=== PATIENT | male | born 1980 | race Caucasian/White ===

== ENCOUNTER 2022-07-29 07:59 | Inpatient (IN) | payer BC, SELFPAY ==
[2022-07-29 08:02] VITALS: BP 145/90; PULSE 105; RESP 16; TEMP 36.4; O2SAT 96; BMI 40.6
--- NOTE | 2022-07-29 08:08 | W.ED.PSYCHS ---
Documented by User: KENNY Melgar 07/29/22 09:08 HPI - Psych General: Chief Complaint: Psychiatric Symptoms Stated Complaint: SI Time Seen by Provider: 07/29/22 08:00 Source: patient Mode of arrival: ambulatory Limitations: no limitations History of Present Illness: Patient is a 41-year-old male who presents to ED today for evaluation and treatment of suicidal ideations. Patient states over the past 4 days he has stopped taking all of his psychiatric medications and has been drinking heavily. Patient states he normally does not abuse alcohol. No alcohol withdrawal symptoms. Denies drug use. He states he is supposed to be on psychiatric medications for treatment of bipolar, anxiety, depression. He states that he is about to lose his job and is struggling mentally . He states last night he was holding a knife contemplating suicide. Patient states he has been hospitalized before for suicidal ideations most recently approximately 6 months ago in [place], [place]. complaint: suicidal ideation and feels depressed Onset (ago): day(s) Duration: constant History of same: Yes Context: significant life stressor Associated psychiatric symptoms: depression and suicidal ideation Associated symptoms: Reports depression and suicidal ideation; Deny auditory hallucinations, visual hallucinations or homicidal ideation Treatments prior to arrival: none If self harm: admits thoughts of self harm Review of Systems Const: Denies: fever(s) or chills Card: Denies: chest pain, palpitations, lightheadedness or syncope Resp: Denies: dyspnea GI: Denies: abdominal pain, nausea, vomiting or diarrhea Skin/Breast: Denies: rash Neuro: Denies: headache(s) Psych: Reports: anxiety, depression, hopelessness and suicidal ideation; Denies: visual hallucinations, auditory hallucinations or homicidal ideation Physical Exam Const: COMMON NORMALS: no acute distress, patient oriented x3, alert and well nourished GENERAL APPEARANCE: cooperative and well kempt Resp: COMMON NORMALS: normal respiratory effort and clear to auscultation bilaterally AUSCULTATION: clear to auscultation bilaterally Cardio: COMMON NORMALS: regular rate and regular rhythm RATE: regular rate RHYTHM: regular rhythm Neuro: COMMON NORMALS: patient oriented x3 SENSORIUM/ORIENTATION: Yes alert Psych: COMMON NORMALS: mental status grossly normal, Normal thought process present, cooperative, speech normal, activity/motor behavior normal, denies hallucinations and denies homicidal ideation APPEARANCE: Yes grossly normal and Yes well kempt ATTITUDE: Yes calm ACTIVITY/MOTOR BEHAVIOR: No psychomotor agitation and Yes Avoids eye contact (attititude/behavior) SPEECH: Yes normal speech MOOD & AFFECT: Yes Flat affect present THOUGHT PROCESS: Normal thought process present THOUGHT CONTENT: Yes Normal thought content present ATTENTION/CONCENTRATION: Yes attention grossly intact and Yes concentration grossly intact MEMORY/COGNITION: Yes memory grossly intact and Yes cognition grossly intact INSIGHT: Good insight present (Psych) JUDGEMENT: Good judgement present (Psych) Course Consultations: Consultation #1: Dr. Rizzo-accepts admission to NPU Vital Signs: Vital signs: Vital Signs Temperature 97.5 F L 07/29/22 08:02 Pulse Rate 105 H 07/29/22 08:02 Respiratory Rate 16 07/29/22 08:02 Blood Pressure 145/90 07/29/22 08:02 Pulse Oximetry 96 07/29/22 08:02 Oxygen Delivery Me thod 07/29/22 08:02 MDM - Psych Medical Decision Making Patient will be an admit to NPU to Dr. Rizzo for treatment of depression and suicidal ideations. Patient is voluntary with affidavit at this time. Lab Data 07/29/22 08:30 07/29/22 08:30 Laboratory Results WBC 6.4 10^3/uL (4.0-10.0) 07/29/22 08:30 RBC 4.28 10^6/uL (4.1-5.3) 07/29/22 08:30 Hgb 12.1 g/dL (11.7-16.6) 07/29/22 08:30 Hct 36.1 % (42.0-52.0) L 07/29/22 08:30 MCV 84.3 fl (80-94) 07/29/22 08:30 MCH 28.3 pg (28.0-34.0) 07/29/22 08:30 MCHC 33.5 g/dL (30.0-36.0) 07/29/22 08:30 RDW 13.7 % (12.1-15.1) 07/29/22 08:30 Plt Count 233 10^3/cmm (130-400) 07/29/22 08:30 MPV 8.9 fL (7.4-10.4) 07/29/22 08:30 Neut % (Auto) 70.5 % 07/29/22 08:30 Lymph % (Auto) 21.6 % 07/29/22 08:30 Mifflin % (Auto) 7.1 % 07/29/22 08:30 Eos % (Auto) 0.0 % 07/29/22 08:30 Baso % (Auto) 0.0 % 07/29/22 08:30 Neut # (Auto) 4.48 10^3/uL (1.8-7.7) 07/29/22 08:30 Lymph # (Auto) 1.4 10^3/uL (0.8-4.8) 07/29/22 08:30 Mifflin # (Auto) 0.5 10^3/uL (0.2-0.9) 07/29/22 08:30 Eos # (Auto) 0.0 10^3/uL (0.0-0.8) 07/29/22 08:30 Baso # (Auto) 0.0 10^3/uL (0.0-0.1) 07/29/22 08:30 Nucleated RBC % (auto) 0 % 07/29/22 08:30 Nucleated RBCs # 0.0 /100WBC 07/29/22 08:30 Sodium 134 mmol/L (136-145) L 07/29/22 08:30 Potassium 4.7 mmol/L (3.5-5.1) 07/29/22 08:30 Chloride 92 mmol/L (98-107) L 07/29/22 08:30 Carbon Dioxide 27 mmol/L (22-29) 07/29/22 08:30 Anion Gap 19.7 (5-19) H 07/29/22 08:30 BUN 24 mg/dL (6-20) H 07/29/22 08:30 Creatinine 1.2 mg/dL (0.7-1.2) 07/29/22 08:30 GFR Calculation 66.4 mL/min (90-130) L 07/29/22 08:30 Glucose 95 mg/dL (65-115) 07/29/22 08:30 Calculated Osmolality 282 mOsm/kg (285-295) L 07/29/22 08:30 Calcium 9.6 mg/dL (8.5-10.5) 07/29/22 08:30 Total Bilirubin 0.5 mg/dL (0.15-1.2) 07/29/22 08:30 AST 33 U/L (0-40) 07/29/22 08:30 ALT 22 U/L (0-41) 07/29/22 08:30 Alkaline Phosphatase 75 U/L (40-130) 07/29/22 08:30 Total Protein 7.7 g/dL (6.6-8.7) 07/29/22 08:30 Albumin 4.9 g/dL (3.5-5.2) 07/29/22 08:30 Globulin 2.8 g/dL (1.3-4.6) 07/29/22 08:30 Salicylates < 0.3 mg/dL (3-10) L 07/29/22 08:30 Urine Opiates Screen Positive ng/mL (Negative) H 07/29/22 08:23 Acetaminophen < 5.0 ug/mL (10-30) L 07/29/22 08:30 Ur Barbiturates Screen Negative ng/mL (Negative) 07/29/22 08:23 Ur Phencyclidine Scrn Negative ng/mL (Negative) 07/29/22 08:23 Ur Amphetamines Screen Negative ng/mL (Negative) 07/29/22 08:23 U Benzodiazepines Scrn Positive ng/mL (Negative) H 07/29/22 08:23 Urine Cocaine Screen Negative ng/mL (Negative) 07/29/22 08:23 U Marijuana (THC) Screen Positive ng/mL (Negative) H 07/29/22 08:23 Ethyl Alcohol < 10 mg/dL (0-10) 07/29/22 08:30 Discharge Plan Discharge Patient Disposition: Admitted As Inpatient Clinical Impression: Depression, Suicidal ideation Condition: Stable Coding Level of Care Code ED Cctv Technician for Chg Fwd Documented by User: Carlos Livingston DO 07/29/22 09:11 HPI - Psych General: Chief Complaint: Psychiatric Symptoms Stated Complaint: SI Time Seen by Provider: 07/29/22 08:00 Course Vital Signs: Vital signs: Vital Signs Temperature 97.5 F L 07/29/22 08:02 Pulse Rate 105 H 07/29/22 08:02 Respiratory Rate 16 07/29/22 08:02 Blood Pressure 145/90 07/29/22 08:02 Pulse Oximetry 96 07/29/22 08:02 Oxygen Delivery Me thod 07/29/22 08:02 MDM - Psych Medical Decision Making Patient will be an admit to NPU to Dr. Rizzo for treatment of depression and suicidal ideations. Patient is voluntary with affidavit at this time. Chart reviewed and patient discussed with midlevel. Agree with assessment and plan. Medical Records I reviewed the patient's medical records. Lab Data I reviewed the patient's lab results. 07/29/22 08:30 07/29/22 08:30 Laboratory Results WBC 6.4 10^3/uL (4.0-10.0) 07/29/22 08:30 RBC 4.28 10^6/uL (4.1-5.3) 07/29/22 08:30 Hgb 12.1 g/dL (11.7-16.6) 07/29/22 08:30 Hct 36.1 % (42.0-52.0) L 07/29/22 08:30 MCV 84.3 fl (80-94) 07/29/22 08:30 MCH 28.3 pg (28.0-34.0) 07/29/22 08:30 MCHC 33.5 g/dL (30.0-36.0) 07/29/22 08:30 RDW 13.7 % (12.1-15.1) 07/29/22 08:30 Plt Count 233 10^3/cmm (130-400) 07/29/22 08:30 MPV 8.9 fL (7.4-10.4) 07/29/22 08:30 Neut % (Auto) 70.5 % 07/29/22 08:30 Lymph % (Auto) 21.6 % 07/29/22 08:30 Mifflin % (Auto) 7.1 % 07/29/22 08:30 Eos % (Auto) 0.0 % 07/29/22 08:30 Baso % (Auto) 0.0 % 07/29/22 08:30 Neut # (Auto) 4.48 10^3/uL (1.8-7.7) 07/29/22 08:30 Lymph # (Auto) 1.4 10^3/uL (0.8-4.8) 07/29/22 08:30 Mifflin # (Auto) 0.5 10^3/uL (0.2-0.9) 07/29/22 08:30 Eos # (Auto) 0.0 10^3/uL (0.0-0.8) 07/29/22 08:30 Baso # (Auto) 0.0 10^3/uL (0.0-0.1) 07/29/22 08:30 Nucleated RBC % (auto) 0 % 07/29/22 08:30 Nucleated RBCs # 0.0 /100WBC 07/29/22 08:30 Sodium 134 mmol/L (136-145) L 07/29/22 08:30 Potassium 4.7 mmol/L (3.5-5.1) 07/29/22 08:30 Chloride 92 mmol/L (98-107) L 07/29/22 08:30 Carbon Dioxide 27 mmol/L (22-29) 07/29/22 08:30 Anion Gap 19.7 (5-19) H 07/29/22 08:30 BUN 24 mg/dL (6-20) H 07/29/22 08:30 Creatinine 1.2 mg/dL (0.7-1.2) 07/29/22 08:30 GFR Calculation 66.4 mL/min (90-130) L 07/29/22 08:30 Glucose 95 mg/dL (65-115) 07/29/22 08:30 Calculated Osmolality 282 mOsm/kg (285-295) L 07/29/22 08:30 Calcium 9.6 mg/dL (8.5-10.5) 07/29/22 08:30 Total Bilirubin 0.5 mg/dL (0.15-1.2) 07/29/22 08:30 AST 33 U/L (0-40) 07/29/22 08:30 ALT 22 U/L (0-41) 07/29/22 08:30 Alkaline Phosphatase 75 U/L (40-130) 07/29/22 08:30 Total Protein 7.7 g/dL (6.6-8.7) 07/29/22 08:30 Albumin 4.9 g/dL (3.5-5.2) 07/29/22 08:30 Globulin 2.8 g/dL (1.3-4.6) 07/29/22 08:30 Salicylates < 0.3 mg/dL (3-10) L 07/29/22 08:30 Urine Opiates Screen Positive ng/mL (Negative) H 07/29/22 08:23 Acetaminophen < 5.0 ug/mL (10-30) L 07/29/22 08:30 Ur Barbiturates Screen Negative ng/mL (Negative) 07/29/22 08:23 Ur Phencyclidine Scrn Negative ng/mL (Negative) 07/29/22 08:23 Ur Amphetamines Screen Negative ng/mL (Negative) 07/29/22 08:23 U Benzodiazepines Scrn Positive ng/mL (Negative) H 07/29/22 08:23 Urine Cocaine Screen Negative ng/mL (Negative) 07/29/22 08:23 U Marijuana (THC) Screen Positive ng/mL (Negative) H 07/29/22 08:23 Ethyl Alcohol < 10 mg/dL (0-10) 07/29/22 08:30 Discharge Plan Discharge Patient Disposition: Admitted As Inpatient Clinical Impression: Depression, Suicidal ideation Condition: Stable Coding Level of Care Code ED Cctv Technician for Uriel Price
--- NOTE | 2022-07-29 08:10 | PC.NURSE ---
pt reports he feels suicidal. states he was sitting there yesterday with a knife. pt reports intention of acting on thoughts. states he has nothing to live for anymore. has cut himself in the past. denies HI. has been drinking for the last 4 days, has not taken his psych meds and is about to lose his job. feels like he is hitting a brick wall. hx hospitalization 6 months ago for mental health. pt appears depressed, avoiding eye contact. calm and cooperative at this time.
[2022-07-29 08:35] LABS: Hematocrit 36.1 % (42.0-52.0); Hemoglobin 12.1 g/dL (11.7-16.6); Lymphocytes # 1.4 10^3/uL (0.8-4.8); Lymphocytes % 21.6 %; Mean Corpuscular HGB Conc 33.5 g/dL (30.0-36.0); Mean Corpuscular Hemoglobin 28.3 pg (28.0-34.0); Mean Corpuscular Volume 84.3 fl (80-94); Mean Platelet Volume 8.9 fL (7.4-10.4); Monocytes # 0.5 10^3/uL (0.2-0.9); Monocytes % 7.1 %; Neutrophils # 4.48 10^3/uL (1.8-7.7); Neutrophils % 70.5 %; Nucleated Red Blood Cells % 0 %; Platelet Count 233 10^3/cmm (130-400); Red Blood Count 4.28 10^6/uL (4.1-5.3); Red Cell Distribution Width 13.7 % (12.1-15.1); White Blood Count 6.4 10^3/uL (4.0-10.0)
[2022-07-29 08:57] LABS: Alanine Aminotransferase 22 U/L (0-41); Albumin Level 4.9 g/dL (3.5-5.2); Alkaline Phosphatase 75 U/L (40-130); Anion Gap 19.7 (5-19); Aspartate Amino Transferase 33 U/L (0-40); Blood Urea Nitrogen 24 mg/dL (6-20); Calcium 9.6 mg/dL (8.5-10.5); Carbon Dioxide 27 mmol/L (22-29); Chloride 92 mmol/L (98-107); Globulin 2.8 g/dL (1.3-4.6); Glomerular Filtration Rate 66.4 mL/min (90-130); Glucose 95 mg/dL (65-115); Osmolality Calculated 282 mOsm/kg (285-295); Potassium 4.7 mmol/L (3.5-5.1); Sodium 134 mmol/L (136-145); Total Bilirubin 0.5 mg/dL (0.15-1.2); Total Protein 7.7 g/dL (6.6-8.7)
[2022-07-29 08:58] LABS: Amphetamines Screen Urine Negative (Negative); Barbiturates Screen Urine Negative (Negative); Benzodiazepines Screen Urine Positive (Negative); Cocaine Screen Urine Negative (Negative); Opiate Screen Urine Positive (Negative); PCP Screen Urine Negative (Negative); THC Screen Urine Positive (Negative)
[2022-07-29 08:59] LABS: Acetaminophen < 5.0 ug/mL (10-30); Alcohol Level < 10 mg/dL (0-10); Salicylate < 0.3 mg/dL (3-10)
--- NOTE | 2022-07-29 10:11 | PC.NURSE ---
report called to MICHELLE Murray in NPU
[2022-07-29 10:42] VITALS: BP 149/100; PULSE 112; RESP 18; TEMP 36.4; O2SAT 96
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
[2022-07-29] MEDS: nicotine 4 mg lozenge MUCOUS MEM (11:54)
[2022-07-29] MEDS: LORazepam 2 mg Tablet PO (12:36)
[2022-07-29] MEDS: losartan 50 mg Tablet 100 MG PO (13:13)
[2022-07-29] MEDS: levothyroxine 25 mcg Tablet PO (13:15)
[2022-07-29] MEDS: metoprolol succinate ER (24 HR) 50 mg Tablet PO (13:16)
[2022-07-29] MEDS: pantoprazole DR 40 mg Tablet PO (13:18)
[2022-07-29] MEDS: atorvastatin 40 mg Tablet 20 MG PO (13:18)
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
[2022-07-29 14:00] VITALS: BP 124/77; PULSE 110; RESP 18; TEMP 36.6; O2SAT 97
[2022-07-29] MEDS: divalproex DR 500 mg Tablet 1000 MG PO (18:05)
[2022-07-29] MEDS: naproxen 500 mg Tablet PO (18:06)
[2022-07-29] MEDS: lurasidone 80 mg Tablet 40 MG PO (18:06)
[2022-07-29] MEDS: chlorPROMazine 50 mg Tablet 200 MG PO (18:07)
[2022-07-29 20:05] VITALS: BP 105/62; PULSE 109; RESP 22; TEMP 36.4; O2SAT 94
--- NOTE | 2022-07-29 22:40 | PC.NURSE ---
Patient complaining of back pain with at rating of 8/10. Also reports muscle spasms. Requesting hydrocodone and flexeril. Given as ordered. Patient stated he was anxious with a rating of 7/10. Vistaril given. Encouraged patient to rest in bed after administration of medications and to practice relaxation techniques. Voiced understanding.
--- NOTE | 2022-07-30 05:45 | PC.NURSE ---
pt has slept through the shift, safety rounds conducted, no signs of distress noted.
[2022-07-30 06:00] VITALS: BP 103/66; PULSE 93; RESP 20; TEMP 36.6; O2SAT 97
[2022-07-30] MEDS: divalproex DR 500 mg Tablet 1000 MG PO ×2 (08:55→17:59)
[2022-07-30] MEDS: atorvastatin 40 mg Tablet 20 MG PO (08:55)
[2022-07-30] MEDS: chlorPROMazine 50 mg Tablet 200 MG PO ×2 (08:55→17:58)
[2022-07-30] MEDS: folic acid 1 mg Tablet PO (08:56)
[2022-07-30] MEDS: levothyroxine 25 mcg Tablet PO (08:56)
[2022-07-30] MEDS: naproxen 500 mg Tablet PO ×2 (08:57→17:59)
[2022-07-30] MEDS: multivitamin therapeutic Tablet 1 TAB PO (08:57)
[2022-07-30 08:58] VITALS: BP 133/84
[2022-07-30] MEDS: losartan 50 mg Tablet 100 MG PO (08:58)
[2022-07-30] MEDS: thiamine 100 mg Tablet PO (08:58)
[2022-07-30] MEDS: pantoprazole DR 40 mg Tablet PO (08:58)
[2022-07-30] MEDS: metoprolol succinate ER (24 HR) 50 mg Tablet PO (08:59)
[2022-07-30] MEDS: cyclobenzaprine 10 mg Tablet PO ×2 (09:06→18:12)
[2022-07-30] MEDS: LORazepam 2 mg Tablet PO (12:42)
[2022-07-30 14:00] VITALS: BP 104/71; PULSE 105; RESP 18; TEMP 36.4; O2SAT 94
[2022-07-30] MEDS: nicotine 4 mg lozenge MUCOUS MEM (16:20)
[2022-07-30] MEDS: lurasidone 80 mg Tablet 40 MG PO (17:59)
[2022-07-30] MEDS: acetaminophen 325 mg Tablet 650 MG PO (18:12)
--- NOTE | 2022-07-30 18:20 | P.NPUPN_ITS ---
Subjective NPU Subjective: Patient is a 41-year-old white male with alcohol dependence and bipolar 1 mixed who was admitted with significant alcohol consumption with a history of alcohol withdrawals. Patient had reported nonstop alcohol use for several months. He had expressed desire to return to home so he go back to work. He continued to show evidence of alcohol withdrawal requiring the use of Ativan. Patient appeared to be on an excessive amount of medication and had admitted that he was often noncompliant with taking all of these medications due to excess sedation. Patient was informed that adjustments would likely be made as many of these medications were excessively sedating and were difficult to tolerate. Patient had stated that he had been taking these medications and was able to perform without feeling excessively sedated while at work. Mental Status Exam MSE Comments: He had a brandon complexion was lying down and appeared in severe distress. He was alert and oriented to person and place and time. He had been showing evidence of a significant tremor. He appeared unkempt with intermittent eye contact. His speech was slow and steady with normal volume. There was no evidence of any abnormal tics or any involuntary motor movements other than the tremor. His attention span appeared variable. His mood was described as not so good. His affect was restricted in range and mood-congruent. His thought content showed no evidence of homicidal or suicidal ideation today. He did not appear to be responding internal stimuli. There was no clear evidence of delusional thinking. His insight was impaired his judgment is poor his impulse control appeared poor Vitals/I&O/Wt Last Vital Signs Temp 97.6 F 07/30/22 14:00 Pulse 105 H 07/30/22 14:00 Resp 18 07/30/22 14:00 BP 104/71 07/30/22 14:00 Pulse Ox 94 07/30/22 14:00 O2 Del Method 07/29/22 17:11 Weight last 48 hrs Weight 136.078 kg Data NPU 07/29/22 08:30 07/29/22 08:30 A&P Assessment and plan (1) Bipolar disorder, unspecified: (2) Suicidal ideation: (3) Alcohol dependence: Plan Patient is a 41-year-old white male with a history of alcohol dependence along with unspecified bipolar disorder with a history of multiple inpatient admissions currently endorsing depressed mood and suicidal ideation. 1. Engage patient in individual ,milieu, and group therapy 2. We will attempt to gather collateral information from previous providers 3.TO-15 minute checks on the unit 4. Recommend sober living treatment at the highest level of care to which the patient is willing to commit. 5. CIWA protocol 6. Continue Thorazine, Latuda Depakote while holding Prozac, Gabapentin and BuS par at this time. Involuntary Hold Information 96 Hour Hold: 96 Hour Involuntary Admission: No Attestations NPU Medical Necessity Statement*: Inpatient hospitalization is medically necessary and the clinically appropriate decision at this time. We will make changes in medications as indicated with the patient likely to be in the hospital for a length of stay of 5 to 7 days. Coding Level of Care Code Acute Code for [facility] Fwd Diagnoses Bipolar disorder, unspecified F31.9 Suicidal ideation R45.851 Alcohol dependence F10.20
[2022-07-30 21:28] VITALS: RESP 18
[2022-07-31 06:00] VITALS: RESP 18
[2022-07-31] MEDS: chlorPROMazine 50 mg Tablet 200 MG PO ×2 (08:55→17:21)
[2022-07-31] MEDS: cyclobenzaprine 10 mg Tablet PO ×3 (08:55→22:26)
[2022-07-31] MEDS: nicotine 4 mg lozenge MUCOUS MEM (08:56)
[2022-07-31] MEDS: gabapentin 300 mg Capsule 600 MG PO ×3 (08:56→20:55)
[2022-07-31] MEDS: levothyroxine 25 mcg Tablet PO (08:56)
[2022-07-31] MEDS: metoprolol succinate ER (24 HR) 50 mg Tablet PO (08:56)
[2022-07-31] MEDS: atorvastatin 40 mg Tablet 20 MG PO (08:56)
[2022-07-31] MEDS: thiamine 100 mg Tablet PO (08:56)
[2022-07-31] MEDS: divalproex DR 500 mg Tablet 1000 MG PO ×2 (08:56→17:21)
[2022-07-31 08:57] VITALS: BP 104/71
[2022-07-31] MEDS: pantoprazole DR 40 mg Tablet PO (08:57)
[2022-07-31] MEDS: naproxen 500 mg Tablet PO ×2 (08:57→17:21)
[2022-07-31] MEDS: folic acid 1 mg Tablet PO (08:57)
[2022-07-31] MEDS: losartan 50 mg Tablet 100 MG PO (08:57)
[2022-07-31] MEDS: multivitamin therapeutic Tablet 1 TAB PO (08:57)
[2022-07-31] MEDS: OLANZapine 5 mg ODT PO ×3 (09:01→18:25)
[2022-07-31] MEDS: nicotine 2 mg Gum BUCCAL ×4 (10:21→21:20)
[2022-07-31] MEDS: HYDROcodone-acetaminophen 7.5-325 mg Tablet 1 TAB PO (12:27)
[2022-07-31 14:00] VITALS: BP 80/58
[2022-07-31 15:24] LABS: Glucose Point of Care 145 mg/dL (70-110)
[2022-07-31] MEDS: lurasidone 80 mg Tablet 40 MG PO (17:20)
--- NOTE | 2022-07-31 18:53 | W.PM.NPUPNS ---
Subjective NPU Subjective: Patient is a 41-year-old white male with alcohol dependence and bipolar 1 mixed who was admitted with significant alcohol consumption with a history of alcohol withdrawals. Patient had endorsed having continued problems with managing his mood. He continued to make attempts to request being placed on benzodiazepines with the promised to stop the use of alcohol. Patient had reported no desire to consider inpatient treatment for alcoholism despite significant consequences from his continued use. He had reported that he had once taken Antabuse and its use had diverted him from the use of alcohol despite its adverse negative consequences from using while taking this medication. He had continued to report that he would take all of his medications at 1 time to help him manage anxiety despite them not being prescribed in such a manner. He had reported desire to return to work but still appeared to have limited ability to manage his mood with great concerns about the patient simply taking medications without any clear evidence of them being effective. Mental Status Exam MSE Comments: He had a brandon complexion was lying down and appeared in moderate distress. He was alert and oriented to person and place and time. He had been showing evidence of a significant tremor. He appeared unkempt with intermittent eye contact. His speech was normal in rate and steady with normal volume. There was no evidence of any abnormal tics or any involuntary motor movements other than a mild tremor. His attention span appeared variable. His mood was described as not so good. His affect was restricted in range and mood-congruent. His thought content showed no evidence of homicidal or suicidal ideation today. He did not appear to be responding internal stimuli. There was no clear evidence of delusional thinking. His insight was impaired. His judgment is poor. His impulse control appeared poor. Vitals/I&O/Wt Last Vital Signs Temp 97.6 F 07/30/22 14:00 Pulse 105 H 07/30/22 14:00 Resp 18 07/31/22 06:00 BP 80/58 07/31/22 14:00 Pulse Ox 94 07/30/22 14:00 O2 Del Method 07/29/22 17:11 Data NPU 07/29/22 08:30 07/29/22 08:30 A&P Assessment and plan (1) Bipolar disorder, unspecified: (2) Suicidal ideation: (3) Alcohol dependence: Plan Patient is a 41-year-old white male with a history of alcohol dependence along with unspecified bipolar disorder with a history of multiple inpatient admissions currently endorsing depressed mood and suicidal ideation. 1. Engage patient in individual ,milieu, and group therapy 2. We will attempt to gather collateral information from previous providers 3.TO-15 minute checks on the unit 4. Recommend sober living treatment at the highest level of care to which the patient is willing to commit. 5. [facility] protocol 6. Patient informed of new physician present tomorrow and he could discuss any alternative treatment including Antabuse. This health science writer feels that continuing this mass use of multiple medications are detrimental given the fact that he simply takes all of these medications simultaneously to manage his stress. He has been informed that the likelihood of these medications improving his mood and stopping his desire to drink are slim. It may be better to simplify his medications as this health science writer has been doing at this time. Involuntary Hold Information 96 Hour Hold: 96 Hour Involuntary Admission: No Attestations NPU Medical Necessity Statement*: Inpatient hospitalization is medically necessary and the clinically appropriate decision at this time. We will make changes in medications as indicated with the patient likely to be in the hospital for a length of stay of 5 to 7 days. Coding Level of Care Code Acute Code for g Fwd Diagnoses Bipolar disorder, unspecified F31.9 Suicidal ideation R45.851 Alcohol dependence F10.20
[2022-07-31] MEDS: trazodone 50 mg Tablet PO ×2 (20:55→22:07)
--- NOTE | 2022-07-31 20:55 | PC.NURSE ---
Patient c/o pain. Requesting prn Hydrocodone. Informed patient it was not time for that medication. Offered Ibuprofen. Patient took it reluctantly. Rated pain at a 8/10.
[2022-07-31] MEDS: ibuprofen 600 mg Tablet PO (20:58)
[2022-07-31 21:28] VITALS: BP 100/67; PULSE 102; RESP 18; TEMP 36.4; O2SAT 92
--- NOTE | 2022-07-31 21:40 | PC.NURSE ---
Patient very agitated because he could not have his pain medication or his flexeril at this time. Explained that when his medication was last taken and when it would be due again. Patient stated I don't understand why I can't take my medication when I want. I take them at home when I want. Explained again when medications could be given and how often. Patient continued to be upset. Attempted to redirect but patient would not calm down. Patient went to dayroom and pounded his fist on wall. This field underwriter went to speak to patient about his inappropriate behavior. Patient stated he is upset that his pain is out of control and nobody seems to care. Suggested patient speak with MD in morning. Offered prn haldol for agitation. Patient took medication. Currently sitting in dayroom with peers.
[2022-07-31] MEDS: haloperidol 5 mg Tablet PO (21:41)
--- NOTE | 2022-07-31 22:05 | PC.NURSE ---
Patient requesting medication for sleep. Trazodone given as ordered. Patient still complaining of pain. Suggested patient return to room and try and relax.
--- NOTE | 2022-07-31 22:25 | PC.NURSE ---
Patient complaining of muscle spasms in his back PRN Flexeril given as ordered. Patient continues to be upset regarding his pain and not being able to have his pain medications when he wants. Encouraged patient to speak to MD in morning about his concerns. Voiced understanding.
--- NOTE | 2022-08-01 04:45 | PC.NURSE ---
Patient has rested comfortably during night. No signs of distress noted.
[2022-08-01] MEDS: HYDROcodone-acetaminophen 7.5-325 mg Tablet 1 TAB PO ×2 (04:54→21:40)
--- NOTE | 2022-08-01 04:55 | PC.NURSE ---
Patient c/o back pain with a rating of 8/10 and states it is aching. PRN hydrocodone given as ordered. Patient requesting to take shower to help relax. Given shower supplies.
[2022-08-01] MEDS: cyclobenzaprine 10 mg Tablet PO ×2 (05:30→14:02)
[2022-08-01] MEDS: nicotine 2 mg Gum BUCCAL ×3 (05:55→18:35)
[2022-08-01 06:00] VITALS: BP 101/51; PULSE 116; RESP 18; TEMP 36.5; O2SAT 94
[2022-08-01] MEDS: OLANZapine 5 mg ODT PO ×2 (07:43→15:22)
[2022-08-01] MEDS: naproxen 500 mg Tablet PO ×2 (08:21→17:43)
[2022-08-01] MEDS: gabapentin 300 mg Capsule 600 MG PO ×3 (08:21→21:40)
[2022-08-01] MEDS: chlorPROMazine 50 mg Tablet 200 MG PO ×2 (08:21→17:43)
[2022-08-01] MEDS: divalproex DR 500 mg Tablet 1000 MG PO ×2 (08:21→17:43)
[2022-08-01 08:22] VITALS: BP 101/50
[2022-08-01] MEDS: losartan 50 mg Tablet 100 MG PO (08:22)
[2022-08-01] MEDS: metoprolol succinate ER (24 HR) 50 mg Tablet PO (08:22)
[2022-08-01] MEDS: levothyroxine 25 mcg Tablet PO (08:22)
[2022-08-01] MEDS: multivitamin therapeutic Tablet 1 TAB PO (08:22)
[2022-08-01] MEDS: pantoprazole DR 40 mg Tablet PO (08:22)
[2022-08-01] MEDS: thiamine 100 mg Tablet PO (08:22)
[2022-08-01] MEDS: folic acid 1 mg Tablet PO (08:22)
[2022-08-01] MEDS: atorvastatin 40 mg Tablet 20 MG PO (08:22)
--- NOTE | 2022-08-01 12:47 | P.NPUPN_ITS ---
Subjective NPU Subjective: Patient presented today reporting that he feels like he is through the withdrawal and feeling better. He reports that much of this was alcohol driven. That he had drank too much and that led to his parasuicidal behavior. He reports that now he feels much better and feels he will be ready to discharge soon. He wants to get back to work. He endorsed that he felt he could come down multiple other medications and positive the idea of putting him on something like Xanax as the one medication and felt he should be fine with that. We discussed the fact that benzodiazepines are essentially contraindicated in long-term treatment of anxiety with someone with alcohol use disorder but he con tinued to lobby for a benzodiazepine. He also discussed hoping he can be discharged tomorrow. Mental Status Exam MSE Comments: This is an obese versus morbidly obese white male in hospital scrubs with adequate grooming and eye contact. No abnormal movements except for psychomotor retardation. Cooperative with exam in mild distress. Speech was decreased rate and volume with quivering with speech. Mood described as better, affect subdued. Thought process organized. Thought content: Patient denies suicidal or homicidal ideations, there were no delusions reported or noted, he denied any auditory or visual hallucinations. Attention and concentration were intact and memory appeared reliable but none were formally tested. He is alert and oriented x3. Insight and judgment are limited impulse control is limited. Vitals/I&O/Wt Last Vital Signs Temp 97.7 F 08/01/22 06:00 Pulse 116 H 08/01/22 06:00 Resp 18 08/01/22 06:00 BP 101/50 08/01/22 08:22 Pulse Ox 94 08/01/22 06:00 O2 Del Method 08/01/22 06:00 Data NPU 07/29/22 08:30 07/29/22 08:30 A&P Assessment and plan (1) Bipolar disorder, unspecified: (2) Suicidal ideation: (3) Alcohol dependence: Plan Patient is a 41-year-old white male with a history of alcohol dependence along with unspecified bipolar disorder with a history of multiple inpatient admissions currently endorsing depressed mood and suicidal ideation. 1. Engage patient in individual ,milieu, and group therapy 2. We will attempt to gather collateral information from previous providers 3.TO-15 minute checks on the unit 4. Recommend sober living treatment at the highest level of care to which the patient is willing to commit. 5. [facility] protocol 6. This commercial lines underwriter feels that continuing this mass use of multiple medications are detrimental given the fact that he simply takes all of these medications simultaneously to manage his stress. He has been informed that the likelihood of these medications improving his mood and stopping his desire to drink are slim. It may be better to simplify his medications as this commercial lines underwriter has been doing at this time. Involuntary Hold Information 96 Hour Hold: 96 Hour Involuntary Admission: No Attestations NPU Medical Necessity Statement*: Inpatient hospitalization is medically necessary and the clinically appropriate decision at this time. We will make changes in medications as indicated with the patient likely to be in the hospital for a length of stay of 3 to 5 days. The patient inquired about discharge possibly tomorrow we will evaluate for safety at that time. Coding Level of Care Code Acute Code for g Fwd Diagnoses Bipolar disorder, unspecified F31.9 Suicidal ideation R45.851 Alcohol dependence F10.20
[2022-08-01 14:00] VITALS: BP 98/64; PULSE 97; RESP 18; TEMP 37.1; O2SAT 91
[2022-08-01] MEDS: ibuprofen 600 mg Tablet PO (14:02)
[2022-08-01] MEDS: lurasidone 20 mg Tablet 60 MG PO (17:42)
[2022-08-01 19:51] VITALS: BP 100/68; PULSE 88; RESP 20; TEMP 36.6; O2SAT 94
[2022-08-01] MEDS: hyDROXYzine 25 mg Capsule 50 MG PO (21:40)
[2022-08-01] MEDS: trazodone 50 mg Tablet PO (21:40)
[2022-08-01] MEDS: nicotine 4 mg lozenge MUCOUS MEM (21:40)
--- NOTE | 2022-08-01 21:40 | PC.NURSE ---
Patient c/o back pain with a rating of 8/10. Also stated he is having muscle spasms. Requested prn hydrocodone and flexeril. Administered to patient as ordered. Patient also reported anxiety with a rating of 6/10. Vistaril given as ordered. Encouraged patient to use relaxation techniques to promote rest and comfort. Voiced understanding.
--- NOTE | 2022-08-01 22:22 | PC.NURSE ---
Patient resting quietly in bed with eyes closed at this time. No signs of distress present. Continues with 15 minute safety checks per staff.
[2022-08-02] MEDS: ondansetron 4 MG Tablet PO (02:13)
[2022-08-02] MEDS: LORazepam 2 mg Tablet PO (02:13)
[2022-08-02] MEDS: acetaminophen 325 mg Tablet 650 MG PO (02:14)
[2022-08-02] MEDS: nicotine 2 mg Gum BUCCAL ×3 (02:23→09:42)
[2022-08-02 06:00] VITALS: BP 109/72; PULSE 93; RESP 20; TEMP 36.5; O2SAT 94
[2022-08-02] MEDS: naproxen 500 mg Tablet PO (08:50)
[2022-08-02] MEDS: chlorPROMazine 50 mg Tablet 200 MG PO (08:50)
[2022-08-02] MEDS: thiamine 100 mg Tablet PO (08:51)
[2022-08-02] MEDS: OLANZapine 5 mg ODT PO (08:51)
[2022-08-02] MEDS: gabapentin 300 mg Capsule 600 MG PO ×2 (08:51→15:37)
[2022-08-02] MEDS: atorvastatin 40 mg Tablet 20 MG PO (08:51)
[2022-08-02] MEDS: pantoprazole DR 40 mg Tablet PO (08:51)
[2022-08-02] MEDS: levothyroxine 25 mcg Tablet PO (08:51)
[2022-08-02] MEDS: losartan 50 mg Tablet 100 MG PO (08:51)
[2022-08-02] MEDS: multivitamin therapeutic Tablet 1 TAB PO (08:51)
[2022-08-02] MEDS: divalproex DR 500 mg Tablet 1000 MG PO (08:51)
[2022-08-02] MEDS: metoprolol succinate ER (24 HR) 50 mg Tablet PO (08:51)
[2022-08-02] MEDS: folic acid 1 mg Tablet PO (08:51)
[2022-08-02] MEDS: cyclobenzaprine 10 mg Tablet PO (08:52)
[2022-08-02 14:00] VITALS: BP 129/82; PULSE 95; RESP 18; TEMP 37.1; O2SAT 92
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
[2022-08-02 15:00] VITALS: BP 129/82; PULSE 95; RESP 18; TEMP 37.1; O2SAT 92
== END 2022-08-02 16:15 | disposition home or self-care (01) | DRG 885 ==
LOC: ER 09:10 → NP 09:42
PROVIDERS: Physician Assistant; Admitting Provider Psychiatry & Neurology Psychiatry; Emergency Provider Family Medicine; Visit Provider Psychiatry & Neurology Psychiatry
DX: F31.60 Bipolar disorder, current episode mixed, unspecified (principal); R45.851 Suicidal ideations; F10.239 Alcohol dependence with withdrawal, unspecified; Z68.41 Body mass index [BMI] 40.0-44.9, adult; F10.229 Alcohol dependence with intoxication, unspecified; Z81.8 Family history of other mental and behavioral disorders; E66.9 Obesity, unspecified
CPT/HCPCS: 36415; 36416; 80053; 80306; 80307; 82962; 85025; 94664; 97150; 97165; 99238; 99285; Q0161; Q0162

== ENCOUNTER 2022-08-03 20:55 | Emergency (ER) | payer BC, MEDICAID, SELFPAY ==
[2022-08-03 20:56] VITALS: BP 100/73; PULSE 109; RESP 16; TEMP 36.7; O2SAT 90; BMI 40.6
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
[2022-08-03 21:22] LABS: Hematocrit 30.3 % (42.0-52.0); Hemoglobin 9.9 g/dL (11.7-16.6); Lymphocytes # 2.1 10^3/uL (0.8-4.8); Lymphocytes % 35.6 %; Mean Corpuscular HGB Conc 32.7 g/dL (30.0-36.0); Mean Corpuscular Hemoglobin 28.7 pg (28.0-34.0); Mean Corpuscular Volume 87.8 fl (80-94); Mean Platelet Volume 9.6 fL (7.4-10.4); Monocytes # 0.6 10^3/uL (0.2-0.9); Monocytes % 10.8 %; Neutrophils # 3.03 10^3/uL (1.8-7.7); Neutrophils % 52.1 %; Nucleated Red Blood Cells % 0 %; Platelet Count 182 10^3/cmm (130-400); Red Blood Count 3.45 10^6/uL (4.1-5.3); Red Cell Distribution Width 14.2 % (12.1-15.1); White Blood Count 5.8 10^3/uL (4.0-10.0)
[2022-08-03 21:33] LABS: Alanine Aminotransferase 22 U/L (0-41); Albumin Level 4.3 g/dL (3.5-5.2); Alcohol Level 183 mg/dL (0-10); Alkaline Phosphatase 60 U/L (40-130); Aspartate Amino Transferase 40 U/L (0-40); Blood Urea Nitrogen 40 mg/dL (6-20); Calcium 8.7 mg/dL (8.5-10.5); Carbon Dioxide 22 mmol/L (22-29); Chloride 97 mmol/L (98-107); Globulin 2.3 g/dL (1.3-4.6); Glomerular Filtration Rate 34.8 mL/min (90-130); Glucose 85 mg/dL (65-115); Osmolality Calculated 289 mOsm/kg (285-295); Sodium 135 mmol/L (136-145); Total Bilirubin 0.2 mg/dL (0.15-1.2); Total Protein 6.6 g/dL (6.6-8.7)
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
[2022-08-03 21:56] LABS: Creatinine Clr Calc Pharmacy 65.4573
[2022-08-03 21:58] LABS: Add Urine Microscopic? NO; Charge for UA Resulting for Rev
[2022-08-03 22:16] LABS: Amphetamines Screen Urine Negative (Negative); Barbiturates Screen Urine Negative (Negative); Benzodiazepines Screen Urine Positive (Negative); Cocaine Screen Urine Negative (Negative); Opiate Screen Urine Positive (Negative); PCP Screen Urine Negative (Negative); THC Screen Urine Negative (Negative)
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
[2022-08-03 22:20] LABS: Bilirubin Urine Neg (Negative); Blood Urine Neg (Negative); Glucose Urine UA Norm (Normal); Ketones Urine Negative (Negative); Leukocyte Esterase Urine Negative (Negative); Nitrate Urine Negative (Negative); Protein Urine Neg (Negative); Urine Appearance Clear (CLEAR); Urine Color Colorless (Yellow); Urobilinogen Urine Neg (Negative); pH Urine 5 (5-7)
[2022-08-03 23:36] VITALS: BP 136/85; PULSE 112; RESP 16; O2SAT 98
[2022-08-03 23:39] VITALS: BP 136/85; PULSE 112; RESP 16; O2SAT 98
--- NOTE | 2022-08-13 14:04 | DCPLANNER ---
research manager called patient due to no primary care physician - phone number [phone] is no longer in service
== END 2022-08-03 23:41 | disposition home or self-care (01) ==
PROVIDERS: Emergency Provider Emergency Medicine
DX: S06.0XAA Concussion with loss of consciousness status unknown, initial encounter (principal); F10.129 Alcohol abuse with intoxication, unspecified; S01.111A Laceration without foreign body of right eyelid and periocular area, initial encounter; S01.81XA Laceration without foreign body of other part of head, initial encounter; V89.2XXA Person injured in unspecified motor-vehicle accident, traffic, initial encounter; Y90.6 Blood alcohol level of 120-199 mg/100 ml
CPT/HCPCS: 12013; 70450; 72125; 73130; 80053; 80306; 80307; 81003; 85025; 99285

== ENCOUNTER 2022-08-11 07:58 | Inpatient (IN) | payer BC, SELFPAY ==
[2022-08-11 08:07] VITALS: BP 183/82; PULSE 94; RESP 16; O2SAT 94; BMI 40.6
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
[2022-08-11 08:32] LABS: Eosinophils % 0.2 %; Hemoglobin 10.5 g/dL (11.7-16.6); Lymphocytes # 1.5 10^3/uL (0.8-4.8); Lymphocytes % 33.9 %; Mean Corpuscular HGB Conc 32.8 g/dL (30.0-36.0); Mean Corpuscular Hemoglobin 29.2 pg (28.0-34.0); Mean Corpuscular Volume 89.1 fl (80-94); Mean Platelet Volume 8.8 fL (7.4-10.4); Monocytes # 0.4 10^3/uL (0.2-0.9); Monocytes % 8.5 %; Neutrophils % 53.2 %; Nucleated Red Blood Cells % 0 %; Platelet Count 171 10^3/cmm (130-400); Red Blood Count 3.59 10^6/uL (4.1-5.3); Red Cell Distribution Width 14.2 % (12.1-15.1); White Blood Count 4.3 10^3/uL (4.0-10.0)
[2022-08-11 08:54] LABS: Alanine Aminotransferase 30 U/L (0-41); Albumin Level 4.4 g/dL (3.5-5.2); Alkaline Phosphatase 63 U/L (40-130); Anion Gap 14.9 (5-19); Aspartate Amino Transferase 20 U/L (0-40); Blood Urea Nitrogen 16 mg/dL (6-20); Calcium 8.3 mg/dL (8.5-10.5); Carbon Dioxide 27 mmol/L (22-29); Chloride 95 mmol/L (98-107); Globulin 2.5 g/dL (1.3-4.6); Glomerular Filtration Rate 60.5 mL/min (90-130); Glucose 81 mg/dL (65-115); Osmolality Calculated 278 mOsm/kg (285-295); Sodium 134 mmol/L (136-145); Total Bilirubin 0.3 mg/dL (0.15-1.2); Total Protein 6.9 g/dL (6.6-8.7)
[2022-08-11 09:04] LABS: Acetaminophen < 5.0 ug/mL (10-30); Potassium 2.9 mmol/L (3.5-5.1); Salicylate < 0.3 mg/dL (3-10)
[2022-08-11] MEDS: potassium chloride oral liq 20 mEq/15 mL UDC 60 MEQ PO (09:14)
[2022-08-11 10:16] VITALS: BP 128/87; PULSE 75; RESP 18; TEMP 36.4; O2SAT 95
--- NOTE | 2022-08-11 10:47 | PC.NURSE ---
patient states that he has been unable to get the motivation to care for himself.
[2022-08-11] MEDS: nicotine 2 mg Gum BUCCAL ×2 (11:33→14:13)
[2022-08-11] MEDS: acetaminophen 325 mg Tablet 650 MG PO ×2 (13:03→22:11)
[2022-08-11 13:31] LABS: Amphetamines Screen Urine Negative (Negative); Barbiturates Screen Urine Negative (Negative); Benzodiazepines Screen Urine Positive (Negative); Cocaine Screen Urine Negative (Negative); Opiate Screen Urine Positive (Negative); PCP Screen Urine Negative (Negative); THC Screen Urine Positive (Negative)
[2022-08-11 14:00] VITALS: BP 128/87; PULSE 75; RESP 18; TEMP 36.4; O2SAT 98
[2022-08-11] MEDS: nicotine 4 mg lozenge MUCOUS MEM (18:48)
[2022-08-11] MEDS: OLANZapine 5 mg ODT PO (19:38)
[2022-08-11] MEDS: trazodone 50 mg Tablet PO ×2 (21:22→22:58)
--- NOTE | 2022-08-11 21:25 | PC.NURSE ---
PRN trazodone for sleep given as ordered per pt request.
[2022-08-11 21:57] VITALS: BP 127/84; PULSE 105; RESP 18; TEMP 36.3; O2SAT 97
[2022-08-11] MEDS: hyDROXYzine 25 mg Capsule 50 MG PO (22:13)
--- NOTE | 2022-08-12 03:15 | PC.NURSE ---
During evening assessment pt reports he endorses SI without plan, sometimes I just want to off myself pt states he forgets to takes his medications so he will take them all in one day when he misses a dose. RN provided education about medicatoins and importance of taking medications as per MD orders. Pt said I just want to get rid of all my medications and doc just give me one like a Benzo that will help me when I need it Explained that his request will most likely not happen and to talk to provider about his medications and how hes's been taking them. Explained this is why they aren't working since he's not taking them as the doctor ordered them. At shift change he asked for Zydis as it helped him calm down. Later, he was given Tylenol for his back and face pain, as he multiple lacerations around right eye. pt asked about stitches and when to remove, asked him to talk with provider in morning. pt also given Vistaril and Trazodone. He's calm and cooperative with staff. Wedge pillow given as patient snores loud. No distress noted.
[2022-08-12 06:00] VITALS: BP 126/78; PULSE 92; RESP 16; TEMP 36.3; O2SAT 96
[2022-08-12] MEDS: OLANZapine 5 mg ODT PO ×3 (08:10→18:55)
[2022-08-12] MEDS: nicotine 4 mg lozenge MUCOUS MEM ×3 (08:11→18:35)
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
[2022-08-12] MEDS: nicotine 2 mg Gum BUCCAL ×3 (11:17→20:19)
[2022-08-12] MEDS: acetaminophen 325 mg Tablet 650 MG PO ×2 (12:33→20:12)
[2022-08-12 14:00] VITALS: BP 129/92; PULSE 112; RESP 18; TEMP 36.8; O2SAT 92
[2022-08-12] MEDS: chlorPROMazine 50 mg Tablet 100 MG PO (14:48)
[2022-08-12 14:49] VITALS: BP 126/78
[2022-08-12] MEDS: pantoprazole DR 40 mg Tablet PO (14:49)
[2022-08-12] MEDS: divalproex DR 500 mg Tablet PO ×2 (14:49→20:12)
[2022-08-12] MEDS: metoprolol succinate ER (24 HR) 50 mg Tablet PO (14:49)
[2022-08-12] MEDS: losartan 50 mg Tablet 100 MG PO (14:49)
[2022-08-12] MEDS: atorvastatin 40 mg Tablet 20 MG PO (14:50)
[2022-08-12] MEDS: levothyroxine 25 mcg Tablet PO (14:50)
[2022-08-12] MEDS: cyclobenzaprine 10 mg Tablet PO ×2 (14:50→20:12)
[2022-08-12] MEDS: gabapentin 300 mg Capsule 600 MG PO ×3 (14:50→20:11)
[2022-08-12] MEDS: HYDROcodone-acetaminophen 7.5-325 mg Tablet 1 TAB PO (14:50)
[2022-08-12] MEDS: calcium carbonate 500 mg Chew Tablet 1000 MG PO (17:25)
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
[2022-08-12] MEDS: chlorPROMazine 50 mg Tablet 200 MG PO (18:33)
[2022-08-12] MEDS: trazodone 50 mg Tablet PO (20:12)
[2022-08-12 22:00] VITALS: BP 116/77; PULSE 91; RESP 17; TEMP 36.9; O2SAT 93
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
[2022-08-13 06:00] VITALS: RESP 18
[2022-08-13] MEDS: HYDROcodone-acetaminophen 7.5-325 mg Tablet 1 TAB PO ×2 (07:55→20:15)
[2022-08-13] MEDS: cyclobenzaprine 10 mg Tablet PO ×2 (07:57→20:15)
[2022-08-13] MEDS: levothyroxine 25 mcg Tablet PO (07:58)
[2022-08-13] MEDS: chlorPROMazine 50 mg Tablet 200 MG PO ×3 (08:04→18:37)
[2022-08-13] MEDS: metoprolol succinate ER (24 HR) 50 mg Tablet PO (08:05)
[2022-08-13] MEDS: pantoprazole DR 40 mg Tablet PO (08:05)
[2022-08-13] MEDS: losartan 50 mg Tablet 100 MG PO (08:05)
[2022-08-13] MEDS: OLANZapine 5 mg ODT PO ×2 (08:06→17:01)
[2022-08-13] MEDS: atorvastatin 40 mg Tablet 20 MG PO (08:06)
[2022-08-13] MEDS: gabapentin 300 mg Capsule 600 MG PO ×4 (08:09→20:10)
[2022-08-13] MEDS: nicotine 4 mg lozenge MUCOUS MEM ×3 (08:48→21:13)
[2022-08-13] MEDS: divalproex DR 500 mg Tablet PO ×2 (08:48→20:11)
[2022-08-13] MEDS: hyDROXYzine 25 mg Capsule 50 MG PO (09:28)
[2022-08-13] MEDS: haloperidol 5 mg Tablet PO (09:28)
[2022-08-13] MEDS: artificial tears Op Soln 15 mL Btl 1 DROP EYE-RIGHT (09:47)
[2022-08-13] MEDS: nicotine 2 mg Gum BUCCAL ×2 (11:54→17:02)
[2022-08-13 14:00] VITALS: BP 98/68; PULSE 84; RESP 18; TEMP 36.4; O2SAT 93
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
[2022-08-13] MEDS: paliperidone ER 6 mg Tablet PO (20:10)
--- NOTE | 2022-08-13 20:20 | PC.NURSE ---
PRN hydro and flexeril given as ordered per pt request.
[2022-08-13] MEDS: trazodone 50 mg Tablet PO (21:13)
[2022-08-13 22:00] VITALS: BP 115/77; PULSE 88; RESP 16; TEMP 36.4; O2SAT 98
--- NOTE | 2022-08-14 02:38 | PC.NURSE ---
pt stated during assessment I may as well deny everything as y'all don't do anything anyways I don't get the medications I want, I don't know why he (the dr) won't give me Haldol, instead he increases my Thorazine, and now he wants to start me on a new medication. I just want to quit taking all of them Pt denied SI,HI,AVH, pt endorsed SI without a plan yesterday, appears sad, irritable, pt is cooperative.
[2022-08-14 06:00] VITALS: BP 111/73; PULSE 97; RESP 18; O2SAT 95
[2022-08-14] MEDS: levothyroxine 25 mcg Tablet PO ×2 (06:17→08:14)
[2022-08-14] MEDS: cyclobenzaprine 10 mg Tablet PO ×3 (06:36→20:41)
[2022-08-14] MEDS: nicotine 4 mg lozenge MUCOUS MEM ×2 (06:36→20:43)
[2022-08-14] MEDS: OLANZapine 5 mg ODT PO ×3 (06:36→20:40)
--- NOTE | 2022-08-14 06:53 | PC.NURSE ---
pt requesting ashia orozco, and asked if he's still anxious can he have haldol in an hour, explained he would need to ask dayshift RN as they would be passing morning medications.
[2022-08-14] MEDS: gabapentin 300 mg Capsule 600 MG PO ×4 (08:13→20:41)
[2022-08-14] MEDS: chlorPROMazine 50 mg Tablet 200 MG PO ×4 (08:13→20:40)
[2022-08-14] MEDS: divalproex DR 500 mg Tablet PO ×2 (08:14→20:41)
[2022-08-14] MEDS: pantoprazole DR 40 mg Tablet PO (08:14)
[2022-08-14 08:15] VITALS: BP 111/73
[2022-08-14] MEDS: losartan 50 mg Tablet 100 MG PO (08:15)
[2022-08-14] MEDS: atorvastatin 40 mg Tablet 20 MG PO (08:15)
[2022-08-14] MEDS: HYDROcodone-acetaminophen 7.5-325 mg Tablet 1 TAB PO ×2 (08:15→20:41)
[2022-08-14] MEDS: metoprolol succinate ER (24 HR) 50 mg Tablet PO (08:16)
[2022-08-14] MEDS: nicotine 2 mg Gum BUCCAL ×3 (09:55→18:14)
[2022-08-14] MEDS: paliperidone ER 6 mg Tablet PO (10:46)
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
[2022-08-14 14:00] VITALS: BP 123/75; PULSE 94; RESP 18; TEMP 36.7; O2SAT 98
[2022-08-14] MEDS: naproxen 500 mg Tablet PO (18:12)
[2022-08-14] MEDS: trazodone 50 mg Tablet PO (20:41)
[2022-08-14 22:00] VITALS: BP 116/77; PULSE 104; RESP 18; TEMP 37; O2SAT 100
[2022-08-15] MEDS: nicotine 4 mg lozenge MUCOUS MEM ×2 (05:50→11:55)
--- NOTE | 2022-08-15 05:51 | PC.NURSE ---
Patient woke @ 0418 & stated tell that doctor that I'm ready to be discharged today . I explained that he can speak to the MD when he is on the unit this morning.
[2022-08-15 06:00] VITALS: BP 100/64; PULSE 108; RESP 18; TEMP 37; O2SAT 95
[2022-08-15] MEDS: cyclobenzaprine 10 mg Tablet PO (06:38)
[2022-08-15] MEDS: naproxen 500 mg Tablet PO (06:38)
[2022-08-15] MEDS: chlorPROMazine 50 mg Tablet 200 MG PO ×2 (08:52→13:21)
[2022-08-15] MEDS: divalproex DR 500 mg Tablet PO (08:52)
[2022-08-15] MEDS: atorvastatin 40 mg Tablet 20 MG PO (08:52)
[2022-08-15] MEDS: gabapentin 300 mg Capsule 600 MG PO ×2 (08:53→13:21)
[2022-08-15] MEDS: levothyroxine 25 mcg Tablet PO (08:53)
[2022-08-15] MEDS: pantoprazole DR 40 mg Tablet PO (08:53)
[2022-08-15] MEDS: HYDROcodone-acetaminophen 7.5-325 mg Tablet 1 TAB PO (08:53)
[2022-08-15] MEDS: paliperidone ER 6 mg Tablet PO (08:53)
[2022-08-15] MEDS: nicotine 2 mg Gum BUCCAL ×2 (08:53→15:30)
[2022-08-15] MEDS: metoprolol succinate ER (24 HR) 50 mg Tablet PO (08:53)
[2022-08-15 08:54] VITALS: BP 128/87
[2022-08-15] MEDS: losartan 50 mg Tablet 100 MG PO (08:54)
[2022-08-15] MEDS: neomycin-poly-bacitracin oint 28 gm 1 APPLIC TOPICAL (08:59)
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
[2022-08-15 14:00] VITALS: BP 120/68; PULSE 100; RESP 16; TEMP 36.6; O2SAT 98
[2022-08-15 14:52] VITALS: BP 120/68; PULSE 100; RESP 16; TEMP 36.6; O2SAT 98
--- NOTE | 2022-08-15 15:55 | PC.NURSE ---
Discharge information, including appointments, medications/prescriptions, return to work note, etc. reviewed with patient. Pt verbalized his understanding. Pt stated he was ready to go; denied SI/HI/AVH. Belongings and medications returned to pt. Meds to bed also provided to pt upon discharge. Pt left ambulatory with belongings, accompanied by staff to ride. Pt left at 1600.
--- NOTE | 2022-08-30 13:15 | P.NPUCON_ITS ---
Providers/Reason for Consult Consulting Physican/Specialty*: Ovidio Cordoba MD. Psychiatry. Reason for Consult*: Evaluation for discharge versus admission Requesting Physcian: Frankie Dominguez Psych Consult HPI History of Present Illness Ham Ackerman is a 41 year old male who presented to the emergency department with the following report: Chief Complaint: Psychiatric Symptoms Stated Complaint: SI/HI Time Seen by Provider: 08/30/22 03:33 Source: patient History of Present Illness: 41-year-old male with a history of alcohol dependence. He presents with what he says are suicidal thoughts. He has no specific current plan to hurt himself. He does admit to drinking a lot of vodka, which he tends to do on a daily basis. He is now not answering much historical questions otherwise, except states that he has not been taking his psychiatric medications. complaint: feels depressed Onset (ago): day(s) Duration: constant History of same: Yes Relieving factors: none Exacerbating factors: alcohol Context: recent alcohol abuse Associated psychiatric symptoms: depression and suicidal ideation Associated symptoms: Reports depression and suicidal ideation; Deny auditory hallucinations, visual hallucinations or homicidal ideation Treatments prior to arrival: none Patient has been admitted to the hospital 3 previous times since August 08, 2022 and so concerns about malingering as well as his utilization of inpatient services led to concerns surrounding admission. I spoke to him briefly and he presented as he generally does very despondent, very distraught and reporting that things have to change. He was once again intoxicated but reports that he is continuing to take his medication. 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 He also appeared to be very focused on the fact that he is going to need to collaborate with the benefactors that are assisting with his payment for his apartment etc. As well as his employer if he is going to avoid his life falling apart. We talked about admission but our concerns for malingering and that we would be very focused on outcomes during this stay and his attitude towards collaboration to determine if this is going to be a quick stay with a therapeutic discharge or an effective stay determined by treatment outcomes. Meds Home Medications and Allergies Home Medications Medication Instructions Recorded Confirmed Last Taken Type albuterol sulfate 90 mcg/actuation 1 - 2 puff inhalation Q4H PRN 07/29/22 08/30/22 Unknown History aerosol inhaler (Ventolin HFA) Shortness Of Breath Or Wheezing atorvastatin 20 mg tablet 20 mg PO QAM 07/29/22 08/30/22 08/29/22 History cyclobenzaprine 10 mg tablet 10 mg PO TID PRN Muscle Spasm 07/29/22 08/30/22 Unknown History hydrocodone 7.5 mg-acetaminophen 1 tab PO Q12H PRN Pain 07/29/22 08/30/22 Unknown History 325 mg tablet levothyroxine 25 mcg tablet 25 mcg PO QAM 07/29/22 08/30/22 08/29/22 History losartan 100 mg tablet 100 mg PO QAM 07/29/22 08/30/22 08/29/22 History metoprolol succinate 50 mg 50 mg PO QAM 07/29/22 08/30/22 08/29/22 History tablet,extended release 24 hr naloxone 4 mg/actuation nasal 4 mg intranasal Q3M PRN Opioid 07/29/22 08/30/22 Unknown History spray (Narcan) Overdose naproxen 500 mg tablet 500 mg PO BID 07/29/22 08/30/22 08/29/22 History omeprazole 20 mg capsule,delayed 20 mg PO QAM 07/29/22 08/30/22 08/29/22 History release chlorpromazine 200 mg tablet 200 mg PO QID 30 days #120 tabs 08/15/22 08/30/22 08/29/22 Rx gabapentin 600 mg tablet 600 mg PO QID 30 days #120 tabs 08/15/22 08/30/22 08/29/22 Rx haloperidol 5 mg tablet 5 mg PO TID 30 days #90 tabs 08/25/22 08/30/22 08/29/22 Rx lamotrigine 25 mg tablet 25 mg PO BID #60 tabs 08/25/22 08/30/22 08/29/22 Rx trazodone 50 mg tablet 50 mg PO BEDTIME 08/30/22 08/30/22 08/29/22 History Allergies Allergy/AdvReac Type Severity Reaction Status Date / Time lisinopril Allergy Unknown Verified 07/29/22 09:19 PFSH NPU PFSH: Medical History Alcohol dependence Bipolar disorder, unspecified Hypothyroidism Psychiatric care Mental Status Exam MSE Comments: This is an obese versus morbidly obese white male in hospital scrubs with limited grooming and near absent contact. No abnormal movements except for s ignificant psychomotor retardation. He was mostly cooperative with exam in mild to moderate distress. Speech was decreased rate and volume. Mood described as depressed. His affect was flat and subdued. Thought process was organized. Thought content: Patient endorsed suicidal thoughts with no active plan, but denied homicidal ideation, there were no delusions reported or noted, he denied any auditory or visual hallucinations. Attention and concentration were intact and memory appeared mostly reliable but concerns for manipulated information and malingering present, but none were formally tested. He is alert and oriented x3. Insight is poor and judgment is limited, impulse control is limited as well. Vitals/I&O/Wt Last Vital Signs Temp 98 F 08/15/22 14:52 Pulse 100 08/15/22 14:52 Resp 16 08/15/22 14:52 BP 120/68 08/15/22 14:52 Pulse Ox 98 08/15/22 14:52 O2 Del Method Room Air 08/15/22 14:00 Data NPU 08/11/22 08:25 08/11/22 08:25 A&P Assessment and plan (1) Bipolar disorder, unspecified: (2) Suicidal ideation: (3) Alcohol dependence: Qualifiers: Substance use status: unspecified alcohol-induced disorder Qualified Code(s): F10.29 - Alcohol dependence with unspecified alcohol-induced disorder (4) Malingering: (5) Hypothyroidism: (6) Depression: Qualifiers: Depression Type: unspecified Qualified Code(s): F32.A - Depression, unspecified Plan Patient is a 41-year-old white male with a history of alcohol dependence along with unspecified bipolar disorder with a history of multiple inpatient admissions this going to be his fourth since August 08, 2022, currently endorsing depressed mood and suicidal ideation. 1. Continue current medications. Continue to make changes to clean off his medication regimen. 2. Encourage individual, group and milieu therapy 3. Continue every 15 minute checks for safety 4. Recommend sober living treatment at the highest level of care to which the patient is willing to commit. Which ultimately showed the inpatient given his c urrent situation. 5. [facility] protocol. Involuntary Hold Information 96 Hour Hold: 96 Hour Involuntary Admission: No Attestations NPU Medical Necessity Statement*: Inpatient hospitalization is medically necessary and the clinically appropriate decision at this time. We will monitor medications and make changes as indicated. He will be in the hospital for over 2 midnights. Likely length of stay of 4-6 days. Coding Level of Care Code Acute Code for [facility] Fwd Diagnoses Bipolar disorder, unspecified F31.9 Suicidal ideation R45.851 Alcohol dependence F10.29 Substance use status: unspecified alcohol-induced disorder Malingering Z76.5 Hypothyroidism E03.9 Depression F32.A Depression Type: unspecified
== END 2022-08-15 16:00 | disposition home or self-care (01) | DRG 885 ==
LOC: ER 08:21 → NP 12:28
PROVIDERS: Admitting Provider Psychiatry & Neurology Psychiatry; Emergency Provider Family Medicine; Visit Provider Psychiatry & Neurology Psychiatry
DX: F31.9 Bipolar disorder, unspecified (principal); R45.851 Suicidal ideations; F10.20 Alcohol dependence, uncomplicated; E03.9 Hypothyroidism, unspecified
CPT/HCPCS: 36415; 80053; 80306; 80307; 85025; 97150; 97165; 99285; Q0161

== ENCOUNTER 2022-08-19 21:17 | Inpatient (IN) | payer BC, SELFPAY ==
[2022-08-19 21:25] VITALS: BP 129/102; PULSE 114; RESP 28; TEMP 36.6; O2SAT 94; BMI 40.6
--- NOTE | 2022-08-19 21:30 | W.ED.PSYCHS ---
Documented by User: Joshua Valdez MD 08/28/22 17:40 HPI - Psych General: Chief Complaint: Psychiatric Symptoms Stated Complaint: SI Time Seen by Provider: 08/19/22 21:30 Limitations: altered mental status History of Present Illness: Mr. Ackerman is a 41-year-old gentleman with history of alcohol abuse, bipolar, depression, thyroid disorder presenting to the emergency department for reported suicidal ideation. The patient reports not doing well since he left the hospital. He endorses thoughts of cutting himself. He also endorses auditory hallucinations. Patient appears significantly clinically intoxicated which limits history, patient does endorse alcohol abuse. Review of Systems General: Reports: ROS unobtainable due to mental status PFS ED PFSH: Medical History Alcohol dependence Bipolar disorder, unspecified Hypothyroidism Psychiatric care Physical Exam Const: COMMON NORMALS: alert GENERAL APPEARANCE: cooperative and well developed HENMT: COMMON NORMALS: normocephalic and atraumatic HEAD & SCALP: normocephalic and atraumatic OTHER: R lateral face abrasion/contusion Eye: COMMON NORMALS: conjunctivae normal CONJUNCTIVA: Yes conjunctivae normal SCLERA: sclerae normal Neck/C-Spine: COMMON NORMALS: supple GENERAL: Yes trachea midline Resp: COMMON NORMALS: clear to auscultation bilaterally EFFORT & INSPECTION: Yes able to speak in complete sentences AUSCULTATION: clear to auscultation bilaterally Cardio: COMMON NORMALS: regular rhythm RATE: tachycardic RHYTHM: regular rhythm GI: COMMON NORMALS: Soft to palpation PALPATION: Yes Soft to palpation and No Tenderness to palpation present (GI) PERCUSSION: normal to percussion Extremity: GENERAL: Yes normal exam except as noted and No edema Neuro: COMMON NORMALS: moves all extremities SENSORIUM/ORIENTATION: Yes alert and No Orientation impaired Psych: COMMON NORMALS: mental status grossly normal and Normal thought process present THOUGHT PROCESS: Normal thought process present OTHER: Appears clinically intoxicated Course Vital Signs: Vital signs: Vital Signs Temperature 97.7 F 08/25/22 15:44 Pulse Rate 95 08/25/22 15:44 Respiratory Rate 14 08/25/22 15:44 Blood Pressure 104/63 08/25/22 15:44 Pulse Oximetry 94 08/25/22 15:44 Oxygen Delivery Me thod Room Air 08/25/22 06:00 MDM - Psych Medical Decision Making 41-year-old gentleman presenting to the emergency department for psychiatric assessment in the context of alcohol abuse. Patient's initial presentation is consistent with reported alcohol abuse. He does have a abrasion to his face which he cannot precisely account for. EKG demonstrates sinus tachycardia, normal axis and intervals, no STEMI. Labs with no leukocytosis, hemoglobin similar to prior, normal platelet count. Metabolic panel overall somewhat improved from prior. TSH normal. Salicylate and acetaminophen level are negative. UDS positive for THC. Ethyl alcohol level elevated at 236 mg/dL. CT head negative for acute intracranial pathology. Patient serially reexamined with improvement in clinical intoxication. The patient was just recently discharged on 08/15, he was admitted on 08/11 and this was after a admission from 07/29 through 08/02. Given this recurrent presentation for similar I will consult the psychiatry service for evaluation for disposition. Patient care handed off to Dr. Florez pending psychiatry service recommendations. Medical Records I reviewed the patient's medical records. Lab Data I reviewed the patient's lab results. 08/19/22 22:06 08/19/22 22:[address] 08/19/22 21:39 IMPRESSION: Negative for intracranial hemorrhage or mass effect. Laboratory Results WBC 4.9 10^3/uL (4.0-10.0) 08/19/22 22:06 RBC 3.90 10^6/uL (4.1-5.3) L 08/19/22 22:06 Hgb 11.0 g/dL (11.7-16.6) L 08/19/22 22:06 Hct 33.5 % (42.0-52.0) L 08/19/22 22:06 MCV 85.9 fl (80-94) 08/19/22 22:06 MCH 28.2 pg (28.0-34.0) 08/19/22 22: MCHC 32.8 g/dL (30.0-36.0) 08/19/22 22:06 RDW 14.6 % (12.1-15.1) 08/19/22 22:06 Plt Count 238 10^3/cmm (130-400) 08/19/22 22:06 MPV 8.8 fL (7.4-10.4) 08/19/22 22:06 Neut % (Auto) 44.5 % 08/19/22 22:06 Lymph % (Auto) 43.9 % 08/19/22 22:06 [place] % (Auto) 9.5 % 08/19/22 22:06 Eos % (Auto) 0.0 % 08/19/22 22:06 Baso % (Auto) 0.2 % 08/19/22 22:06 Neut # (Auto) 2.16 10^3/uL (1.8-7.7) 08/19/22 22:06 Lymph # (Auto) 2.1 10^3/uL (0.8-4.8) 08/19/22 22:06 [place] # (Auto) 0.5 10^3/uL (0.2-0.9) 08/19/22 22:06 Eos # (Auto) 0.0 10^3/uL (0.0-0.8) 08/19/22 22:06 Baso # (Auto) 0.0 10^3/uL (0.0-0.1) 08/19/22 22:06 Nucleated RBC % (auto) 0 % 08/19/22 22:06 Nucleated RBCs # 0.0 /100WBC 08/19/22 22:06 Sodium 143 mmol/L (136-145) 08/19/22 22:06 Potassium 3.6 mmol/L (3.5-5.1) 08/19/22 22:06 Chloride 101 mmol/L (98-107) 08/19/22 22:06 Carbon Dioxide 30 mmol/L (22-29) H 08/19/22 22:06 Anion Gap 15.6 (5-19) 08/19/22 22:06 BUN 12 mg/dL (6-20) 08/19/22 22:06 Creatinine 1.1 mg/dL (0.7-1.2) 08/19/22 22:06 GFR Calculation 73.4 mL/min (90-130) L 08/19/22 22:06 Glucose 84 mg/dL (65-115) 08/19/22 22:06 Calculated Osmolality 295 mOsm/kg (285-295) 08/19/22 22:06 Calcium 8.9 mg/dL (8.5-10.5) 04/11/23 22:06 Total Bilirubin 0.2 mg/dL (0.15-1.2) 08/19/22 22:06 AST 20 U/L (0-40) 08/19/22 22:06 ALT 35 U/L (0-41) 08/19/22 22:06 Alkaline Phosphatase 56 U/L (40-130) 08/19/22 22:06 Total Protein 7.3 g/dL (6.6-8.7) 08/19/22 22:06 Albumin 4.3 g/dL (3.5-5.2) 08/19/22 22:06 Globulin 3.0 g/dL (1.3-4.6) 08/19/22 22:06 TSH 2.99 uIU/mL (0.27-4.20) 08/19/22 22:06 Salicylates < 0.3 mg/dL (3-10) L 08/19/22 22:06 Urine Opiates Screen Negative ng/mL (Negative) 08/20/22 01:17 Acetaminophen < 5.0 ug/mL (10-30) L 08/19/22 22:06 Ur Barbiturates Screen Negative ng/mL (Negative) 08/20/22 01:17 Ur Phencyclidine Scrn Negative ng/mL (Negative) 08/20/22 01:17 Ur Amphetamines Screen Negative ng/mL (Negative) 08/20/22 01:17 U Benzodiazepines Scrn Negative ng/mL (Negative) 08/20/22 01:17 Urine Cocaine Screen Negative ng/mL (Negative) 08/20/22 01:17 U Marijuana (THC) Screen Positive ng/mL (Negative) H 08/20/22 01:17 Ethyl Alcohol 236 mg/dL (0-10) H 08/19/22 22:06 Discharge Plan Discharge Patient Disposition: Admitted As Inpatient Admit Provider: Ozzie Rizzo Clinical Impression: Alcohol abuse, Alcohol intoxication, Verbalizes suicidal thoughts Condition: Stable Discharge Diet: Usual diet Discharge Activity: Resume usual activity Coding Level of Care Code ED Speeder Hand for Chg Fwd Documented by User: Montrell Florez MD 08/20/22 10:08 HPI - Psych General: Chief Complaint: Psychiatric Symptoms Stated Complaint: SI Time Seen by Provider: 08/19/22 21:30 [facility] ED PFSH: Medical History Alcohol dependence Bipolar disorder, unspecified Hypothyroidism Psychiatric care Course Vital Signs: Vital signs: Vital Signs Temperature 97.7 F 08/25/22 15:44 Pulse Rate 95 08/25/22 15:44 Respiratory Rate 14 08/25/22 15:44 Blood Pressure 104/63 08/25/22 15:44 Pulse Oximetry 94 08/25/22 15:44 Oxygen Delivery Me thod Room Air 08/25/22 06:00 MDM - Psych Medical Decision Making 41-year-old gentleman presenting to the emergency department for psychiatric assessment in the context of alcohol abuse. Patient's initial presentation is consistent with reported alcohol abuse. He does have a abrasion to his face which he cannot precisely account for. EKG demonstrates sinus tachycardia, normal axis and intervals, no STEMI. Labs with no leukocytosis, hemoglobin similar to prior, normal platelet count. Metabolic panel overall somewhat improved from prior. TSH normal. Salicylate and acetaminophen level are negative. UDS positive for THC. Ethyl alcohol level elevated at 236 mg/dL. CT head negative for acute intracranial pathology. Patient serially reexamined with improvement in clinical intoxication. The patient was just recently discharged on 08/15, he was admitted on 08/11 and this was after a admission from 07/29 through 08/02. Given this recurrent presentation for similar I will consult the psychiatry service for evaluation for disposition. Patient care handed off to Dr. Florez pending psychiatry service recommendations. 30 Update Awaiting consultation from Dr Cordoba 1005: Discussed case with Dr Rizzo They are offering patient admission to get help. I discussed with patient who is currently wanting to stay. I placed orders for admission to [facility] Lab Data 08/19/22 22:06 08/19/22 22:[address] 08/19/22 21:39 IMPRESSION: Negative for intracranial hemorrhage or mass effect. Laboratory Results WBC 4.9 10^3/uL (4.0-10.0) 04/11/23 22:06 RBC 3.90 10^6/uL (4.1-5.3) L 08/19/22 22:06 Hgb 11.0 g/dL (11.7-16.6) L 08/19/22 22:06 Hct 33.5 % (42.0-52.0) L 08/19/22 22:06 MCV 85.9 fl (80-94) 08/19/22 22:06 MCH 28.2 pg (28.0-34.0) 08/19/22 22:06 MCHC 32.8 g/dL (30.0-36.0) 08/19/22 22:06 RDW 14.6 % (12.1-15.1) 08/19/22 22:06 Plt Count 238 10^3/cmm (130-400) 08/19/22 22:06 MPV 8.8 fL (7.4-10.4) 08/19/22 22:06 Neut % (Auto) 44.5 % 08/19/22 22:06 Lymph % (Auto) 43.9 % 08/19/22 22:06 [place] % (Auto) 9.5 % 08/19/22 22:06 Eos % (Auto) 0.0 % 08/19/22 22:06 Baso % (Auto) 0.2 % 08/19/22 22:06 Neut # (Auto) 2.16 10^3/uL (1.8-7.7) 08/19/22 22:06 Lymph # (Auto) 2.1 10^3/uL (0.8-4.8) 08/19/22 22:06 [place] # (Auto) 0.5 10^3/uL (0.2-0.9) 08/19/22 22:06 Eos # (Auto) 0.0 10^3/uL (0.0-0.8) 08/19/22 22:06 Baso # (Auto) 0.0 10^3/uL (0.0-0.1) 08/19/22 22:06 Nucleated RBC % (auto) 0 % 08/19/22 22: Nucleated RBCs # 0.0 /100WBC 08/19/22 22:06 Sodium 143 mmol/L (136-145) 08/19/22 22:06 Potassium 3.6 mmol/L (3.5-5.1) 08/19/22 22:06 Chloride 101 mmol/L (98-107) 08/19/22 22:06 Carbon Dioxide 30 mmol/L (22-29) H 08/19/22 22:06 Anion Gap 15.6 (5-19) 08/19/22 22:06 BUN 12 mg/dL (6-20) 08/19/22 22:06 Creatinine 1.1 mg/dL (0.7-1.2) 08/19/22 22:06 GFR Calculation 73.4 mL/min (90-130) L 08/19/22 22:06 Glucose 84 mg/dL (65-115) 08/19/22 22:06 Calculated Osmolality 295 mOsm/kg (285-295) 08/19/22 22:06 Calcium 8.9 mg/dL (8.5-10.5) 08/19/22 22:06 Total Bilirubin 0.2 mg/dL (0.15-1.2) 08/19/22 22:06 AST 20 U/L (0-40) 08/19/22 22:06 ALT 35 U/L (0-41) 08/19/22 22:06 Alkaline Phosphatase 56 U/L (40-130) 08/19/22 22:06 Total Protein 7.3 g/dL (6.6-8.7) 08/19/22 22:06 Albumin 4.3 g/dL (3.5-5.2) 08/19/22 22:06 Globulin 3.0 g/dL (1.3-4.6) 08/19/22 22:06 TSH 2.99 uIU/mL (0.27-4.20) 08/19/22 22:06 Salicylates < 0.3 mg/dL (3-10) L 08/19/22 22:06 Urine Opiates Screen Negative ng/mL (Negative) 08/20/22 01:17 Acetaminophen < 5.0 ug/mL (10-30) L 08/19/22 22:06 Ur Barbiturates Screen Negative ng/mL (Negative) 08/20/22 01:17 Ur Phencyclidine Scrn Negative ng/mL (Negative) 08/20/22 01:17 Ur Amphetamines Screen Negative ng/mL (Negative) 08/20/22 01:17 U Benzodiazepines Scrn Negative ng/mL (Negative) 08/20/22 01:17 Urine Cocaine Screen Negative ng/mL (Negative) 08/20/22 01:17 U Marijuana (THC) Screen Positive ng/mL (Negative) H 08/20/22 01:17 Ethyl Alcohol 236 mg/dL (0-10) H 08/19/22 22:06 Discharge Plan Discharge Patient Disposition: Admitted As Inpatient Admit Provider: Ozzie Rizzo Clinical Impression: Alcohol abuse, Alcohol intoxication, Verbalizes suicidal thoughts Condition: Stable Discharge Diet: Usual diet Discharge Activity: Resume usual activity Coding Level of Care Code ED Speeder Hand for Uriel Price
--- NOTE | 2022-08-19 21:39 | ECG_ITS ---
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 Measurements Intervals [place] Rate: 103 P: 68 HI: 165 QRS: 69 QRSD: 105 T: 66 QT: 366 QTc: 479 Interpretive Statements SINUS TACHYCARDIA ABNORMAL RHYTHM ECG No previous ECG available for comparison Electronically Signed On 08-20-2022 2:21:03 CDT by Flavio Hebert M.D. [email or web address]
--- NOTE | 2022-08-19 21:39 | CTR_ITS ---
PROCEDURE INFORMATION: Exam: CT Head Without Contrast Exam date and time: 08/19/2022 10:32 PM Age: 41 years old Clinical indication: Altered mental status/memory loss; Patient HX: AMS. Lethargic. ; Additional info: AMS, facial contusion TECHNIQUE: Imaging protocol: Computed tomography of the head without contrast. Radiation optimization: All CT scans at this facility use at least one of these dose optimization techniques: automated exposure control; mA and/or kV adjustment per patient size (includes targeted exams where dose is matched to clinical indication); or iterative reconstruction. REPORTING DATA: Count of CT and Cardiac NM exams in prior 12 months: This patient has received 2 known CTs and 0 known cardiac nuclear medicine studies in the 12 months prior to the current study. COMPARISON: CT head wo con* [id number] 08/03/2022 9:17 PM RADIATION DOSE METRICS: Total DLP (mGy-cm): 1175.58 FINDINGS: Brain: Normal. No hemorrhage. Unremarkable white matter. No mass effect. Cerebral ventricles: No ventriculomegaly. Paranasal sinuses: Paranasal sinus mucosal thickening. Mastoid air cells: Visualized mastoid air cells are well aerated. Bones/joints: Unremarkable. No acute fracture. Soft tissues: Unremarkable. CT/CT head wo con* [id number] IMPRESSION: Negative for intracranial hemorrhage or mass effect.
[2022-08-19 21:50] VITALS: BP 164/110; PULSE 113; RESP 20; O2SAT 98
[2022-08-19 22:13] LABS: Basophils % 0.2 %; Hematocrit 33.5 % (42.0-52.0); Lymphocytes # 2.1 10^3/uL (0.8-4.8); Lymphocytes % 43.9 %; Mean Corpuscular HGB Conc 32.8 g/dL (30.0-36.0); Mean Corpuscular Hemoglobin 28.2 pg (28.0-34.0); Mean Corpuscular Volume 85.9 fl (80-94); Mean Platelet Volume 8.8 fL (7.4-10.4); Monocytes # 0.5 10^3/uL (0.2-0.9); Monocytes % 9.5 %; Neutrophils # 2.16 10^3/uL (1.8-7.7); Neutrophils % 44.5 %; Nucleated Red Blood Cells % 0 %; Platelet Count 238 10^3/cmm (130-400); Red Cell Distribution Width 14.6 % (12.1-15.1); White Blood Count 4.9 10^3/uL (4.0-10.0)
[2022-08-19 22:46] LABS: Alanine Aminotransferase 35 U/L (0-41); Albumin Level 4.3 g/dL (3.5-5.2); Alcohol Level 236 mg/dL (0-10); Alkaline Phosphatase 56 U/L (40-130); Anion Gap 15.6 (5-19); Aspartate Amino Transferase 20 U/L (0-40); Blood Urea Nitrogen 12 mg/dL (6-20); Calcium 8.9 mg/dL (8.5-10.5); Carbon Dioxide 30 mmol/L (22-29); Chloride 101 mmol/L (98-107); Glomerular Filtration Rate 73.4 mL/min (90-130); Glucose 84 mg/dL (65-115); Osmolality Calculated 295 mOsm/kg (285-295); Potassium 3.6 mmol/L (3.5-5.1); Sodium 143 mmol/L (136-145); Thyroid Stimulating Hormone 2.99 uIU/mL (0.27-4.20); Total Bilirubin 0.2 mg/dL (0.15-1.2); Total Protein 7.3 g/dL (6.6-8.7)
[2022-08-19 22:47] LABS: Acetaminophen < 5.0 ug/mL (10-30); Salicylate < 0.3 mg/dL (3-10)
[2022-08-20 01:49] LABS: Amphetamines Screen Urine Negative (Negative); Barbiturates Screen Urine Negative (Negative); Benzodiazepines Screen Urine Negative (Negative); Cocaine Screen Urine Negative (Negative); Opiate Screen Urine Negative (Negative); PCP Screen Urine Negative (Negative); THC Screen Urine Positive (Negative)
[2022-08-20 02:37] VITALS: BP 114/64; PULSE 103; RESP 16; O2SAT 94
[2022-08-20 06:42] VITALS: BP 148/96; PULSE 104; RESP 18; O2SAT 97
--- NOTE | 2022-08-20 08:44 | PC.NURSE ---
DR. CARRASCO DOING TELE CONSULT WITH PT AT [id number]
--- NOTE | 2022-08-20 09:47 | PC.NURSE ---
PT INFORMED OF DR. MARTINEZ PLANNING TO ADMIT PT TO [facility]. PT WISHES TO LEAVE AMA DUE TO UNKNOWN WAIT TIME FOR BED AVAILABILITY.
--- NOTE | 2022-08-20 10:30 | PC.PHAR ---
pt states he takes care of his own medications-pt states the latuda 40mg daily depakote dr 500mg buspar 30mg and prozac 40mg was dced
[2022-08-20 10:35] VITALS: BP 159/97; PULSE 111; RESP 17; TEMP 37; O2SAT 95
[2022-08-20] MEDS: OLANZapine 5 mg ODT PO (11:45)
[2022-08-20] MEDS: HYDROcodone-acetaminophen 7.5-325 mg Tablet 1 TAB PO (12:33)
[2022-08-20] MEDS: chlorPROMazine 50 mg Tablet 200 MG PO ×2 (12:33→17:04)
[2022-08-20] MEDS: cyclobenzaprine 10 mg Tablet PO (12:33)
[2022-08-20] MEDS: gabapentin 300 mg Capsule 600 MG PO ×2 (12:33→17:04)
[2022-08-20 14:00] VITALS: RESP 18
--- NOTE | 2022-08-20 14:59 | PC.OT ---
OT EVALUATION ATTEMPTED THIS P.M. PATIENT SLEEPING SOUNDLY; SNORING. WILL ATTEMPT AGAIN TOMORROW.
[2022-08-20 22:00] VITALS: RESP 18
[2022-08-21 06:00] VITALS: RESP 16
[2022-08-21] MEDS: pantoprazole DR 40 mg Tablet PO (06:35)
[2022-08-21] MEDS: levothyroxine 25 mcg Tablet PO (06:35)
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
[2022-08-21] MEDS: multivitamin therapeutic Tablet 1 TAB PO (08:32)
[2022-08-21] MEDS: chlorPROMazine 50 mg Tablet 200 MG PO ×4 (08:32→21:39)
[2022-08-21] MEDS: folic acid 1 mg Tablet PO (08:32)
[2022-08-21] MEDS: cyclobenzaprine 10 mg Tablet PO ×2 (08:32→17:21)
[2022-08-21] MEDS: HYDROcodone-acetaminophen 7.5-325 mg Tablet 1 TAB PO ×2 (08:33→19:26)
[2022-08-21 08:34] VITALS: BP 159/97
[2022-08-21] MEDS: losartan 50 mg Tablet 100 MG PO (08:34)
[2022-08-21] MEDS: metoprolol succinate ER (24 HR) 50 mg Tablet PO (08:34)
[2022-08-21] MEDS: gabapentin 300 mg Capsule 600 MG PO ×4 (08:34→21:40)
[2022-08-21] MEDS: thiamine 100 mg Tablet PO (08:34)
[2022-08-21] MEDS: paliperidone ER 6 mg Tablet PO (08:35)
[2022-08-21] MEDS: nicotine 2 mg Gum BUCCAL ×3 (09:07→21:40)
[2022-08-21] MEDS: lamoTRIgine 25 mg Tablet PO ×2 (10:01→17:21)
[2022-08-21] MEDS: naproxen 500 mg Tablet PO (13:24)
[2022-08-21] MEDS: nicotine 4 mg lozenge MUCOUS MEM ×2 (13:56→17:21)
[2022-08-21 14:00] VITALS: BP 121/72; PULSE 98; RESP 18; TEMP 36.8; O2SAT 95
[2022-08-21] MEDS: atorvastatin 40 mg Tablet 20 MG PO (21:40)
[2022-08-21] MEDS: acetaminophen 325 mg Tablet 650 MG PO (21:41)
[2022-08-21] MEDS: trazodone 50 mg Tablet PO ×2 (21:46→22:58)
[2022-08-21] MEDS: hyDROXYzine 25 mg Capsule 50 MG PO (21:46)
[2022-08-21 21:49] VITALS: BP 109/71; PULSE 110; RESP 17; TEMP 36.7; O2SAT 92
[2022-08-22] MEDS: naproxen 500 mg Tablet PO ×2 (02:25→18:40)
[2022-08-22 06:00] VITALS: RESP 18
[2022-08-22] MEDS: pantoprazole DR 40 mg Tablet PO (06:39)
[2022-08-22] MEDS: levothyroxine 25 mcg Tablet PO (06:39)
[2022-08-22] MEDS: gabapentin 300 mg Capsule 600 MG PO ×4 (08:16→21:09)
[2022-08-22] MEDS: multivitamin therapeutic Tablet 1 TAB PO (08:16)
[2022-08-22] MEDS: thiamine 100 mg Tablet PO (08:16)
[2022-08-22] MEDS: paliperidone ER 6 mg Tablet 9 MG PO (08:16)
[2022-08-22] MEDS: metoprolol succinate ER (24 HR) 50 mg Tablet PO (08:16)
[2022-08-22] MEDS: losartan 50 mg Tablet 100 MG PO (08:16)
[2022-08-22] MEDS: lamoTRIgine 25 mg Tablet PO ×2 (08:16→17:11)
[2022-08-22] MEDS: chlorPROMazine 50 mg Tablet 200 MG PO ×3 (08:16→21:08)
[2022-08-22] MEDS: folic acid 1 mg Tablet PO (08:16)
[2022-08-22] MEDS: HYDROcodone-acetaminophen 7.5-325 mg Tablet 1 TAB PO ×2 (08:19→21:08)
[2022-08-22] MEDS: cyclobenzaprine 10 mg Tablet PO ×3 (08:20→21:08)
[2022-08-22] MEDS: nicotine 4 mg lozenge MUCOUS MEM ×4 (08:43→21:10)
[2022-08-22] MEDS: acetaminophen 325 mg Tablet 650 MG PO (11:51)
[2022-08-22] MEDS: OLANZapine 5 mg ODT PO (11:51)
--- NOTE | 2022-08-22 11:53 | PC.NURSE ---
Patient stated that he needed something for anxiety. Patient rated anxiety 6/10. Patient stated that Hydroxyzine does not help him. Zyprexa 5mg administered to patient. will continue to monitor.
[2022-08-22 14:00] VITALS: BP 157/74; PULSE 88; RESP 18; TEMP 36.9; O2SAT 94
--- NOTE | 2022-08-22 15:38 | P.NPUPN_ITS ---
Subjective NPU Subjective: Patient is a 41-year-old white male with bipolar 1 disorder and alcohol dependence admitted with suicidal ideation. He had reported desire to consider inpatient rehabilitation at the [facility]. He reports no side effects from his newly initiated Lamictal. He reported continued feelings of hopelessness. He had reported no racing thoughts at this time. He had isolated himself. He stated that he continued to have a lack of support outside of here. He had stated that he understood that a benzodiazepine was not an option for him to manage his anxiety. He had reported adequate sleep. The patient had expressed concern about his continued depression that had been present with manic symptoms in the past. He had reported having very few days of normal mood and normal energy. He had reported multiple medication trials that had not been successful even at times of sobriety. He had continued to appear resistant to considering Vivitrol long-term to treat alcohol dependence. Mental Status Exam MSE Comments: This is an obese versus morbidly obese white male in hospital scrubs with adequate grooming and fair eye contact. No abnormal movements except for signficant psychomotor retardation. He was cooperative with exam in mild distress. Speech was normal in rate rhythm and volume. Mood described as depressed. His affect was restricted in range and mood congruent. Thought process organized. Thought content: Patient endorsed suicidal thoughts with no active plan., there were no delusions reported or noted, he denied any auditory or visual hallucinations. Attention and concentration were intact and memory appeared reliable but none were formally tested. He is alert and oriented x3. Insight and judgment are limited, impulse control is impaired. Vitals/I&O/Wt Last Vital Signs Temp 98.0 F 08/21/22 21:49 Pulse 110 H 08/21/22 21:49 Resp 18 08/22/22 06:00 BP 109/71 08/21/22 21:49 Pulse Ox 92 08/21/22 21:49 O2 Del Method Room Air 08/21/22 21:49 Data NPU 08/19/22 22:06 08/19/22 22:06 A&P Assessment and plan (1) Bipolar disorder, unspecified: (2) Suicidal ideation: (3) Alcohol dependence: Plan Patient is a 41-year-old white male with a history of alcohol dependence along with unspecified bipolar disorder with a history of multiple inpatient admissions currently endorsing depressed mood and suicidal ideation with patient desirous to receive inpatient drug rehabilitation. 1. Engage patient in individual, milieu, and group therapy 2. Continue current medications. Continue Invega 9mg daily and Continue Lamotrigine 25 mg twice a day to target bipolar depression. Decrease Thorazine to 200mg tid 3. TO-15 minute checks on the unit 4. Recommend sober living treatment at the highest level of care to which the patient is willing to commit. 5. [facility] protocol Involuntary Hold Information 96 Hour Hold: 96 Hour Involuntary Admission: No Attestations NPU Medical Necessity Statement*: Hospitalization is medically necessary and deemed to be the clinically appropriate intervention at this time. We will monitor and initiate medications while making changes as indicated. His likely length of stay is 5 to 7 days. Coding Level of Care Code Acute Code for [facility] Fwd Diagnoses Bipolar disorder, unspecified F31.9 Suicidal ideation R45.851 Alcohol dependence F10.20
[2022-08-22] MEDS: nicotine 2 mg Gum BUCCAL ×2 (17:13→23:19)
[2022-08-22] MEDS: atorvastatin 40 mg Tablet 20 MG PO (21:09)
[2022-08-22] MEDS: LORazepam 2 mg Tablet PO (21:10)
[2022-08-22 22:00] VITALS: BP 106/72; PULSE 102; RESP 15; TEMP 36.4; O2SAT 92
[2022-08-22] MEDS: capsaicin 0.025% cream 60 gm 1 APPLIC TOPICAL (22:43)
[2022-08-22] MEDS: trazodone 50 mg Tablet PO (23:18)
[2022-08-23 06:00] VITALS: RESP 18
[2022-08-23] MEDS: cyclobenzaprine 10 mg Tablet PO ×2 (08:08→22:14)
[2022-08-23] MEDS: metoprolol succinate ER (24 HR) 50 mg Tablet PO (08:08)
[2022-08-23] MEDS: naproxen 500 mg Tablet PO (08:08)
[2022-08-23] MEDS: thiamine 100 mg Tablet PO (08:08)
[2022-08-23 08:09] VITALS: BP 119/74
[2022-08-23] MEDS: gabapentin 300 mg Capsule 600 MG PO ×4 (08:09→22:12)
[2022-08-23] MEDS: multivitamin therapeutic Tablet 1 TAB PO (08:09)
[2022-08-23] MEDS: chlorPROMazine 50 mg Tablet 200 MG PO ×3 (08:09→22:12)
[2022-08-23] MEDS: folic acid 1 mg Tablet PO (08:09)
[2022-08-23] MEDS: lamoTRIgine 25 mg Tablet PO ×2 (08:09→18:14)
[2022-08-23] MEDS: losartan 50 mg Tablet 100 MG PO (08:09)
[2022-08-23] MEDS: pantoprazole DR 40 mg Tablet PO (08:10)
[2022-08-23] MEDS: levothyroxine 25 mcg Tablet PO (08:10)
[2022-08-23] MEDS: paliperidone ER 6 mg Tablet 9 MG PO (08:13)
[2022-08-23] MEDS: HYDROcodone-acetaminophen 7.5-325 mg Tablet 1 TAB PO ×2 (08:46→20:45)
[2022-08-23] MEDS: nicotine 4 mg lozenge MUCOUS MEM ×4 (08:47→22:15)
[2022-08-23] MEDS: nicotine 2 mg Gum BUCCAL ×2 (10:44→17:30)
[2022-08-23 14:00] VITALS: BP 113/73; PULSE 100; RESP 18; TEMP 36.7; O2SAT 91
[2022-08-23] MEDS: capsaicin 0.025% cream 60 gm 1 APPLIC TOPICAL (14:09)
[2022-08-23] MEDS: acetaminophen 325 mg Tablet 650 MG PO (14:10)
[2022-08-23] MEDS: OLANZapine 5 mg ODT PO (16:30)
[2022-08-23] MEDS: hyDROXYzine 25 mg Capsule 50 MG PO (16:30)
--- NOTE | 2022-08-23 16:32 | PC.NURSE ---
Pt came to nurses station demanding some Ativan because he was anxious as another pt was agitated. Pt shared no other symptoms than agitation and prior CIWA showed no score. Pt was offered Vistaril. He loudly said it didn't do anything for him. Pt then demanded Haldol. Pt informed of what orders were available to him. He wondered why he wasn't given Ativan like he had last night. Pt had received Ativan last night related to a CIWA score. Pt decided to take the vistaril and zyprexa zydis. Pt also took his 1700 medication.
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
--- NOTE | 2022-08-23 21:16 | P.NPUPN_ITS ---
Subjective NPU Subjective: Patient is a 41-year-old white male with bipolar 1 disorder and alcohol dependence admitted with suicidal ideation. The patient continued to struggle with managing frustrations. He repeatedly requested pain medications, and repeatedly asked for medications to manage his anxiety. He reported that he wished to have haldol and reported struggles with managing his moods with continued periods of irritability. He continued to plead to be placed on benzodiazepine to manage his anxiety on supervisor intermediates basis despite history of uncontrolled alcohol use. Mental Status Exam MSE Comments: This is an obese versus morbidly obese white male in hospital scrubs with adequate grooming and fair eye contact. No abnormal movements except for signficant psychomotor retardation. He was cooperative with exam in moderate distress. Speech was normal in rate rhythm and volume. Mood described as upset. His affect was irritable and mood congruent. Thought process organized. Thought content: Patient endorsed suicidal thoughts with no active plan., there were no delusions reported or noted, he denied any auditory or visual hallucinations. Attention and concentration were intact and memory appea red reliable but none were formally tested. He is alert and oriented x3. Insight and judgment are limited, impulse control is impaired. Vitals/I&O/Wt Last Vital Signs Temp 98.1 F 08/23/22 14:00 Pulse 100 08/23/22 14:00 Resp 18 08/23/22 14:00 BP 113/73 08/23/22 14:00 Pulse Ox 91 08/23/22 14:00 O2 Del Method Room Air 08/22/22 22:00 Data NPU 08/19/22 22:06 08/19/22 22:06 A&P Assessment and plan (1) Bipolar disorder, unspecified: (2) Suicidal ideation: (3) Alcohol dependence: Plan Patient is a 41-year-old white male with a history of alcohol dependence along with unspecified bipolar disorder with a history of multiple inpatient admissions currently endorsing depressed mood and suicidal ideation with patient desirous to receive inpatient drug rehabilitation. 1. Engage patient in individual, milieu, and group therapy 2. Continue current medications. Continue Invega 9mg daily and Continue Lamotrigine 25 mg twice a day to target bipolar depression. Decrease Thorazine to 200mg qid. Add lithium 150mg bid. 3. TO-15 minute checks on the unit 4. Recommend sober living treatment at the highest level of care to which the patient is willing to commit. 5. [facility] protocol Involuntary Hold Information 96 Hour Hold: 96 Hour Involuntary Admission: No Attestations NPU Medical Necessity Statement*: Hospitalization is medically necessary and deemed to be the clinically appropriate intervention at this time. We will monitor and initiate medications while making changes as indicated. His likely length of stay is 5 to 7 days. Coding Level of Care Code Acute Code for [facility] Fwd Diagnoses Bipolar disorder, unspecified F31.9 Suicidal ideation R45.851 Alcohol dependence F10.20
[2022-08-23 22:00] VITALS: RESP 18
[2022-08-23] MEDS: trazodone 50 mg Tablet PO (22:13)
[2022-08-23] MEDS: atorvastatin 40 mg Tablet 20 MG PO (22:13)
[2022-08-23] MEDS: haloperidol 5 mg Tablet PO (22:13)
[2022-08-24] MEDS: nicotine 2 mg Gum BUCCAL ×3 (04:45→14:06)
[2022-08-24] MEDS: levothyroxine 25 mcg Tablet PO (05:08)
[2022-08-24] MEDS: pantoprazole DR 40 mg Tablet PO (05:08)
[2022-08-24 06:00] VITALS: BP 115/80; PULSE 97; RESP 15; TEMP 36.6; O2SAT 91
[2022-08-24] MEDS: naproxen 500 mg Tablet PO (06:02)
[2022-08-24] MEDS: OLANZapine 5 mg ODT PO ×2 (08:06→22:17)
[2022-08-24] MEDS: paliperidone ER 6 mg Tablet 9 MG PO (08:46)
[2022-08-24] MEDS: metoprolol succinate ER (24 HR) 50 mg Tablet PO (08:47)
[2022-08-24] MEDS: chlorPROMazine 50 mg Tablet 200 MG PO ×4 (08:47→21:30)
[2022-08-24] MEDS: HYDROcodone-acetaminophen 7.5-325 mg Tablet 1 TAB PO ×2 (08:47→21:30)
[2022-08-24] MEDS: lamoTRIgine 25 mg Tablet PO ×2 (08:48→17:15)
[2022-08-24] MEDS: losartan 50 mg Tablet 100 MG PO (08:48)
[2022-08-24] MEDS: gabapentin 300 mg Capsule 600 MG PO ×4 (08:49→21:30)
[2022-08-24] MEDS: cyclobenzaprine 10 mg Tablet PO ×2 (08:50→22:17)
[2022-08-24] MEDS: multivitamin therapeutic Tablet 1 TAB PO (08:50)
[2022-08-24] MEDS: folic acid 1 mg Tablet PO (08:50)
[2022-08-24] MEDS: thiamine 100 mg Tablet PO (08:50)
[2022-08-24] MEDS: haloperidol 5 mg Tablet PO (10:40)
[2022-08-24] MEDS: lithium carbonate 150 mg Capsule PO ×2 (10:45→17:15)
[2022-08-24 14:00] VITALS: BP 107/70; PULSE 99; RESP 20; TEMP 36.6; O2SAT 93
--- NOTE | 2022-08-24 17:48 | W.PM.NPUPNS ---
Subjective NPU Subjective: Patient is a 41-year-old white male with bipolar 1 disorder and alcohol dependence admitted with suicidal ideation. He continued to report a lack of control of his anxiety. He reported an inability to manage his frustrations and continually asked staff to give him medications to keep him sedated. He had continued to engage in much avoidance of issues stating that he needed medications to manage his anxiety despite claiming that medications such as Haldol and Thorazine were necessary to manage his mood. He had acknowledged that he tended to take medications impulsively at home and had not been compliant with the dosing regimen. He did not appear to show any signs of alcohol withdrawal and despite this he continued to make demands to receive Ativan. He had reported a long history of bipolar disorder but again it remained difficult to clarify this diagnosis given the fact that he had not been properly evaluated or tried on medications while being sober off of alcohol for any extended period of time. Mental Status Exam MSE Comments: This is an obese versus morbidly obese white male in hospital scrubs with adequate grooming and fair eye contact. No abnormal movements except for signficant psychomotor retardation. He was cooperative with exam in moderate distress. Speech was normal in rate rhythm and volume. Mood described as annoyed. His affect was irritable and mood congruent. Thought process organized. Thought content: Patient endorsed no suicidal thoughts with no active plan., there were no delusions reported or noted, he denied any auditory or visual hallucinations. Attention and concentration were intact and memory appeared reliable but none were formally tested. He is alert and oriented x3. Insight is feeble and judgment is limited, impulse control is impaired. Vitals/I&O/Wt Last Vital Signs Temp 98 F 08/24/22 14:00 Pulse 99 08/24/22 14:00 Resp 20 H 08/24/22 14:00 BP 107/70 08/24/22 14:00 Pulse Ox 93 08/24/22 14:00 O2 Del Method Room Air 08/24/22 06:00 Weight last 48 hrs Weight 136.078 kg Data NPU 08/19/22 22:06 08/19/22 22:06 A&P Assessment and plan (1) Bipolar disorder, unspecified: (2) Suicidal ideation: (3) Alcohol dependence: Plan Patient is a 41-year-old white male with a history of alcohol dependence along with unspecified bipolar disorder with a history of multiple inpatient admissions currently endorsing depressed mood and suicidal ideation with patient desirous to receive inpatient drug rehabilitation. 1. Engage patient in individual, milieu, and group therapy 2. Continue current medications. Continue Invega 9mg daily and Continue Lamotrigine 25 mg twice a day to target bipolar depression. Continue Thorazine to 200mg qid. Continue lithium 150mg bid. 3. TO-15 minute checks on the unit 4. Recommend sober living treatment at the highest level of care to which the patient is willing to commit. 5. Discontinue CIWA protocol Involuntary Hold Information 96 Hour Hold: 96 Hour Involuntary Admission: No Attestations NPU Medical Necessity Statement*: Hospitalization is medically necessary and deemed to be the clinically appropriate intervention at this time. We will monitor and initiate medications while making changes as indicated. His likely length of stay is 1-2 days. Coding Level of Care Code Acute Code for g Fwd Diagnoses Bipolar disorder, unspecified F31.9 Suicidal ideation R45.851 Alcohol dependence F10.20
[2022-08-24] MEDS: nicotine 4 mg lozenge MUCOUS MEM ×2 (18:22→22:17)
[2022-08-24 19:51] VITALS: BP 108/73; PULSE 99; RESP 20; O2SAT 95
[2022-08-24] MEDS: atorvastatin 40 mg Tablet 20 MG PO (22:15)
[2022-08-24] MEDS: trazodone 50 mg Tablet PO (22:17)
[2022-08-25] MEDS: naproxen 500 mg Tablet PO (03:18)
[2022-08-25] MEDS: haloperidol 5 mg Tablet PO ×2 (03:53→10:10)
[2022-08-25] MEDS: pantoprazole DR 40 mg Tablet PO (05:33)
[2022-08-25] MEDS: levothyroxine 25 mcg Tablet PO (05:33)
[2022-08-25] MEDS: nicotine 2 mg Gum BUCCAL ×2 (05:42→14:07)
[2022-08-25 06:00] VITALS: BP 119/81; PULSE 116; RESP 20; O2SAT 97
[2022-08-25] MEDS: chlorPROMazine 50 mg Tablet 200 MG PO ×2 (08:52→14:03)
[2022-08-25] MEDS: paliperidone ER 6 mg Tablet 9 MG PO (08:53)
[2022-08-25] MEDS: HYDROcodone-acetaminophen 7.5-325 mg Tablet 1 TAB PO (08:54)
[2022-08-25] MEDS: metoprolol succinate ER (24 HR) 50 mg Tablet PO (08:55)
[2022-08-25] MEDS: cyclobenzaprine 10 mg Tablet PO (08:55)
[2022-08-25] MEDS: gabapentin 300 mg Capsule 600 MG PO ×2 (08:55→13:39)
[2022-08-25 08:56] VITALS: BP 119/81
[2022-08-25] MEDS: lamoTRIgine 25 mg Tablet PO (08:56)
[2022-08-25] MEDS: losartan 50 mg Tablet 100 MG PO (08:56)
[2022-08-25] MEDS: thiamine 100 mg Tablet PO (08:57)
[2022-08-25] MEDS: folic acid 1 mg Tablet PO (08:57)
[2022-08-25] MEDS: lithium carbonate 150 mg Capsule PO (08:57)
[2022-08-25] MEDS: multivitamin therapeutic Tablet 1 TAB PO (08:57)
[2022-08-25] MEDS: nicotine 4 mg lozenge MUCOUS MEM (10:54)
[2022-08-25 14:00] VITALS: BP 110/66; PULSE 101; RESP 20; TEMP 36.6; O2SAT 97
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
[2022-08-25 15:44] VITALS: BP 104/63; PULSE 95; RESP 14; TEMP 36.5; O2SAT 94
== END 2022-08-25 17:47 | disposition home or self-care (01) | DRG 897 ==
LOC: ER 08-20 05:09 → NP 08-20 10:20
PROVIDERS: Admitting Provider Psychiatry & Neurology Psychiatry; Emergency Provider Emergency Medicine; PCP Family Medicine; Visit Provider Psychiatry & Neurology Psychiatry
DX: F10.229 Alcohol dependence with intoxication, unspecified (principal); R45.851 Suicidal ideations; Y90.7 Blood alcohol level of 200-239 mg/100 ml; F31.9 Bipolar disorder, unspecified; E03.9 Hypothyroidism, unspecified; F41.9 Anxiety disorder, unspecified
CPT/HCPCS: 70450; 80053; 80306; 80307; 84443; 85025; 90471; 93005; 97150; 97165; 99285; E0114; Q0161

== ENCOUNTER 2022-08-30 03:14 | Inpatient (IN) | payer BC, SELFPAY ==
[2022-08-30 03:15] VITALS: BP 123/80; PULSE 103; RESP 18; TEMP 36.8; O2SAT 94; BMI 42.0
[2022-08-30 04:03] LABS: Basophils % 0.2 %; Hematocrit 35.9 % (42.0-52.0); Hemoglobin 11.6 g/dL (11.7-16.6); Lymphocytes # 1.7 10^3/uL (0.8-4.8); Lymphocytes % 29.9 %; Mean Corpuscular HGB Conc 32.3 g/dL (30.0-36.0); Mean Corpuscular Volume 86.5 fl (80-94); Mean Platelet Volume 8.7 fL (7.4-10.4); Monocytes # 0.6 10^3/uL (0.2-0.9); Monocytes % 9.6 %; Neutrophils # 3.37 10^3/uL (1.8-7.7); Neutrophils % 58.6 %; Nucleated Red Blood Cells % 0 %; Platelet Count 259 10^3/cmm (130-400); Red Blood Count 4.15 10^6/uL (4.1-5.3); Red Cell Distribution Width 14.6 % (12.1-15.1); White Blood Count 5.8 10^3/uL (4.0-10.0)
[2022-08-30 04:28] LABS: Alanine Aminotransferase 116 U/L (0-41); Albumin Level 4.4 g/dL (3.5-5.2); Alcohol Level 189 mg/dL (0-10); Alkaline Phosphatase 69 U/L (40-130); Aspartate Amino Transferase 82 U/L (0-40); Blood Urea Nitrogen 19 mg/dL (6-20); Calcium 9.1 mg/dL (8.5-10.5); Carbon Dioxide 24 mmol/L (22-29); Chloride 98 mmol/L (98-107); Globulin 2.7 g/dL (1.3-4.6); Glomerular Filtration Rate 73.4 mL/min (90-130); Glucose 81 mg/dL (65-115); Osmolality Calculated 285 mOsm/kg (285-295); Sodium 137 mmol/L (136-145); Total Bilirubin 0.2 mg/dL (0.15-1.2); Total Protein 7.1 g/dL (6.6-8.7)
[2022-08-30 04:33] LABS: Add Urine Microscopic? NO; Charge for UA Resulting for Rev
--- NOTE | 2022-08-30 04:35 | ED.C_ITS ---
Documented by User: Frankie Dominguez DO 08/30/22 16:18 HPI - Psych General: Chief Complaint: Psychiatric Symptoms Stated Complaint: SI/HI Time Seen by Provider: 08/30/22 03:33 Source: patient History of Present Illness: 41-year-old male with a history of alcohol dependence. He presents with what he says are suicidal thoughts. He has no specific current plan to hurt himself. He does admit to drinking a lot of vodka, which he tends to do on a daily basis. He is now not answering much historical questions otherwise, except states that he has not been taking his psychiatric medications. MD complaint: feels depressed Onset (ago): day(s) Duration: constant History of same: Yes Relieving factors: none Exacerbating factors: alcohol Context: recent alcohol abuse Associated psychiatric symptoms: depression and suicidal ideation Associated symptoms: Reports depression and suicidal ideation; Deny auditory hallucinations, visual hallucinations or homicidal ideation Treatments prior to arrival: none Review of Systems Const: Denies: fever(s) ENMT: Denies: uvular edema Card: Denies: palpitations Resp: Denies: dyspnea or productive cough GI: Denies: abdominal pain or vomiting : Denies: difficulty urinating Psych: Reports: depression and suicidal ideation; Denies: visual hallucinations, auditory hallucinations or homicidal ideation [facility] ED PFSH: Medical History Alcohol dependence Bipolar disorder, unspecified Hypothyroidism Psychiatric care Physical Exam Const: GENERAL APPEARANCE: lethargic and odor of alcohol detected; not ill appearing and not frail appearing NUTRITIONAL APPEARANCE: obese ORIENTATION/CONSCIOUSNESS: Yes awake, Yes oriented to person and Yes lethargic HENMT: COMMON NORMALS: normocephalic, atraumatic and Normal external nose present HEAD & SCALP: normocephalic and atraumatic FACE & SINUS: normal facial exam NOSE: Normal external nose present THROAT: no uvular edema Eye: COMMON NORMALS: Equal, round and reactive pupils present and EOMs intact bilaterally PUPIL: Yes Equal, round and reactive pupils present and Yes Pupil accommodation reflex normal Neck/C-Spine: GENERAL: Yes trachea midline Chest: CHEST: Yes Symmetrical chest wall rise Resp: COMMON NORMALS: normal respiratory effort, No use of accessory muscles and clear to auscultation bilaterally AUSCULTATION: clear to auscultation bilaterally Cardio: COMMON NORMALS: regular rate and regular rhythm RATE: regular rate RHYTHM: regular rhythm GI: COMMON NORMALS: Soft to palpation INSPECTION: Yes normal to inspection PALPATION: Yes Soft to palpation Neuro: DIOGO COMA SCALE: document GCS findings [place]enton coma scale eye opening: To sound Diogo coma scale verbal response: Orientated Diogo coma scale motor response: Obey commands Benton coma scale total score: 14 SENSORIUM/ORIENTATION: Yes oriented to person and Yes lethargic MOTOR EXAM: Normal motor muscle tone present throughout Psych: COMMON NORMALS: cooperative Course Vital Signs: Vital signs: Vital Signs Temperature 97.6 F 08/30/22 14:21 Pulse Rate 119 H 08/30/22 14:21 Respiratory Rate 20 H 08/30/22 14:21 Blood Pressure 153/101 08/30/22 14:21 Pulse Oximetry 95 08/30/22 14:21 Oxygen Delivery Me thod Room Air 08/30/22 14:21 [facility] - Psych Medical Decision Making This will be the fourth presentation for suicidal ideation for this patient in the last month. He has been admitted 3 times. His story is much the same as the previous 3 times. Medically he is stable. His alcohol level is 189. His laboratory is not otherwise remarkable. He is resting comfortably. Spoke with psychiatry regarding this patient. Because of frequent admissions, without specific plan for lethality, he would like to see the patient in the ER for consideration of admission versus discharge. He will do that later this morning. Lab Data 08/30/22 03:58 08/30/22 03:58 Laboratory Results WBC 5.8 10^3/uL (4.0-10.0) 08/30/22 03:58 RBC 4.15 10^6/uL (4.1-5.3) 08/30/22 03:58 Hgb 11.6 g/dL (11.7-16.6) L 08/30/22 03:58 Hct 35.9 % (42.0-52.0) L 08/30/22 03:58 MCV 86.5 fl (80-94) 08/30/22 03:58 MCH 28.0 pg (28.0-34.0) 08/30/22 03:58 MCHC 32.3 g/dL (30.0-36.0) 08/30/22 03:58 RDW 14.6 % (12.1-15.1) 08/30/22 03:58 Plt Count 259 10^3/cmm (130-400) 08/30/22 03:58 MPV 8.7 fL (7.4-10.4) 08/30/22 03:58 Neut % (Auto) 58.6 % 08/30/22 03:58 Lymph % (Auto) 29.9 % 08/30/22 03:58 Bennett % (Auto) 9.6 % 08/30/22 03:58 Eos % (Auto) 0.0 % 08/30/22 03:58 Baso % (Auto) 0.2 % 08/30/22 03:58 Neut # (Auto) 3.37 10^3/uL (1.8-7.7) 08/30/22 03:58 Lymph # (Auto) 1.7 10^3/uL (0.8-4.8) 08/30/22 03:58 Bennett # (Auto) 0.6 10^3/uL (0.2-0.9) 08/30/22 03:58 Eos # (Auto) 0.0 10^3/uL (0.0-0.8) 08/30/22 03:58 Baso # (Auto) 0.0 10^3/uL (0.0-0.1) 08/30/22 03:58 Nucleated RBC % (auto) 0 % 08/30/22 03:58 Nucleated RBCs # 0.0 /100WBC 08/30/22 03:58 Sodium 137 mmol/L (136-145) 08/30/22 03:58 Potassium 4.3 mmol/L (3.5-5.1) 08/30/22 03:58 Chloride 98 mmol/L (98-107) 08/30/22 03:58 Carbon Dioxide 24 mmol/L (22-29) 08/30/22 03:58 Anion Gap 19.3 (5-19) H 08/30/22 03:58 BUN 19 mg/dL (6-20) 08/30/22 03:58 Creatinine 1.1 mg/dL (0.7-1.2) 08/30/22 03:58 GFR Calculation 73.4 mL/min (90-130) L 08/30/22 03:58 Glucose 81 mg/dL (65-115) 08/30/22 03:58 Calculated Osmolality 285 mOsm/kg (285-295) 08/30/22 03:58 Calcium 9.1 mg/dL (8.5-10.5) 08/30/22 03:58 Total Bilirubin 0.2 mg/dL (0.15-1.2) 08/30/22 03:58 AST 82 U/L (0-40) H 08/30/22 03:58 ALT 116 U/L (0-41) H 08/30/22 03:58 Alkaline Phosphatase 69 U/L (40-130) 08/30/22 03:58 Total Protein 7.1 g/dL (6.6-8.7) 08/30/22 03:58 Albumin 4.4 g/dL (3.5-5.2) 08/30/22 03:58 Globulin 2.7 g/dL (1.3-4.6) 08/30/22 03:58 Urine Color Yellow (Yellow) 08/30/22 04:24 Urine Appearance Clear (CLEAR) 08/30/22 04:24 Urine pH 5 (5-7) 08/30/22 04:24 Ur Specific [place] 1.020 (1.005-1.030) 08/30/22 04:24 Urine Protein Neg (Negative) 08/30/22 04:24 Urine Glucose (UA) Norm (Normal) 08/30/22 04:24 Urine Ketones Negative (Negative) 08/30/22 04:24 Urine Blood Neg (Negative) 08/30/22 04:24 Urine Nitrate Negative (Negative) 08/30/22 04:24 Urine Bilirubin Neg (Negative) 08/30/22 04:24 Urine Urobilinogen Norm mg/dL (Negative) 08/30/22 04:24 Ur Leukocyte Esterase Negative (Negative) 08/30/22 04:24 Salicylates < 0.3 mg/dL (3-10) L 08/30/22 03:58 Urine Opiates Screen Positive ng/mL (Negative) H 08/30/22 04:24 Acetaminophen < 5.0 ug/mL (10-30) L 08/30/22 03:58 Ur Barbiturates Screen Negative ng/mL (Negative) 08/30/22 04:24 Ur Phencyclidine Scrn Negative ng/mL (Negative) 08/30/22 04:24 Ur Amphetamines Screen Negative ng/mL (Negative) 08/30/22 04:24 U Benzodiazepines Scrn Negative ng/mL (Negative) 08/30/22 04:24 Urine Cocaine Screen Negative ng/mL (Negative) 08/30/22 04:24 U Marijuana (THC) Screen Positive ng/mL (Negative) H 08/30/22 04:24 Ethyl Alcohol 189 mg/dL (0-10) H 08/30/22 03:58 Discharge Plan Discharge Patient Disposition: Admitted As Inpatient Admit Provider: Ovidio Cordoba Clinical Impression: Depression Qualifiers: Depression Type: unspecified Qualified Code(s): F32.A - Depression, unspecified Alcohol dependence Qualifiers: Substance use status: unspecified alcohol-induced disorder Qualified Code(s): F10.29 - Alcohol dependence with unspecified alcohol-induced disorder Condition: Stable Coding Level of Care Code ED Python Programmer for Chg Fwd Documented by User: Israel Pavon DO 08/30/22 13:19 HPI - Psych General: Chief Complaint: Psychiatric Symptoms Stated Complaint: SI/HI Time Seen by Provider: 08/30/22 03:33 PFSH ED PFSH: Medical History Alcohol dependence Bipolar disorder, unspecified Hypothyroidism Psychiatric care Physical Exam Neuro: DIOGO COMA SCALE: document GCS findings Diogo coma scale total score: 14 Course Vital Signs: Vital signs: Vital Signs Temperature 97.6 F 08/30/22 14:21 Pulse Rate 119 H 08/30/22 14:21 Respiratory Rate 20 H 08/30/22 14:21 Blood Pressure 153/101 08/30/22 14:21 Pulse Oximetry 95 08/30/22 14:21 Oxygen Delivery Me thod Room Air 08/30/22 14:21 MDM - Psych Differential Diagnosis Likely suicidal ideation Medical Records I reviewed the patient's medical records. Lab Data I reviewed the patient's lab results. 08/30/22 03:58 08/30/22 03:58 Laboratory Results WBC 5.8 10^3/uL (4.0-10.0) 08/30/22 03:58 RBC 4.15 10^6/uL (4.1-5.3) 08/30/22 03:58 Hgb 11.6 g/dL (11.7-16.6) L 08/30/22 03:58 Hct 35.9 % (42.0-52.0) L 08/30/22 03:58 MCV 86.5 fl (80-94) 08/30/22 03:58 MCH 28.0 pg (28.0-34.0) 08/30/22 03:58 MCHC 32.3 g/dL (30.0-36.0) 08/30/22 03:58 RDW 14.6 % (12.1-15.1) 08/30/22 03:58 Plt Count 259 10^3/cmm (130-400) 08/30/22 03:58 MPV 8.7 fL (7.4-10.4) 08/30/22 03:58 Neut % (Auto) 58.6 % 08/30/22 03:58 Lymph % (Auto) 29.9 % 08/30/22 03:58 Bennett % (Auto) 9.6 % 08/30/22 03:58 Eos % (Auto) 0.0 % 08/30/22 03:58 Baso % (Auto) 0.2 % 08/30/22 03:58 Neut # (Auto) 3.37 10^3/uL (1.8-7.7) 08/30/22 03:58 Lymph # (Auto) 1.7 10^3/uL (0.8-4.8) 08/30/22 03:58 Bennett # (Auto) 0.6 10^3/uL (0.2-0.9) 08/30/22 03:58 Eos # (Auto) 0.0 10^3/uL (0.0-0.8) 08/30/22 03:58 Baso # (Auto) 0.0 10^3/uL (0.0-0.1) 08/30/22 03:58 Nucleated RBC % (auto) 0 % 08/30/22 03:58 Nucleated RBCs # 0.0 /100WBC 08/30/22 03:58 Sodium 137 mmol/L (136-145) 08/30/22 03:58 Potassium 4.3 mmol/L (3.5-5.1) 08/30/22 03:58 Chloride 98 mmol/L (98-107) 08/30/22 03:58 Carbon Dioxide 24 mmol/L (22-29) 08/30/22 03:58 Anion Gap 19.3 (5-19) H 08/30/22 03:58 BUN 19 mg/dL (6-20) 08/30/22 03:58 Creatinine 1.1 mg/dL (0.7-1.2) 08/30/22 03:58 GFR Calculation 73.4 mL/min (90-130) L 08/30/22 03:58 Glucose 81 mg/dL (65-115) 08/30/22 03:58 Calculated Osmolality 285 mOsm/kg (285-295) 08/30/22 03:58 Calcium 9.1 mg/dL (8.5-10.5) 08/30/22 03:58 Total Bilirubin 0.2 mg/dL (0.15-1.2) 08/30/22 03:58 AST 82 U/L (0-40) H 08/30/22 03:58 ALT 116 U/L (0-41) H 08/30/22 03:58 Alkaline Phosphatase 69 U/L (40-130) 08/30/22 03:58 Total Protein 7.1 g/dL (6.6-8.7) 08/30/22 03:58 Albumin 4.4 g/dL (3.5-5.2) 08/30/22 03:58 Globulin 2.7 g/dL (1.3-4.6) 08/30/22 03:58 Urine Color Yellow (Yellow) 08/30/22 04:24 Urine Appearance Clear (CLEAR) 08/30/22 04:24 Urine pH 5 (5-7) 08/30/22 04:24 Ur Specific [place] 1.020 (1.005-1.030) 08/30/22 04:24 Urine Protein Neg (Negative) 08/30/22 04:24 Urine Glucose (UA) Norm (Normal) 08/30/22 04:24 Urine Ketones Negative (Negative) 08/30/22 04:24 Urine Blood Neg (Negative) 08/30/22 04:24 Urine Nitrate Negative (Negative) 08/30/22 04:24 Urine Bilirubin Neg (Negative) 08/30/22 04:24 Urine Urobilinogen Norm mg/dL (Negative) 08/30/22 04:24 Ur Leukocyte Esterase Negative (Negative) 08/30/22 04:24 Salicylates < 0.3 mg/dL (3-10) L 08/30/22 03:58 Urine Opiates Screen Positive ng/mL (Negative) H 08/30/22 04:24 Acetaminophen < 5.0 ug/mL (10-30) L 08/30/22 03:58 Ur Barbiturates Screen Negative ng/mL (Negative) 08/30/22 04:24 Ur Phencyclidine Scrn Negative ng/mL (Negative) 08/30/22 04:24 Ur Amphetamines Screen Negative ng/mL (Negative) 08/30/22 04:24 U Benzodiazepines Scrn Negative ng/mL (Negative) 08/30/22 04:24 Urine Cocaine Screen Negative ng/mL (Negative) 08/30/22 04:24 U Marijuana (THC) Screen Positive ng/mL (Negative) H 08/30/22 04:24 Ethyl Alcohol 189 mg/dL (0-10) H 08/30/22 03:58 Discharge Plan Discharge Patient Disposition: Admitted As Inpatient Admit Provider: Ovidio Cordoba Clinical Impression: Depression Qualifiers: Depression Type: unspecified Qualified Code(s): F32.A - Depression, unspecified Alcohol dependence Qualifiers: Substance use status: unspecified alcohol-induced disorder Qualified Code(s): F10.29 - Alcohol dependence with unspecified alcohol-induced disorder Condition: Stable Coding Level of Care Code ED Python Programmer for Uriel Price
[2022-08-30 04:36] LABS: Acetaminophen < 5.0 ug/mL (10-30); Salicylate < 0.3 mg/dL (3-10)
[2022-08-30 04:37] LABS: Anion Gap 19.3 (5-19); Potassium 4.3 mmol/L (3.5-5.1)
[2022-08-30 04:37] LABS: Bilirubin Urine Neg (Negative); Blood Urine Neg (Negative); Glucose Urine UA Norm (Normal); Ketones Urine Negative (Negative); Leukocyte Esterase Urine Negative (Negative); Nitrate Urine Negative (Negative); Protein Urine Neg (Negative); Urine Appearance Clear (CLEAR); Urine Color Yellow (Yellow); Urobilinogen Urine Norm (Negative); pH Urine 5 (5-7)
[2022-08-30 04:44] LABS: Amphetamines Screen Urine Negative (Negative); Barbiturates Screen Urine Negative (Negative); Benzodiazepines Screen Urine Negative (Negative); Cocaine Screen Urine Negative (Negative); Opiate Screen Urine Positive (Negative); PCP Screen Urine Negative (Negative); THC Screen Urine Positive (Negative)
[2022-08-30] MEDS: ondansetron 2 mg/ML SDV 2 mL 8 MG IVP (06:39)
[2022-08-30 09:31] VITALS: O2SAT 98
[2022-08-30] MEDS: LORazepam 1 mg Tablet PO (10:22)
--- NOTE | 2022-08-30 10:51 | PC.NURSE ---
Patient became anxious due to other patients yelling and screaming. Nurse administered medication to help patient.
[2022-08-30 14:21] VITALS: BP 153/101; PULSE 119; RESP 20; TEMP 36.4; O2SAT 95
[2022-08-30] MEDS: ondansetron 4 MG Tablet PO (14:42)
--- NOTE | 2022-08-30 14:46 | PC.NURSE ---
Administered to Zofran to patient for nausea. 4 mg PO. Will continue to monitor.
[2022-08-30] MEDS: LORazepam 2 mg Tablet PO (16:41)
--- NOTE | 2022-08-30 16:44 | PC.NURSE ---
PRN Movement Education Specialist Patient presented to nurses' station [facility], with moderate tremors. He stated his vision was very blurry and that he was having a headache with nausea. CIWA score was 16. Ativan 2mg PO administered.
[2022-08-30] MEDS: lamoTRIgine 25 mg Tablet PO (17:53)
[2022-08-30] MEDS: naproxen 500 mg Tablet PO (17:53)
[2022-08-30 22:00] VITALS: RESP 15
[2022-08-31] MEDS: acetaminophen 325 mg Tablet 650 MG PO (02:36)
[2022-08-31 06:00] VITALS: RESP 18
--- NOTE | 2022-08-31 08:05 | PC.NURSE ---
pt is currently in the dayroom watching television. Spoke with pt and pt states that i dont have hope that my situation will gete better. pt states that his anxiety is a 7/10. pt was informed that he will be getting medication at 0800 that should assist in lowering his anxiety. pt stated that he agrees to come talk to nursing staff if his feelings become worsened.
[2022-08-31] MEDS: metoprolol succinate ER (24 HR) 50 mg Tablet PO (08:27)
[2022-08-31] MEDS: lamoTRIgine 25 mg Tablet PO ×2 (08:27→18:01)
[2022-08-31] MEDS: atorvastatin 40 mg Tablet 20 MG PO (08:28)
[2022-08-31 08:29] VITALS: BP 153/101
[2022-08-31] MEDS: cyclobenzaprine 10 mg Tablet PO ×2 (08:29→18:01)
[2022-08-31] MEDS: multivitamin therapeutic Tablet 1 TAB PO (08:29)
[2022-08-31] MEDS: levothyroxine 25 mcg Tablet PO (08:29)
[2022-08-31] MEDS: folic acid 1 mg Tablet PO (08:29)
[2022-08-31] MEDS: HYDROcodone-acetaminophen 7.5-325 mg Tablet 1 TAB PO ×2 (08:29→20:51)
[2022-08-31] MEDS: losartan 50 mg Tablet 100 MG PO (08:29)
[2022-08-31] MEDS: haloperidol 5 mg Tablet PO ×3 (08:30→20:49)
[2022-08-31] MEDS: thiamine 100 mg Tablet PO (08:30)
[2022-08-31] MEDS: ondansetron 4 MG Tablet PO (08:50)
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
--- NOTE | 2022-08-31 10:35 | PC.NURSE ---
Pt requested to be able to sit and talk to someone for a little bit. Spent 20 minutes with pt talking about his situation. PT spoke with This Rn about how he feels hopeless about his situation. pt elaborated with that he is not going to be able to pay his rent, he is working with a [employer] on getting vouchers to pay for rent but has been unable to secure situation. pt also spoke with this RN about how he has been unable to keep a job and states anytime I go into work i start freaking out and i just cannot seem to keep a job. Pt asked this RN is there anyway you guys could get me placement into a talent acquisition manager psych facility? this RN explained that is not my decision to determine and i do not have information on that at this moment. This Rn educated pt that Rehabilitation may be a good option for this pt as he is currently struggling with alcoholism. Pt continued to speak on these. pt educated that if he needs anything to let the nursing staff know and that the doctor would be around later.
[2022-08-31] MEDS: OLANZapine 5 mg ODT PO ×2 (11:38→15:51)
--- NOTE | 2022-08-31 11:39 | PC.NURSE ---
pt came up to the nurses station requesting something for anxiety and agitation rating it a 6/10. pt received prn olanzapine 5mg for this reason.
[2022-08-31] MEDS: naproxen 500 mg Tablet PO (13:57)
[2022-08-31 14:00] VITALS: BP 103/81; PULSE 112; RESP 19; TEMP 36.5; O2SAT 92
[2022-08-31] MEDS: nicotine 2 mg Gum BUCCAL ×3 (14:15→21:09)
[2022-08-31] MEDS: gabapentin 300 mg Capsule 600 MG PO ×2 (15:51→20:49)
[2022-08-31] MEDS: nicotine 4 mg lozenge MUCOUS MEM (19:01)
[2022-08-31 19:37] VITALS: BP 136/87; PULSE 106; RESP 20; TEMP 36.7; O2SAT 93
[2022-08-31] MEDS: trazodone 50 mg Tablet PO (21:43)
[2022-09-01] MEDS: nicotine 4 mg lozenge MUCOUS MEM ×2 (04:30→13:19)
[2022-09-01] MEDS: pantoprazole DR 40 mg Tablet PO (05:42)
[2022-09-01] MEDS: levothyroxine 25 mcg Tablet PO (05:43)
[2022-09-01 06:00] VITALS: BP 139/92; PULSE 105; RESP 22; TEMP 36.7; O2SAT 94
[2022-09-01] MEDS: OLANZapine 5 mg ODT PO ×3 (06:32→19:49)
[2022-09-01] MEDS: naproxen 500 mg Tablet PO ×2 (08:41→18:05)
[2022-09-01 08:42] VITALS: BP 139/92
[2022-09-01] MEDS: thiamine 100 mg Tablet PO (08:42)
[2022-09-01] MEDS: multivitamin therapeutic Tablet 1 TAB PO (08:42)
[2022-09-01] MEDS: lamoTRIgine 25 mg Tablet PO ×2 (08:42→18:05)
[2022-09-01] MEDS: folic acid 1 mg Tablet PO (08:42)
[2022-09-01] MEDS: haloperidol 5 mg Tablet PO ×3 (08:42→21:04)
[2022-09-01] MEDS: atorvastatin 40 mg Tablet 20 MG PO (08:42)
[2022-09-01] MEDS: losartan 50 mg Tablet 100 MG PO (08:42)
[2022-09-01] MEDS: metoprolol succinate ER (24 HR) 50 mg Tablet PO (08:42)
[2022-09-01] MEDS: gabapentin 300 mg Capsule 600 MG PO ×4 (08:42→21:03)
[2022-09-01] MEDS: HYDROcodone-acetaminophen 7.5-325 mg Tablet 1 TAB PO (08:46)
[2022-09-01] MEDS: nicotine 2 mg Gum BUCCAL ×3 (08:52→18:12)
[2022-09-01] MEDS: hyDROXYzine 25 mg Capsule 50 MG PO (09:40)
[2022-09-01] MEDS: cyclobenzaprine 10 mg Tablet PO ×2 (10:05→21:04)
[2022-09-01 14:00] VITALS: BP 117/80; PULSE 106; RESP 18; TEMP 36.4; O2SAT 96
--- NOTE | 2022-09-01 14:09 | W.PM.NPUPNS ---
Subjective NPU Subjective: Patient presented today reporting that he was feeling a little better. [facility] well as the program that pays his rent who agreed to pay his rent through September. Additionally he was working with the treatment team for options for sober living treatment moving forward. He did fill out paperwork for [facility] and they were going to get a bed date some point today but it is unclear how soon that will be. We discussed making sure his Thorazine was at a appropriate doses he reports he feels irritable since he was discontinued. Mental Status Exam MSE Comments: This is an obese versus morbidly obese white male in hospital scrubs with limited grooming and limited contact. No abnormal movements except for significant psychomotor retardation. Cooperative with exam in mild to moderate distress. Speech was decreased rate and volume. Mood described as depressed. His affect was flat and subdued. Thought process was organized. Thought content: Patient endorsed suicidal thoughts with no active plan, but denied homicidal ideation, there were no delusions reported or noted, he denied any auditory or visual hallucinations. Attention and concentration were intact and memory appeared mostly reliable but concerns for manipulated information and malingering present, but none were formally tested. He is alert and oriented x3. Insight is poor and judgment is limited, impulse control is impaired as well. Vitals/I&O/Wt Last Vital Signs Temp 97.5 F L 09/01/22 14:00 Pulse 106 H 09/01/22 14:00 Resp 18 09/01/22 14:00 BP 117/80 09/01/22 14:00 Pulse Ox 96 09/01/22 14:00 O2 Del Method Room Air 09/01/22 06:00 Data NPU 08/30/22 03:58 08/30/22 03:58 A&P Assessment and plan (1) Bipolar disorder, unspecified: (2) Suicidal ideation: (3) Alcohol dependence: Qualifiers: Substance use status: unspecified alcohol-induced disorder Qualified Code(s): F10.29 - Alcohol dependence with unspecified alcohol-induced disorder (4) Malingering: (5) Hypothyroidism: (6) Depression: Qualifiers: Depression Type: unspecified Qualified Code(s): F32.A - Depression, unspecified Plan Patient is a 41-year-old white male with a history of alcohol dependence along with unspecified bipolar disorder with a history of multiple inpatient admissions this going to be his fourth since August 08, 2022, currently endorsing depressed mood and suicidal ideation. 1. Continue current medications. Continue to make changes to clean up his medication regimen, but continuum Thorazine. 2. Encourage individual, group and milieu therapy 3. Continue every 15 minute checks for safety 4. Recommend sober living treatment at the highest level of care to which the patient is willing to commit. Which ultimately would seem to be inpatient given his current situation. 5. [facility] protocol. Involuntary Hold Information 96 Hour Hold: 96 Hour Involuntary Admission: No Attestations NPU Medical Necessity Statement*: Inpatient hospitalization is medically necessary and the clinically appropriate decision at this time. We will monitor medications and make changes as indicated. Likely length of stay of 3-5 days. Coding Level of Care Code Acute Code for [facility] Fwd Diagnoses Bipolar disorder, unspecified F31.9 Suicidal ideation R45.851 Alcohol dependence F10.29 Substance use status: unspecified alcohol-induced disorder Malingering Z76.5 Hypothyroidism E03.9 Depression F32.A Depression Type: unspecified
[2022-09-01 20:48] VITALS: BP 127/74; PULSE 102; RESP 20; TEMP 36.7; O2SAT 97
[2022-09-01] MEDS: trazodone 50 mg Tablet PO (21:04)
[2022-09-02] MEDS: OLANZapine 5 mg ODT PO ×2 (05:05→11:34)
[2022-09-02] MEDS: pantoprazole DR 40 mg Tablet PO (05:05)
[2022-09-02] MEDS: levothyroxine 25 mcg Tablet PO (05:05)
[2022-09-02 06:00] VITALS: BP 135/91; PULSE 107; RESP 20; TEMP 36.7; O2SAT 94
[2022-09-02] MEDS: HYDROcodone-acetaminophen 7.5-325 mg Tablet 1 TAB PO (08:14)
[2022-09-02] MEDS: multivitamin therapeutic Tablet 1 TAB PO (08:14)
[2022-09-02] MEDS: gabapentin 300 mg Capsule 600 MG PO ×4 (08:15→21:49)
[2022-09-02] MEDS: haloperidol 5 mg Tablet PO ×3 (08:15→21:49)
[2022-09-02] MEDS: thiamine 100 mg Tablet PO (08:15)
[2022-09-02] MEDS: naproxen 500 mg Tablet PO ×2 (08:15→17:21)
[2022-09-02] MEDS: atorvastatin 40 mg Tablet 20 MG PO (08:15)
[2022-09-02] MEDS: chlorPROMazine 50 mg Tablet 200 MG PO ×4 (08:16→21:49)
[2022-09-02] MEDS: lamoTRIgine 25 mg Tablet PO ×2 (08:16→17:21)
[2022-09-02] MEDS: metoprolol succinate ER (24 HR) 50 mg Tablet PO (08:16)
[2022-09-02] MEDS: folic acid 1 mg Tablet PO (08:16)
[2022-09-02] MEDS: losartan 50 mg Tablet 100 MG PO (08:16)
[2022-09-02] MEDS: nicotine 4 mg lozenge MUCOUS MEM ×2 (09:55→13:30)
--- NOTE | 2022-09-02 11:20 | P.NPUPN_ITS ---
Subjective NPU Subjective: Patient presented today reporting that he is feeling better. Mostly reporting optimism about things moving forward in a positive way. Conversation with [facility] turned up a possible bed date of tomorrow. Patient reports he feels very ready to embark on that journey. He also feels positive about the other things he has been working on and creating a likelihood he will have a place to stay moving forward and that he can get his life back on track. He denies any problems with the medications and reports feeling better with the Thorazine back at full strength. Mental Status Exam MSE Comments: This is an obese versus morbidly obese white male in hospital scrubs with limited grooming and limited contact. No abnormal movements except for significant psychomotor retardation. Cooperative with exam in mild to moderate distress. Speech was slightly decreased rate and volume. Mood described as a little better. His affect was congruent and less subdued. Thought process was organized. Thought content: Patient endorsed suicidal thoughts with no active plan, but denied homicidal ideation, there were no delusions reported or noted, he denied any auditory or visual hallucinations. Attention and concentration were intact and memory appeared mostly reliable but concerns for manipulated information and malingering present, but none were formally tested. He is alert and oriented x3. Insight is poor and judgment is limited, impulse control is limited. Vitals/I&O/Wt Last Vital Signs Temp 98.0 F 09/02/22 06:00 Pulse 107 H 09/02/22 06:00 Resp 20 H 09/02/22 06:00 BP 135/91 09/02/22 06:00 Pulse Ox 94 09/02/22 06:00 O2 Del Method Room Air 09/02/22 06:00 Data NPU 08/30/22 03:58 08/30/22 03:58 A&P Assessment and plan (1) Bipolar disorder, unspecified: (2) Suicidal ideation: (3) Alcohol dependence: Qualifiers: Substance use status: unspecified alcohol-induced disorder Qualified Code(s): F10.29 - Alcohol dependence with unspecified alcohol-induced disorder (4) Malingering: (5) Hypothyroidism: (6) Depression: Qualifiers: Depression Type: unspecified Qualified Code(s): F32.A - Depression, unspecified Plan Patient is a 41-year-old white male with a history of alcohol dependence along with unspecified bipolar disorder with a history of multiple inpatient admissi ons this going to be his fourth since August 08, 2022, currently endorsing depressed mood and suicidal ideation. 1. Continue current medications. Continue to make changes to clean up his medication regimen, but restarted Thorazine. 2. Encourage individual, group and milieu therapy 3. Continue every 15 minute checks for safety 4. Recommend sober living treatment at the highest level of care to which the patient is willing to commit. Which ultimately would seem to be inpatient given his current situation. 5. Tentative plan for discharge to [facility] [place] in the next 48 hours. Involuntary Hold Information 96 Hour Hold: 96 Hour Involuntary Admission: No Attestations NPU Medical Necessity Statement*: Inpatient hospitalization is medically necessary and the clinically appropriate decision at this time. We will monitor medications and make changes as indicated. Likely length of stay of 1-3 days. Coding Level of Care Code Acute Code for [facility] Fwd Diagnoses Bipolar disorder, unspecified F31.9 Suicidal ideation R45.851 Alcohol dependence F10.29 Substance use status: unspecified alcohol-induced disorder Malingering Z76.5 Hypothyroidism E03.9 Depression F32.A Depression Type: unspecified
--- NOTE | 2022-09-02 11:35 | PC.NURSE ---
PRN ZYPREXA ZYDIS 5 MG GIVEN PO PER PT C/O STATED AGITATION, DOES NOT APPEAR AGITATED OR ANXIOUS CURRENTLY. SEEMS TO REQUEST PRN MED OFTEN
[2022-09-02] MEDS: cyclobenzaprine 10 mg Tablet PO ×2 (13:26→21:49)
[2022-09-02 14:00] VITALS: BP 106/74; PULSE 107; RESP 20; TEMP 36.3; O2SAT 93
[2022-09-02] MEDS: nicotine 2 mg Gum BUCCAL (18:23)
[2022-09-02 22:00] VITALS: RESP 18
[2022-09-03 06:00] VITALS: RESP 18
[2022-09-03] MEDS: levothyroxine 25 mcg Tablet PO (06:53)
[2022-09-03] MEDS: pantoprazole DR 40 mg Tablet PO (06:53)
[2022-09-03] MEDS: OLANZapine 5 mg ODT PO ×2 (07:22→11:09)
[2022-09-03] MEDS: nicotine 2 mg Gum BUCCAL (07:44)
[2022-09-03] MEDS: chlorPROMazine 50 mg Tablet 200 MG PO ×2 (09:39→12:28)
[2022-09-03] MEDS: naproxen 500 mg Tablet PO (09:47)
[2022-09-03] MEDS: metoprolol succinate ER (24 HR) 50 mg Tablet PO (09:47)
[2022-09-03] MEDS: losartan 50 mg Tablet 100 MG PO (09:47)
[2022-09-03] MEDS: multivitamin therapeutic Tablet 1 TAB PO (09:47)
[2022-09-03] MEDS: thiamine 100 mg Tablet PO (09:47)
[2022-09-03] MEDS: folic acid 1 mg Tablet PO (09:47)
[2022-09-03] MEDS: haloperidol 5 mg Tablet PO (09:48)
[2022-09-03] MEDS: lamoTRIgine 25 mg Tablet PO (09:58)
[2022-09-03] MEDS: atorvastatin 40 mg Tablet 20 MG PO (09:58)
[2022-09-03] MEDS: gabapentin 300 mg Capsule 600 MG PO ×2 (09:59→12:28)
[2022-09-03] MEDS: HYDROcodone-acetaminophen 7.5-325 mg Tablet 1 TAB PO (10:41)
[2022-09-03] MEDS: nicotine 4 mg lozenge MUCOUS MEM (10:41)
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
[2022-09-03 11:51] VITALS: BP 123/74; PULSE 118; RESP 18; TEMP 36.9; O2SAT 96
== END 2022-09-03 12:51 | disposition home or self-care (01) | DRG 885 ==
LOC: ER 13:19 → NP 13:35
PROVIDERS: Admitting Provider Psychiatry & Neurology Psychiatry; Emergency Provider Emergency Medicine; PCP Family Medicine; Visit Provider Psychiatry & Neurology Psychiatry
DX: F31.9 Bipolar disorder, unspecified (principal); R45.851 Suicidal ideations; F10.29 Alcohol dependence with unspecified alcohol-induced disorder; Y90.6 Blood alcohol level of 120-199 mg/100 ml; E03.9 Hypothyroidism, unspecified; I10 Essential (primary) hypertension; Z76.5 Malingerer [conscious simulation]; Z81.8 Family history of other mental and behavioral disorders
CPT/HCPCS: 80053; 80306; 80307; 81003; 85025; 96374; 97150; 97165; 99285; J2405; Q0161; Q0162

== ENCOUNTER 2022-09-13 09:55 | Inpatient (IN) | payer BC, SELFPAY ==
[2022-09-13 09:59] VITALS: BP 125/98; PULSE 114; RESP 17; TEMP 36.8; O2SAT 95; BMI 43.4
--- NOTE | 2022-09-13 10:17 | ED.C_ITS ---
HPI - Psych General: Chief Complaint: Psychiatric Symptoms Stated Complaint: Si Time Seen by Provider: 09/13/22 10:01 Source: patient Mode of arrival: ambulatory History of Present Illness: 41-year-old male presents emergency room complaining of alcohol withdrawal and suicidal ideation. He has had 4 admissions in the last 60 days with his identical presentations. He tells me he binge drinks half a gallon of vodka twice a week. His last drink was 2 days day and 1/2 to 2 days ago. He has a plan of overdosing on all of his prescription medications although he states he has not yet done any thing. He is awake and alert he has no tremor. Denies any recent illness chest pain or abdominal pain. He does tell me he has a history of seizures. He is not on any antiseizure medications. He is uncertain whether or not they are related to alcohol. MD complaint: suicidal ideation and feels depressed Review of Systems Const: Denies: fever(s), chills, body aches, change in appetite, fatigue or malaise ENMT: Denies: throat pain, ear or mastoid pain, nasal discharge or nasal congestion Card: Denies: chest pain, edema, dyspnea on exertion or orthopnea Resp: Denies: dyspnea, productive cough or non-productive cough GI: Denies: abdominal pain, nausea or vomiting : Denies: flank pain, dysuria, urinary frequency or urinary urgency Skin/Breast: Denies: rash or pruritus COUNTS INCLUDE 234 BEDS AT THE [facility] ED PFSH: Medical History Alcohol dependence Bipolar disorder, unspecified Hypothyroidism Psychiatric care Physical Exam Const: GENERAL APPEARANCE: cooperative and comfortable ORIEN TATION/CONSCIOUSNESS: Yes awake, Yes oriented to person, Yes oriented to place and Yes oriented to time HENMT: COMMON NORMALS: normocephalic, atraumatic and hearing grossly normal bilaterally HEAD & SCALP: normocephalic and atraumatic Resp: COMMON NORMALS: normal respiratory effort, No retractions, No use of accessory muscles and clear to auscultation bilaterally AUSCULTATION: clear to auscultation bilaterally Cardio: COMMON NORMALS: regular rate, regular rhythm and No murmurs present (Cardio) RATE: regular rate RHYTHM: regular rhythm GI: COMMON NORMALS: Soft to palpation and No hepatosplenomegaly present AUSCULTATION: Yes normoactive bowel sounds PALPATION: Yes Soft to palpation, No Tenderness to palpation present (GI), No Guarding due to palpation present (GI) and Yes No hepatosplenomegaly present Extremity: COMMON NORMALS: normal to inspection, capillary refill normal, no clubbing, cyanosis or edema, no calf tenderness and no pedal edema Neuro: SENSORIUM/ORIENTATION: Yes oriented to person, Yes oriented to place and Yes oriented to time Skin: COMMON NORMALS: no rashes or lesions noted GENERAL SKIN EXAM: no rashes or lesions noted Course Vital Signs: Vital signs: Vital Signs Temperature 98.2 F 09/13/22 09:59 Pulse Rate 114 H 09/13/22 09:59 Respiratory Rate 17 09/13/22 09:59 Blood Pressure 125/98 09/13/22 09:59 Pulse Oximetry 95 09/13/22 09:59 Oxygen Delivery Me thod Room Air 09/13/22 09:59 MDM - Psych Medical Decision Making Patient has had 4 admissions in the last [address] Cordoba he will recommend admission today. Will admit based on his suicidal ideation orders written Lab Data 09/13/22 10:19 09/13/22 10:19 Laboratory Results WBC 6.0 10^3/uL (4.0-10.0) 09/13/22 10:19 RBC 4.30 10^6/uL (4.1-5.3) 09/13/22 10:19 Hgb 12.0 g/dL (11.7-16.6) 09/13/22 10:19 Hct 35.9 % (42.0-52.0) L 09/13/22 10:19 MCV 83.5 fl (80-94) 09/13/22 10:19 MCH 27.9 pg (28.0-34.0) L 09/13/22 10:19 MCHC 33.4 g/dL (30.0-36.0) 09/13/22 10:19 RDW 14.2 % (12.1-15.1) 09/13/22 10:19 Plt Count 224 10^3/cmm (130-400) 09/13/22 10:19 MPV 8.5 fL (7.4-10.4) 09/13/22 10:19 Neut % (Auto) 66.6 % 09/13/22 10:19 Lymph % (Auto) 23.6 % 09/13/22 10:19 [place] % (Auto) 9.5 % 09/13/22 10:19 Eos % (Auto) 0.0 % 09/13/22 10:19 Baso % (Auto) 0.0 % 09/13/22 10:19 Neut # (Auto) 3.98 10^3/uL (1.8-7.7) 09/13/22 10:19 Lymph # (Auto) 1.4 10^3/uL (0.8-4.8) 09/13/22 10:19 [place] # (Auto) 0.6 10^3/uL (0.2-0.9) 09/13/22 10:19 Eos # (Auto) 0.0 10^3/uL (0.0-0.8) 09/13/22 10:19 Baso # (Auto) 0.0 10^3/uL (0.0-0.1) 09/13/22 10:19 Nucleated RBC % (auto) 0 % 09/13/22 10:19 Nucleated RBCs # 0.0 /100WBC 09/13/22 10:19 Sodium 138 mmol/L (136-145) 09/13/22 10:19 Potassium 3.5 mmol/L (3.5-5.1) 09/13/22 10:19 Chloride 97 mmol/L (98-107) L 09/13/22 10:19 Carbon Dioxide 28 mmol/L (22-29) 09/13/22 10:19 Anion Gap 16.5 (5-19) 09/13/22 10:19 BUN 20 mg/dL (6-20) 09/13/22 10:19 Creatinine 1.0 mg/dL (0.7-1.2) 09/13/22 10:19 GFR Calculation 81.9 mL/min (90-130) L 09/13/22 10:19 Glucose 100 mg/dL (65-115) 09/13/22 10:19 Calculated Osmolality 289 mOsm/kg (285-295) 09/13/22 10:19 Calcium 9.3 mg/dL (8.5-10.5) 09/13/22 10:19 Total Bilirubin 0.6 mg/dL (0.15-1.2) 09/13/22 10:19 AST 108 U/L (0-40) H 09/13/22 10:19 ALT 59 U/L (0-41) H 09/13/22 10:19 Alkaline Phosphatase 67 U/L (40-130) 09/13/22 10:19 Total Protein 7.3 g/dL (6.6-8.7) 09/13/22 10:19 Albumin 4.8 g/dL (3.5-5.2) 09/13/22 10:19 Globulin 2.5 g/dL (1.3-4.6) 09/13/22 10:19 Urine Color Yellow (Yellow) 09/13/22 10:40 Urine Appearance Clear (CLEAR) 09/13/22 10:40 Urine pH 9 (5-7) H 09/13/22 10:40 Ur Specific [place] 1.010 (1.005-1.030) 09/13/22 10:40 Urine Protein Neg (Negative) 09/13/22 10:40 Urine Glucose (UA) Norm (Normal) 09/13/22 10:40 Urine Ketones Negative (Negative) 09/13/22 10:40 Urine Blood Trace (Negative) H 09/13/22 10:40 Urine Nitrate Negative (Negative) 09/13/22 10:40 Urine Bilirubin Neg (Negative) 09/13/22 10:40 Prot Sulfosalicylic Acd Negative (Negative) 09/13/22 10:40 Urine Urobilinogen Norm mg/dL (Negative) 09/13/22 10:40 Ur Leukocyte Esterase Negative (Negative) 09/13/22 10:40 Urine RBC 0-4 /hpf (0-2) H 09/13/22 10:40 Urine WBC 0-4 /hpf (0-5) H 09/13/22 10:40 Ur Squamous Epith Cells None /hpf (0-5) 09/13/22 10:40 Amorphous Sediment Not Reportable 09/13/22 10:40 Urine Bacteria Trace /hpf (NONE) 09/13/22 10:40 Urine Sperm 1+ /hpf 09/13/22 10:40 Salicylates < 0.3 mg/dL (3-10) L 09/13/22 10:19 Acetaminophen < 5.0 ug/mL (10-30) L 09/13/22 10:19 Ethyl Alcohol < 10 mg/dL (0-10) 09/13/22 10:19 Discharge Plan Discharge Patient Disposition: Admitted As Inpatient Clinical Impression: Suicidal ideation, Alcohol dependence, Bipolar disorder, unspecified Condition: Stable Prescriptions: No Action albuterol sulfate [Ventolin HFA] 90 mcg/actuation HFA aerosol inhaler 1 - 2 puff INHALATION Q4H PRN (Reason: Shortness Of Breath Or Wheezing) losartan 50 mg Tablet 100 mg PO DAILY 30 Days Qty: 60 1RF metoprolol succinate 50 mg Tablet Extended Release 24 Hr 50 mg PO DAILY 30 Days Qty: 30 1RF thiamine mononitrate (vit B1) [Vitamin B-1 (mononitrate)] 100 mg Tablet 100 mg PO DAILY 30 Days Qty: 30 1RF cyclobenzaprine 10 mg Tablet 10 mg PO TID PRN (Reason: Muscle Spasms) 15 Days Qty: 45 1RF haloperidol 5 mg Tablet 5 mg PO TID 30 Days Qty: 90 1RF levothyroxine 25 mcg Tablet 25 mcg PO QAM 30 Days Qty: 30 1RF lamotrigine 25 mg Tablet 25 mg PO BID 30 Days Qty: 60 1RF hydrocodone-acetaminophen 7.5-325 mg Tablet 1 tab PO Q12H PRN (Reason: Moderate Pain) 15 Days Qty: 30 0RF chlorpromazine 200 mg tablet 200 mg PO QID 30 Days Qty: 120 1RF atorvastatin 40 mg Tablet 20 mg PO DAILY 30 Days Qty: 30 1RF gabapentin 600 mg tablet 600 mg PO QID 30 Days Qty: 120 1RF omeprazole 20 mg capsule,delayed release(DR/EC) 20 mg PO QAM 30 Days Qty: 30 1RF naproxen 500 mg tablet 500 mg PO BID 30 Days Qty: 60 0RF naloxone [Narcan] 4 mg/actuation [place],Non-Aerosol 4 mg INTRANASAL Q3M PRN (Reason: Opioid Overdose) 30 Days Qty: 2 0RF Rx Instructions: spray 1 dose into ONE nostril; alternate nostrils w each dose until help arrives trazodone 50 mg Tablet 50 mg PO BEDTIME 30 Days Qty: 30 1RF Referrals: Bob Coy MD [Primary Care Provider] - Coding Level of Care Code ED [employer] Intern for [facility]
[2022-09-13 10:31] LABS: Hematocrit 35.9 % (42.0-52.0); Lymphocytes # 1.4 10^3/uL (0.8-4.8); Lymphocytes % 23.6 %; Mean Corpuscular HGB Conc 33.4 g/dL (30.0-36.0); Mean Corpuscular Hemoglobin 27.9 pg (28.0-34.0); Mean Corpuscular Volume 83.5 fl (80-94); Mean Platelet Volume 8.5 fL (7.4-10.4); Monocytes # 0.6 10^3/uL (0.2-0.9); Monocytes % 9.5 %; Neutrophils # 3.98 10^3/uL (1.8-7.7); Neutrophils % 66.6 %; Nucleated Red Blood Cells % 0 %; Platelet Count 224 10^3/cmm (130-400); Red Cell Distribution Width 14.2 % (12.1-15.1)
[2022-09-13 10:43] LABS: Alanine Aminotransferase 59 U/L (0-41); Albumin Level 4.8 g/dL (3.5-5.2); Alkaline Phosphatase 67 U/L (40-130); Anion Gap 16.5 (5-19); Aspartate Amino Transferase 108 U/L (0-40); Blood Urea Nitrogen 20 mg/dL (6-20); Calcium 9.3 mg/dL (8.5-10.5); Carbon Dioxide 28 mmol/L (22-29); Chloride 97 mmol/L (98-107); Globulin 2.5 g/dL (1.3-4.6); Glomerular Filtration Rate 81.9 mL/min (90-130); Glucose 100 mg/dL (65-115); Osmolality Calculated 289 mOsm/kg (285-295); Potassium 3.5 mmol/L (3.5-5.1); Sodium 138 mmol/L (136-145); Total Bilirubin 0.6 mg/dL (0.15-1.2); Total Protein 7.3 g/dL (6.6-8.7)
[2022-09-13 11:09] LABS: Acetaminophen < 5.0 ug/mL (10-30); Alcohol Level < 10 mg/dL (0-10); Salicylate < 0.3 mg/dL (3-10)
[2022-09-13 11:55] LABS: Urine Appearance Clear (CLEAR); Urine Color Yellow (Yellow); pH Urine 9 (5-7)
[2022-09-13 11:56] LABS: Add Urine Culture? No; Add Urine Microscopic? YES; Bacteria Urine TRACE /hpf; Bilirubin Urine Neg (Negative); Blood Urine Trace (Negative); Glucose Urine UA Norm (Normal); Ketones Urine Negative (Negative); Leukocyte Esterase Urine Negative (Negative); Nitrate Urine Negative (Negative); Protein Urine Neg (Negative); RBC Urine 0-4 /hpf (0-2); Sperm Urine 1+ /hpf; Sulfosalicylic Acid Urine Negative (Negative); Urobilinogen Urine Norm (Negative); WBC Urine 0-4 /hpf (0-5)
[2022-09-13 13:09] VITALS: BP 166/125; PULSE 99; RESP 20; TEMP 36.7; O2SAT 96
[2022-09-13] MEDS: LORazepam 2 mg Tablet PO (13:15)
[2022-09-13] MEDS: multivitamin therapeutic Tablet 1 TAB PO (13:15)
[2022-09-13] MEDS: ondansetron 4 MG Tablet PO (13:15)
[2022-09-13] MEDS: folic acid 1 mg Tablet PO (13:15)
[2022-09-13] MEDS: thiamine 100 mg Tablet PO (13:15)
--- NOTE | 2022-09-13 13:24 | PC.NURSE ---
PRN ativan given per protocol of CIWA score of 22
--- NOTE | 2022-09-13 13:57 | PC.NURSE ---
Patient was discharged approximately 1 week ago to [facility] for rehab for alcohol abuse. Patient states he became very overwhelmed at [facility] and felt like he was going to have a panic attack so he left and went back to his apartment. He says he began drinking heavily, approximately half a gallon of vodka daily, and his last drink was 2 days ago. Patient chief complaint in ER was SI and he endorses still feeling this way. He said he doesn't plan on doing it while he is in here, but he had thought about slitting his wrists. He also states he is currently smoking tobacco and marijuana.
[2022-09-13 14:55] VITALS: BP 158/102
[2022-09-13] MEDS: losartan 50 mg Tablet 100 MG PO (14:55)
[2022-09-13] MEDS: metoprolol succinate ER (24 HR) 50 mg Tablet PO (14:55)
[2022-09-13] MEDS: haloperidol 5 mg Tablet PO ×2 (15:28→22:09)
[2022-09-13] MEDS: nicotine 2 mg Gum BUCCAL (15:32)
[2022-09-13] MEDS: naproxen 500 mg Tablet PO (16:56)
[2022-09-13] MEDS: gabapentin 300 mg Capsule 600 MG PO ×2 (16:56→22:09)
[2022-09-13] MEDS: chlorPROMazine 50 mg Tablet 200 MG PO ×2 (16:56→22:09)
[2022-09-13] MEDS: lamoTRIgine 25 mg Tablet PO (16:56)
[2022-09-13 21:23] VITALS: BP 137/73; PULSE 126; RESP 18; TEMP 36.6; O2SAT 95
[2022-09-13] MEDS: trazodone 50 mg Tablet PO (22:10)
[2022-09-14 06:00] VITALS: RESP 18
[2022-09-14] MEDS: levothyroxine 25 mcg Tablet PO (06:16)
[2022-09-14] MEDS: pantoprazole DR 40 mg Tablet PO (06:16)
[2022-09-14] MEDS: gabapentin 300 mg Capsule 600 MG PO ×4 (08:11→19:48)
[2022-09-14] MEDS: lamoTRIgine 25 mg Tablet PO ×2 (08:11→17:47)
[2022-09-14] MEDS: naproxen 500 mg Tablet PO ×2 (08:11→17:47)
[2022-09-14] MEDS: losartan 50 mg Tablet 100 MG PO (08:12)
[2022-09-14] MEDS: multivitamin therapeutic Tablet 1 TAB PO (08:12)
[2022-09-14] MEDS: thiamine 100 mg Tablet PO ×2 (08:12→08:14)
[2022-09-14] MEDS: atorvastatin 40 mg Tablet 20 MG PO (08:12)
[2022-09-14] MEDS: chlorPROMazine 50 mg Tablet 200 MG PO ×4 (08:12→19:48)
[2022-09-14] MEDS: folic acid 1 mg Tablet PO (08:13)
[2022-09-14] MEDS: haloperidol 5 mg Tablet PO ×3 (08:14→19:49)
[2022-09-14] MEDS: metoprolol succinate ER (24 HR) 50 mg Tablet PO (08:14)
[2022-09-14] MEDS: nicotine 4 mg lozenge MUCOUS MEM ×2 (09:43→18:00)
--- NOTE | 2022-09-14 12:18 | PC.OT ---
OT EVALUATION ATTEMPTED; PATIENT SLEEPING; SNORING. WILL ATTEMPT AGAIN TOMORROW.
[2022-09-14] MEDS: nicotine 2 mg Gum BUCCAL ×2 (13:07→19:51)
[2022-09-14 14:00] VITALS: BP 104/66; PULSE 113; RESP 16; TEMP 36.6; O2SAT 92
[2022-09-14 14:16] VITALS: O2SAT 95
[2022-09-14 15:10] VITALS: PULSE 107; RESP 16; O2SAT 95
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
[2022-09-14] MEDS: HYDROcodone-acetaminophen 7.5-325 mg Tablet 1 TAB PO (18:26)
[2022-09-14] MEDS: cyclobenzaprine 10 mg Tablet PO (18:26)
[2022-09-14] MEDS: trazodone 50 mg Tablet PO (19:48)
[2022-09-14 20:11] VITALS: BP 106/67; PULSE 104; RESP 20; TEMP 36.7; O2SAT 94
[2022-09-15] MEDS: nicotine 2 mg Gum BUCCAL ×3 (04:29→12:12)
[2022-09-15] MEDS: levothyroxine 25 mcg Tablet PO (05:49)
[2022-09-15] MEDS: pantoprazole DR 40 mg Tablet PO (05:49)
[2022-09-15 06:00] VITALS: BP 122/71; PULSE 92; RESP 18; TEMP 36.3; O2SAT 95
[2022-09-15] MEDS: atorvastatin 40 mg Tablet 20 MG PO (08:41)
[2022-09-15] MEDS: multivitamin therapeutic Tablet 1 TAB PO (08:42)
[2022-09-15] MEDS: metoprolol succinate ER (24 HR) 50 mg Tablet PO (08:42)
[2022-09-15] MEDS: chlorPROMazine 50 mg Tablet 200 MG PO ×4 (08:42→20:30)
[2022-09-15] MEDS: folic acid 1 mg Tablet PO (08:42)
[2022-09-15] MEDS: lamoTRIgine 25 mg Tablet PO ×2 (08:43→17:20)
[2022-09-15] MEDS: thiamine 100 mg Tablet PO (08:43)
[2022-09-15] MEDS: gabapentin 300 mg Capsule 600 MG PO ×4 (08:43→20:30)
[2022-09-15] MEDS: naproxen 500 mg Tablet PO ×2 (08:43→17:20)
[2022-09-15] MEDS: losartan 50 mg Tablet 100 MG PO (08:43)
[2022-09-15] MEDS: haloperidol 5 mg Tablet PO ×3 (08:44→20:30)
[2022-09-15] MEDS: cyclobenzaprine 10 mg Tablet PO ×2 (08:44→17:22)
[2022-09-15] MEDS: HYDROcodone-acetaminophen 7.5-325 mg Tablet 1 TAB PO ×2 (08:44→20:33)
--- NOTE | 2022-09-15 08:44 | PC.NURSE ---
PRN FLEXERIL 10 MG GIVEN PO PER PT C/O STATED MUSCLE SPASMS
--- NOTE | 2022-09-15 10:19 | PC.NURSE ---
attended Goals group at 0930
[2022-09-15 10:52] VITALS: PULSE 110; RESP 18; O2SAT 95
[2022-09-15] MEDS: albuterol 2.5 mg/3 mL Neb INHALATION ×2 (10:52→22:07)
[2022-09-15 14:00] VITALS: BP 94/51; PULSE 94; RESP 20; TEMP 36.6; O2SAT 90
--- NOTE | 2022-09-15 17:22 | PC.NURSE ---
PRN FLEXERIL 10 MG GIVEN PO PER PT C/O STATED MUSCLE SPASMS . PT JUST WOKE UP FROM SEVERAL HOURS OF SLEEPING IN HIS ROOM
--- NOTE | 2022-09-15 17:30 | P.NPUPN_ITS ---
Subjective NPU Subjective: Patient is a 41-year-old white male with alcohol dependence and an unspecified mood disorder admitted with suicidal ideation. He continued to minimize any desire to receive help with his alcohol abuse and stated that he was overwhelmed by his situation when going inpatient at the [facility]. He reported no overall changes otherwise. He had reported that Thorazine was not helpful for managing his agitation and Haldol was better suited for this. He had continued to endorse having extreme anxiety while appearing to be in during some alcohol related withdrawal and anxiety today. Mental Status Exam MSE Comments: This is an obese versus morbidly obese white male in hospital scrubs with l imited grooming and limited contact. Significant bilateral tremors were appreciated and there was significant psychomotor retardation. He was partially cooperative with exam in moderate distress. Speech was slurred with diminished productivity and rate noted and diminished volume.. Mood described as depressed. His affect was congruent and restricted in range. Thought process was linear but superficial. Thought content: Patient endorsed suicidal thoughts with no active plan, but denied homicidal ideation, there were no delusions reported or noted, he denied any auditory or visual hallucinations. Attention and concentration were impaired. His memory appeared mostly reliable but con cerns for manipulated information and malingering present, but none were formally tested. He is alert and oriented to person, place and time. Insight is feeble and judgment is impaired. His impulse control is poor. Vitals/I&O/Wt Last Vital Signs Temp 98 F 09/15/22 14:00 Pulse 94 09/15/22 14:00 Resp 20 H 09/15/22 14:00 BP 94/51 09/15/22 14:00 Pulse Ox 90 09/15/22 14:00 O2 Del Method Room Air 09/15/22 10:52 Weight last 48 hrs Weight 138.074 kg Data NPU 09/13/22 10:19 09/13/22 10:19 A&P Assessment and plan (1) Bipolar disorder, unspecified: (2) Alcohol dependence: Plan This is a 41-year-old male history of alcohol dependence and bipolar disorder admitted with significant alcohol withdrawal with an inability to manage his self-care currently while continuing to struggle with active alcohol use having recently left the inpatient treatment at [facility] for unspecified reasons. 1.? ? Engage? patient in individual ,milieu, and group therapy ?2. ? Taper Thorazine, continue other medications, treat alcohol withdrawal symptoms. ?3. ? TO-15 minute checks on the unit. ?4.? Recommend sober living treatment at the highest level of care to which the patient is willing to commit. 5. ? [facility] protocol, restart medications. Involuntary Hold Information 96 Hour Hold: 96 Hour Involuntary Admission: No Attestations NPU Medical Necessity Statement*: Inpatient hospitalization is medically necessary and deemed to be the clinically appropriate intervention at this time. We will monitor and make changes with medications as indicated. He will be in the hospital for over 2 midnights. His likely length of stay is 3 to 4 days. Coding Level of Care Code Acute Code for g Fwd Diagnoses Bipolar disorder, unspecified F31.9 Alcohol dependence F10.20
[2022-09-15] MEDS: nicotine 4 mg lozenge MUCOUS MEM ×2 (18:57→20:30)
[2022-09-15] MEDS: trazodone 50 mg Tablet PO ×2 (20:30→21:44)
[2022-09-15 20:44] VITALS: BP 103/69; PULSE 104; RESP 18; TEMP 36.7; O2SAT 93
[2022-09-15 22:07] VITALS: PULSE 102; RESP 16; O2SAT 93
[2022-09-16] MEDS: pantoprazole DR 40 mg Tablet PO (05:50)
[2022-09-16] MEDS: levothyroxine 25 mcg Tablet PO (05:50)
[2022-09-16 06:00] VITALS: RESP 18
[2022-09-16] MEDS: chlorPROMazine 50 mg Tablet 200 MG PO ×4 (08:59→22:31)
[2022-09-16] MEDS: thiamine 100 mg Tablet PO (09:00)
[2022-09-16] MEDS: naproxen 500 mg Tablet PO ×2 (09:00→17:11)
[2022-09-16] MEDS: folic acid 1 mg Tablet PO (09:00)
[2022-09-16] MEDS: gabapentin 300 mg Capsule 600 MG PO ×4 (09:01→22:32)
[2022-09-16 09:02] VITALS: BP 130/86
[2022-09-16] MEDS: HYDROcodone-acetaminophen 7.5-325 mg Tablet 1 TAB PO (09:02)
[2022-09-16] MEDS: multivitamin therapeutic Tablet 1 TAB PO (09:02)
[2022-09-16] MEDS: lamoTRIgine 25 mg Tablet PO ×2 (09:02→17:11)
[2022-09-16] MEDS: losartan 50 mg Tablet 100 MG PO (09:02)
[2022-09-16] MEDS: atorvastatin 40 mg Tablet 20 MG PO (09:03)
[2022-09-16] MEDS: haloperidol 5 mg Tablet PO ×3 (09:04→22:32)
[2022-09-16] MEDS: metoprolol succinate ER (24 HR) 50 mg Tablet PO (09:05)
[2022-09-16] MEDS: nicotine 2 mg Gum BUCCAL ×3 (09:12→22:32)
[2022-09-16] MEDS: cyclobenzaprine 10 mg Tablet PO ×2 (09:34→17:11)
[2022-09-16] MEDS: nicotine 4 mg lozenge MUCOUS MEM ×2 (10:56→13:27)
--- NOTE | 2022-09-16 12:28 | W.PM.NPUPNS ---
Subjective NPU Subjective: Patient is a 41-year-old white male with alcohol dependence and an unspecified mood disorder admitted with suicidal ideation. The patient had an endorsed suicidal thoughts and states that he wishes there was a plan to somehow stop the use of alcohol. He had reported that he had been unable to tolerate the intensity of the inpatient program and simply had to leave. He had reported that he wished to consider Suboxone as an option to manage these problems. The patient was informed that Suboxone was not a treatment for alcohol dependence but rather for opiate dependence. Patient had reported having taken medications routinely for degenerative disc disease at a routine basis and stated that he thought that it could help anyway. The patient was informed that due to the partial agonist activity of Suboxone it may result in increased problems with managing pain due to its lack of functional activity as an agonist. Patient had reported feeling some withdrawal including some anxiety. He had expressed feeling overwhelmed that he could not manage his own care and stated that he was considering having his father become his guardian. He had reported that he had been feeling more hopeless about his situation but stated that he needed to get help as soon as it was available. Mental Status Exam MSE Comments: This is an obese versus morbidly obese white male in hospital scrubs with limited grooming and limited contact. Significant bilateral tremors were appreciated and there was significant psychomotor retardation. He was cooperative with exam in moderate distress. Speech was normal in regards to rate rhythm and prosody today... Mood described as depressed. His affect was congruent and restricted in range. Thought process was linear but superficial. Thought content: Patient endorsed suicidal thoughts with no active plan, but denied homicidal ideation, there were no delusions reported or noted, he denied any auditory or visual hallucinations. Attention and concentration appeared to be improving. There is no clear evidence of delusional thinking. He was alert and oriented to person place and time. His insight remained poor. His impulse control was limited. His judgment remained poor. Vitals/I&O/Wt Last Vital Signs Temp 98.1 F 09/15/22 20:44 Pulse 102 H 09/15/22 22:07 Resp 18 09/16/22 06:00 BP 130/86 09/16/22 09:02 Pulse Ox 93 09/15/22 22:07 O2 Del Method Room Air 09/15/22 22:07 Weight last 48 hrs Weight 138.074 kg Data NPU 09/13/22 10:19 09/13/22 10:19 A&P Assessment and plan (1) Bipolar disorder, unspecified: (2) Alcohol dependence: Plan This is a 41-year-old male history of alcohol dependence and bipolar disorder admitted with significant alcohol withdrawal with an inability to manage his self-care currently while continuing to struggle with active alcohol use having recently left the inpatient treatment at [facility] for unspecified reasons. 1.? ? Engage? patient in individual ,milieu, and group therapy ?2. ? The patient was restarted back on Thorazine at previous dose along with Haldol., continue other medications, treat alcohol withdrawal symptoms. ?3. ? TO-15 minute checks on the unit. ?4.? Recommend sober living treatment at the highest level of care to which the patient is willing to commit. 5. ? [facility] protocol-patient will be 96 hours from his last use of alcohol and will likely be discharged tomorrow. 6. Guardianship may be beneficial for patient as he does appear to be unable to manage himself for any sustained period of time without the reemergence of active alcohol use. Involuntary Hold Information 96 Hour Hold: 96 Hour Involuntary Admission: No Attestations NPU Medical Necessity Statement*: Inpatient hospitalization is medically necessary and deemed to be the clinically appropriate intervention at this time. We will monitor and make changes with medications as indicated. He will be in the hospital for over 2 midnights. His likely length of stay is 1-2 days. Coding Level of Care Code Acute Code for [facility] Fwd Diagnoses Bipolar disorder, unspecified F31.9 Alcohol dependence F10.20
[2022-09-16 14:00] VITALS: BP 118/76; PULSE 97; RESP 20; TEMP 36.5; O2SAT 92
[2022-09-16] MEDS: OLANZapine 5 mg ODT PO (14:07)
[2022-09-16 22:00] VITALS: RESP 18
[2022-09-16] MEDS: trazodone 50 mg Tablet PO (22:32)
[2022-09-17 06:00] VITALS: RESP 17
[2022-09-17 08:35] VITALS: BP 118/76
[2022-09-17] MEDS: thiamine 100 mg Tablet PO (08:35)
[2022-09-17] MEDS: levothyroxine 25 mcg Tablet PO (08:35)
[2022-09-17] MEDS: OLANZapine 5 mg ODT PO (08:35)
[2022-09-17] MEDS: metoprolol succinate ER (24 HR) 50 mg Tablet PO (08:35)
[2022-09-17] MEDS: naproxen 500 mg Tablet PO (08:35)
[2022-09-17] MEDS: losartan 50 mg Tablet 100 MG PO (08:35)
[2022-09-17] MEDS: lamoTRIgine 25 mg Tablet PO (08:35)
[2022-09-17] MEDS: haloperidol 5 mg Tablet PO ×2 (08:35→14:21)
[2022-09-17] MEDS: multivitamin therapeutic Tablet 1 TAB PO (08:36)
[2022-09-17] MEDS: pantoprazole DR 40 mg Tablet PO (08:36)
[2022-09-17] MEDS: folic acid 1 mg Tablet PO (08:36)
[2022-09-17] MEDS: atorvastatin 40 mg Tablet 20 MG PO (08:36)
[2022-09-17] MEDS: chlorPROMazine 50 mg Tablet 200 MG PO ×2 (08:36→13:05)
[2022-09-17] MEDS: gabapentin 300 mg Capsule 600 MG PO ×2 (08:36→13:05)
[2022-09-17] MEDS: HYDROcodone-acetaminophen 7.5-325 mg Tablet 1 TAB PO (08:37)
[2022-09-17] MEDS: nicotine 2 mg Gum BUCCAL (09:39)
[2022-09-17] MEDS: nicotine 4 mg lozenge MUCOUS MEM (13:15)
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
[2022-09-17 14:24] VITALS: BP 118/76
[2022-09-17 14:28] VITALS: BP 118/76; PULSE 97; RESP 17; TEMP 36.5; O2SAT 92
== END 2022-09-17 15:11 | disposition home or self-care (01) | DRG 897 ==
LOC: ER 12:09 → NP 12:27
PROVIDERS: Admitting Provider Psychiatry & Neurology Psychiatry; Emergency Provider Family Medicine; PCP Family Medicine; Visit Provider Psychiatry & Neurology Psychiatry
DX: F10.239 Alcohol dependence with withdrawal, unspecified (principal); R45.851 Suicidal ideations; Z68.41 Body mass index [BMI] 40.0-44.9, adult; Y90.0 Blood alcohol level of less than 20 mg/100 ml; F31.9 Bipolar disorder, unspecified; G89.29 Other chronic pain; E03.9 Hypothyroidism, unspecified; E66.9 Obesity, unspecified
CPT/HCPCS: 80053; 80307; 81001; 85025; 94640; 94664; 97150; 97165; 99285; J7613; Q0161; Q0162

== ENCOUNTER 2022-09-22 19:56 | Inpatient (IN) | payer BC, MEDICAID, SELFPAY ==
[2022-09-22] VITALS (15 sets, daily range): BP systolic 96–121; BP diastolic 60–99; PULSE 93–114; RESP 0–18; TEMP 36.4; O2SAT 78–98; BMI 43.4
--- NOTE | 2022-09-22 20:15 | PC.NURSE ---
pt placed in room 8 upon changing patient and obtaining vitals, it was noted that pt O2 sat was 75 on room air. Pt was placed on 10LNC and respiratory was called to obtain ABG. Pt became diaphoretic and O2 sats improved to 85. Pt was moved to room [address] Marr called for patient to be prepped for intubation. Pt was given 2mg of Narcan at 2025 with minimal improvement. @2030 pt was given 20mg of etomidate and 20mg of Vecc. Dr Marr placed an 8.0 tube @2031 with color change.
[2022-09-22 20:30] LABS: Basophils % 0.1 %; Hematocrit 39.5 % (42.0-52.0); Hemoglobin 12.8 g/dL (11.7-16.6); Lymphocytes # 3.5 10^3/uL (0.8-4.8); Lymphocytes % 44.9 %; Mean Corpuscular HGB Conc 32.4 g/dL (30.0-36.0); Mean Corpuscular Hemoglobin 27.6 pg (28.0-34.0); Mean Corpuscular Volume 85.3 fl (80-94); Mean Platelet Volume 8.9 fL (7.4-10.4); Monocytes # 0.8 10^3/uL (0.2-0.9); Monocytes % 10.4 %; Neutrophils # 3.38 10^3/uL (1.8-7.7); Neutrophils % 43.3 %; Nucleated Red Blood Cells % 0 %; Platelet Count 313 10^3/cmm (130-400); Red Blood Count 4.63 10^6/uL (4.1-5.3); White Blood Count 7.8 10^3/uL (4.0-10.0)
[2022-09-22] MEDS: water for injection-sterile 10 ML (20:30)
[2022-09-22] MEDS: vecuronium 10 mg SDV 20 MG IVP (20:31)
--- NOTE | 2022-09-22 20:35 | XRR_ITS ---
PROCEDURE INFORMATION: Exam: XR Chest Exam date and time: 09/22/2022 8:42 PM Age: 41 years old Clinical indication: Device placement; Ett placement (vent status); Additional info: Od TECHNIQUE: Imaging protocol: Radiologic exam of the chest. Views: 1 view. COMPARISON: CT cervical spin wo con* [id number] 08/03/2022 9:20 PM FINDINGS: Tubes, catheters and devices: Endotracheal tube tip in place 2.9 cm above the rojelio. Lungs: Patchy bilateral left greater than right ground-glass airspace opacities may reflect a degree of alveolar edema. Pleural spaces: Unremarkable. No pleural effusion. No pneumothorax. Heart/Mediastinum: Unremarkable. No cardiomegaly. Bones/joints: Unremarkable. XR/XR chest 1V portable [id number] IMPRESSION: 1. Endotracheal tube tip in place 2.9 cm above the rojelio. 2. Patchy bilateral left greater than right ground-glass airspace opacities may reflect a degree of alveolar edema.
[2022-09-22 20:52] LABS: ABG PCO2 72.1 mmHg (35-45); ABG PH Result 7.24 (7.35-7.45); Arterial Blood Gas Hematocrit 41.1 % (42-52); Base Excess ABG 1.3 mmol/L (-2.0-2.0); Blood Gas Allen Test Pos; Blood Gas Sample Site Radial, right; Blood Gas Sample Type Arterial; HCO3 ABG 30.7 mmol/L (22-26); Oxygen Device NC; PO2 ABG 81.6 mmHg (80.0-100.0)
[2022-09-22 20:52] LABS: Acetaminophen 32.1 ug/mL (10-30); Alanine Aminotransferase 35 U/L (0-41); Albumin Level 4.9 g/dL (3.5-5.2); Alcohol Level 205 mg/dL (0-10); Alkaline Phosphatase 78 U/L (40-130); Anion Gap 17.2 (5-19); Aspartate Amino Transferase 20 U/L (0-40); Blood Urea Nitrogen 22 mg/dL (6-20); Calcium 8.9 mg/dL (8.5-10.5); Carbon Dioxide 28 mmol/L (22-29); Chloride 98 mmol/L (98-107); Globulin 2.6 g/dL (1.3-4.6); Glomerular Filtration Rate 73.4 mL/min (90-130); Glucose 99 mg/dL (65-115); Osmolality Calculated 291 mOsm/kg (285-295); Potassium 4.2 mmol/L (3.5-5.1); Sodium 139 mmol/L (136-145); Total Bilirubin 0.2 mg/dL (0.15-1.2); Total Protein 7.5 g/dL (6.6-8.7)
--- NOTE | 2022-09-22 20:53 | ED.C_ITS ---
HPI - Psych General: Chief Complaint: Psychiatric Symptoms Stated Complaint: suicide risk Time Seen by Provider: 09/22/22 20:05 Mode of arrival: ambulatory Limitations: altered mental status History of Present Illness: 41-year-old male who came in from the front door in triage and told the nurse that he has been drinking today and he took a handful he said around 8-10 of his hydrocodone at 7 PM in an attempt to harm himself. History I got post from her nurse because when I brought him back into the room he had become completely obtunded hypoxic and diaphoretic. I was brought into the room and patient was unresponsive did try Narcan he did not awake and had to place him on 15 L of oxygen to get his oxygen saturation up he was then intubated due to his inability to protect his airway. Review of Systems General: Reports: ROS unobtainable due to mental status [facility] ED PFSH: Medical History Alcohol dependence Bipolar disorder, unspecified Hypothyroidism Psychiatric care Physical Exam Const: COMMON NORMALS: negative for patient oriented x3 GENERAL APPEARANCE: in distress and ill appearing OTHER: diaphoresis HENMT: COMMON NORMALS: normocephalic and atraumatic HEAD & SCALP: normocephalic and atraumatic Eye: COMMON NORMALS: Equal, round and reactive pupils present and EOMs intact bilaterally PUPIL: Yes Equal, round and reactive pupils present Neck/C-Spine: COMMON NORMALS: full ROM and supple Chest: COMMONS NORMALS: normal inspection of the chest and normal palpation of entire chest wall Resp: COMMON NORMALS: No retractions and No use of accessory muscles EFFORT & INSPECTION: Yes respiratory distress Cardio: COMMON NORMALS: regular rate, regular rhythm and No murmurs present (Cardio) RATE: regular rate RHYTHM: regular rhythm GI: COMMON NORMALS: Normal to inspection, nondistended, normoactive bowel sounds present, Soft to palpation, non-tender and no masses PALPATION: Yes Soft to palpation Extremity: COMMON NORMALS: normal to inspection and full ROM Neuro: COMMON NORMALS: moves all extremities and no focal motor deficits; negative for patient oriented x3 Psych: COMMON NORMALS: negative for mental status grossly normal and negative for Normal thought process present THOUGHT PROCESS: abnormal Skin: COMMON NORMALS: no rashes or lesions noted and no wounds GENERAL SKIN EXAM: no rashes or lesions noted Procedures Intubation Time out performed: Yes sedative: Etomidate Mg Given: 20 paralytic: Vecuronium Mg Given: 20 Laryngoscope: Katia ET Tube Size: 8 ET Tube Uncuffed: No Tube Secured Depth (cm): 26 Tube Secured Location: teeth Tube Placement Confirmation: visualized tube passing through cords, equal breath sounds bilaterally, no breath sounds over epigastrium and confirmation by capnometry Patient Tolerated Procedure: well Intubation Complications: none Course Vital Signs: Vital signs: Vital Signs Temperature 97.6 F 09/22/22 20:41 Pulse Rate 114 H 09/22/22 20:41 Respiratory Rate 18 09/22/22 21:29 Blood Pressure 113/85 09/22/22 20:41 Pulse Oximetry 93 09/22/22 21:29 Oxygen Delivery Me thod Mechanical Ventil ation 09/22/22 20:41 Oxygen Flow Rate 10 09/22/22 20:24 Fraction of Inspir ed Oxygen 100 09/22/22 21:01 MDM - Psych Medical Decision Making Patient presents here with overdose likely on hydrocodone along with alcohol intoxication he had a slight response to Narcan he would answer some questions but he was still requiring 15 L and is having do a jaw thrust for him to protect his airway so patient was intubated his 4-hour Tylenol level is normal no signs of Tylenol overdose spoke to the hospitalist will admit to the ICU. Medical Records I reviewed the patient's medical records. Lab Data I reviewed the patient's lab results. 09/22/22 20:20 09/22/22 20:20 Radiology Impressions Chest X-Ray 09/22/22 20:35 IMPRESSION: 1. Endotracheal tube tip in place 2.9 cm above the rojelio. 2. Patchy bilateral left greater than right ground-glass airspace opacities may reflect a degree of alveolar edema. Laboratory Results WBC 7.8 10^3/uL (4.0-10.0) 09/22/22 20:20 RBC 4.63 10^6/uL (4.1-5.3) 09/22/22 20:20 Hgb 12.8 g/dL (11.7-16.6) 09/22/22 20:20 Hct 39.5 % (42.0-52.0) L 09/22/22 20:20 MCV 85.3 fl (80-94) 09/22/22 20:20 MCH 27.6 pg (28.0-34.0) L 09/22/22 20:20 MCHC 32.4 g/dL (30.0-36.0) 09/22/22 20:20 RDW 14.0 % (12.1-15.1) 09/22/22 20:20 Plt Count 313 10^3/cmm (130-400) 09/22/22 20:20 MPV 8.9 fL (7.4-10.4) 09/22/22 20:20 Neut % (Auto) 43.3 % 09/22/22 20:20 Lymph % (Auto) 44.9 % 09/22/22 20:20 [place] % (Auto) 10.4 % 09/22/22 20:20 Eos % (Auto) 0.0 % 09/22/22 20:20 Baso % (Auto) 0.1 % 09/22/22 20:20 Neut # (Auto) 3.38 10^3/uL (1.8-7.7) 09/22/22 20:20 Lymph # (Auto) 3.5 10^3/uL (0.8-4.8) 09/22/22 20:20 [place] # (Auto) 0.8 10^3/uL (0.2-0.9) 09/22/22 20:20 Eos # (Auto) 0.0 10^3/uL (0.0-0.8) 09/22/22 20:20 Baso # (Auto) 0.0 10^3/uL (0.0-0.1) 09/22/22 20:20 Nucleated RBC % (auto) 0 % 09/22/22 20:20 Nucleated RBCs # 0.0 /100WBC 09/22/22 20:20 Specimen Type Arterial 09/22/22 20:48 Sample Site Radial, right 09/22/22 20:48 ABG pH 7.24 (7.35-7.45) L 09/22/22 20:48 ABG pCO2 72.1 mmHg (35-45) H* 09/22/22 20:48 ABG pO2 81.6 mmHg (80.0-100.0) 09/22/22 20:48 ABG HCO3 30.7 mmol/L (22-26) H 09/22/22 20:48 ABG Base Excess 1.3 mmol/L (-2.0-2.0) 09/22/22 20:48 Erick Test Pos 09/22/22 20:48 Hematocrit 41.1 % (42-52) L 09/22/22 20:48 O2 Delivery Device Nc 09/22/22 20:48 O2 Liters/Min 6.0 % 09/22/22 20:48 Financial Report Service Sales Agent ID [email or web address] 09/22/22 20:48 Sodium 139 mmol/L (136-145) 09/22/22 20:20 Potassium 4.2 mmol/L (3.5-5.1) 09/22/22 20:20 Chloride 98 mmol/L (98-107) 09/22/22 20:20 Carbon Dioxide 28 mmol/L (22-29) 09/22/22 20:20 Anion Gap 17.2 (5-19) 09/22/22 20:20 BUN 22 mg/dL (6-20) H 09/22/22 20:20 Creatinine 1.1 mg/dL (0.7-1.2) 09/22/22 20:20 GFR Calculation 73.4 mL/min (90-130) L 09/22/22 20:20 Glucose 99 mg/dL (65-115) 09/22/22 20:20 Calculated Osmolality 291 mOsm/kg (285-295) 09/22/22 20:20 Lactic Acid 1.9 mmol/L (0.5-2.2) 09/22/22 20:20 Calcium 8.9 mg/dL (8.5-10.5) 09/22/22 20:20 Total Bilirubin 0.2 mg/dL (0.15-1.2) 09/22/22 20:20 AST 20 U/L (0-40) 09/22/22 20:20 ALT 35 U/L (0-41) 09/22/22 20:20 Alkaline Phosphatase 78 U/L (40-130) 09/22/22 20:20 Troponin T Baseline 14 ng/L (0-15) 09/22/22 20:20 NT-Pro-B Natriuret Pep 36 pg/mL (0-125) 09/22/22 20:20 Total Protein 7.5 g/dL (6.6-8.7) 09/22/22 20:20 Albumin 4.9 g/dL (3.5-5.2) 09/22/22 20:20 Globulin 2.6 g/dL (1.3-4.6) 09/22/22 20:20 TSH 3.42 uIU/mL (0.27-4.20) 09/22/22 22:54 Salicylates < 0.3 mg/dL (3-10) L 09/22/22 20:20 Urine Opiates Screen Positive ng/mL (Negative) H 09/22/22 20:39 Acetaminophen 30.0 ug/mL (10-30) 09/22/22 22:54 Ur Barbiturates Screen Negative ng/mL (Negative) 09/22/22 20:39 Ur Phencyclidine Scrn Negative ng/mL (Negative) 09/22/22 20:39 Ur Amphetamines Screen Negative ng/mL (Negative) 09/22/22 20:39 U Benzodiazepines Scrn Negative ng/mL (Negative) 09/22/22 20:39 Urine Cocaine Screen Negative ng/mL (Negative) 09/22/22 20:39 U Marijuana (THC) Screen Positive ng/mL (Negative) H 09/22/22 20:39 Ethyl Alcohol 205 mg/dL (0-10) H 09/22/22 20:20 Discharge Plan Discharge Patient Disposition: Admitted As Inpatient Clinical Impression: Polysubstance abuse, Hypercapnic respiratory failure Condition: Stable Prescriptions: No Action albuterol sulfate [Ventolin HFA] 90 mcg/actuation HFA aerosol inhaler 1 - 2 puff INHALATION Q4H PRN (Reason: Shortness Of Breath Or Wheezing) losartan 50 mg Tablet 100 mg PO DAILY 30 Days Qty: 60 1RF metoprolol succinate 50 mg Tablet Extended Release 24 Hr 50 mg PO DAILY 30 Days Qty: 30 1RF thiamine mononitrate (vit B1) [Vitamin B-1 (mononitrate)] 100 mg Tablet 100 mg PO DAILY 30 Days Qty: 30 1RF cyclobenzaprine 10 mg Tablet 10 mg PO TID PRN (Reason: Muscle Spasms) 15 Days Qty: 45 1RF haloperidol 5 mg Tablet 5 mg PO TID 30 Days Qty: 90 1RF levothyroxine 25 mcg Tablet 25 mcg PO QAM 30 Days Qty: 30 1RF lamotrigine 25 mg Tablet 25 mg PO BID 30 Days Qty: 60 1RF chlorpromazine 200 mg tablet 200 mg PO QID 30 Days Qty: 120 1RF atorvastatin 40 mg Tablet 20 mg PO DAILY 30 Days Qty: 30 1RF gabapentin 600 mg tablet 600 mg PO QID 30 Days Qty: 120 1RF omeprazole 20 mg capsule,delayed release(DR/EC) 20 mg PO QAM 30 Days Qty: 30 1RF naproxen 500 mg tablet 500 mg PO BID 30 Days Qty: 60 0RF naloxone [Narcan] 4 mg/actuation [place],Non-Aerosol 4 mg INTRANASAL Q3M PRN (Reason: Opioid Overdose) 30 Days Qty: 2 0RF Rx Instructions: spray 1 dose into ONE nostril; alternate nostrils w each dose until help arrives trazodone 50 mg Tablet 50 mg PO BEDTIME 30 Days Qty: 30 1RF Referrals: Bob Coy MD [Primary Care Provider] - Coding Level of Care Code ED Joiner Apprentice for Uriel Price
[2022-09-22 20:56] LABS: Salicylate < 0.3 mg/dL (3-10)
[2022-09-22 21:01] LABS: Amphetamines Screen Urine Negative (Negative); Barbiturates Screen Urine Negative (Negative); Benzodiazepines Screen Urine Negative (Negative); Cocaine Screen Urine Negative (Negative); Opiate Screen Urine Positive (Negative); PCP Screen Urine Negative (Negative); THC Screen Urine Positive (Negative)
[2022-09-22] MEDS: propofol 1,000 MG/100 ML INJ 8.71 MG IV (21:27)
[2022-09-22] MEDS: etomidate 2 mg/mL INJ SDV 10 mL 20 MG IVP (21:31)
--- NOTE | 2022-09-22 21:40 | CTR_ITS ---
PROCEDURE INFORMATION: Exam: CT Head Without Contrast Exam date and time: 09/22/2022 11:23 PM Age: 41 years old Clinical indication: Altered mental status/memory loss; Patient HX: Intentional drug overdose requiring intubation. ; Additional info: AMS TECHNIQUE: Imaging protocol: Computed tomography of the head without contrast. Radiation optimization: All CT scans at this facility use at least one of these dose optimization techniques: automated exposure control; mA and/or kV adjustment per patient size (includes targeted exams where dose is matched to clinical indication); or iterative reconstruction. REPORTING DATA: Count of CT and Cardiac NM exams in prior 12 months: This patient has received 3 known CTs and 0 known cardiac nuclear medicine studies in the 12 months prior to the current study. COMPARISON: CT head wo con* [id number] 08/19/2022 10:32 PM RADIATION DOSE METRICS: Total DLP (mGy-cm): 1093.78 FINDINGS: Brain: Normal. No hemorrhage. Unremarkable white matter. No mass effect. Cerebral ventricles: No ventriculomegaly. Paranasal sinuses: Visualized sinuses are unremarkable. No fluid levels. Mastoid air cells: Visualized mastoid air cells are well aerated. Bones/joints: Unremarkable. No acute fracture. Soft tissues: Unremarkable. CT/CT head wo con* [id number] IMPRESSION: No acute intracranial abnormality.
[2022-09-22] MEDS: sodium chloride 0.9% 1,000 ML 999 ML IV (21:46)
--- NOTE | 2022-09-22 22:20 | PM.HP ---
Providers/Chief Complaint Admitting Physician: Phoebe Coughlin MD Primary Care Provider: Bob Coy MD Chief Complaint: suicide risk History of Present Illness Ham Ackerman is a 41 year old male who walked into the ER earlier today with chief complaints of having suicidal thoughts and had been drinking all day. He stated that he had grabbed a bunch of pills, did not specify exactly which ones prior to coming in. While being evaluated in the emergency room, he went into sudden respiratory arrest. He became extremely somnolent, lethargic, O2 sats dipped down to 70%, he was emergently intubated. Prior to intubation he did receive Narcan due to suspicion of opiate overdose, he had a partial response x2, however and spite of having received Narcan his O2 saturation continued to be in the 70s and therefore he was emergently intubated. At the time of my assessment patient is intubated, sedated, on no history is available directly from patient. His labs show evidence of hypercapnic respiratory failure. He has had multiple recent [facility] for [facility] ideation. Review of Systems General: Reports: ROS unobtainable due to medical condition Medications/Allergies Home Medications Medication Instructions Recorded Confirmed Last Taken Type albuterol sulfate 90 mcg/actuation 1 - 2 puff inhalation Q4H PRN 07/29/22 09/13/22 Unknown History aerosol inhaler (Ventolin HFA) Shortness Of Breath Or Wheezing atorvastatin 40 mg tablet 20 mg PO DAILY 30 days #30 tabs 09/03/22 09/13/22 09/12/22 Rx chlorpromazine 200 mg tablet 200 mg PO QID 30 days #120 tabs 09/03/22 09/13/22 Unknown Rx cyclobenzaprine 10 mg tablet 10 mg PO TID PRN Muscle Spasms 15 09/03/22 09/13/22 Unknown Rx days #45 tabs gabapentin 600 mg tablet 600 mg PO QID 30 days #120 tabs 09/03/22 09/13/22 09/12/22 Rx haloperidol 5 mg tablet 5 mg PO TID 30 days #90 tabs 09/03/22 09/13/22 09/12/22 Rx lamotrigine 25 mg tablet 25 mg PO BID 30 days #60 tabs 09/03/22 09/13/22 09/12/22 Rx levothyroxine 25 mcg tablet 25 mcg PO QAM 30 days #30 tabs 09/03/22 09/13/22 09/12/22 Rx losartan 50 mg tablet 100 mg PO DAILY 30 days #60 tabs 09/03/22 09/13/22 09/12/22 Rx metoprolol succinate 50 mg 50 mg PO DAILY 30 days #30 tabs 09/03/22 09/13/22 09/12/22 Rx tablet,extended release 24 hr naloxone 4 mg/actuation nasal 4 mg intranasal Q3M PRN Opioid 09/03/22 09/13/22 Unknown Rx spray (Narcan) Overdose 30 days #2 ea naproxen 500 mg tablet 500 mg PO BID 30 days #60 tabs 09/03/22 09/13/22 09/12/22 Rx omeprazole 20 mg capsule,delayed 20 mg PO QAM 30 days #30 caps 09/03/22 09/13/22 09/12/22 Rx release thiamine mononitrate (vit B1) 100 100 mg PO DAILY 30 days #30 tabs 09/03/22 09/13/22 09/12/22 Rx mg tablet (Vitamin B-1 (mononitrate)) trazodone 50 mg tablet 50 mg PO BEDTIME 30 days #30 tabs 09/03/22 09/13/22 09/12/22 Rx Allergies Allergy/AdvReac Type Severity Reaction Status Date / Time lisinopril Allergy Unknown Verified 07/29/22 09:19 PFSH Acute PFSH: Medical History Alcohol dependence Bipolar disorder, unspecified Hypothyroidism Psychiatric care Vitals/I&O/Wt Last Vital Signs Temp 97.6 F 09/22/22 20:41 Pulse 114 H 09/22/22 20:41 Resp 18 09/22/22 21:29 BP 113/85 09/22/22 20:41 Pulse Ox 93 09/22/22 21:29 O2 Del Method Mechanical Ventilation 09/22/22 20:41 O2 Flow Rate 10 09/22/22 20:24 FiO2 100 09/22/22 21:01 09/22/22 09/22/22 09/22/22 06:59 14:59 22:59 Intake Total 3.552 / 3.552 Balance 3.552 / 3.552 Weight last 48 hrs Weight 145.15 kg Physical Exam Narrative: General: Intubated, sedated HEENT: pupils bilaterally equal and reactive, pupils are not pinpoint Chest: Coarse breath sounds to auscultation anteriorly, equal good air entry bilaterally CVS: S1-S2 regular, no murmurs, no tachycardia, no gallops, no rubs Abdomen: Soft, nontender, no organomegaly, bowel sounds present Neuro: Unable to assess as intubated sedated Extremities: Abrasions present over left upper villareal Urinary Catheter Management: Urbano: Cath Placed During This Visit: yes Urinary Catheter Date of Insertion: 09/22/22 Urinary Catheter Time of Insertion: 20:38 Data 09/22/22 20:20 09/22/22 20:20 Other Labs: Radiology Impressions Chest X-Ray 09/22/22 20:35 IMPRESSION: 1. Endotracheal tube tip in place 2.9 cm above the rojelio. 2. Patchy bilateral left greater than right ground-glass airspace opacities may reflect a degree of alveolar edema. Laboratory Results WBC 7.8 10^3/uL (4.0-10.0) 09/22/22 20:20 RBC 4.63 10^6/uL (4.1-5.3) 09/22/22 20:20 Hgb 12.8 g/dL (11.7-16.6) 09/22/22 20:20 Hct 39.5 % (42.0-52.0) L 09/22/22 20:20 MCV 85.3 fl (80-94) 09/22/22 20:20 MCH 27.6 pg (28.0-34.0) L 09/22/22 20:20 MCHC 32.4 g/dL (30.0-36.0) 09/22/22 20:20 RDW 14.0 % (12.1-15.1) 09/22/22 20:20 Plt Count 313 10^3/cmm (130-400) 09/22/22 20:20 MPV 8.9 fL (7.4-10.4) 09/22/22 20:20 Neut % (Auto) 43.3 % 09/22/22 20:20 Lymph % (Auto) 44.9 % 09/22/22 20:20 [place] % (Auto) 10.4 % 09/22/22 20:20 Eos % (Auto) 0.0 % 09/22/22 20:20 Baso % (Auto) 0.1 % 09/22/22 20:20 Neut # (Auto) 3.38 10^3/uL (1.8-7.7) 09/22/22 20:20 Lymph # (Auto) 3.5 10^3/uL (0.8-4.8) 09/22/22 20:20 [place] # (Auto) 0.8 10^3/uL (0.2-0.9) 09/22/22 20:20 Eos # (Auto) 0.0 10^3/uL (0.0-0.8) 09/22/22 20:20 Baso # (Auto) 0.0 10^3/uL (0.0-0.1) 09/22/22 20:20 Nucleated RBC % (auto) 0 % 09/22/22 20:20 Nucleated RBCs # 0.0 /100WBC 09/22/22 20:20 Specimen Type Arterial 09/22/22 20:48 Sample Site Radial, right 09/22/22 20:48 ABG pH 7.24 (7.35-7.45) L 09/22/22 20:48 ABG pCO2 72.1 mmHg (35-45) H* 09/22/22 20:48 ABG pO2 81.6 mmHg (80.0-100.0) 09/22/22 20:48 ABG HCO3 30.7 mmol/L (22-26) H 09/22/22 20:48 ABG Base Excess 1.3 mmol/L (-2.0-2.0) 09/22/22 20:48 Erick Test Pos 09/22/22 20:48 Hematocrit 41.1 % (42-52) L 09/22/22 20:48 O2 Delivery Device Nc 09/22/22 20:48 O2 Liters/Min 6.0 % 09/22/22 20:48 Back Tender Insulation Board ID [email or web address] 09/22/22 20:48 Sodium 139 mmol/L (136-145) 09/22/22 20:20 Potassium 4.2 mmol/L (3.5-5.1) 09/22/22 20:20 Chloride 98 mmol/L (98-107) 09/22/22 20:20 Carbon Dioxide 28 mmol/L (22-29) 09/22/22 20:20 Anion Gap 17.2 (5-19) 09/22/22 20:20 BUN 22 mg/dL (6-20) H 09/22/22 20:20 Creatinine 1.1 mg/dL (0.7-1.2) 09/22/22 20:20 GFR Calculation 73.4 mL/min (90-130) L 09/22/22 20:20 Glucose 99 mg/dL (65-115) 09/22/22 20:20 Calculated Osmolality 291 mOsm/kg (285-295) 09/22/22 20:20 Calcium 8.9 mg/dL (8.5-10.5) 09/22/22 20:20 Total Bilirubin 0.2 mg/dL (0.15-1.2) 09/22/22 20:20 AST 20 U/L (0-40) 09/22/22 20:20 ALT 35 U/L (0-41) 09/22/22 20:20 Alkaline Phosphatase 78 U/L (40-130) 09/22/22 20:20 NT-Pro-B Natriuret Pep 36 pg/mL (0-125) 09/22/22 20:20 Total Protein 7.5 g/dL (6.6-8.7) 09/22/22 20:20 Albumin 4.9 g/dL (3.5-5.2) 09/22/22 20:20 Globulin 2.6 g/dL (1.3-4.6) 09/22/22 20:20 Salicylates < 0.3 mg/dL (3-10) L 09/22/22 20:20 Urine Opiates Screen Positive ng/mL (Negative) H 09/22/22 20:39 Acetaminophen 32.1 ug/mL (10-30) H 09/22/22 20:20 Ur Barbiturates Screen Negative ng/mL (Negative) 09/22/22 20:39 Ur Phencyclidine Scrn Negative ng/mL (Negative) 09/22/22 20:39 Ur Amphetamines Screen Negative ng/mL (Negative) 09/22/22 20:39 U Benzodiazepines Scrn Negative ng/mL (Negative) 09/22/22 20:39 Urine Cocaine Screen Negative ng/mL (Negative) 09/22/22 20:39 U Marijuana (THC) Screen Positive ng/mL (Negative) H 09/22/22 20:39 Ethyl Alcohol 205 mg/dL (0-10) H 09/22/22 20:20 09/22/22 20:48 ABG pH 7.24 L ABG pCO2 72.1 H* ABG pO2 81.6 ABG HCO3 30.7 H ABG Base Excess 1.3 A&P Assessment and plan (1) Polysubstance abuse: 41-year-old male walked into the emergency room earlier today complaining of suicidal ideation and binge alcohol drinking throughout the day. Thereafter after being in the emergency room developed acute hypoxic hypercapnic respiratory failure for which she needed to be emergently intubated. U tox is positive for opiates, serum acetaminophen level is elevated at 32, repeat is pending at this time. Review of home medication also shows multiple psychoactive drugs, uncertain if he may have additionally consumed these. No noted seizures We will admit to ICU and closely monitor for any hemodynamic instability. EKG currently showing sinus tachycardia. No complaints of any chest pain or dyspnea prior to the events in the emergency room. Check Lamictal levels Check TSH given history of hypothyroidism Daily assessment with sedation vacation and assessment for extubation. (2) Alcohol intoxication: Alcohol dependence, acute alcohol intoxication, serum alcohol level greater than 200 Currently intubated sedated, Continue sedation with propofol and fentanyl Thiamine 100 mg via NG tube daily Normal saline at 100 cc an hour (3) Hypercapnic respiratory failure: Acute hypoxic hypercapnic respiratory failure May be related to polysubstance intoxication and abuse Unable to corroborate patient's past medical history Review of medications shows he has albuterol on his list. Uncertain if he has a history of COPD. Coarse breath sounds are noted bilaterally though no gross wheezing. Chest x-ray shows bilateral nonspecific infiltrates, read as possible edema. Findings may additionally be related to possible aspiration. Pending BNP. Check troponin Given acuity of symptoms we will additionally screen with a D-dimer though PE appears to be less likely. If D-dimer is positive we will proceed with CTA of the chest. Empiric ceftriaxone 1 g IV every 24h for possibility of aspiration (4) Alcohol dependence: As noted above (5) Suicidal ideation: With multiple recent admissions for the same. Currently intubated Psych assessment once patient is able to be extubated. Attestations Medical Necessity Statement*: Greater than 2 midnight admission is anticipated for above defined care Coding Level of Care Code Critical Care >/= 30 minutes Diagnoses Polysubstance abuse F19.10 Alcohol intoxication F10.929 Hypercapnic respiratory failure J96.92 Alcohol dependence F10.20 Suicidal ideation R45.851
--- NOTE | 2022-09-22 22:27 | ECG_ITS ---
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 Measurements Intervals [place] Rate: 118 P: 59 SD: 171 QRS: 44 QRSD: 96 T: 70 QT: 320 QTc: 448 Interpretive Statements SINUS TACHYCARDIA ABNORMAL RHYTHM ECG Compared to ECG 08/19/2022 21:55:10 No significant changes Electronically Signed On 09-23-2022 0:20:13 CDT by Flavio Hebert M.D. [id number] f
[2022-09-22 22:38] LABS: NT Pro B Type Natriuretic Pept 36 pg/mL (0-125)
[2022-09-22 22:56] LABS: Troponin(5th) Baseline 14 ng/L (0-15)
[2022-09-22 22:57] LABS: Lactic Sepsis W/Reflex 1.9 mmol/L (0.5-2.2)
[2022-09-22] MEDS: enoxaparin 40 mg/0.4 mL Syringe SUBCUT (23:10)
[2022-09-22] MEDS: sodium chloride 0.9% 1,000 ML 100 ML IV (23:15)
[2022-09-22 23:22] LABS: D Dimer 0.37 ug/mIFEU (0-0.59)
[2022-09-22] MEDS: cefTRIAXone 1,000 MG in sodium chloride 0.9% (plus) 50 ML 100 MG IV (23:33)
[2022-09-22 23:44] LABS: Troponin 5 2HR 11.08 ng/L (0-15)
[2022-09-22 23:45] LABS: Troponin 5 2HR Delta -2.92 ABS# (0-10)
--- NOTE | 2022-09-22 23:55 | PC.NURSE ---
96 Hour Hold ordered by physician. Copy of patients rights in chart and to be served to patient when alert.
[2022-09-23] VITALS (74 sets, daily range): BP systolic 96–144; BP diastolic 64–103; PULSE 80–105; RESP 22–25; TEMP 36.2–37.5; O2SAT 84–100; BMI 40.4
[2022-09-23 00:15] LABS: Acetaminophen 15.8 ug/mL (10-30)
--- NOTE | 2022-09-23 00:40 | ECG_ITS ---
[facility] Test Date: 2022-09-23 Pat Name: Ham Ackerman Department: Room: ICU02 Gender: Male Resident Associate: : 1980 Requested By: Pasquale Marr Order Number: [id number] Alyx MD: Emile Felipe M.D. Measurements Intervals [place] Rate: 101 P: 11 NV: 170 QRS: 14 QRSD: 120 T: 52 QT: 362 QTc: 469 Interpretive Statements SINUS TACHYCARDIA MODERATE INTRAVENTRICULAR CONDUCTION DELAY [105+ ms QRS DURATION, 80+ ms Q/S IN V1/V2, NO Q AND 60+ ms R IN I/aVL/V5/V6] Compared to ECG 09/22/2022 20:28:08 Intraventricular conduction delay now present Electronically Signed On 09-23-2022 17:00:25 CDT by Emile Felipe M.D. [email or web address].[employer]/store/[id number]
--- NOTE | 2022-09-23 01:15 | PC.NURSE ---
Seizures Upon receiving patient into room, patient began having multiple seizures lasting approximately 10 seconds each. Vitals stable. Dr. Coughlin notified; order received to titrate propofol for sedation and cessation of seizure activity, as well as for a versed drip if propofol ineffective.
[2022-09-23] MEDS: propofol 1,000 MG/100 ML INJ 30.48 MG IV ×2 (01:24→21:36)
--- NOTE | 2022-09-23 02:14 | XRR_ITS ---
PROCEDURE INFORMATION: Exam: XR Chest Exam date and time: 09/23/2022 2:22 AM Age: 41 years old Clinical indication: Device placement; Ng tube; Patient HX: Check S/P og placement; Additional info: Og insertion TECHNIQUE: Imaging protocol: Radiologic exam of the chest. Views: 1 view. COMPARISON: CR (CHEST, ) 09/22/2022 8:42 PM FINDINGS: Tubes, catheters and devices: Stable endotracheal tube positioning 3 cm cephalad to rojelio. Enteric tube terminates in proximal stomach with the side hole near the gastroesophageal junction. Lungs: Right upper lobe atelectasis new from comparison. Pleural spaces: Unremarkable. No pleural effusion. No pneumothorax. Heart/Mediastinum: Unremarkable. No cardiomegaly. Bones/joints: Unremarkable. XR/XR chest 1V portable [id number] IMPRESSION: 1. Recommended advancing the enteric tube 10 cm. 2. Interval right upper lobe collapse.
[2022-09-23 03:00] LABS: Basophils % 0.2 %; Hematocrit 35.8 % (42.0-52.0); Hemoglobin 11.4 g/dL (11.7-16.6); Lymphocytes # 2.4 10^3/uL (0.8-4.8); Lymphocytes % 47.2 %; Mean Corpuscular HGB Conc 31.8 g/dL (30.0-36.0); Mean Corpuscular Hemoglobin 27.7 pg (28.0-34.0); Mean Corpuscular Volume 87.1 fl (80-94); Mean Platelet Volume 8.9 fL (7.4-10.4); Monocytes # 0.4 10^3/uL (0.2-0.9); Monocytes % 7.4 %; Neutrophils # 2.29 10^3/uL (1.8-7.7); Neutrophils % 44.2 %; Nucleated Red Blood Cells % 0 %; Platelet Count 266 10^3/cmm (130-400); Red Blood Count 4.11 10^6/uL (4.1-5.3); White Blood Count 5.2 10^3/uL (4.0-10.0)
[2022-09-23 03:18] LABS: Alanine Aminotransferase 31 U/L (0-41); Alkaline Phosphatase 72 U/L (40-130); Anion Gap 20.3 (5-19); Aspartate Amino Transferase 22 U/L (0-40); Blood Urea Nitrogen 20 mg/dL (6-20); Calcium 8.6 mg/dL (8.5-10.5); Carbon Dioxide 22 mmol/L (22-29); Chloride 98 mmol/L (98-107); Creatinine Clr Calc Pharmacy 124.5149; Globulin 2.5 g/dL (1.3-4.6); Glomerular Filtration Rate 73.4 mL/min (90-130); Glucose 78 mg/dL (65-115); Osmolality Calculated 283 mOsm/kg (285-295); Potassium 4.3 mmol/L (3.5-5.1); Sodium 136 mmol/L (136-145); Total Bilirubin 0.2 mg/dL (0.15-1.2); Total Protein 6.5 g/dL (6.6-8.7)
[2022-09-23 03:20] LABS: ABG PH Result 7.41 (7.35-7.45); Arterial Blood Gas Hematocrit 36.2 % (42-52); Base Excess ABG 0.9 mmol/L (-2.0-2.0); Blood Gas Allen Test Pos; Blood Gas Sample Site Radial, right; Blood Gas Sample Type Arterial; Blood Gas Tidal Volume 0.48; HCO3 ABG 25.5 mmol/L (22-26); Oxygen Device VENT
[2022-09-23 03:21] LABS: ABG PCO2 56.1 mmHg (35-45); ABG PH Result 7.29 (7.35-7.45); Arterial Blood Gas Hematocrit 36.6 % (42-52); Base Excess ABG -0.7 mmol/L (-2.0-2.0); Blood Gas Allen Test Pos; Blood Gas Sample Site Radial, right; Blood Gas Sample Type Arterial; Blood Gas Tidal Volume 0.52; HCO3 ABG 26.7 mmol/L (22-26); Oxygen Device VENT
[2022-09-23 03:29] LABS: Troponin 5 6HR 12.26 ng/L (0-15)
[2022-09-23] MEDS: propofol 1,000 MG/100 ML INJ 47.9 MG IV (04:05)
[2022-09-23 05:10] LABS: Troponin 5 6HR Delta -1.74 ng/L (0-12)
--- NOTE | 2022-09-23 05:48 | XRR_ITS ---
PROCEDURE INFORMATION: Exam: XR Chest Exam date and time: 09/23/2022 5:55 AM Age: 41 years old Clinical indication: Device placement; Ng tube; Patient HX: Check S/P adjument of og tube. Intubated. ; Additional info: Og adjustment TECHNIQUE: Imaging protocol: Radiologic exam of the chest. Views: 1 view. COMPARISON: CR (CHEST, ) 09/23/2022 2:22 AM FINDINGS: Tubes, catheters and devices: Endotracheal tube is 4 cm cephalad to rojelio. Enteric tube in the proximal stomach advanced slightly from prior. The enteric tube seems to be kinked over the lower neck area. Lungs: Atelectasis changes in both lungs are redemonstrated although decreased in the right upper lobe. Pleural spaces: Unremarkable. No pleural effusion. No pneumothorax. Heart/Mediastinum: Unremarkable. No cardiomegaly. Bones/joints: Unremarkable. XR/XR chest 1V portable [id number] IMPRESSION: 1. The enteric tube may be kinked in the neck. 2. Decreased right upper lobe atelectasis.
[2022-09-23] MEDS: propofol 1,000 MG/100 ML INJ 65.32 MG IV ×2 (06:00→08:07)
--- NOTE | 2022-09-23 06:55 | PC.NURSE ---
OG tube OG tube placed for PO medication administration. Upon chest xray confirmation, tube needed advanced 10 cm. OG tube advanced 10 cm. Adjustment confirmation chest xray displayed tube kinked in the neck. OG tube clamped, receiving nurse aware of need for new placement.
--- NOTE | 2022-09-23 08:01 | XRR_ITS ---
PROCEDURE INFORMATION: Exam: XR Chest Exam date and time: 09/23/2022 8:16 AM Age: 41 years old Clinical indication: Device placement; Other: Og; Additional info: Og confirmation TECHNIQUE: Imaging protocol: Radiologic exam of the chest. Views: 1 view. COMPARISON: CR (CHEST, ) 09/23/2022 5:55 AM FINDINGS: Tubes, catheters and devices: Nasogastric tube is seen with tip overlying the left upper abdominal region, in the area of the stomach. Lungs: The visualized lung bases show mild left basilar platelike atelectasis. Pleural spaces: No left pleural effusion. Heart/Mediastinum: Normal heart size. There is a mildly tortuous thoracic aorta. Bones/joints: No acute osseous abnormalities seen. Soft tissues: Multiple external leads are seen overlying the lower chest and abdomen, limiting assessment. Gastrointestinal tract: No abnormal dilatation of bowel loops in the visualized abdomen. No pneumatosis or mass effect. XR/XR chest 1V portable [id number] IMPRESSION: Nasogastric tube, as noted above.
[2022-09-23] MEDS: sodium chloride 0.9% 1,000 ML 100 ML IV ×2 (08:07→17:57)
[2022-09-23] MEDS: pantoprazole 40 mg SDV IVP (08:08)
[2022-09-23] MEDS: atorvastatin 40 mg Tablet 20 MG NG-TUBE (08:10)
[2022-09-23] MEDS: lamoTRIgine 25 mg Tablet PO ×2 (08:13→16:56)
[2022-09-23] MEDS: gabapentin 300 mg Capsule 600 MG PO ×3 (08:13→21:37)
[2022-09-23] MEDS: thiamine 100 mg Tablet PO (08:14)
[2022-09-23] MEDS: metoprolol succinate ER (24 HR) 50 mg Tablet PO (08:14)
--- NOTE | 2022-09-23 08:29 | XRR_ITS ---
PROCEDURE INFORMATION: Exam: XR Abdomen Exam date and time: 09/23/2022 8:49 AM Age: 41 years old Clinical indication: Other: Distention TECHNIQUE: Imaging protocol: Radiologic exam of the abdomen. Views: Frontal supine view of the abdomen. 1 View. COMPARISON: CR XR chest 1V portable [id number] 09/23/2022 8:16 AM FINDINGS: Tubes, catheters and devices: Nasogastric tube is seen with tip in the left upper abdominal region, in the area of the stomach. Gastrointestinal tract: Some mildly gas distended loops of bowel are seen in the abdomen. No pneumatosis or mass effect. No organomegaly. Bones/joints: No acute osseous abnormality seen. Soft tissues: Multiple leads are seen overlying the abdomen, which limits assessment. XR/XR KUB portable [id number] IMPRESSION: Nasogastric tube, as noted above.
--- NOTE | 2022-09-23 08:29 | CT_ITS ---
WS: [id number] CT CHEST, ABDOMEN AND PELVIS NONCONTRAST. HISTORY: Abdominal distention, respiratory failure. TECHNIQUE: Contiguous 5 mm axial imaging performed through the chest, abdomen and pelvis without IV c ontrast, oral contrast has not been provided. Coronal and sagittal reformats chest. Coronal and sagit manuel reformats through the abdomen and pelvis. All CT scans at [facility] use at least one of these dose optimization techniques: automated exposure control; mA and/or kV adjustment per patient s ize (includes targeted exams where dose is matched to clinical indication); or iterative reconstructi on. CONTRAST: None DLP: 1507.03 mGy.cm COMPARISON: None available. Chest CT: Patient is intubated. Endotracheal tube in good position. Nasogastric tube in good position . Lung volumes are markedly decreased. Moderate elevation of the RIGHT hemidiaphragm. Subsegmental ar eas of bibasilar atelectasis at the lung bases. Additional atelectasis in the lingula and RIGHT upper lobe. No pneumothorax. No significant pleural effusion. Heart is mildly enlarged. No mediastinal wid ening. Normal size aorta and pulmonary artery. Abdomen CT: Liver is mildly enlarged with low attenuation. Gallbladder is mildly hydropic with no adj acent inflammation. Top normal spleen at 13.5 cm in length. No adrenal mass. Negative pancreas. No re nal obstruction or perinephric stranding. Normal aorta. No free fluid or ascites. Stomach is mildly distended with fluid. No small bowel obstruction. Normal colon. Normal appendix. Pelvic CT: No free fluid. Urbano catheter in the urinary bladder. No adenopathy. No destructive bone lesions. CT/[place] [id number] IMPRESSION: 1. Nasogastric and endotracheal tubes are in good position. 2. Lung volumes are markedly decreased with multi lobar areas of atelectasis. Most significant atelectasis at the lung bases and RIGHT upper lobe. 3. No pneumothorax. 4. No ascites or free air in the abdomen or pelvis. 5. No renal obstruction.
--- NOTE | 2022-09-23 08:44 | PC.PHAR ---
PT UNABLE TO VERIFY MEDS- CALLED [facility]ARM[facility] TO VERIFY LAST FILLED AND DATE PICKED UP
[2022-09-23] MEDS: propofol 1,000 MG/100 ML INJ 43.55 MG IV ×2 (10:24→12:54)
--- NOTE | 2022-09-23 14:56 | PC.NURSE ---
Father, Rocky Wilson [phone], called for update. Update given.
--- NOTE | 2022-09-23 15:31 | P.PN_ITS ---
Subjective Subjective: According to nursing staff overnight, patient had seizure-like episodes, on propofol, fentanyl, he was placed on Versed, this morning intubated, sedated, on 40% FiO2, normotensive, afebrile on examination, abdomen is distended, decreased bowel sounds, he does wince in pain when his abdomen is palpated, he does not follow commands, blood alcohol levels 209 Vitals/I&O/Wt Last Vital Signs Temp 98.3 F 09/23/22 15:00 Pulse 87 09/23/22 15:00 Resp 22 H 09/23/22 15:00 BP 137/96 09/23/22 15:00 Pulse Ox 95 09/23/22 15:00 O2 Del Method Mechanical Ventilation 09/23/22 15:00 O2 Flow Rate 10 09/22/22 20:24 FiO2 35 09/23/22 15:00 09/23/22 09/23/22 09/23/22 06:59 14:59 22:59 Intake Total 407.655 / 2039.688 3493.809 / 1519.809 24.124 / 1543.933 Output Total 650 / 650 Balance -242.345 / 145.105 8317.809 / 1519.809 24.124 / 1543.933 Weight last 48 hrs Weight 135.171 kg Weight 135.171 kg Weight 145.15 kg Physical Exam Const: COMMON NORMALS: no acute distress OTHER: Endotracheal tube in place, orogastric tube in place Eye: OTHER: Pupils pinpoint, minimally reactive to light Neck/C-Spine: COMMON NORMALS: no JVD Chest: COMMONS NORMALS: normal inspection of the chest Resp: COMMON NORMALS: normal respiratory effort, No retractions, No use of accessory muscles and clear to auscultation bilaterally AUSCULTATION: clear to auscultation bilaterally Cardio: COMMON NORMALS: no JVD, regular rate, regular rhythm, S1 normal heart sound present and S2 normal heart sound present RATE: regular rate RHYTHM: regular rhythm HEART SOUNDS: S1 normal heart sound present and S2 normal heart sound present GI: COMMON NORMALS: Normal to inspection, nondistended, normoactive bowel sounds present, Soft to palpation and non-tender PALPATION: Yes Soft to palpation Extremity: COMMON NORMALS: no pedal edema Urinary Catheter Management: Urbano: Cath Placed During This Visit: yes Reason for Continuing Indwelling Catheter: Accurate Measurement of Urinary Output in Critically Ill Patients Urinary Catheter Date of Insertion: 09/22/22 Urinary Catheter Time of Insertion: 20:38 Data 09/23/22 02:33 09/23/22 02:33 A&P Assessment and plan (1) Polysubstance abuse: 41-year-old male walked into the emergency room earlier today complaining of sifuentes icidal ideation and binge alcohol drinking throughout the day. Thereafter after being in the emergency room developed acute hypoxic hypercapnic respiratory failure for which she needed to be emergently intubated. According to ER physician documentation that he had taken 8-10 of his hydrocodone's and attempt to harm himself He was given Narcan, with slight response, due to unresponsiveness, was on 15 L, then intubated due to respiratory failure U tox is positive for opiates and marijuana, serum acetaminophen level is elevated at 32, improved 15.8 Review of home medication also shows multiple psychoactive drugs, uncertain if he may have additionally consumed these. Noticed seizures overnight Currently admitted in the ICU No complaints of any chest pain or dyspnea prior to the events in the emergency room. Daily assessment with sedation vacation and assessment for extubation. (2) Alcohol intoxication: Alcohol dependence, acute alcohol intoxication, serum alcohol level greater than 200 Currently intubated sedated, Experiencing alcohol withdrawal seizures, placed on Versed Started on Keppra thousand twice daily Continue sedation with propofol and fentanyl and Versed Thiamine 100 mg via NG tube daily Normal saline at 100 cc an hour (3) Hypercapnic respiratory failure: Acute hypoxic hypercapnic respiratory failure CT scan of the abdomen pelvis shows fluid distended stomach, concerns for possible sudden aspiration pneumonia as a reason for his acute respiratory failure The other thought is he did take 8-10 hydrocodone's, with his alcoholism, could have resulted in development of respiratory failure Unable to corroborate patient's past medical history Review of medications shows he has albuterol on his list. Uncertain if he has a history of COPD. Has good breath sounds bilaterally His CT of his chest ? Lung volumes are markedly decreased with multi lobar areas of atelectasis. Most significant atelectasis at the lung bases and RIGHT upper lobe. Empiric ceftriaxone 1 g IV every 24h for possibility of aspiration, which I will broaden to Zosyn (4) Alcohol dependence: As noted above (5) Suicidal ideation: With multiple recent admissions for the same. Currently intubated Psych assessment once patient is able to be extubated. (6) Seizures: - Currently on Versed, will wean for spontaneous breathing trial -Continue Keppra thousand twice daily -Is on Lamictal 25 mg twice daily -He is on gabapentin 600 mg twice daily -If any recurrent seizure-like episodes will do EEG, might look transfer for continuous EEG monitoring based on clinical progress (7) Alcohol withdrawal: - As above -Propofol, Versed (8) Abdominal distention: - Fluid distended stomach, NG tube in place, continue to monitor (9) Aspiration pneumonia: - Broaden antibiotic therapy to Zosyn (10) Opiate overdose: - Concerns for opiate overdose (11) Suicide attempt: - Concerns for possible suicide attempt with ingestion of hydrocodone, and alcohol Plan On multiple psych tropic medications, will resume his home psychotropic medication -Continue Invega 6 mg p.o. daily -He is on Haldol 5 mg p.o. 3 times daily, will hold that for now Plan for today, monitor mentation, will consider sedation vacation, CAT scans broaden antibiotic therapy, monitor for recurrent seizures, start Keppra resume home medications broad antibiotic therapy to Zosyn Attestations Medical Necessity Statement*: Patient requires ligation for acute respiratory failure concerns for aspiration pneumonia, alcohol withdrawal seizures, possible opiate overdose Coding Level of Care Code Critical Care >/= 30 minutes Critical care time (in minutes): 60 The high probability of a clinically significant, sudden or life threatening deterioration, as referenced in this documentation, required my full and direct attention, intervention and personal management. The critical care time shown is in addition to time spent performing any reported separately billable procedures and includes the following: [x] Data and vital sign review and interpretation [x ] Patient assessment, examination and intervention [x] Medication orders and management [x] Patient/Family updates as able [x] Care Coordination and Documentation. Diagnoses Polysubstance abuse F19.10 Alcohol intoxication F10.929 Hypercapnic respiratory failure J96.92 Alcohol dependence F10.20 Suicidal ideation R45.851 Seizures R56.9 Alcohol withdrawal F10.939 Abdominal distention R14.0 Aspiration pneumonia J69.0 Opiate overdose T40.601A Suicide attempt T14.91XA
[2022-09-23] MEDS: propofol 1,000 MG/100 ML INJ 34.84 MG IV (16:55)
[2022-09-23] MEDS: piperacillin-tazobactam 3.375 GM in sodium chloride 0.9% (plus) 50 ML IV (16:56)
[2022-09-23] MEDS: enoxaparin 40 mg/0.4 mL Syringe SUBCUT (21:37)
[2022-09-24] VITALS (33 sets, daily range): BP systolic 98–146; BP diastolic 74–106; PULSE 92–131; RESP 12–25; TEMP 37.2–37.7; O2SAT 88–99
[2022-09-24] MEDS: piperacillin-tazobactam 3.375 GM in sodium chloride 0.9% (plus) 50 ML IV ×4 (00:23→23:54)
[2022-09-24] MEDS: chlorhexidine gluconate 4% Btl 118 mL 1 APPLIC TOPICAL (00:30)
[2022-09-24] MEDS: propofol 1,000 MG/100 ML INJ 21.77 MG IV (03:10)
[2022-09-24 03:26] LABS: ABG PCO2 38.5 mmHg (35-45); ABG PH Result 7.44 (7.35-7.45); Arterial Blood Gas Hematocrit 34.6 % (42-52); Base Excess ABG 1.8 mmol/L (-2.0-2.0); Blood Gas Allen Test Pos; Blood Gas Sample Site Radial, right; Blood Gas Sample Type Arterial; Blood Gas Tidal Volume 0.48; Oxygen Device VENT; PO2 ABG 73.1 mmHg (80.0-100.0)
[2022-09-24 03:28] LABS: Hematocrit 32.4 % (42.0-52.0); Hemoglobin 10.9 g/dL (11.7-16.6); Lymphocytes # 1.7 10^3/uL (0.8-4.8); Lymphocytes % 33.4 %; Mean Corpuscular HGB Conc 33.6 g/dL (30.0-36.0); Mean Corpuscular Hemoglobin 28.8 pg (28.0-34.0); Mean Corpuscular Volume 85.7 fl (80-94); Mean Platelet Volume 9.2 fL (7.4-10.4); Monocytes # 0.4 10^3/uL (0.2-0.9); Monocytes % 8.4 %; Neutrophils # 2.89 10^3/uL (1.8-7.7); Neutrophils % 57.8 %; Nucleated Red Blood Cells % 0 %; Platelet Count 208 10^3/cmm (130-400); Red Blood Count 3.78 10^6/uL (4.1-5.3); Red Cell Distribution Width 13.2 % (12.1-15.1)
[2022-09-24] MEDS: sodium chloride 0.9% 1,000 ML 100 ML IV (03:41)
[2022-09-24 03:57] LABS: Lactate (Lactic Acid level) 1.6 mmol/L (0.5-2.2)
[2022-09-24 04:16] LABS: Alanine Aminotransferase 26 U/L (0-41); Albumin Level 3.5 g/dL (3.5-5.2); Alkaline Phosphatase 89 U/L (40-130); Aspartate Amino Transferase 21 U/L (0-40); Blood Urea Nitrogen 15 mg/dL (6-20); Calcium 8.7 mg/dL (8.5-10.5); Carbon Dioxide 21 mmol/L (22-29); Chloride 98 mmol/L (98-107); Globulin 2.4 g/dL (1.3-4.6); Glomerular Filtration Rate 81.9 mL/min (90-130); Glucose 85 mg/dL (65-115); Magnesium 1.5 mg/dL (1.7-2.3); Osmolality Calculated 278 mOsm/kg (285-295); Phosphorus 3.5 mg/dL (2.5-4.5); Sodium 134 mmol/L (136-145); Total Bilirubin 0.5 mg/dL (0.15-1.2); Total Protein 5.9 g/dL (6.6-8.7)
[2022-09-24 04:21] LABS: Anion Gap 18.7 (5-19)
[2022-09-24 04:23] LABS: Potassium 3.7 mmol/L (3.5-5.1)
[2022-09-24 04:26] LABS: NT Pro B Type Natriuretic Pept 36 pg/mL (0-125)
[2022-09-24 04:37] LABS: Creatine Phosphokinase 440 U/L (39-308)
[2022-09-24] MEDS: levothyroxine 25 mcg Tablet PO (05:36)
--- NOTE | 2022-09-24 07:00 | XRR_ITS ---
PROCEDURE INFORMATION: Exam: XR Chest Exam date and time: 09/24/2022 4:05 AM Age: 41 years old Clinical indication: Shortness of breath; Patient HX: Continued intubation post od. ; Additional info: SOB TECHNIQUE: Imaging protocol: Radiologic exam of the chest. Views: 1 view. COMPARISON: CT chest abdpel [id number] 09/23/2022 1:23 PM FINDINGS: Tubes, catheters and devices: The nasogastric tube extends beyond the diaphragmatic hiatus. The tip is not imaged. The endotracheal tube is appropriately positioned in the distal thoracic trachea with the tip above the rojelio. Lungs: There is platelike opacity in the left lower and right upper lung. Pleural spaces: There is no pleural effusion or pneumothorax. Heart/Mediastinum: The cardiac silhouette is within normal limits of size given AP technique. Bones/joints: Bones are unremarkable. XR/XR chest 1V portable [id number] IMPRESSION: 1. NG tube is in the stomach. The tip is not imaged. 2. Satisfactory endotracheal tube position. 3. Platelike atelectasis in both lungs corresponding to the findings on chest CT 09/23/2022.
[2022-09-24] MEDS: ipratropium-albuterol 3 mL Neb INHALATION (07:42)
[2022-09-24] MEDS: pantoprazole 40 mg SDV IVP (08:05)
[2022-09-24] MEDS: thiamine 100 mg Tablet PO (08:06)
[2022-09-24] MEDS: paliperidone ER 6 mg Tablet PO (08:06)
[2022-09-24] MEDS: gabapentin 300 mg Capsule 600 MG PO ×3 (08:06→20:36)
[2022-09-24] MEDS: lamoTRIgine 25 mg Tablet PO ×2 (08:06→17:46)
[2022-09-24] MEDS: atorvastatin 40 mg Tablet 20 MG NG-TUBE (08:06)
[2022-09-24] MEDS: metoprolol succinate ER (24 HR) 50 mg Tablet PO (08:06)
[2022-09-24] MEDS: FUROsemide 10 mg/mL SDV 4mL 40 MG IVP (08:33)
[2022-09-24] MEDS: magnesium sulfate premix 2 GM/50 ML PIGGYBACK IV (08:45)
--- NOTE | 2022-09-24 10:09 | PC.NURSE ---
extubated at 1008.
[2022-09-24] MEDS: FUROsemide 10 mg/mL SDV 2mL 20 MG IVP (10:19)
[2022-09-24] MEDS: potassium chloride premix 100 ML 25 MEQ IV (10:21)
--- NOTE | 2022-09-24 10:29 | PC.NURSE ---
Addendum entered by Lucio Brown RN 09/24/22 10:30: witnessed Fentanyl waste Original Note: Wasted 5.25mLs of Fentanyl, and 73.5 mL's of versed. Witnessed per Lucio Brown RN
--- NOTE | 2022-09-24 11:37 | PC.NURSE ---
96hr rights reviewed with patient @1030 in accompany with MERRY Rudd. All questions answered. Patient copy left at bedside with patient.
--- NOTE | 2022-09-24 14:56 | PC.NURSE ---
Bedside swallow evaluation, patient able to drink of water with no choking or coughing episodes. Water placed bedside until speech evaluation
[2022-09-24] MEDS: nicotine 14 mg Patch 1 PATCH TRANSDERMA (15:40)
--- NOTE | 2022-09-24 15:54 | PM.PN ---
Subjective Subjective: Patient was seen this morning, multiple times, currently intubated, on sedation, follows commands, on 35% FiO2 Patient was seen again, on 35% FiO2, following commands, O2 sats in the mid 90s, Had good pulmonary toilet, endotracheal suctioning, no significant output, oral gastric tube, no significant output when it was hooked to suction Was given 40 of Lasix, put out roughly 2 and half liters of fluid Patient was extubated, successfully onto heated high flow, alert awake, following commands, good cough, Vitals/I&O/Wt Last Vital Signs Temp 99.8 F H 09/24/22 06:00 Pulse 123 H 09/24/22 15:40 Resp 18 09/24/22 15:40 BP 140/97 09/24/22 14:00 Pulse Ox 91 09/24/22 15:40 O2 Del Method Mechanical Ventilation 09/24/22 07:43 O2 Flow Rate 30 09/24/22 15:40 FiO2 30 09/24/22 15:40 09/24/22 09/24/22 09/24/22 06:59 14:59 22:59 Intake Total 1196.566 / 4000.000 1105.083 / 1105.083 Output Total 1000 / 1900 5650 / 5650 Balance 196.566 / 2100.000 -4544.917 / -4544.917 Weight last 48 hrs Weight 138.346 kg Weight 135.171 kg Weight 135.171 kg Weight 145.15 kg Physical Exam Const: COMMON NORMALS: no acute distress OTHER: Status post to patient, follows commands, on heated high flow, Resp: COMMON NORMALS: normal respiratory effort, No retractions, No use of accessory muscles and clear to auscultation bilaterally AUSCULTATION: clear to auscultation bilaterally Cardio: COMMON NORMALS: regular rate, regular rhythm, S1 normal heart sound present and S2 normal heart sound present RATE: regular rate RHYTHM: regular rhythm HEART SOUNDS: S1 normal heart sound present and S2 normal heart sound present GI: COMMON NORMALS: Normal to inspection, nondistended, normoactive bowel sounds present and non-tender Extremity: COMMON NORMALS: no pedal edema Psych: COMMON NORMALS: mental status grossly normal Urinary Catheter Management: Urbano: Cath Placed During This Visit: yes Reason for Continuing Indwelling Catheter: Accurate Measurement of Urinary Output in Critically Ill Patients Urinary Catheter Date of Insertion: 09/22/22 Urinary Catheter Time of Insertion: 20:38 Data 09/24/22 02:23 09/24/22 02:23 A&P Assessment and plan (1) Polysubstance abuse: 41-year-old male walked into the emergency room earlier today complaining of suicidal ideation and binge alcohol drinking throughout the day. Thereafter after being in the emergency room developed acute hypoxic hypercapnic respiratory failure for which she needed to be emergently intubated. According to ER physician documentation that he had taken 8-10 of his hydrocodone's and attempt to harm himself He was given Narcan, with slight response, due to unresponsiveness, was on 15 L, then intubated due to respiratory failure U tox is positive for opiates and marijuana, serum acetaminophen level is elevated at 32, improved 15.8 Review of home medication also shows multiple psychoactive drugs, uncertain if he may have additionally consumed these. No recurrent seizures overnight Currently admitted in the ICU No complaints of any chest pain or dyspnea prior to the events in the emergency room. Daily assessment with sedation vacation and assessment for extubation. (2) Alcohol intoxication: Alcohol dependence, acute alcohol intoxication, serum alcohol level greater than 200 Status post extubation, off Versed Placed on scheduled Librium 20 every 6 hours [facility] protocol For alcohol withdrawals seizure, he is on Keppra thousand every 12 hours, with history of seizures continue for now monitor mentation Thiamine 100 mg via NG tube daily (3) Hypercapnic respiratory failure: Acute hypoxic hypercapnic respiratory failure CT scan of the abdomen pelvis shows fluid distended stomach, concerns for possible sudden aspiration pneumonia as a reason for his acute respiratory failure The other thought is he did take 8-10 hydrocodone's, with his alcoholism, could have resulted in development of respiratory failure Unable to corroborate patient's past medical history Review of medications shows he has albuterol on his list. Uncertain if he has a history of COPD. Has good breath sounds bilaterally His CT of his chest ? Lung volumes are markedly decreased with multi lobar areas of atelectasis. Most significant atelectasis at the lung bases and RIGHT upper lobe. Pulmonary toilet, endotracheal tube no significant output from deep suctioning Continue Zosyn for now (4) Alcohol dependence: As noted above (5) Suicidal ideation: With multiple recent admissions for the same. Psych assessment pending (6) Seizures: -Continue Keppra thousand twice daily -Is on Lamictal 25 mg twice daily -He is on gabapentin 600 mg twice daily -Keppra thousand every 12 hours -If any recurrent seizure-like episodes will do EEG, might look transfer for continuous EEG monitoring based on clinical progress (7) Alcohol withdrawal: - As above (8) Abdominal distention: - Fluid distended stomach, NG tube in place, continue to monitor (9) Aspiration pneumonia: - Broaden antibiotic therapy to Zosyn (10) Opiate overdose: - Concerns for opiate overdose (11) Suicide attempt: - Concerns for possible suicide attempt with ingestion of hydrocodone, and alcohol (12) Fluid overload: Plan On multiple psych tropic medications, will resume his home psychotropic medication -Continue Invega 6 mg p.o. daily -He is on Haldol 5 mg p.o. 3 times daily, will hold that for now Plan for today, monitor mentation, start Librium, monitor for alcohol drawl, CIWA protocol continue antibiotics, advance diet, for fluid overload received Lasix 2 L output we will give another dose of Lasix Attestations Medical Necessity Statement*: Patient requires hospitalization for alcohol withdrawal seizures, aspiration pneumonia, acute hypoxic respiratory failure Coding Level of Care Code Critical Care >/= 30 minutes Critical care time (in minutes): 60 The high probability of a clinically significant, sudden or life threatening deterioration, as referenced in this documentation, required my full and direct attention, intervention and personal management. The critical care time shown is in addition to time spent performing any reported separately billable procedures and includes the following: [x] Data and vital sign review and interpretation [x] Patient assessment, examination and intervention [x] Medication orders and management [x] Patient/Family updates as able [x] Care Coordination and Documentation. Diagnoses Polysubstance abuse F19.10 Alcohol intoxication F10.929 Hypercapnic respiratory failure J96.92 Alcohol dependence F10.20 Suicidal ideation R45.851 Seizures R56.9 Alcohol withdrawal F10.939 Abdominal distention R14.0 Aspiration pneumonia J69.0 Opiate overdose T40.601A Suicide attempt T14.91XA Fluid overload E87.70
[2022-09-24] MEDS: chlordiazePOXIDE 10 mg Capsule 20 MG PO ×2 (16:35→23:54)
[2022-09-24] MEDS: nicotine 4 mg lozenge MUCOUS MEM (22:56)
[2022-09-24] MEDS: LORazepam 2 mg/mL INJ 1 mL IVP (23:11)
[2022-09-24] MEDS: enoxaparin 40 mg/0.4 mL Syringe SUBCUT (23:54)
[2022-09-25] VITALS (23 sets, daily range): BP systolic 103–195; BP diastolic 83–147; PULSE 102–121; RESP 14–28; TEMP 36.8–37.3; O2SAT 87–98
[2022-09-25] MEDS: nicotine 4 mg lozenge MUCOUS MEM ×6 (02:07→23:29)
[2022-09-25 02:45] LABS: Hematocrit 37.6 % (42.0-52.0); Hemoglobin 12.7 g/dL (11.7-16.6); Lymphocytes # 1.8 10^3/uL (0.8-4.8); Lymphocytes % 28.3 %; Mean Corpuscular HGB Conc 33.8 g/dL (30.0-36.0); Mean Corpuscular Hemoglobin 28.4 pg (28.0-34.0); Mean Corpuscular Volume 84.1 fl (80-94); Mean Platelet Volume 9.7 fL (7.4-10.4); Monocytes # 0.6 10^3/uL (0.2-0.9); Monocytes % 9.8 %; Neutrophils # 3.94 10^3/uL (1.8-7.7); Neutrophils % 61.1 %; Nucleated Red Blood Cells % 0 %; Platelet Count 249 10^3/cmm (130-400); Red Blood Count 4.47 10^6/uL (4.1-5.3); Red Cell Distribution Width 13.4 % (12.1-15.1); White Blood Count 6.4 10^3/uL (4.0-10.0)
--- NOTE | 2022-09-25 03:46 | PC.NURSE ---
Patient has become more awake and alert this evening, No longer any confusion. Patient has also become more aggressive throughout shift. Ativan administered and patient became cooperative and responded well afterwards.
[2022-09-25] MEDS: levothyroxine 25 mcg Tablet PO (05:06)
[2022-09-25] MEDS: chlordiazePOXIDE 10 mg Capsule 20 MG PO ×4 (05:07→23:39)
--- NOTE | 2022-09-25 05:50 | PC.NURSE ---
Patient refused all turning and rotations on this shift. Stated that he wanted a bath at beginning of shift then became agitated and did not. Patient also refused to wear SCD's. Lovenox injections have been administered.
[2022-09-25 06:33] LABS: Lactate (Lactic Acid level) 0.8 mmol/L (0.5-2.2)
[2022-09-25 06:40] LABS: Alanine Aminotransferase 35 U/L (0-41); Alkaline Phosphatase 103 U/L (40-130); Aspartate Amino Transferase 34 U/L (0-40); Blood Urea Nitrogen 10 mg/dL (6-20); Calcium 9.4 mg/dL (8.5-10.5); Carbon Dioxide 24 mmol/L (22-29); Chloride 92 mmol/L (98-107); Glomerular Filtration Rate 92.5 mL/min (90-130); Glucose 102 mg/dL (65-115); Magnesium 1.8 mg/dL (1.7-2.3); NT Pro B Type Natriuretic Pept 36 pg/mL (0-125); Osmolality Calculated 271 mOsm/kg (285-295); Phosphorus 4.5 mg/dL (2.5-4.5); Sodium 131 mmol/L (136-145); Total Bilirubin 0.5 mg/dL (0.15-1.2)
[2022-09-25 07:08] LABS: Creatine Phosphokinase 443 U/L (39-308)
[2022-09-25 07:09] LABS: Anion Gap 19.1 (5-19); Potassium 4.1 mmol/L (3.5-5.1)
[2022-09-25] MEDS: piperacillin-tazobactam 3.375 GM in sodium chloride 0.9% (plus) 50 ML IV ×3 (07:59→23:39)
[2022-09-25] MEDS: lamoTRIgine 25 mg Tablet PO ×2 (08:05→17:00)
[2022-09-25] MEDS: gabapentin 300 mg Capsule 600 MG PO ×3 (08:05→20:12)
[2022-09-25] MEDS: atorvastatin 40 mg Tablet 20 MG NG-TUBE (08:05)
[2022-09-25] MEDS: multivitamin therapeutic Tablet 1 TAB PO (08:07)
[2022-09-25] MEDS: folic acid 1 mg Tablet PO (08:07)
[2022-09-25] MEDS: pantoprazole 40 mg SDV IVP (08:07)
[2022-09-25] MEDS: metoprolol succinate ER (24 HR) 50 mg Tablet PO (08:07)
[2022-09-25] MEDS: thiamine 100 mg Tablet PO ×2 (08:07)
[2022-09-25] MEDS: FUROsemide 10 mg/mL SDV 2mL 20 MG IVP (08:44)
[2022-09-25] MEDS: cloNIDine 0.1 mg Tablet PO ×2 (12:11→20:16)
--- NOTE | 2022-09-25 14:55 | PC.NURSE ---
patient refused to wear telemetry
--- NOTE | 2022-09-25 15:51 | PC.NURSE ---
Patient still refusing all telemetry and vitals. Currently resting in room complaint with nursing staff so far.
[2022-09-25] MEDS: cyclobenzaprine 10 mg Tablet 5 MG PO (16:32)
--- NOTE | 2022-09-25 18:01 | P.PN_ITS ---
Subjective Subjective: Patient was examined multiple times throughout the morning, initially the morning he tells me he wants to go to [facility], he would refuse to wear his oxygen, O2 sats in the mid 80s, he tells me he does not need it, he also would remove his telemetry monitoring, but when he would wear it he will his telemetry which shows sinus tachycardia, he does not complain of chest pain, no lightheadedness, dizziness, no nausea, no vomiting, he tells me that he does not take Invega anymore Vitals/I&O/Wt Last Vital Signs Temp 99.1 F 09/25/22 04:00 Pulse 121 H 09/25/22 13:00 Resp 18 09/25/22 13:00 BP 115/86 09/25/22 14:00 Pulse Ox 90 09/25/22 13:00 O2 Del Method Room Air 09/25/22 11:26 O2 Flow Rate 3 09/25/22 04:55 FiO2 30 09/24/22 15:40 09/25/22 09/25/22 09/25/22 06:59 14:59 22:59 Intake Total 1970 / 4195.083 640 / 640 240 / 880 Output Total 1150 / 7300 1700 / 1700 Balance 820 / -3104.917 -1060 / -1060 240 / -820 Weight last 48 hrs Weight 137.575 kg Weight 138.346 kg Physical Exam Const: COMMON NORMALS: no acute distress and patient oriented x3 Resp: COMMON NORMALS: normal respiratory effort, No retractions and No use of accessory muscles OTHER: Has crackles on exam Cardio: COMMON NORMALS: regular rhythm, S1 normal heart sound present and S2 normal heart sound present RATE: tachycardic RHYTHM: regular rhythm HEART SOUNDS: S1 normal heart sound present and S2 normal heart sound present GI: COMMON NORMALS: Normal to inspection, nondistended, normoactive bowel sounds present and non-tender Extremity: COMMON NORMALS: no pedal edema Neuro: COMMON NORMALS: patient oriented x3 Psych: COMMON NORMALS: mental status grossly normal Urinary Catheter Management: [place]: Cath Placed During This Visit: yes Reason for Continuing Indwelling Catheter: Accurate Measurement of Urinary Output in Critically Ill Patients Urinary Catheter Date of Insertion: 09/22/22 Urinary Catheter Time of Insertion: 20:38 Data 09/25/22 02:06 05/18/23 04:28 A&P Assessment and plan (1) Polysubstance abuse: 41-year-old male walked into the emergency room earlier today complaining of suicidal ideation and binge alcohol drinking throughout the day. Thereafter after being in the emergency room developed acute hypoxic hypercapnic respiratory failure for which she needed to be emergently intubated. According to ER physician documentation that he had taken 8-10 of his hydrocodone's and attempt to harm himself He was given Narcan, with slight response, due to unresponsiveness, was on 15 L, then intubated due to respiratory failure U tox is positive for opiates and marijuana, serum acetaminophen level is elevated at 32, improved 15.8 Review of home medication also shows multiple psychoactive drugs, uncertain if he may have additionally consumed these. No recurrent seizures overnight Currently admitted in the ICU, will continue to monitor in ICU No complaints of any chest pain or dyspnea prior to the events in the emergency room. Currently extubated, on room air, saturating into the mid 80s, refuses to use oxygen (2) Alcohol intoxication: Alcohol dependence, acute alcohol intoxication, serum alcohol level greater than 200 Status post extubation, off Versed Placed on scheduled Librium 20 every 6 hours [facility] protocol For alcohol withdrawals seizure, he is on Keppra thousand every 12 hours, with history of seizures continue for now monitor mentation Thiamine 100 mg via NG tube daily (3) Hypercapnic respiratory failure: Acute hypoxic hypercapnic respiratory failure CT scan of the abdomen pelvis shows fluid distended stomach, concerns for possible sudden aspiration pneumonia as a reason for his acute respiratory failure The other thought is he did take 8-10 hydrocodone's, with his alcoholism, could have resulted in development of respiratory failure Unable to corroborate patient's past medical history Review of medications shows he has albuterol on his list. Uncertain if he has a history of COPD. Has crackles on exam saturating in the mid 80s, I think he is likely remaining hypoxia due to aspiration pneumonia, aspiration pneumonitis, and some degree of fluid overload we will give him Lasix today continue antibiotic treatment His CT of his chest ? Lung volumes are markedly decreased with multi lobar areas of atelectasis. Most significant atelectasis at the lung bases and RIGHT upper lobe. Lasix today Continue Zosyn for now Incentive spirometer, flutter valve Up out of bed (4) Alcohol dependence: As noted above (5) Suicidal ideation: With multiple recent admissions for the same. Psych assessment pending (6) Seizures: -Continue Keppra thousand twice daily -Is on Lamictal 25 mg twice daily -He is on gabapentin 600 mg twice daily -Keppra thousand every 12 hours -If any recurrent seizure-like episodes will do EEG, might look transfer for continuous EEG monitoring based on clinical progress (7) Alcohol withdrawal: - As above (8) Abdominal distention: - Resolved (9) Aspiration pneumonia: - Broaden antibiotic therapy to Zosyn (10) Opiate overdose: - Concerns for opiate overdose (11) Suicide attempt: - Concerns for possible suicide attempt with ingestion of hydrocodone, and alcohol (12) Fluid overload: (13) Rhabdomyolysis: Plan On multiple psych tropic medications, will resume his home psychotropic medication -Discontinue Invega -He is on Haldol 5 mg p.o. 3 times daily, will hold that for now Plan for today, monitor oxygen status, refuses to use oxygen, encourage use, 1 dose Lasix continue antibiotic treatments, up out of bed, monitor urine output, CPKs elevated, monitor, continue antibiotics, has tachycardia likely alcohol withdrawal, up out of bed, will likely move to n.p.o. tomorrow as his alcohol withdrawal improves Spoke to nursing staff Attestations Medical Necessity Statement*: Patient requires hospitalization due to concerns for aspiration pneumonia, aspiration pneumonitis, alcohol withdrawal, sinus tachycardia, hypoxia Diagnoses Polysubstance abuse F19.10 Alcohol intoxication F10.929 Hypercapnic respiratory failure J96.92 Alcohol dependence F10.20 Suicidal ideation R45.851 Seizures R56.9 Alcohol withdrawal F10.939 Abdominal distention R14.0 Aspiration pneumonia J69.0 Opiate overdose T40.601A Suicide attempt T14.91XA Fluid overload E87.70 Rhabdomyolysis M62.82
[2022-09-25] MEDS: LORazepam 2 mg/mL INJ 1 mL IVP (21:13)
--- NOTE | 2022-09-25 21:42 | PC.NURSE ---
Upon arrival patient is content. Patient has requested 2 large cups of coffee so far and also voices concerns of wanting to go to [facility] again. Patient requested ativan to help calmand aid in sleep but refused to wear any telemetry or kind of monitoring for day. Patient also refuses to wear oxygen. Patient agreed to wear oxygen monitor when ativan is given and oxygen for sleeping if need be. Patient oxygen saturation has been between 88-91 room air. Patient has started to become more anxious and restless. Ativan given and tolerated well.
[2022-09-25] MEDS: enoxaparin 40 mg/0.4 mL Syringe SUBCUT (23:39)
[2022-09-26] VITALS (18 sets, daily range): BP systolic 128–163; BP diastolic 87–130; PULSE 110–120; RESP 17–18; TEMP 36.6–36.7; O2SAT 86–95; BMI 41.1
[2022-09-26] MEDS: nicotine 4 mg lozenge MUCOUS MEM ×3 (03:53→21:22)
[2022-09-26] MEDS: cyclobenzaprine 10 mg Tablet 5 MG PO ×2 (04:01→21:09)
[2022-09-26] MEDS: LORazepam 2 mg/mL INJ 1 mL IVP (04:31)
[2022-09-26] MEDS: levothyroxine 25 mcg Tablet PO (05:03)
[2022-09-26] MEDS: chlordiazePOXIDE 10 mg Capsule 20 MG PO ×3 (05:03→21:08)
[2022-09-26] MEDS: pantoprazole 40 mg SDV IVP (08:14)
[2022-09-26] MEDS: metoprolol succinate ER (24 HR) 50 mg Tablet PO (08:15)
[2022-09-26] MEDS: cloNIDine 0.1 mg Tablet PO ×2 (08:16→21:09)
[2022-09-26] MEDS: thiamine 100 mg Tablet PO (08:16)
[2022-09-26] MEDS: gabapentin 300 mg Capsule 600 MG PO ×3 (08:16→21:08)
[2022-09-26] MEDS: atorvastatin 40 mg Tablet 20 MG NG-TUBE (08:16)
[2022-09-26] MEDS: multivitamin therapeutic Tablet 1 TAB PO (08:17)
[2022-09-26] MEDS: lamoTRIgine 25 mg Tablet PO ×2 (08:17→17:14)
[2022-09-26] MEDS: folic acid 1 mg Tablet PO (08:17)
[2022-09-26] MEDS: piperacillin-tazobactam 3.375 GM in sodium chloride 0.9% (plus) 50 ML IV (08:18)
[2022-09-26 08:31] LABS: Basophils % 0.1 %; Hematocrit 37.3 % (42.0-52.0); Hemoglobin 12.3 g/dL (11.7-16.6); Lymphocytes # 1.4 10^3/uL (0.8-4.8); Lymphocytes % 19.4 %; Mean Corpuscular Hemoglobin 27.6 pg (28.0-34.0); Mean Corpuscular Volume 83.6 fl (80-94); Mean Platelet Volume 9.1 fL (7.4-10.4); Monocytes # 0.5 10^3/uL (0.2-0.9); Monocytes % 6.6 %; Neutrophils # 5.21 10^3/uL (1.8-7.7); Neutrophils % 72.2 %; Nucleated Red Blood Cells % 0 %; Platelet Count 268 10^3/cmm (130-400); Red Blood Count 4.46 10^6/uL (4.1-5.3); Red Cell Distribution Width 13.6 % (12.1-15.1); White Blood Count 7.2 10^3/uL (4.0-10.0)
[2022-09-26 08:54] LABS: Alanine Aminotransferase 34 U/L (0-41); Albumin Level 4.1 g/dL (3.5-5.2); Alkaline Phosphatase 96 U/L (40-130); Blood Urea Nitrogen 8 mg/dL (6-20); Calcium 9.9 mg/dL (8.5-10.5); Carbon Dioxide 27 mmol/L (22-29); Chloride 91 mmol/L (98-107); Globulin 3.4 g/dL (1.3-4.6); Glucose 114 mg/dL (65-115); Magnesium 1.6 mg/dL (1.7-2.3); Osmolality Calculated 273 mOsm/kg (285-295); Phosphorus 3.7 mg/dL (2.5-4.5); Sodium 132 mmol/L (136-145); Total Bilirubin 0.4 mg/dL (0.15-1.2); Total Protein 7.5 g/dL (6.6-8.7)
[2022-09-26 08:55] LABS: Lactate (Lactic Acid level) 1.2 mmol/L (0.5-2.2)
[2022-09-26 09:10] LABS: Anion Gap 17.9 (5-19); Potassium 3.9 mmol/L (3.5-5.1)
[2022-09-26 09:11] LABS: Aspartate Amino Transferase 32 U/L (0-40)
[2022-09-26 09:15] LABS: Creatine Phosphokinase 340 U/L (39-308)
[2022-09-26 09:16] LABS: NT Pro B Type Natriuretic Pept 36 pg/mL (0-125)
[2022-09-26] MEDS: FUROsemide 10 mg/mL SDV 2mL 20 MG IVP (09:59)
[2022-09-26] MEDS: polyethylene glycol 3350 Pkt 17 gm PO (10:00)
--- NOTE | 2022-09-26 12:46 | PC.OT ---
OT EVALUATION ATTEMPTED. PATIENT LYING HALF ON/OFF BED WITH HOB ELEVATED; 1:1 SITTER PRESENT AND SNORING LOUDLY. UNABLE TO AWAKEN. OT EVALUATION TO BE ATTEMPTED AGAIN AT A LATER TIME.
--- NOTE | 2022-09-26 13:57 | PC.NURSE ---
Patient refused O2 and telemetry so far this shift. received transfer orders to [facility].
--- NOTE | 2022-09-26 14:03 | PC.NURSE ---
Patient went to [facility] at 1402
--- NOTE | 2022-09-26 14:03 | PC.NURSE ---
Patient transferred to [facility] with security present
--- NOTE | 2022-09-26 15:02 | P.PN_ITS ---
Subjective Subjective: 12Patient was seen this morning, on 2 L, he tells me that last night, he did have a good breakfast this morning, no chest pain, shortness of breath, no abdominal pain, no nausea, no vomiting, he did get up out of bed yesterday, agreeable to go to neuropsychiatric unit Vitals/I&O/Wt Last Vital Signs Temp 97.9 F 09/26/22 14:31 Pulse 120 H 09/26/22 14:31 Resp 18 09/26/22 14:31 BP 144/98 09/26/22 14:31 Pulse Ox 94 09/26/22 14:31 O2 Del Method Nasal Cannula 09/26/22 08:55 O2 Flow Rate 2 09/26/22 08:55 FiO2 30 09/24/22 15:40 09/26/22 09/26/22 09/26/22 06:59 14:59 22:59 Intake Total 1200 / 2840 1008.75 / 1008.75 Balance 1200 / 1140 1008.75 / 1008.75 Weight last 48 hrs Weight 137.438 kg Weight 137.575 kg Physical Exam Const: COMMON NORMALS: no acute distress and patient oriented x3 Resp: COMMON NORMALS: normal respiratory effort, No retractions, No use of accessory muscles and clear to auscultation bilaterally AUSCULTATION: clear to auscultation bilaterally Cardio: COMMON NORMALS: regular rate, regular rhythm, S1 normal heart sound present and S2 normal heart sound present RATE: regular rate RHYTHM: regular rhythm HEART SOUNDS: S1 normal heart sound present and S2 normal heart sound present GI: COMMON NORMALS: Normal to inspection, nondistended, normoactive bowel sounds present and non-tender Extremity: COMMON NORMALS: no pedal edema Neuro: COMMON NORMALS: patient oriented x3 Psych: COMMON NORMALS: mental status grossly normal Urinary Catheter Management: [place]: Cath Placed During This Visit: yes, but has since been removed by the nurse Reason for Continuing Indwelling Catheter: Accurate Measurement of Urinary Output in Critically Ill Patients Urinary Catheter Date of Insertion: 09/22/22 Urinary Catheter Time of Insertion: 20:38 Date Urinary Catheter Removed: 09/25/22 Time Urinary Catheter Discontinued: 12:00 Data 09/26/22 07:27 09/26/22 07:27 A&P Assessment and plan (1) Polysubstance abuse: 41-year-old male walked into the emergency room earlier today complaining of suicidal ideation and binge alcohol drinking throughout the day. Thereafter after being in the emergency room developed acute hypoxic hypercapnic respiratory failure for which she needed to be emergently intubated. According to ER physician documentation that he had taken 8-10 of his hydrocodone's and attempt to harm himself He was given Narcan, with slight response, due to unresponsiveness, was on 15 L, then intubated due to respiratory failure U tox is positive for opiates and marijuana, serum acetaminophen level is elevated at 32, improved 15.8 Review of home medication also shows multiple psychoactive drugs, uncertain if he may have additionally consumed these. No recurrent seizures overnight Currently admitted in the ICU, will continue to monitor in ICU No complaints of any chest pain or dyspnea prior to the events in the emergency room. Currently on 2 L (2) Alcohol intoxication: Alcohol dependence, acute alcohol intoxication, serum alcohol level greater than 200 Status post extubation, off Versed Placed on scheduled Librium 20 every 12 hours [facility] protocol For alcohol withdrawals seizure, he is on Keppra thousand every 12 hours, with history of seizures continue for now monitor mentation Thiamine 100 mg p.o. (3) Hypercapnic respiratory failure: Acute hypoxic hypercapnic respiratory failure CT scan of the abdomen pelvis shows fluid distended stomach, concerns for possible sudden aspiration pneumonia as a reason for his acute respiratory failure The other thought is he did take 8-10 hydrocodone's, with his alcoholism, could have resulted in development of respiratory failure Unable to corroborate patient's past medical history Review of medications shows he has albuterol on his list. Uncertain if he has a history of COPD. Has crackles on exam saturating in the mid 80s, I think he is likely remaining hypoxia due to aspiration pneumonia, aspiration pneumonitis, and some degree of fluid overload we will give him Lasix today continue antibiotic treatment His CT of his chest ? Lung volumes are markedly decreased with multi lobar areas of atelectasis. Most significant atelectasis at the lung bases and RIGHT upper lobe. Lasix today Switch to p.o. Augmentin Incentive spirometer, flutter valve Up out of bed (4) Alcohol dependence: As noted above (5) Suicidal ideation: With multiple recent admissions for the same. Psych assessment pending (6) Seizures: -Continue Keppra 500 twice daily -Is on Lamictal 25 mg twice daily -He is on gabapentin 600 mg twice daily -Keppra thousand every 12 hours -If any recurrent seizure-like episodes will do EEG, might look transfer for continuous EEG monitoring based on clinical progress (7) Alcohol withdrawal: - As above (8) Abdominal distention: - Resolved (9) Aspiration pneumonia: - Broaden antibiotic therapy to Zosyn (10) Opiate overdose: - Concerns for opiate overdose (11) Suicide attempt: - Concerns for possible suicide attempt with ingestion of hydrocodone, and alcohol (12) Fluid overload: (13) Rhabdomyolysis: Plan On multiple psych tropic medications, will resume his home psychotropic medication -Discontinue Invega -He is on Haldol 5 mg p.o. 3 times daily, will hold that for now Plan for today up out of bed, de-escalate oxygen therapy, de-escalate antibiotic treatment, low-dose Lasix, de-escalate oxygen therapy, switch all medications to p.o., follow CPK with rhabdomyolysis, replace magnesium, will move to neuropsychiatric unit we will continue to peripherally follow, space out Librium to every 12 hours Spoke to nursing staff Attestations Medical Necessity Statement*: Patient requires hospitalization for acute respiratory failure, persistent hypo gardenia, pneumonia, fluid overload, moving to neuropsychiatric unit, rhabdomyolysis Diagnoses Polysubstance abuse F19.10 Alcohol intoxication F10.929 Hypercapnic respiratory failure J96.92 Alcohol dependence F10.20 Suicidal ideation R45.851 Seizures R56.9 Alcohol withdrawal F10.939 Abdominal distention R14.0 Aspiration pneumonia J69.0 Opiate overdose T40.601A Suicide attempt T14.91XA Fluid overload E87.70 Rhabdomyolysis M62.82
[2022-09-26] MEDS: nicotine 2 mg Gum BUCCAL (15:08)
[2022-09-26] MEDS: LORazepam 2 mg Tablet PO ×2 (16:08→21:16)
--- NOTE | 2022-09-26 16:09 | PC.NURSE ---
pt CIWA was rated as a 13. pt received prn PO watson
[2022-09-26] MEDS: amoxicillin-clav 875-125 mg Tablet 1 TAB PO (17:14)
[2022-09-26] MEDS: levETIRAcetam 500 mg Tablet PO (21:08)
[2022-09-27] MEDS: nicotine 4 mg lozenge MUCOUS MEM ×3 (02:54→17:58)
[2022-09-27] MEDS: LORazepam 2 mg Tablet PO ×4 (05:20→20:16)
[2022-09-27] MEDS: levothyroxine 25 mcg Tablet PO (05:20)
[2022-09-27 06:00] VITALS: BP 149/118; PULSE 90; RESP 15; TEMP 36.4; O2SAT 91
[2022-09-27 08:54] VITALS: BP 149/118
[2022-09-27] MEDS: amoxicillin-clav 875-125 mg Tablet 1 TAB PO ×2 (08:54→17:58)
[2022-09-27] MEDS: cyclobenzaprine 10 mg Tablet 5 MG PO ×3 (08:54→20:21)
[2022-09-27] MEDS: atorvastatin 40 mg Tablet 20 MG NG-TUBE (08:54)
[2022-09-27] MEDS: metoprolol succinate ER (24 HR) 50 mg Tablet PO (08:54)
[2022-09-27] MEDS: cloNIDine 0.1 mg Tablet PO ×2 (08:54→20:17)
[2022-09-27] MEDS: multivitamin therapeutic Tablet 1 TAB PO (08:54)
[2022-09-27] MEDS: gabapentin 300 mg Capsule 600 MG PO ×3 (08:55→20:15)
[2022-09-27] MEDS: lamoTRIgine 25 mg Tablet PO ×2 (08:55→18:00)
[2022-09-27] MEDS: thiamine 100 mg Tablet PO (08:55)
[2022-09-27] MEDS: chlordiazePOXIDE 10 mg Capsule 20 MG PO ×2 (08:55→20:16)
[2022-09-27] MEDS: levETIRAcetam 500 mg Tablet PO ×2 (08:55→18:00)
[2022-09-27] MEDS: folic acid 1 mg Tablet PO (08:55)
[2022-09-27] MEDS: nicotine 2 mg Gum BUCCAL ×4 (09:03→20:21)
[2022-09-27 09:25] LABS: Basophils % 0.2 %; Eosinophils % 0.1 %; Hematocrit 38.8 % (42.0-52.0); Hemoglobin 12.9 g/dL (11.7-16.6); Lymphocytes # 1.7 10^3/uL (0.8-4.8); Lymphocytes % 19.5 %; Mean Corpuscular HGB Conc 33.2 g/dL (30.0-36.0); Mean Corpuscular Hemoglobin 28.3 pg (28.0-34.0); Mean Corpuscular Volume 85.1 fl (80-94); Mean Platelet Volume 9.4 fL (7.4-10.4); Monocytes # 0.4 10^3/uL (0.2-0.9); Monocytes % 4.7 %; Neutrophils # 6.45 10^3/uL (1.8-7.7); Neutrophils % 72.8 %; Nucleated Red Blood Cells % 0 %; Platelet Count 327 10^3/cmm (130-400); Red Blood Count 4.56 10^6/uL (4.1-5.3); Red Cell Distribution Width 13.9 % (12.1-15.1); White Blood Count 8.9 10^3/uL (4.0-10.0)
[2022-09-27 09:36] LABS: Alanine Aminotransferase 29 U/L (0-41); Albumin Level 4.6 g/dL (3.5-5.2); Alkaline Phosphatase 86 U/L (40-130); Anion Gap 16.6 (5-19); Aspartate Amino Transferase 22 U/L (0-40); Blood Urea Nitrogen 14 mg/dL (6-20); Calcium 10.5 mg/dL (8.5-10.5); Carbon Dioxide 29 mmol/L (22-29); Chloride 89 mmol/L (98-107); Globulin 3.4 g/dL (1.3-4.6); Glomerular Filtration Rate 73.4 mL/min (90-130); Glucose 127 mg/dL (65-115); Magnesium 1.7 mg/dL (1.7-2.3); Osmolality Calculated 274 mOsm/kg (285-295); Phosphorus 3.6 mg/dL (2.5-4.5); Potassium 3.6 mmol/L (3.5-5.1); Sodium 131 mmol/L (136-145); Total Bilirubin 0.6 mg/dL (0.15-1.2)
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
--- NOTE | 2022-09-27 10:59 | P.PN_ITS ---
Subjective Subjective: Patient was seen this morning, he is sitting up in a chair, in the group room, he tells me he did not sleep at all last night, Vitals/I&O/Wt Last Vital Signs Temp 97.6 F 09/27/22 06:00 Pulse 90 09/27/22 06:00 Resp 15 09/27/22 06:00 BP 149/118 09/27/22 08:54 Pulse Ox 91 09/27/22 06:00 O2 Del Method Room Air 09/27/22 06:00 O2 Flow Rate 2 09/26/22 08:55 FiO2 30 09/24/22 15:40 09/26/22 09/27/22 09/27/22 22:59 06:59 14:59 Intake Total 240 / 1248.75 Output Total 1700 / 1700 Balance -1460 / -451.25 Weight last 48 hrs Weight 137.438 kg Weight 137.438 kg Physical Exam Const: COMMON NORMALS: no acute distress and patient oriented x3 Resp: COMMON NORMALS: normal respiratory effort, No retractions, No use of accessory muscles and clear to auscultation bilaterally AUSCULTATION: clear to auscultation bilaterally Cardio: COMMON NORMALS: regular rate, regular rhythm, S1 normal heart sound present and S2 normal heart sound present RATE: regular rate RHYTHM: regular rhythm HEART SOUNDS: S1 normal heart sound present and S2 normal heart sound present GI: COMMON NORMALS: Normal to inspection, nondistended, normoactive bowel sounds present and non-tender Extremity: COMMON NORMALS: no pedal edema Neuro: COMMON NORMALS: patient oriented x3 Psych: COMMON NORMALS: mental status grossly normal Urinary Catheter Management: [place]: Cath Placed During This Visit: yes, but has since been removed by the nurse Reason for Continuing Indwelling Catheter: Accurate Measurement of Urinary Output in Critically Ill Patients Urinary Catheter Date of Insertion: 09/22/22 Urinary Catheter Time of Insertion: 20:38 Date Urinary Catheter Removed: 09/25/22 Time Urinary Catheter Discontinued: 12:00 Data 09/27/22 08:58 09/27/22 08:58 A&P Assessment and plan (1) Polysubstance abuse: 41-year-old male walked into the emergency room earlier today complaining of suicidal ideation and binge alcohol drinking throughout the day. Thereafter after being in the emergency room developed acute hypoxic hypercapnic respiratory failure for which she needed to be emergently intubated. According to ER physician documentation that he had taken 8-10 of his hydrocodone's and attempt to harm himself He was given Narcan, with slight response, due to unresponsiveness, was on 15 L, then intubated due to respiratory failure U tox is positive for opiates and marijuana, serum acetaminophen level is elevated at 32, improved 15.8 Review of home medication also shows multiple psychoactive drugs, uncertain if he may have additionally consumed these. No recurrent seizures overnight Currently in neuropsychiatric unit (2) Alcohol intoxication: Alcohol dependence, acute alcohol intoxication, serum alcohol level greater than 200 Status post extubation, off Versed Placed on scheduled Librium 20 every 12 hours, will slowly taper CIWA protocol For alcohol withdrawals seizure, he is on Keppra 500 mg p.o. twice daily, with history of seizures continue for now monitor mentation Thiamine 100 mg p.o. (3) Hypercapnic respiratory failure: Acute hypoxic hypercapnic respiratory failure CT scan of the abdomen pelvis shows fluid distended stomach, concerns for possible sudden aspiration pneumonia as a reason for his acute respiratory failure The other thought is he did take 8-10 hydrocodone's, with his alcoholism, could have resulted in development of respiratory failure Unable to corroborate patient's past medical history Review of medications shows he has albuterol on his list. Uncertain if he has a history of COPD. Has crackles on exam saturating in the mid 80s, I think he is likely remaining hypoxia due to aspiration pneumonia, aspiration pneumonitis, and some degree of fluid overload we will give him Lasix today continue antibiotic treatment His CT of his chest ? Lung volumes are markedly decreased with multi lobar areas of atelectasis. Most significant atelectasis at the lung bases and RIGHT upper lobe. Continue Augmentin (4) Alcohol dependence: As noted above (5) Suicidal ideation: With multiple recent admissions for the same. Psych assessment pending (6) Seizures: -Continue Keppra 500 twice daily -Is on Lamictal 25 mg twice daily -He is on gabapentin 600 mg twice daily -Keppra thousand every 12 hours -If any recurrent seizure-like episodes will do EEG, might look transfer for continuous EEG monitoring based on clinical progress (7) Alcohol withdrawal: - As above (8) Abdominal distention: - Resolved (9) Aspiration pneumonia: - On Augmentin (10) Opiate overdose: - Concerns for opiate overdose (11) Suicide attempt: - Concerns for possible suicide attempt with ingestion of hydrocodone, and alcohol (12) Fluid overload: Resolved (13) Rhabdomyolysis: Plan On multiple psych tropic medications, will resume his home psychotropic medication -Discontinue Invega -He is on Haldol 5 mg p.o. 3 times daily, will hold that for now Plan for today up out of we will continue to peripherally follow, slowly wean Librium over the next few days, can continue Augmentin for a total of 5 days, Spoke to nursing staff Attestations Medical Necessity Statement*: Patient requires hospitalization for suicide attempt, aspiration pneumonia, opiate overdose Diagnoses Polysubstance abuse F19.10 Alcohol intoxication F10.929 Hypercapnic respiratory failure J96.92 Alcohol dependence F10.20 Suicidal ideation R45.851 Seizures R56.9 Alcohol withdrawal F10.939 Abdominal distention R14.0 Aspiration pneumonia J69.0 Opiate overdose T40.601A Suicide attempt T14.91XA Fluid overload E87.70 Rhabdomyolysis M62.82
--- NOTE | 2022-09-27 11:23 | PC.NURSE ---
1110 Administered 2mg Ativan PO to pt scoring 12 on the CIWA scale.
[2022-09-27 14:00] VITALS: BP 138/84; PULSE 110; RESP 18; TEMP 36.6; O2SAT 95
[2022-09-27] MEDS: acetaminophen 325 mg Tablet 650 MG PO (14:38)
[2022-09-27] MEDS: hyDROXYzine 25 mg Capsule 50 MG PO (15:23)
[2022-09-27] MEDS: haloperidol 5 mg Tablet PO (15:24)
--- NOTE | 2022-09-27 15:48 | NPU.GN ---
[facility] Group Topic:wooden craft General Mood of Group- Patient participated in group, completed with assistance a heavy truck. Patient was focused during group but had difficulty getting on task after OT left. Project was completed
--- NOTE | 2022-09-27 16:57 | PC.NURSE ---
Pt requested that he would like to take naltrexone to help him with the urges.
[2022-09-27] MEDS: naproxen 500 mg Tablet PO (17:58)
[2022-09-27 20:17] VITALS: BP 137/87
[2022-09-27 21:00] VITALS: BP 137/87; PULSE 109; RESP 18; TEMP 36.7; O2SAT 93
[2022-09-27] MEDS: trazodone 50 mg Tablet PO (22:40)
[2022-09-28] MEDS: hyDROXYzine 25 mg Capsule 50 MG PO (04:49)
[2022-09-28 05:08] VITALS: BP 149/94; PULSE 121; RESP 20; TEMP 36.3; O2SAT 93
[2022-09-28] MEDS: levothyroxine 25 mcg Tablet PO (05:08)
[2022-09-28] MEDS: pantoprazole DR 40 mg Tablet PO (05:08)
[2022-09-28] MEDS: OLANZapine 5 mg ODT PO ×2 (05:55→20:23)
[2022-09-28] MEDS: atorvastatin 40 mg Tablet 20 MG NG-TUBE (08:10)
[2022-09-28] MEDS: nicotine 2 mg Gum BUCCAL ×4 (08:10→20:38)
[2022-09-28] MEDS: amoxicillin-clav 875-125 mg Tablet 1 TAB PO ×2 (08:10→18:23)
[2022-09-28] MEDS: chlordiazePOXIDE 10 mg Capsule 20 MG PO (08:10)
[2022-09-28] MEDS: metoprolol succinate ER (24 HR) 50 mg Tablet PO (08:10)
[2022-09-28] MEDS: naproxen 500 mg Tablet PO ×2 (08:11→18:23)
[2022-09-28] MEDS: thiamine 100 mg Tablet PO (08:11)
[2022-09-28] MEDS: lamoTRIgine 25 mg Tablet PO ×2 (08:11→18:23)
[2022-09-28] MEDS: multivitamin therapeutic Tablet 1 TAB PO (08:11)
[2022-09-28] MEDS: gabapentin 300 mg Capsule 600 MG PO (08:11)
[2022-09-28] MEDS: folic acid 1 mg Tablet PO (08:11)
[2022-09-28] MEDS: levETIRAcetam 500 mg Tablet PO (08:11)
[2022-09-28] MEDS: cyclobenzaprine 10 mg Tablet 5 MG PO (08:12)
--- NOTE | 2022-09-28 08:15 | P.NPUPN_ITS ---
Subjective NPU Subjective: Patient presented today reporting that he is doing okay. He is tolerating his current medications fine and is not currently having complaints of any sort. Still presenting cognitively slowed but with slow improvement per staff. We discussed the fact that he looks better currently than he had taking 800 mg of Thorazine and so for now we will monitor on current medications. He is on a sma ll dose of Librium and we discussed that not being a long-term plan for his medications given cross addiction with benzodiazepines and alcohol. Mental Status Exam MSE Comments: This is an obese versus morbidly obese white male in hospital scrubs with limited grooming and limited eye contact. No abnormal movements except for significant psychomotor retardation. Cooperative with exam in mild to moderate distress. Speech was decreased rate and volume. Mood described as depressed. His affect was flat and subdued. Thought process was organized. Thought content: Patient denied current suicidal or homicidal ideation, there were no delusions reported or noted, he denied any auditory or visual hallucinations. Attention and concentration were intact and memory appeared mostly reliable but none were formally tested. He is alert and oriented x3. Insight is poor and judgment is limited, impulse control is impaired. Vitals/I&O/Wt Last Vital Signs Temp 97.4 F L 09/28/22 05:08 Pulse 121 H 09/28/22 05:08 Resp 20 H 09/28/22 05:08 BP 149/94 09/28/22 05:08 Pulse Ox 93 09/28/22 05:08 O2 Del Method Room Air 09/28/22 05:08 O2 Flow Rate 2 09/26/22 08:55 FiO2 30 09/24/22 15:40 09/27/22 09/28/22 09/28/22 22:59 06:59 14:59 Intake Total 0 / 0 Output Total 1700 / 3400 Balance -1700 / -3400 Weight last 48 hrs Weight 134.354 kg Weight 137.438 kg Physical Exam Urinary Catheter Management: [place]: Cath Placed During This Visit: yes, but has since been removed by the nurse Reason for Continuing Indwelling Catheter: Accurate Measurement of Urinary Output in Critically Ill Patients Urinary Catheter Date of Insertion: 09/22/22 Urinary Catheter Time of Insertion: 20:38 Date Urinary Catheter Removed: 09/25/22 Time Urinary Catheter Discontinued: 12:00 Data NPU 09/28/22 08:35 09/28/22 08:35 A&P Assessment and plan (1) Bipolar disorder, unspecified: (2) Suicidal ideation: (3) Alcohol dependence: (4) Malingering: (5) Hypothyroidism: (6) Depression: Qualifiers: Depression Type: unspecified Qualified Code(s): F32.A - Depression, un specified Plan Patient is a 41-year-old white male with a history of alcohol dependence along with unspecified bipolar disorder with a history of multiple inpatient admissions, this going to be his sixth since July 29, 2022, coming to the unit via transfer from the ICU where he was intubated status post suicide attempt. 1. Continue current medications. Continue to make changes to clean up his medication regimen. 2. Encourage individual, group and milieu therapy 3. Continue every 15 minute checks for safety 4. Recommend sober living treatment at the highest level of care to which the patient is willing to commit. Which ultimately would be inpatient given his current situation however there may be a need for overall residential treatment facility from a dual diagnosis or mental health standpoint. 5. [facility] protocol. Involuntary Hold Information 96 Hour Hold: 96 Hour Involuntary Admission: Yes Attestations NPU Medical Necessity Statement*: Inpatient hospitalization is medically necessary and the clinically appropriate decision at this time. We will monitor medications and make changes as indicated. Likely length of stay of 4-6 days. Coding Level of Care Code Acute Code for [facility] Diagnoses Bipolar disorder, unspecified F31.9 Suicidal ideation R45.851 Alcohol dependence F10.20 Malingering Z76.5 Hypothyroidism E03.9 Depression F32.A Depression Type: unspecified
[2022-09-28] MEDS: LORazepam 2 mg Tablet PO ×3 (08:16→22:31)
[2022-09-28 08:55] LABS: Basophils % 0.3 %; Hematocrit 38.7 % (42.0-52.0); Hemoglobin 12.6 g/dL (11.7-16.6); Lymphocytes # 1.6 10^3/uL (0.8-4.8); Lymphocytes % 20.3 %; Mean Corpuscular HGB Conc 32.6 g/dL (30.0-36.0); Mean Platelet Volume 9.4 fL (7.4-10.4); Monocytes # 0.6 10^3/uL (0.2-0.9); Neutrophils # 5.21 10^3/uL (1.8-7.7); Neutrophils % 68.3 %; Nucleated Red Blood Cells % 0 %; Platelet Count 238 10^3/cmm (130-400); Red Cell Distribution Width 13.8 % (12.1-15.1); White Blood Count 7.6 10^3/uL (4.0-10.0)
[2022-09-28 09:03] LABS: Alanine Aminotransferase 29 U/L (0-41); Albumin Level 4.3 g/dL (3.5-5.2); Alkaline Phosphatase 82 U/L (40-130); Blood Urea Nitrogen 16 mg/dL (6-20); Calcium 9.9 mg/dL (8.5-10.5); Carbon Dioxide 28 mmol/L (22-29); Chloride 94 mmol/L (98-107); Creatinine Clr Calc Pharmacy 151.6907; Globulin 3.4 g/dL (1.3-4.6); Glomerular Filtration Rate 92.5 mL/min (90-130); Glucose 105 mg/dL (65-115); Magnesium 1.9 mg/dL (1.7-2.3); Osmolality Calculated 280 mOsm/kg (285-295); Phosphorus 3.9 mg/dL (2.5-4.5); Sodium 134 mmol/L (136-145); Total Bilirubin 0.4 mg/dL (0.15-1.2); Total Protein 7.7 g/dL (6.6-8.7)
[2022-09-28 09:05] LABS: Anion Gap 15.9 (5-19); Aspartate Amino Transferase 31 U/L (0-40); Potassium 3.9 mmol/L (3.5-5.1)
[2022-09-28 09:28] VITALS: BP 125/87
--- NOTE | 2022-09-28 13:05 | PM.PN ---
Subjective Subjective: Patient tells me that he did not get much sleep last night is very drowsy this morning, sitting up in a chair, nodding off he does tell me that he has sleep apnea, since moving from [place] he has not had a CPAP machine, is agreeable to try CPAP machine Vitals/I&O/Wt Last Vital Signs Temp 97.4 F L 09/28/22 05:08 Pulse 121 H 09/28/22 05:08 Resp 20 H 09/28/22 05:08 BP 125/87 09/28/22 09:28 Pulse Ox 93 09/28/22 05:08 O2 Del Method Room Air 09/28/22 05:08 O2 Flow Rate 2 09/26/22 08:55 FiO2 30 09/24/22 15:40 09/27/22 09/28/22 09/28/22 22:59 06:59 14:59 Intake Total 0 / 0 Output Total 1700 / 3400 Balance -1700 / -3400 Weight last 48 hrs Weight 134.354 kg Weight 137.438 kg Physical Exam Const: COMMON NORMALS: no acute distress and patient oriented x3 Resp: COMMON NORMALS: normal respiratory effort, No retractions, No use of accessory muscles and clear to auscultation bilaterally AUSCULTATION: clear to auscultation bilaterally Cardio: COMMON NORMALS: regular rate, regular rhythm, S1 normal heart sound present and S2 normal heart sound present RATE: regular rate RHYTHM: regular rhythm HEART SOUNDS: S1 normal heart sound present and S2 normal heart sound present GI: COMMON NORMALS: Normal to inspection, nondistended, normoactive bowel sounds present and non-tender Extremity: COMMON NORMALS: no pedal edema Neuro: COMMON NORMALS: patient oriented x3 Psych: COMMON NORMALS: mental status grossly normal Urinary Catheter Management: [place]: Cath Placed During This Visit: yes, but has since been removed by the nurse Reason for Continuing Indwelling Catheter: Accurate Measurement of Urinary Output in Critically Ill Patients Urinary Catheter Date of Insertion: 09/22/22 Urinary Catheter Time of Insertion: 20:38 Date Urinary Catheter Removed: 09/25/22 Time Urinary Catheter Discontinued: 12:00 Data 09/28/22 08:35 09/28/22 08:35 A&P Assessment and plan (1) Polysubstance abuse: 41-year-old male walked into the emergency room earlier today complaining of suicidal ideation and binge alcohol drinking throughout the day. Thereafter after being in the emergency room developed acute hypoxic hypercapnic respiratory failure for which she needed to be emergently intubated. According to ER physician documentation that he had taken 8-10 of his hydrocodone's and attempt to harm himself He was given Narcan, with slight response, due to unresponsiveness, was on 15 L, then intubated due to respiratory failure U tox is positive for opiates and marijuana, serum acetaminophen level is elevated at 32, improved 15.8 Review of home medication also shows multiple psychoactive drugs, uncertain if he may have additionally consumed these. No recurrent seizures overnight Currently in neuropsychiatric unit (2) Alcohol intoxication: Alcohol dependence, acute alcohol intoxication, serum alcohol level greater than 200 Status post extubation, off Versed Placed on scheduled Librium 20 every 12 hours, will slowly taper CIWA protocol For alcohol withdrawals seizure, he is on Keppra 500 mg p.o. twice daily, with history of seizures continue for now monitor mentation Thiamine 100 mg p.o. (3) Hypercapnic respiratory failure: Acute hypoxic hypercapnic respiratory failure CT scan of the abdomen pelvis shows fluid distended stomach, concerns for possible sudden aspiration pneumonia as a reason for his acute respiratory failure The other thought is he did take 8-10 hydrocodone's, with his alcoholism, could have resulted in development of respiratory failure Unable to corroborate patient's past medical history Review of medications shows he has albuterol on his list. Uncertain if he has a history of COPD. Has crackles on exam saturating in the mid 80s, I think he is likely remaining hypoxia due to aspiration pneumonia, aspiration pneumonitis, and some degree of fluid overload we will give him Lasix today continue antibiotic treatment His CT of his chest ? Lung volumes are markedly decreased with multi lobar areas of atelectasis. Most significant atelectasis at the lung bases and RIGHT upper lobe. Continue Augmentin (4) Alcohol dependence: As noted above (5) Suicidal ideation: With multiple recent admissions for the same. Psych assessment pending (6) Seizures: -Decrease Keppra active to 50 twice daily -Is on Lamictal 25 mg twice daily -Decrease gabapentin 300 mg twice daily (7) Alcohol withdrawal: - As above (8) Abdominal distention: - Resolved (9) Aspiration pneumonia: - On Augmentin (10) Opiate overdose: - Concerns for opiate overdose (11) Suicide attempt: - Concerns for possible suicide attempt with ingestion of hydrocodone, and alcohol (12) Fluid overload: Resolved (13) Rhabdomyolysis: (14) VIVI (obstructive sleep apnea): Plan On multiple psych tropic medications, will resume his home psychotropic medication -Due to increased sleepiness, I am going to decrease his gabapentin to 300 mg 3 times daily, his Keppra to 250 twice daily, decrease his Librium to 10 mg twice daily start CPAP tonight Spoke to nursing staff Attestations Medical Necessity Statement*: Requires hospitalization for suicide attempt, opiate overdose aspiration pneumonia, now with sleep apnea and High MDM includes number and complexity of problems actively addressed during encounter, amount and/or complexity of data reviewed/ordered and described risk of complication, morbidity or mortality of management as documented Diagnoses Polysubstance abuse F19.10 Alcohol intoxication F10.929 Hypercapnic respiratory failure J96.92 Alcohol dependence F10.20 Suicidal ideation R45.851 Seizures R56.9 Alcohol withdrawal F10.939 Abdominal distention R14.0 Aspiration pneumonia J69.0 Opiate overdose T40.601A Suicide attempt T14.91XA Fluid overload E87.70 Rhabdomyolysis M62.82 VIVI (obstructive sleep apnea) G47.33
[2022-09-28] MEDS: nicotine 4 mg lozenge MUCOUS MEM ×2 (13:43→18:32)
[2022-09-28 14:00] VITALS: BP 128/87; PULSE 91; RESP 18; TEMP 36.4; O2SAT 97
[2022-09-28] MEDS: gabapentin 300 mg Capsule PO ×2 (14:42→20:22)
[2022-09-28] MEDS: levETIRAcetam 500 mg Tablet 250 MG PO (18:24)
--- NOTE | 2022-09-28 19:13 | PC.NURSE ---
1100 Pt did lose control of his bladder, and wet on his pants. pt was given clean scrubs and hygiene box to clean up with.
[2022-09-28] MEDS: chlordiazePOXIDE 10 mg Capsule PO (20:23)
[2022-09-28 20:37] VITALS: BP 146/97; PULSE 110; RESP 18; TEMP 36.4; O2SAT 93
[2022-09-28 20:52] VITALS: BP 146/97
[2022-09-28] MEDS: cloNIDine 0.1 mg Tablet PO (20:52)
[2022-09-28] MEDS: haloperidol 5 mg Tablet PO (21:27)
[2022-09-28] MEDS: trazodone 50 mg Tablet PO (21:30)
[2022-09-28 23:31] VITALS: RESP 18; O2SAT 95
[2022-09-29] MEDS: levothyroxine 25 mcg Tablet PO (06:04)
[2022-09-29] MEDS: pantoprazole DR 40 mg Tablet PO (06:04)
[2022-09-29 08:42] VITALS: BP 175/104
[2022-09-29] MEDS: levETIRAcetam 500 mg Tablet 250 MG PO ×2 (08:46→17:52)
[2022-09-29] MEDS: chlordiazePOXIDE 10 mg Capsule PO ×2 (08:46→19:48)
[2022-09-29 08:47] VITALS: BP 175/101
[2022-09-29] MEDS: naproxen 500 mg Tablet PO ×2 (08:47→17:57)
[2022-09-29] MEDS: amoxicillin-clav 875-125 mg Tablet 1 TAB PO ×2 (08:47→17:52)
[2022-09-29] MEDS: gabapentin 300 mg Capsule PO ×3 (08:47→19:49)
[2022-09-29] MEDS: cloNIDine 0.1 mg Tablet PO ×2 (08:47→19:47)
[2022-09-29] MEDS: thiamine 100 mg Tablet PO (08:48)
[2022-09-29] MEDS: metoprolol succinate ER (24 HR) 50 mg Tablet PO (08:48)
[2022-09-29] MEDS: folic acid 1 mg Tablet PO (08:48)
[2022-09-29] MEDS: lamoTRIgine 25 mg Tablet PO ×2 (08:48→17:52)
[2022-09-29] MEDS: multivitamin therapeutic Tablet 1 TAB PO (08:48)
[2022-09-29] MEDS: atorvastatin 40 mg Tablet 20 MG NG-TUBE (08:48)
[2022-09-29 09:36] LABS: Hematocrit 34.8 % (42.0-52.0); Hemoglobin 11.2 g/dL (11.7-16.6); Mean Corpuscular HGB Conc 32.2 g/dL (30.0-36.0); Mean Corpuscular Hemoglobin 27.9 pg (28.0-34.0); Mean Corpuscular Volume 86.8 fl (80-94); Mean Platelet Volume 9.5 fL (7.4-10.4); Platelet Count 275 10^3/cmm (130-400); Red Blood Count 4.01 10^6/uL (4.1-5.3); Red Cell Distribution Width 13.7 % (12.1-15.1); White Blood Count 6.2 10^3/uL (4.0-10.0)
--- NOTE | 2022-09-29 09:38 | PC.OT ---
OT EVALUATION ATTEMPTED; PATIENT SLEEPING SOUNDLY AND SNORING. WILL ATTEMPT AGAIN AT A LATER TIME
[2022-09-29 09:52] LABS: Alanine Aminotransferase 31 U/L (0-41); Alkaline Phosphatase 72 U/L (40-130); Anion Gap 15.2 (5-19); Aspartate Amino Transferase 29 U/L (0-40); Blood Urea Nitrogen 15 mg/dL (6-20); Calcium 9.3 mg/dL (8.5-10.5); Carbon Dioxide 28 mmol/L (22-29); Chloride 98 mmol/L (98-107); Creatinine Clr Calc Pharmacy 151.6907; Globulin 2.8 g/dL (1.3-4.6); Glomerular Filtration Rate 92.5 mL/min (90-130); Glucose 139 mg/dL (65-115); Magnesium 1.8 mg/dL (1.7-2.3); Osmolality Calculated 287 mOsm/kg (285-295); Phosphorus 2.9 mg/dL (2.5-4.5); Potassium 4.2 mmol/L (3.5-5.1); Sodium 137 mmol/L (136-145); Total Bilirubin 0.3 mg/dL (0.15-1.2); Total Protein 6.8 g/dL (6.6-8.7)
[2022-09-29 10:19] LABS: Slide Review Slide Review Perform
[2022-09-29 10:23] LABS: Absolute Neutrophil 4.3 10^3/cmm (1.4-6.5); Band Neutrophils Absolute 0.3 10^3/cmm (0.0-1.2); Lymphocytes 25 %; Monocytes Absolute 0.1 10^3/cmm (0.1-0.6); Platelet Estimate Normal (Normal); Segmented Neutrophils 65 %; Total Cells Counted 100 (0-100)
[2022-09-29 10:24] LABS: Eosinophils 0 %; Lymphocytes Absolute 1.6 10^3/cmm (1.2-3.4)
--- NOTE | 2022-09-29 10:47 | P.NPUPN_ITS ---
Subjective NPU Subjective: Patient presented today reporting that he was feeling depressed still. We began a conversation about antidepressant medications which she has been resistant to in the past. We talked about the possibility of Wellbutrin XL or an SSRI and discussed the risks, benefits and alternatives and he understood and agreed to proceed as is documented in this note. He continues to report suicidality and inability to contract for safety outside of the hospital. Mental Status Exam MSE Comments: This is an obese versus morbidly obese white male in hospital scrubs with limited grooming and limited eye contact. No abnormal movements except for significant psychomotor retardation. Cooperative with exam in mild to moderate distress. Speech was decreased rate and volume. Mood described as depressed. His affect was flat and subdued. Thought process was organized. Thought content: Patient endorsed suicidal but denied homicidal ideation, there were no delusions reported or noted, he denied any auditory or visual hallucinations. Attention and concentration were intact and memory appeared mostly reliable but none were formally tested. He is alert and oriented x3. Insight is poor and judgment is limited, impulse control is impaired. Vitals/I&O/Wt Last Vital Signs Temp 97.5 F L 09/28/22 20:37 Pulse 110 H 09/28/22 20:37 Resp 18 09/28/22 23:31 BP 175/101 09/29/22 08:47 Pulse Ox 95 09/28/22 23:31 O2 Del Method CPAP 09/28/22 23:31 O2 Flow Rate 2 09/26/22 08:55 FiO2 30 09/24/22 15:40 09/28/22 09/29/22 09/29/22 22:59 06:59 14:59 Intake Total 0 / 0 Output Total 1700 / 1700 Balance -1700 / -1700 Weight last 48 hrs Weight 134.354 kg Physical Exam Urinary Catheter Management: [place]: Cath Placed During This Visit: yes, but has since been removed by the nurse Reason for Continuing Indwelling Catheter: Accurate Measurement of Urinary Output in Critically Ill Patients Urinary Catheter Date of Insertion: 09/22/22 Urinary Catheter Time of Insertion: 20:38 Date Urinary Catheter Removed: 09/25/22 Time Urinary Catheter Discontinued: 12:00 Data NPU 09/29/22 09:20 09/29/22 09:20 A&P Assessment and plan (1) Bipolar disorder, unspecified: (2) Suicidal ideation: (3) Alcohol dependence: (4) Malingering: (5) Hypothyroidism: (6) Depression: Qualifiers: Depression Type: unspecified Qualified Code(s): F32.A - Depression, unspecified Plan Patient is a 41-year-old white male with a history of alcohol dependence along w ith unspecified bipolar disorder with a history of multiple inpatient admissions, this going to be his sixth since July 29, 2022, coming to the unit via transfer from the ICU where he was intubated status post suicide attempt. 1. Continue current medications. Continue to make changes to clean up his medication regimen. Patient to decide whether he is open to an antidepressant that he has not been exposed to in the past. 2. Encourage individual, group and milieu therapy 3. Continue every 15 minute checks for safety 4. Recommend sober living treatment at the highest level of care to which the patient is willing to commit. Which ultimately would be inpatient given his current situation however there may be a need for overall residential treatment facility from a dual diagnosis or mental health standpoint. 5. [facility] protocol. Involuntary Hold Information 96 Hour Hold: 96 Hour Involuntary Admission: Yes Attestations NPU Medical Necessity Statement*: Inpatient hospitalization is medically necessary and the clinically appropriate decision at this time. We will monitor medications and make changes as indicated. Likely length of stay of 4-6 days. Coding Level of Care Code Acute Code for [facility] Diagnoses Bipolar disorder, unspecified F31.9 Suicidal ideation R45.851 Alcohol dependence F10.20 Malingering Z76.5 Hypothyroidism E03.9 Depression F32.A Depression Type: unspecified
[2022-09-29 14:00] VITALS: BP 121/75; PULSE 99; RESP 18; TEMP 36.6; O2SAT 94
[2022-09-29 14:05] LABS: Lamotrigine (Lamictal) Level <0.5 mcg/mL (2.5-15.0)
[2022-09-29] MEDS: nicotine 4 mg lozenge MUCOUS MEM (18:34)
[2022-09-29] MEDS: LORazepam 2 mg Tablet PO (19:29)
[2022-09-29 19:47] VITALS: BP 137/93
[2022-09-29] MEDS: trazodone 50 mg Tablet PO ×2 (19:48→21:50)
[2022-09-29 20:15] VITALS: RESP 18; O2SAT 95
[2022-09-29] MEDS: nicotine 2 mg Gum BUCCAL (21:49)
[2022-09-29 22:00] VITALS: BP 137/93; PULSE 69; RESP 20; O2SAT 96
--- NOTE | 2022-09-30 00:34 | PC.NURSE ---
0000- assumed care of patient, resting with eyes closed
[2022-09-30] MEDS: levothyroxine 25 mcg Tablet PO (06:18)
[2022-09-30] MEDS: pantoprazole DR 40 mg Tablet PO (06:19)
[2022-09-30] MEDS: thiamine 100 mg Tablet PO (08:48)
[2022-09-30] MEDS: folic acid 1 mg Tablet PO (08:48)
[2022-09-30] MEDS: amoxicillin-clav 875-125 mg Tablet 1 TAB PO ×2 (08:48→20:19)
[2022-09-30] MEDS: lamoTRIgine 25 mg Tablet PO ×2 (08:48→20:20)
[2022-09-30] MEDS: multivitamin therapeutic Tablet 1 TAB PO (08:49)
[2022-09-30] MEDS: metoprolol succinate ER (24 HR) 50 mg Tablet PO (08:49)
[2022-09-30] MEDS: atorvastatin 40 mg Tablet 20 MG NG-TUBE (08:49)
[2022-09-30] MEDS: levETIRAcetam 500 mg Tablet 250 MG PO ×2 (08:50→20:19)
[2022-09-30] MEDS: chlordiazePOXIDE 10 mg Capsule PO ×2 (08:50→20:20)
[2022-09-30] MEDS: naproxen 500 mg Tablet PO ×2 (08:51→20:18)
[2022-09-30] MEDS: gabapentin 300 mg Capsule PO ×3 (08:51→20:20)
[2022-09-30 08:55] VITALS: BP 142/90
[2022-09-30] MEDS: cloNIDine 0.1 mg Tablet PO ×2 (08:55→20:18)
[2022-09-30 14:00] VITALS: BP 126/87; PULSE 91; RESP 20; TEMP 36.6; O2SAT 92
[2022-09-30] MEDS: nicotine 4 mg lozenge MUCOUS MEM (16:03)
--- NOTE | 2022-09-30 17:27 | P.NPUPN_ITS ---
Subjective NPU Subjective: Patient presented today reporting that he is feeling irritable. He was upset about being put on a 21-day hold. The hearing is tomorrow and he is reporting a plan to fight being kept. We discussed the unlikelihood that he is going to win the escalera given threatening another patient today telling social service agency director that he like to snap Dr. Adalid beckett and the fact that he has not been able to really contract for safety outside the hospital. He is requesting that his medications be restarted what we are in conflict over the fact that he was on 10 of Haldol and 800 mg of Thorazine and he still was not doing well. He argues that the problem was he was not taking it as prescribed outside of the hospital because he would take it when he was drinking and he was drinking a lot. We discussed the risks, benefits and alternatives of starting naltrexone 50 mg p.o. every morning for his cravings and he understood and agreed to proceed as is documented in this note. We agreed we would look at additional changes daily. We also discussed that prior to all this there was a great concern for polypharmacy which we have slowly eradicated but we want to avoid returning to that story given the limited improvement. He continued to argue that the improvement was mostly rendered limited by his drinking and nonadherence. Mental Status Exam MSE Comments: This is an obese versus morbidly obese white male in hospital scrubs with limited grooming and limited eye contact. No abnormal movements except for significant psychomotor retardation. Cooperative with exam in mild to moderate distress. Speech was decreased rate and volume. Mood described as irritable and angry. His affect was flat and subdued. Thought process was organized. Thought content: Patient endorsed suicidal but denied homicidal ideation, there were no delusions reported or noted, he denied any auditory or visual estrella lucinations. Attention and concentration were intact and memory appeared mostly reliable but none were formally tested. He is alert and oriented x3. Insight is poor and judgment is limited, impulse control is impaired. Vitals/I&O/Wt Last Vital Signs Temp 97.8 F 09/30/22 14:00 Pulse 95 09/30/22 19:54 Resp 20 H 09/30/22 19:54 BP 127/81 09/30/22 20:18 Pulse Ox 94 09/30/22 19:54 O2 Del Method Room Air 09/30/22 19:54 O2 Flow Rate 2 09/26/22 08:55 FiO2 30 09/24/22 15:40 Physical Exam Urinary Catheter Management: [place]: Cath Placed During This Visit: yes, but has since been removed by the nurse Reason for Continuing Indwelling Catheter: Accurate Measurement of Urinary Output in Critically Ill Patients Urinary Catheter Date of Insertion: 09/22/22 Urinary Catheter Time of Insertion: 20:38 Date Urinary Catheter Removed: 09/25/22 Time Urinary Catheter Discontinued: 12:00 Data NPU 09/29/22 09:20 09/29/22 09:20 A&P Assessment and plan (1) Bipolar disorder, unspecified: (2) Suicidal ideation: (3) Alcohol dependence: (4) Malingering: (5) Hypothyroidism: (6) Depression: Qualifiers: Depression Type: unspecified Qualified Code(s): F32.A - Depression, unspecified Plan Patient is a 41-year-old white male with a history of alcohol dependence along with unspecified bipolar disorder with a history of multiple inpatient admissions, this going to be his sixth since July 29, 2022, coming to the unit via transfer from the ICU where he was intubated status post suicide attempt. 1. Continue current medications. Continue to make changes to clean up his med ication regimen. Patient to decide whether he is open to an antidepressant that he has not been exposed to in the past. 2. Encourage individual, group and milieu therapy. Initiate naltrexone 50 mg p .o. daily and consider possible changes to Lamictal and/or resumption of Thorazine 3. Continue every 15 minute checks for safety 4. Recommend sober living treatment at the highest level of care to which the patient is willing to commit. Which ultimately would be inpatient given his current situation however there may be a need for overall residential treatment facility from a dual diagnosis or mental health standpoint. 5. [facility] protocol. 6. 21-day hold hearing tomorrow 10/01/2022@1500 Involuntary Hold Information 96 Hour Hold: 96 Hour Involuntary Admission: Yes Attestations NPU Medical Necessity Statement*: Inpatient hospitalization is medically necessary and the clinically appropriate decision at this time. We will monitor medications and make changes as indicated. Likely length of stay of 4-6 days. Coding Level of Care Code Acute Code for [facility] Diagnoses Bipolar disorder, unspecified F31.9 Suicidal ideation R45.851 Alcohol dependence F10.20 Malingering Z76.5 Hypothyroidism E03.9 Depression F32.A Depression Type: unspecified
[2022-09-30 19:54] VITALS: BP 127/81; PULSE 95; RESP 20; O2SAT 94
[2022-09-30 20:18] VITALS: BP 127/81
[2022-09-30] MEDS: LORazepam 2 mg Tablet PO (20:21)
[2022-09-30] MEDS: nicotine 2 mg Gum BUCCAL ×2 (20:25→23:18)
[2022-09-30] MEDS: trazodone 50 mg Tablet PO (23:18)
[2022-10-01] MEDS: levothyroxine 25 mcg Tablet PO (05:34)
[2022-10-01] MEDS: pantoprazole DR 40 mg Tablet PO (05:34)
--- NOTE | 2022-10-01 08:03 | W.PM.NPUPNS ---
Subjective NPU Subjective: Patient presented today reporting that he has had issues with the naltrexone. We discussed the possibility of restarting his Thorazine at a lower dose. We continue to discussed not considering a benzodiazepine. He has his hearing today at 3 PM and he currently reports not planning on going secondary to the likelihood that he will not win the case. We discussed guardianship as he and his father are working on him being placed on his father's guardianship. Mental Status Exam MSE Comments: This is an obese versus morbidly obese white male in hospital scrubs with limited grooming and limited eye contact. No abnormal movements except for significant psychomotor retardation. Cooperative with exam in mild distress. Speech was decreased rate and volume. Mood described as about the same. His affect was flat and subdued. Thought process was organized. Thought content: Patient endorsed suicidal but denied homicidal ideation, there were no delusions reported or noted, he denied any auditory or visual hallucinations. Attention and concentration were intact and memory appeared mostly reliable but none were formally tested. He is alert and oriented x3. Insight is poor and judgment is limited, impulse control is impaired. Vitals/I&O/Wt Last Vital Signs Temp 97.8 F 09/30/22 14:00 Pulse 95 09/30/22 19:54 Resp 20 H 09/30/22 19:54 BP 127/81 09/30/22 20:18 Pulse Ox 94 09/30/22 19:54 O2 Del Method Room Air 09/30/22 19:54 O2 Flow Rate 2 09/26/22 08:55 FiO2 30 09/24/22 15:40 Physical Exam Urinary Catheter Management: [place]: Cath Placed During This Visit: yes, but has since been removed by the nurse Reason for Continuing Indwelling Catheter: Accurate Measurement of Urinary Output in Critically Ill Patients Urinary Catheter Date of Insertion: 09/22/22 Urinary Catheter Time of Insertion: 20:38 Date Urinary Catheter Removed: 09/25/22 Time Urinary Catheter Discontinued: 12:00 Data NPU 09/29/22 09:20 09/29/22 09:20 A&P Assessment and plan (1) Bipolar disorder, unspecified: (2) Suicidal ideation: (3) Alcohol dependence: (4) Malingering: (5) Hypothyroidism: (6) Depression: Qualifiers: Depression Type: unspecified Qualified Code(s): F32.A - Depression, unspecified Plan Patient is a 41-year-old white male with a history of alcohol dependence along with unspecified bipolar disorder with a history of multiple inpatient admissions, this going to be his sixth since July 29, 2022, coming to the unit via transfer from the ICU where he was intubated status post suicide attempt. 1. Continue current medications. Continue to make changes to clean up his medication regimen. Patient to decide whether he is open to an antidepressant that he has not been exposed to in the past. 2. Encourage individual, group and milieu therapy. Initiated naltrexone 50 mg p.o. daily and consider possible changes to Lamictal and/or resumption of Thorazine 3. Continue every 15 minute checks for safety 4. Recommend sober living treatment at the highest level of care to which the patient is willing to commit. Which ultimately would be inpatient given his current situation however there may be a need for overall residential treatment facility from a dual diagnosis or mental health standpoint. 5. [facility] protocol. 6. 21-day hold hearing today, 10/01/2022@1500 Involuntary Hold Information 96 Hour Hold: 96 Hour Involuntary Admission: Yes Attestations NPU Medical Necessity Statement*: Inpatient hospitalization is medically necessary and the clinically appropriate decision at this time. We will monitor medications and make changes as indicated. Likely length of stay of 4-6 days. Coding Level of Care Code Acute Code for [facility] Fwd Diagnoses Bipolar disorder, unspecified F31.9 Suicidal ideation R45.851 Alcohol dependence F10.20 Malingering Z76.5 Hypothyroidism E03.9 Depression F32.A Depression Type: unspecified
[2022-10-01] MEDS: atorvastatin 40 mg Tablet 20 MG NG-TUBE (08:05)
[2022-10-01] MEDS: levETIRAcetam 500 mg Tablet 250 MG PO ×2 (08:05→20:28)
[2022-10-01 08:06] VITALS: BP 139/97
[2022-10-01] MEDS: naproxen 500 mg Tablet PO ×2 (08:06→20:36)
[2022-10-01] MEDS: cloNIDine 0.1 mg Tablet PO ×2 (08:06→20:27)
[2022-10-01] MEDS: folic acid 1 mg Tablet PO (08:07)
[2022-10-01] MEDS: lamoTRIgine 25 mg Tablet PO ×2 (08:07→20:27)
[2022-10-01] MEDS: metoprolol succinate ER (24 HR) 50 mg Tablet PO (08:07)
[2022-10-01] MEDS: thiamine 100 mg Tablet PO (08:08)
[2022-10-01] MEDS: gabapentin 300 mg Capsule PO ×3 (08:08→20:27)
[2022-10-01] MEDS: amoxicillin-clav 875-125 mg Tablet 1 TAB PO ×2 (08:08→20:27)
[2022-10-01] MEDS: multivitamin therapeutic Tablet 1 TAB PO (08:08)
[2022-10-01] MEDS: chlordiazePOXIDE 10 mg Capsule PO ×2 (08:09→20:29)
[2022-10-01] MEDS: OLANZapine 5 mg ODT PO ×2 (08:11→15:47)
[2022-10-01] MEDS: naltrexone hcl 50 mg Tablet PO (08:24)
[2022-10-01] MEDS: nicotine 4 mg lozenge MUCOUS MEM ×2 (09:30→13:12)
[2022-10-01] MEDS: chlorPROMazine 50 mg Tablet 100 MG PO (10:40)
[2022-10-01 14:00] VITALS: BP 123/82; PULSE 94; RESP 18; TEMP 36.7; O2SAT 96
[2022-10-01] MEDS: nicotine 2 mg Gum BUCCAL (18:09)
[2022-10-01 21:08] VITALS: RESP 18; O2SAT 99
[2022-10-01 21:14] VITALS: RESP 18
[2022-10-02] MEDS: trazodone 50 mg Tablet PO ×4 (01:31→21:55)
[2022-10-02] MEDS: hyDROXYzine 25 mg Capsule 50 MG PO ×2 (02:54→11:47)
[2022-10-02] MEDS: levothyroxine 25 mcg Tablet PO (05:51)
[2022-10-02] MEDS: pantoprazole DR 40 mg Tablet PO (05:51)
[2022-10-02 06:00] VITALS: RESP 15
[2022-10-02] MEDS: amoxicillin-clav 875-125 mg Tablet 1 TAB PO (08:24)
[2022-10-02] MEDS: lamoTRIgine 25 mg Tablet PO ×2 (08:24→20:14)
[2022-10-02] MEDS: naproxen 500 mg Tablet PO ×2 (08:24→20:14)
[2022-10-02 08:25] VITALS: BP 123/82
[2022-10-02] MEDS: naltrexone hcl 50 mg Tablet PO (08:25)
[2022-10-02] MEDS: cloNIDine 0.1 mg Tablet PO ×2 (08:25→20:14)
[2022-10-02] MEDS: cyclobenzaprine 10 mg Tablet 5 MG PO ×2 (08:25→17:55)
[2022-10-02] MEDS: levETIRAcetam 500 mg Tablet 250 MG PO ×2 (08:26→20:13)
[2022-10-02] MEDS: thiamine 100 mg Tablet PO (08:26)
[2022-10-02] MEDS: gabapentin 300 mg Capsule PO ×3 (08:27→20:14)
[2022-10-02] MEDS: folic acid 1 mg Tablet PO (08:27)
[2022-10-02] MEDS: atorvastatin 40 mg Tablet 20 MG NG-TUBE (08:27)
[2022-10-02] MEDS: metoprolol succinate ER (24 HR) 50 mg Tablet PO (08:29)
[2022-10-02] MEDS: multivitamin therapeutic Tablet 1 TAB PO (08:30)
[2022-10-02] MEDS: OLANZapine 5 mg ODT PO (08:45)
[2022-10-02] MEDS: nicotine 4 mg lozenge MUCOUS MEM ×4 (09:18→20:14)
[2022-10-02] MEDS: nicotine 2 mg Gum BUCCAL (11:18)
--- NOTE | 2022-10-02 11:57 | P.NPUPN_ITS ---
Subjective NPU Subjective: Patient presents today continuing to have his challenges in relation to medications. He has fairly fixed thoughts about how medication should be managed and struggles when changes are made with the speed and direction of his interest. We discussed the risks, benefits and alternatives of increasing his Thorazine to 100 mg p.o. 3 times daily and the importance of him excepting that he has to make changes like everyone else does in a systematic medically appropriate fashion. Instead he desires drastic changes immediately. We discussed the fact that he is on a 21-day hold and that we should be deliberate about her choices as his family is exploring guardianship. Mental Status Exam MSE Comments: This is an obese versus morbidly obese white male in hospital scrubs with limited grooming and limited eye contact. No abnormal movements except for significant psychomotor retardation. Cooperative with exam in mild distress. Speech was decreased rate and volume. Mood described as about the same. His affect was flat and subdued. Thought process was organized. Thought content: Patient endorsed suicidal but denied homicidal ideation, there were no delusions reported or noted, he denied any auditory or visual hallucinations. Attention and concentration were intact and memory appeared mostly reliable but none were formally tested. He is alert and oriented x3. Insight is poor and judgment is limited, impulse control is impaired. Vitals/I&O/Wt Last Vital Signs Temp 98.1 F 10/01/22 14:00 Pulse 94 10/01/22 14:00 Resp 15 10/02/22 06:00 BP 123/82 10/02/22 08:25 Pulse Ox 99 10/01/22 21:08 O2 Del Method Room Air 10/01/22 21:08 O2 Flow Rate 2 10/02/22 08:00 FiO2 30 09/24/22 15:40 Physical Exam Urinary Catheter Management: [place]: Cath Placed During This Visit: yes, but has since been removed by the nurse Reason for Continuing Indwelling Catheter: Accurate Measurement of Urinary Output in Critically Ill Patients Urinary Catheter Date of Insertion: 09/22/22 Urinary Catheter Time of Insertion: 20:38 Date Urinary Catheter Removed: 09/25/22 Time Urinary Catheter Discontinued: 12:00 Data NPU 09/29/22 09:20 09/29/22 09:20 A&P Assessment and plan (1) Bipolar disorder, unspecified: (2) Suicidal ideation: (3) Alcohol dependence: (4) Malingering: (5) Hypothyroidism: (6) Depression: Qualifiers: Depression Type: unspecified Qualified Code(s): F32.A - Depression, unspecified Plan Patient is a 41-year-old white male with a history of alcohol dependence along with unspecified bipolar disorder with a history of multiple inpatient admiss ions, this going to be his sixth since July 29, 2022, coming to the unit via transfer from the ICU where he was intubated status post suicide attempt. 1. Continue current medications. Continue to make changes to clean up his medication regimen. Patient to decide whether he is open to an antidepressant that he has not been exposed to in the past. 2. Encourage individual, group and milieu therapy. Initiated naltrexone 50 mg p.o. daily and consider possible changes to Lamictal and/or resumption of Thorazine. Initiate Thorazine 100 mg p.o. 3 times daily 3. Continue every 15 minute checks for safety 4. Recommend sober living treatment at the highest level of care to which the patient is willing to commit. Which ultimately would be inpatient given his current situation however there may be a need for overall residential treatment facility from a dual diagnosis or mental health standpoint. 5. [facility] protocol. 6. 21-day hold was established 10/01/2022. Involuntary Hold Information 96 Hour Hold: 96 Hour Involuntary Admission: Yes Attestations NPU Medical Necessity Statement*: Inpatient hospitalization is medically necessary and the clinically appropriate decision at this time. We will monitor medications and make changes as indicated. Likely length of stay of 7-10 days. Coding Level of Care Code Acute Code for [facility] Fwd Diagnoses Bipolar disorder, unspecified F31.9 Suicidal ideation R45.851 Alcohol dependence F10.20 Malingering Z76.5 Hypothyroidism E03.9 Depression F32.A Depression Type: unspecified
--- NOTE | 2022-10-02 12:04 | PC.NURSE ---
Patient approached nurses' station and asked for medication for anxiety. This RN offerred him vistaril, as the doctor is wanting him to stay away from the haldol and ativan if possible and use the vistaril first. Patient stated, are we really fucking doing this again? I don't want vistaril. It's the same fucking thing as benadryl. This RN explained that vistaril and benadryl were not the same, but patient continued to say they were. RN explained to patient why taking this before haldol was important, but patient continued to be agitated. He also demanded that everything Dr. Rahman had prescribed him to be canceled and for Dr. Cordoba to prescribe it. This RN told him he could refuse the medications that Dr. Rahman prescribed him, but that he would need to talk to Dr. Cordoba about him prescribing them instead. Patient stated, well, I don't know why you can't just switch it. This RN attempted to explain the legalities of the situation, but patient stated, whatever, and walked off to the dayroom.
[2022-10-02] MEDS: chlorPROMazine 50 mg Tablet 100 MG PO ×3 (12:14→20:13)
[2022-10-02 14:00] VITALS: BP 116/77; PULSE 94; RESP 18; TEMP 36.6; O2SAT 94
--- NOTE | 2022-10-02 15:53 | PM.PN ---
Subjective Subjective: patient was seen this morning, he says that he wants to be placed back on thorazine and haldol, he reports sleeping better, refuses to use cpap ovdrnight Vitals/I&O/Wt Last Vital Signs Temp 97.8 F 10/02/22 14:00 Pulse 94 10/02/22 14:00 Resp 18 10/02/22 14:00 BP 116/77 10/02/22 14:00 Pulse Ox 94 10/02/22 14:00 O2 Del Method Room Air 10/01/22 21:08 O2 Flow Rate 2 10/02/22 08:00 FiO2 30 09/24/22 15:40 Physical Exam Const: COMMON NORMALS: no acute distress and patient oriented x3 Resp: COMMON NORMALS: normal respiratory effort, No retractions, No use of accessory muscles and clear to auscultation bilaterally AUSCULTATION: clear to auscultation bilaterally Cardio: COMMON NORMALS: regular rate, regular rhythm, S1 normal heart sound present and S2 normal heart sound present RATE: regular rate RHYTHM: regular rhythm HEART SOUNDS: S1 normal heart sound present and S2 normal heart sound present GI: COMMON NORMALS: Normal to inspection, nondistended, normoactive bowel sounds present and non-tender Extremity: COMMON NORMALS: no pedal edema Neuro: COMMON NORMALS: patient oriented x3 Psych: COMMON NORMALS: mental status grossly normal Urinary Catheter Management: [place]: Cath Placed During This Visit: yes, but has since been removed by the nurse Reason for Continuing Indwelling Catheter: Accurate Measurement of Urinary Output in Critically Ill Patients Urinary Catheter Date of Insertion: 09/22/22 Urinary Catheter Time of Insertion: 20:38 Date Urinary Catheter Removed: 09/25/22 Time Urinary Catheter Discontinued: 12:00 Data 09/29/22 09:20 09/29/22 09:20 A&P Assessment and plan (1) Polysubstance abuse: 41-year-old male walked into the emergency room earlier today complaining of suicidal ideation and binge alcohol drinking throughout the day. Thereafter after being in the emergency room developed acute hypoxic hypercapnic respiratory failure for which she needed to be emergently intubated. According to ER physician documentation that he had taken 8-10 of his hydrocodone's and attempt to harm himself He was given Narcan, with slight response, due to unresponsiveness, was on 15 L, then intubated due to respiratory failure U tox is positive for opiates and marijuana, serum acetaminophen level is elevated at 32, improved 15.8 Review of home medication also shows multiple psychoactive drugs, uncertain if he may have additionally consumed these. No recurrent seizures overnight Currently in neuropsychiatric unit (2) Alcohol intoxication: Alcohol dependence, acute alcohol intoxication, serum alcohol level greater than 200 Status post extubation, off Versed Placed on scheduled Librium 20 every 12 hours, will slowly taper [facility] protocol For alcohol withdrawals seizure, he is on Keppra 250 mg p.o. twice daily, with history of seizures continue for now monitor mentation Thiamine 100 mg p.o. (3) Hypercapnic respiratory failure: Acute hypoxic hypercapnic respiratory failure CT scan of the abdomen pelvis shows fluid distended stomach, concerns for possible sudden aspiration pneumonia as a reason for his acute respiratory failure The other thought is he did take 8-10 hydrocodone's, with his alcoholism, could have resulted in development of respiratory failure Unable to corroborate patient's past medical history Review of medications shows he has albuterol on his list. Uncertain if he has a history of COPD. Has crackles on exam saturating in the mid 80s, I think he is likely remaining hypoxia due to aspiration pneumonia, aspiration pneumonitis, and some degree of fluid overload we will give him Lasix today continue antibiotic treatment His CT of his chest ? Lung volumes are markedly decreased with multi lobar areas of atelectasis. Most significant atelectasis at the lung bases and RIGHT upper lobe. Continue Augmentin, total of 7 days (4) Alcohol dependence: As noted above (5) Suicidal ideation: With multiple recent admissions for the same. Psych assessment (6) Seizures: -Decrease Keppra active to 250 twice daily -Is on Lamictal 25 mg twice daily -Decrease gabapentin 300 mg twice daily (7) Alcohol withdrawal: - As above (8) Abdominal distention: - Resolved (9) Aspiration pneumonia: - On Augmentin (10) Opiate overdose: - Concerns for opiate overdose (11) Suicide attempt: - Concerns for possible suicide attempt with ingestion of hydrocodone, and alcohol (12) Fluid overload: Resolved (13) Rhabdomyolysis: (14) VIVI (obstructive sleep apnea): Plan -encourage cpap use, 7 total days of augmentin, keppra 250mg bid, off librium Spoke to nursing staff Attestations Medical Necessity Statement*: patient requires hospitalization for inpatient psychiatry evaluation Diagnoses Polysubstance abuse F19.10 Alcohol intoxication F10.929 Hypercapnic respiratory failure J96.92 Alcohol dependence F10.20 Suicidal ideation R45.851 Seizures R56.9 Alcohol withdrawal F10.939 Abdominal distention R14.0 Aspiration pneumonia J69.0 Opiate overdose T40.601A Suicide attempt T14.91XA Fluid overload E87.70 Rhabdomyolysis M62.82 VIVI (obstructive sleep apnea) G47.33
[2022-10-02 20:29] VITALS: BP 123/84; PULSE 90; RESP 18; O2SAT 93
[2022-10-03] MEDS: pantoprazole DR 40 mg Tablet PO (05:48)
[2022-10-03] MEDS: levothyroxine 25 mcg Tablet PO (05:48)
[2022-10-03 06:00] VITALS: BP 131/88; PULSE 105; RESP 18; O2SAT 91
[2022-10-03] MEDS: metoprolol succinate ER (24 HR) 50 mg Tablet PO (08:45)
[2022-10-03] MEDS: naproxen 500 mg Tablet PO ×2 (08:46→21:03)
[2022-10-03] MEDS: levETIRAcetam 500 mg Tablet 250 MG PO ×2 (08:46→21:04)
[2022-10-03] MEDS: lamoTRIgine 25 mg Tablet PO ×2 (08:46→21:05)
[2022-10-03] MEDS: multivitamin therapeutic Tablet 1 TAB PO (08:46)
[2022-10-03] MEDS: cyclobenzaprine 10 mg Tablet 5 MG PO ×2 (08:46→21:04)
[2022-10-03] MEDS: naltrexone hcl 50 mg Tablet PO (08:47)
[2022-10-03] MEDS: folic acid 1 mg Tablet PO (08:47)
[2022-10-03] MEDS: gabapentin 300 mg Capsule PO ×3 (08:47→21:05)
[2022-10-03] MEDS: chlorPROMazine 50 mg Tablet 100 MG PO ×3 (08:47→21:05)
[2022-10-03] MEDS: atorvastatin 40 mg Tablet 20 MG PO (08:47)
[2022-10-03] MEDS: thiamine 100 mg Tablet PO (08:47)
[2022-10-03] MEDS: nicotine 4 mg lozenge MUCOUS MEM ×6 (08:51→21:10)
[2022-10-03 08:57] VITALS: BP 126/82
--- NOTE | 2022-10-03 11:03 | PC.NURSE ---
Patient not given 0900 clonidine due to blood pressure reading of 128/62.
[2022-10-03 13:08] VITALS: PULSE 87; RESP 18; O2SAT 93
[2022-10-03 14:00] VITALS: BP 130/82; PULSE 96; RESP 20; TEMP 36.1; O2SAT 92
--- NOTE | 2022-10-03 16:19 | P.NPUPN_ITS ---
Subjective NPU Subjective: Patient presented today continuing to lament over his medications and when the doses will be increased to this higher dose threshold he continues to have. Also he was dealing with the bad news that his father is not going to seek guardianship. He endorsed being unclear what his plan was going to be and so he was thinking about alternatives. We discussed slowly titrating his medication and challenging him to manage his anxiety at times and non pharmacologic ways. Mental Status Exam MSE Comments: This is an obese versus morbidly obese white male in hospital scrubs with limited grooming and limited eye contact. No abnormal movements except for significant psychomotor retardation. Cooperative with exam in mild distress. Speech was decreased rate and volume. Mood described as about the same. His affect was flat and subdued. Thought process was organized. Thought content: Patient endorsed suicidal but denied homicidal ideation, there were no delusions reported or noted, he denied any auditory or visual hallucinations. Attention and concentration were intact and memory appeared mostly reliable but none were formally tested. He is alert and oriented x3. Insight is poor and judgment is limited, impulse control is impaired. Vitals/I&O/Wt Last Vital Signs Temp 97.9 F 10/03/22 22:00 Pulse 100 10/03/22 22:00 Resp 17 10/03/22 22:00 BP 123/83 10/03/22 22:00 Pulse Ox 92 10/03/22 22:00 O2 Del Method Room Air 10/03/22 22:00 O2 Flow Rate 2 10/02/22 20:00 FiO2 30 09/24/22 15:40 Physical Exam Urinary Catheter Management: [place]: Cath Placed During This Visit: yes, but has since been removed by the nurse Reason for Continuing Indwelling Catheter: Accurate Measurement of Urinary Output in Critically Ill Patients Urinary Catheter Date of Insertion: 09/22/22 Urinary Catheter Time of Insertion: 20:38 Date Urinary Catheter Removed: 09/25/22 Time Urinary Catheter Discontinued: 12:00 Data NPU 09/29/22 09:20 09/29/22 09:20 A&P Assessment and plan (1) Bipolar disorder, unspecified: (2) Suicidal ideation: (3) Alcohol dependence: (4) Malingering: (5) Hypothyroidism: (6) Depression: Qualifiers: Depression Type: unspecified Qualified Code(s): F32.A - Depression, unspecified Plan Patient is a 41-year-old white male with a history of alcohol dependence along with unspecified bipolar disorder with a history of multiple inpatient admiss ions, this going to be his sixth since July 29, 2022, coming to the unit via transfer from the ICU where he was intubated status post suicide attempt. 1. Continue current medications. Continue to make changes to clean up his medication regimen. Patient to decide whether he is open to an antidepressant that he has not been exposed to in the past. 2. Encourage individual, group and milieu therapy. Initiated naltrexone 50 mg p.o. daily and consider possible changes to Lamictal and/or resumption of Thorazine. Initiated Thorazine 100 mg p.o. 3 times daily. We will increase it to 4 times a day. 3. Continue every 15 minute checks for safety 4. Recommend sober living treatment at the highest level of care to which the patient is willing to commit. Which ultimately would be inpatient given his current situation however there may be a need for overall residential treatment facility from a dual diagnosis or mental health standpoint. 5. [facility] protocol. 6. 21-day hold was established 10/01/2022. Involuntary Hold Information 96 Hour Hold: 96 Hour Involuntary Admission: Yes Attestations NPU Medical Necessity Statement*: Inpatient hospitalization is medically necessary and the clinically appropriate decision at this time. We will monitor medications and make changes as indicated. Likely length of stay of 7-10 days. Coding Level of Care Code Acute Code for [facility] Fwd Diagnoses Bipolar disorder, unspecified F31.9 Suicidal ideation R45.851 Alcohol dependence F10.20 Malingering Z76.5 Hypothyroidism E03.9 Depression F32.A Depression Type: unspecified
[2022-10-03 20:00] VITALS: O2SAT 94
[2022-10-03] MEDS: cloNIDine 0.1 mg Tablet PO (21:04)
[2022-10-03] MEDS: trazodone 50 mg Tablet PO ×2 (21:11→22:15)
[2022-10-03 22:00] VITALS: BP 123/83; PULSE 100; RESP 17; TEMP 36.6; O2SAT 92
[2022-10-04] VITALS (7 sets, daily range): BP systolic 95–129; BP diastolic 57–87; PULSE 85–88; RESP 15–20; TEMP 36.3–36.6; O2SAT 92–95
[2022-10-04] MEDS: nicotine 4 mg lozenge MUCOUS MEM ×5 (06:47→20:44)
[2022-10-04] MEDS: levothyroxine 25 mcg Tablet PO (06:47)
[2022-10-04] MEDS: pantoprazole DR 40 mg Tablet PO (06:47)
--- NOTE | 2022-10-04 08:12 | PC.NURSE ---
pt currently denies si/hi/vh/ah. pt appears flat and bland. pt was cooperative with assessment and anwsering questions. pt CIWA was rated a 0. current needs are met for pt.
[2022-10-04] MEDS: multivitamin therapeutic Tablet 1 TAB PO (08:30)
[2022-10-04] MEDS: thiamine 100 mg Tablet PO (08:30)
[2022-10-04] MEDS: levETIRAcetam 500 mg Tablet 250 MG PO ×2 (08:30→20:44)
[2022-10-04] MEDS: folic acid 1 mg Tablet PO (08:31)
[2022-10-04] MEDS: atorvastatin 40 mg Tablet 20 MG PO (08:31)
[2022-10-04] MEDS: gabapentin 300 mg Capsule PO ×3 (08:32→20:45)
[2022-10-04] MEDS: naltrexone hcl 50 mg Tablet PO (08:32)
[2022-10-04] MEDS: lamoTRIgine 25 mg Tablet PO ×2 (08:32→20:45)
[2022-10-04] MEDS: chlorPROMazine 50 mg Tablet 100 MG PO ×4 (08:33→20:44)
[2022-10-04] MEDS: naproxen 500 mg Tablet PO ×2 (08:33→20:45)
[2022-10-04] MEDS: metoprolol succinate ER (24 HR) 50 mg Tablet PO (08:34)
[2022-10-04] MEDS: cyclobenzaprine 10 mg Tablet 5 MG PO ×3 (08:37→21:25)
--- NOTE | 2022-10-04 09:36 | P.NPUPN_ITS ---
Subjective NPU Subjective: Patient presented today reporting that he is doing okay but continue to focus on med changes. He reports he is now having some lower back pain that he identifies that to be in relation to the decreasing of his Neurontin. He says that he worries about that the most. We continue to talk about slowly the liver changes and now things to do postdischarge with his father leaving the conversation about guardianship. Mental Status Exam MSE Comments: This is an obese versus morbidly obese white male in hospital scrubs with limited grooming and limited eye contact. No abnormal movements except for significant psychomotor retardation. Cooperative with exam in mild distress. Speech was decreased rate and volume. Mood described as about the same. His affect was flat and subdued. Thought process was organized. Thought content: Patient endorsed suicidal but denied homicidal ideation, there were no delusions reported or noted, he denied any auditory or visual hallucinations. Attention and concentration were intact and memory appeared mostly reliable but none were formally tested. He is alert and oriented x3. Insight is poor and judgment is limited, impulse control is impaired. Vitals/I&O/Wt Last Vital Signs Temp 97.9 F 10/03/22 22:00 Pulse 100 10/03/22 22:00 Resp 16 10/04/22 06:00 BP 129/87 10/04/22 08:39 Pulse Ox 92 10/03/22 22:00 O2 Del Method Room Air 10/03/22 22:00 O2 Flow Rate 2 10/02/22 20:00 FiO2 30 09/24/22 15:40 Physical Exam Urinary Catheter Management: [place]: Cath Placed During This Visit: yes, but has since been removed by the nurse Reason for Continuing Indwelling Catheter: Accurate Measurement of Urinary Output in Critically Ill Patients Urinary Catheter Date of Insertion: 09/22/22 Urinary Catheter Time of Insertion: 20:38 Date Urinary Catheter Removed: 09/25/22 Time Urinary Catheter Discontinued: 12:00 Data NPU 09/29/22 09:20 09/29/22 09:20 A&P Assessment and plan (1) Bipolar disorder, unspecified: (2) Suicidal ideation: (3) Alcohol dependence: (4) Malingering: (5) Hypothyroidism: (6) Depression: Qualifiers: Depression Type: unspecified Qualified Code(s): F32.A - Depression, unspecified Plan Patient is a 41-year-old white male with a history of alcohol dependence along with unspecified bipolar disorder with a history of multiple inpatient admissions, this going to be his sixth since July 29, 2022, coming to the unit via transfer from the ICU where he was intubated status post suicide attempt. 1. Continue current medications. Continue to make changes to clean up his medication regimen. Patient to decide whether he is open to an antidepressant that he has not been exposed to in the past. 2. Encourage individual, group and milieu therapy. Initiated naltrexone 50 mg p.o. daily and consider possible changes to Lamictal and/or resumption of Thorazine. Initiated Thorazine 100 mg p.o. 3 times daily. Increase it to 4 times a day. 3. Continue every 15 minute checks for safety 4. Recommend sober living treatment at the highest level of care to which the patient is willing to commit. Which ultimately would be inpatient given his current situation however there may be a need for overall residential treatment facility from a dual diagnosis or mental health standpoint. 5. [facility] protocol. 6. 21-day hold was established 10/01/2022. Involuntary Hold Information 96 Hour Hold: 96 Hour Involuntary Admission: Yes Attestations NPU Medical Necessity Statement*: Inpatient hospitalization is medically necessary and the clinically appropriate decision at this time. We will monitor medications and make changes as indicated. Likely length of stay of 7-10 days. Coding Level of Care Code Acute Code for [facility] Fwd Diagnoses Bipolar disorder, unspecified F31.9 Suicidal ideation R45.851 Alcohol dependence F10.20 Malingering Z76.5 Hypothyroidism E03.9 Depression F32.A Depression Type: unspecified
[2022-10-05 05:55] VITALS: RESP 14
[2022-10-05 06:00] VITALS: BMI 40.1
--- NOTE | 2022-10-05 07:44 | W.PM.NPUPNS ---
Subjective NPU Subjective: Patient presents today sleeping but arousable. He denied his sleepiness had anything to do with the increasing dose of Thorazine was increased to 100 mg p.o. 4 times daily. He continued light previous conversations to lobby for an increase in his medication including Thorazine and Neurontin. We discussed the fact that the social work team will return tomorrow and we will begin discussing a plan surrounding his guardianship and discharge. Mental Status Exam MSE Comments: This is an obese versus morbidly obese white male in hospital scrubs with limited grooming and limited eye contact. No abnormal movements except for significant psychomotor retardation. Cooperative with exam in no acute distress. Speech was decreased rate and volume. Mood described as about the same. His affect was flat and subdued. Thought process was organized. Thought content: Patient did not endorse suicidal or homicidal ideation, there were no delusions reported or noted, he denied any auditory or visual hallucinations. Attention and concentration were intact and memory appeared mostly reliable but none were formally tested. He is arousable and oriented x3. Insight is poor and judgment is limited, impulse control is improving. Vitals/I&O/Wt Last Vital Signs Temp 97.4 F L 10/04/22 21:57 Pulse 85 10/04/22 21:57 Resp 14 10/05/22 05:55 BP 116/82 10/04/22 21:57 Pulse Ox 95 10/04/22 21:57 O2 Del Method Room Air 10/04/22 21:57 O2 Flow Rate 2 10/02/22 20:00 FiO2 30 09/24/22 15:40 Physical Exam Urinary Catheter Management: [place]: Cath Placed During This Visit: yes, but has since been removed by the nurse Reason for Continuing Indwelling Catheter: Accurate Measurement of Urinary Output in Critically Ill Patients Urinary Catheter Date of Insertion: 09/22/22 Urinary Catheter Time of Insertion: 20:38 Date Urinary Catheter Removed: 09/25/22 Time Urinary Catheter Discontinued: 12:00 Data NPU 09/29/22 09:20 09/29/22 09:20 A&P Assessment and plan (1) Bipolar disorder, unspecified: (2) Suicidal ideation: (3) Alcohol dependence: (4) Malingering: (5) Hypothyroidism: (6) Depression: Qualifiers: Depression Type: unspecified Qualified Code(s): F32.A - Depression, unspecified Plan Patient is a 41-year-old white male with a history of alcohol dependence along with unspecified bipolar disorder with a history of multiple inpatient admissions, this going to be his sixth since July 29, 2022, coming to the unit via transfer from the ICU where he was intubated status post suicide attempt. 1. Continue current medications. Continue to make changes to clean up his medication regimen. Patient to decide whether he is open to an antidepressant that he has not been exposed to in the past. 2. Encourage individual, group and milieu therapy. Initiated naltrexone 50 mg p.o. daily and consider possible changes to Lamictal and/or resumption of Thorazine. Initiated Thorazine 100 mg p.o. 3 times daily. Increased it to 4 times a day. 3. Continue every 15 minute checks for safety 4. Recommend sober living treatment at the highest level of care to which the patient is willing to commit. Which ultimately would be inpatient given his current situation however there may be a need for overall residential treatment facility from a dual diagnosis or mental health standpoint. 5. [facility] protocol. 6. 21-day hold was established 10/01/2022. Involuntary Hold Information 96 Hour Hold: 96 Hour Involuntary Admission: Yes Attestations NPU Medical Necessity Statement*: Inpatient hospitalization is medically necessary and the clinically appropriate decision at this time. We will monitor medications and make changes as indicated. Likely length of stay of 7-10 days. Coding Level of Care Code Acute Code for [facility] Fwd Diagnoses Bipolar disorder, unspecified F31.9 Suicidal ideation R45.851 Alcohol dependence F10.20 Malingering Z76.5 Hypothyroidism E03.9 Depression F32.A Depression Type: unspecified
[2022-10-05 08:00] VITALS: PULSE 84; RESP 16; O2SAT 91
[2022-10-05] MEDS: thiamine 100 mg Tablet PO (08:52)
[2022-10-05] MEDS: levothyroxine 25 mcg Tablet PO (08:52)
[2022-10-05] MEDS: pantoprazole DR 40 mg Tablet PO (08:52)
[2022-10-05] MEDS: chlorPROMazine 50 mg Tablet 100 MG PO ×4 (08:52→21:30)
[2022-10-05] MEDS: lamoTRIgine 25 mg Tablet PO ×2 (08:52→21:31)
[2022-10-05] MEDS: gabapentin 300 mg Capsule PO ×3 (08:52→21:32)
[2022-10-05] MEDS: naltrexone hcl 50 mg Tablet PO (08:52)
[2022-10-05] MEDS: folic acid 1 mg Tablet PO (08:52)
[2022-10-05] MEDS: multivitamin therapeutic Tablet 1 TAB PO (08:53)
[2022-10-05] MEDS: atorvastatin 40 mg Tablet 20 MG PO (08:53)
[2022-10-05] MEDS: naproxen 500 mg Tablet PO ×2 (08:54→22:33)
[2022-10-05] MEDS: metoprolol succinate ER (24 HR) 50 mg Tablet PO (08:54)
[2022-10-05] MEDS: levETIRAcetam 500 mg Tablet 250 MG PO ×2 (08:54→21:31)
[2022-10-05 08:57] VITALS: BP 123/81
[2022-10-05] MEDS: nicotine 4 mg lozenge MUCOUS MEM ×3 (08:59→17:46)
[2022-10-05] MEDS: cyclobenzaprine 10 mg Tablet 5 MG PO ×2 (08:59→21:31)
[2022-10-05 14:00] VITALS: BP 101/58; PULSE 76; RESP 16; TEMP 36.8; O2SAT 91
[2022-10-05 20:12] VITALS: BP 90/58; PULSE 82; RESP 16; TEMP 36.4; O2SAT 96
[2022-10-05] MEDS: trazodone 50 mg Tablet PO (21:32)
[2022-10-06] MEDS: pantoprazole DR 40 mg Tablet PO (05:55)
[2022-10-06] MEDS: levothyroxine 25 mcg Tablet PO (05:55)
[2022-10-06] MEDS: nicotine 4 mg lozenge MUCOUS MEM ×7 (07:40→20:35)
--- NOTE | 2022-10-06 07:54 | P.NPUPN_ITS ---
Subjective NPU Subjective: Patient presented today up and out of bed much more often. He seemed to be more acting out his medication regimen but he certainly asked about it. He continues to report that his seeming tired was a response to boredom and not a response to the 4 times daily dosing of Thorazine. We discussed the desire for him to be alert and on medication and that we would likely not increase it soon secondary to his somnolence. We also discussed guardianship which was discussed in treatment team and we will find out if we have resources to support guardianship. Mental Status Exam MSE Comments: This is an obese versus morbidly obese white male in hospital scrubs with limited grooming and limited eye contact. No abnormal movements except for significant psychomotor retardation. Cooperative with exam in no acute distress. Speech was decreased rate and volume. Mood described as okay. His affect was flat and subdued. Thought process was organized. Thought content: Patient did not endorse suicidal or homicidal ideation, there were no delusions reported or noted, he denied any auditory or visual hallucinations. Attention and concentration were intact and memory appeared mostly reliable but none were formally tested. He is arousable and oriented x3. Insight is poor and judgment is limited, impulse control is improving. Vitals/I&O/Wt Last Vital Signs Temp 97.6 F 10/05/22 20:12 Pulse 82 10/05/22 20:12 Resp 16 10/05/22 20:12 BP 90/58 10/05/22 20:12 Pulse Ox 96 10/05/22 20:12 O2 Del Method Room Air 10/05/22 08:00 O2 Flow Rate 2 10/02/22 20:00 FiO2 30 09/24/22 15:40 10/05/22 10/06/22 10/06/22 22:59 06:59 14:59 Intake Total 0 / 0 Output Total 1700 / 3400 Balance -1700 / -3400 Weight last 48 hrs Weight 134.354 kg Physical Exam Urinary Catheter Management: [place]: Cath Placed During This Visit: yes, but has since been removed by the nurse Reason for Continuing Indwelling Catheter: Accurate Measurement of Urinary Output in Critically Ill Patients Urinary Catheter Date of Insertion: 09/22/22 Urinary Catheter Time of Insertion: 20:38 Date Urinary Catheter Removed: 09/25/22 Time Urinary Catheter Discontinued: 12:00 Data NPU 09/29/22 09:20 09/29/22 09:20 A&P Assessment and plan (1) Bipolar disorder, unspecified: (2) Suicidal ideation: (3) Alcohol dependence: (4) Malingering: (5) Hypothyroidism: (6) Depression: Qualifiers: Depression Type: unspecified Qualified Code(s): F32.A - Depression, unspecified Plan Patient is a 41-year-old white male with a history of alcohol dependence along with unspecified bipolar disorder with a history of multiple inpatient admissions, this going to be his sixth since July 29, 2022, coming to the unit via transfer from the ICU where he was intubated status post suicide attempt. 1. Continue current medications. Continue to make changes to clean up his medi cation regimen. Patient to decide whether he is open to an antidepressant that he has not been exposed to in the past. 2. Encourage individual, group and milieu therapy. Initiated naltrexone 50 mg p .o. daily and consider possible changes to Lamictal and/or resumption of Thorazine. Initiated Thorazine 100 mg p.o. 3 times daily. Increased it to 4 times a day. 3. Continue every 15 minute checks for safety 4. Recommend sober living treatment at the highest level of care to which the patient is willing to commit. Which ultimately would be inpatient given his current situation however there may be a need for overall residential treatment facility from a dual diagnosis or mental health standpoint. 5. [facility] protocol. 6. 21-day hold was established 10/01/2022. Involuntary Hold Information 96 Hour Hold: 96 Hour Involuntary Admission: Yes Attestations NPU Medical Necessity Statement*: Inpatient hospitalization is medically necessary and the clinically appropriate decision at this time. We will monitor medications and make changes as indicated. Likely length of stay of 7-10 days. Coding Level of Care Code Acute Code for [facility] Fwd Diagnoses Bipolar disorder, unspecified F31.9 Suicidal ideation R45.851 Alcohol dependence F10.20 Malingering Z76.5 Hypothyroidism E03.9 Depression F32.A Depression Type: unspecified
[2022-10-06] MEDS: folic acid 1 mg Tablet PO (08:19)
[2022-10-06] MEDS: naproxen 500 mg Tablet PO ×2 (08:19→20:30)
[2022-10-06] MEDS: metoprolol succinate ER (24 HR) 50 mg Tablet PO (08:19)
[2022-10-06] MEDS: thiamine 100 mg Tablet PO (08:19)
[2022-10-06 08:21] VITALS: BP 128/84
[2022-10-06] MEDS: gabapentin 300 mg Capsule PO ×3 (08:21→20:31)
[2022-10-06] MEDS: lamoTRIgine 25 mg Tablet PO ×2 (08:21→20:31)
[2022-10-06] MEDS: cloNIDine 0.1 mg Tablet PO (08:21)
[2022-10-06] MEDS: chlorPROMazine 50 mg Tablet 100 MG PO ×4 (08:22→20:29)
[2022-10-06] MEDS: naltrexone hcl 50 mg Tablet PO (08:22)
[2022-10-06] MEDS: atorvastatin 40 mg Tablet 20 MG PO (08:22)
[2022-10-06] MEDS: levETIRAcetam 500 mg Tablet 250 MG PO ×2 (08:22→20:30)
[2022-10-06] MEDS: cyclobenzaprine 10 mg Tablet 5 MG PO ×2 (08:22→20:29)
[2022-10-06] MEDS: multivitamin therapeutic Tablet 1 TAB PO (08:23)
[2022-10-06 13:54] VITALS: BP 112/78; PULSE 92; RESP 17; TEMP 36.6; O2SAT 93
[2022-10-06] MEDS: trazodone 50 mg Tablet PO (20:31)
[2022-10-06 20:33] VITALS: BP 115/72
[2022-10-06 20:38] VITALS: BP 115/79; PULSE 87; RESP 18; O2SAT 98
[2022-10-07 06:00] VITALS: RESP 16
[2022-10-07] MEDS: levothyroxine 25 mcg Tablet PO (06:08)
[2022-10-07] MEDS: pantoprazole DR 40 mg Tablet PO (06:08)
--- NOTE | 2022-10-07 06:12 | PC.NURSE ---
resp. pt.sleeping
[2022-10-07] MEDS: nicotine 4 mg lozenge MUCOUS MEM ×4 (07:39→18:23)
[2022-10-07] MEDS: metoprolol succinate ER (24 HR) 50 mg Tablet PO (09:09)
[2022-10-07] MEDS: chlorPROMazine 50 mg Tablet 100 MG PO ×4 (09:09→20:29)
[2022-10-07] MEDS: levETIRAcetam 500 mg Tablet 250 MG PO ×2 (09:10→20:30)
[2022-10-07] MEDS: gabapentin 300 mg Capsule PO ×3 (09:10→20:30)
[2022-10-07] MEDS: lamoTRIgine 25 mg Tablet PO ×2 (09:10→20:29)
[2022-10-07] MEDS: multivitamin therapeutic Tablet 1 TAB PO (09:10)
[2022-10-07] MEDS: thiamine 100 mg Tablet PO (09:11)
[2022-10-07] MEDS: naltrexone hcl 50 mg Tablet PO (09:11)
[2022-10-07] MEDS: atorvastatin 40 mg Tablet 20 MG PO (09:11)
[2022-10-07] MEDS: folic acid 1 mg Tablet PO (09:11)
[2022-10-07] MEDS: naproxen 500 mg Tablet PO ×2 (09:11→20:29)
[2022-10-07] MEDS: cyclobenzaprine 10 mg Tablet 5 MG PO ×2 (09:14→20:32)
[2022-10-07 09:15] VITALS: BP 118/85
--- NOTE | 2022-10-07 11:24 | P.NPUPN_ITS ---
Subjective NPU Subjective: Patient presents today reporting that he is doing okay. Discussed that we are waiting to hear from an administration regarding guardianship and approval for us to pursue on his behalf. He reports that he is just awaiting medication changes and figuring out whether he can have a guardian versus try to go back to apartment. That has lots of issues because of his lack of financial stability. He continues to request increasing his medications and we continue to discuss taking our time in the process as he seems quite sedated at this time Mental Status Exam MSE Comments: This is an obese versus morbidly obese white male in hospital scrubs with limited grooming and limited eye contact. No abnormal movements except for significant psychomotor retardation. Cooperative with exam in no acute distress. Speech was decreased rate and volume. Mood described as okay. His affect was less flat and subdued. Thought process was organized. Thought content: Patient did not endorse suicidal or homicidal ideation, there were no delusions reported or noted, he denied any auditory or visual hallucinations. Attention and concentration were intact and memory appeared mostly reliable but none were formally tested. He is arousable and oriented x3. Insight is poor and judgment is limited, impulse control is improving. Vitals/I&O/Wt Last Vital Signs Temp 97.9 F 10/06/22 13:54 Pulse 87 10/06/22 20:38 Resp 16 10/07/22 06:00 BP 118/85 10/07/22 09:15 Pulse Ox 98 10/06/22 20:38 O2 Del Method Room Air 10/05/22 08:00 O2 Flow Rate 2 10/07/22 08:00 FiO2 30 09/24/22 15:40 Physical Exam Urinary Catheter Management: [place]: Cath Placed During This Visit: yes, but has since been removed by the nurse Reason for Continuing Indwelling Catheter: Accurate Measurement of Urinary Output in Critically Ill Patients Urinary Catheter Date of Insertion: 09/22/22 Urinary Catheter Time of Insertion: 20:38 Date Urinary Catheter Removed: 09/25/22 Time Urinary Catheter Discontinued: 12:00 Data NPU 09/29/22 09:20 09/29/22 09:20 A&P Assessment and plan (1) Bipolar disorder, unspecified: (2) Suicidal ideation: (3) Alcohol dependence: (4) Malingering: (5) Hypothyroidism: (6) Depression: Qualifiers: Depression Type: unspecified Qualified Code(s): F32.A - Depression, unspecified Plan Patient is a 41-year-old white male with a history of alcohol dependence along w ith unspecified bipolar disorder with a history of multiple inpatient admissions, this going to be his sixth since July 29, 2022, coming to the unit via transfer from the ICU where he was intubated status post suicide attempt. 1. Continue current medications. Continue to make changes to clean up his medication regimen. Patient to decide whether he is open to an antidepressant that he has not been exposed to in the past. 2. Encourage individual, group and milieu therapy. Initiated naltrexone 50 mg p.o. daily and consider possible changes to Lamictal and/or resumption of Thorazine. Initiated Thorazine 100 mg p.o. 3 times daily. Increased it to 4 times a day. 3. Continue every 15 minute checks for safety 4. Recommend sober living treatment at the highest level of care to which the patient is willing to commit. Which ultimately would be inpatient given his current situation however there may be a need for overall residential treatment facility from a dual diagnosis or mental health standpoint. 5. [facility] protocol. 6. 21-day hold was established 10/01/2022. Involuntary Hold Information 96 Hour Hold: 96 Hour Involuntary Admission: Yes Attestations NPU Medical Necessity Statement*: Inpatient hospitalization is medically necessary and the clinically appropriate decision at this time. We will monitor medications and make changes as indicated. Likely length of stay of 6-9 days. Coding Level of Care Code Acute Code for [facility] Fwd Diagnoses Bipolar disorder, unspecified F31.9 Suicidal ideation R45.851 Alcohol dependence F10.20 Malingering Z76.5 Hypothyroidism E03.9 Depression F32.A Depression Type: unspecified
[2022-10-07 14:00] VITALS: RESP 17
--- NOTE | 2022-10-07 14:56 | PC.NURSE ---
Patient's BP low, 89/52. Doctor said to hold clonidine until further notice.
[2022-10-07] MEDS: trazodone 50 mg Tablet PO (20:29)
[2022-10-07 22:00] VITALS: BP 128/92; PULSE 87; RESP 18; O2SAT 94
[2022-10-08 06:00] VITALS: BP 114/78; PULSE 88; RESP 19; TEMP 36.8; O2SAT 92
[2022-10-08 08:00] VITALS: PULSE 100; RESP 17; O2SAT 94
[2022-10-08] MEDS: levothyroxine 25 mcg Tablet PO (08:12)
[2022-10-08] MEDS: pantoprazole DR 40 mg Tablet PO (08:12)
[2022-10-08] MEDS: nicotine 4 mg lozenge MUCOUS MEM ×5 (08:17→20:21)
[2022-10-08] MEDS: gabapentin 300 mg Capsule PO ×3 (09:01→20:22)
[2022-10-08] MEDS: naproxen 500 mg Tablet PO ×2 (09:01→20:22)
[2022-10-08] MEDS: chlorPROMazine 50 mg Tablet 100 MG PO ×4 (09:01→20:21)
[2022-10-08] MEDS: cyclobenzaprine 10 mg Tablet 5 MG PO ×2 (09:01→20:34)
[2022-10-08] MEDS: lamoTRIgine 25 mg Tablet PO ×2 (09:02→20:22)
[2022-10-08] MEDS: atorvastatin 40 mg Tablet 20 MG PO (09:02)
[2022-10-08] MEDS: folic acid 1 mg Tablet PO (09:02)
[2022-10-08] MEDS: metoprolol succinate ER (24 HR) 50 mg Tablet PO (09:02)
[2022-10-08] MEDS: levETIRAcetam 500 mg Tablet 250 MG PO ×2 (09:02→20:21)
[2022-10-08] MEDS: thiamine 100 mg Tablet PO (09:02)
[2022-10-08] MEDS: multivitamin therapeutic Tablet 1 TAB PO (09:02)
[2022-10-08] MEDS: naltrexone hcl 50 mg Tablet PO (09:02)
[2022-10-08 14:00] VITALS: BP 100/66; PULSE 96; RESP 17; TEMP 36.6; O2SAT 93
--- NOTE | 2022-10-08 17:36 | PC.NURSE ---
Pt meet [place] from the [place], he is helping pt with housing and a stable living situation after discharge. [facility] will come back to unit next week to talk with pt again.
--- NOTE | 2022-10-08 17:53 | P.NPUPN_ITS ---
Subjective NPU Subjective: Patient presents today reporting that he is feeling better though he continues to say that with a scowl. We talked about guardianship and he is now focused on saving his place and going home. We discussed the fact that it is possible that he could have an apartment still but guardianship would have another person involved in the process and where he living etc. he was not as focused on me dication today but continues a push that maybe he is ready to go. Mental Status Exam MSE Comments: This is an obese versus morbidly obese white male in hospital scrubs with limited grooming and limited eye contact. No abnormal movements except for significant psychomotor retardation. Cooperative with exam in no acute distress. Speech was decreased rate and volume. Mood described as okay. His affect was less flat and subdued, but more irritable. Thought process was organized. Thought content: Patient did not endorse suicidal or homicidal ideation, there were no delusions reported or noted, he denied any auditory or visual hallucinations. Attention and concentration were intact and memory appeared mostly reliable but none were formally tested. He is arousable and oriented x3. Insight is poor and judgment is limited, impulse control is improving. Vitals/I&O/Wt Last Vital Signs Temp 97.9 F 10/08/22 14:00 Pulse 96 10/08/22 14:00 Resp 17 10/08/22 14:00 BP 100/66 10/08/22 14:00 Pulse Ox 93 10/08/22 14:00 O2 Del Method Room Air 10/08/22 08:00 O2 Flow Rate 2 10/08/22 08:00 FiO2 30 09/24/22 15:40 Physical Exam Urinary Catheter Management: [place]: Cath Placed During This Visit: yes, but has since been removed by the nurse Reason for Continuing Indwelling Catheter: Accurate Measurement of Urinary Output in Critically Ill Patients Urinary Catheter Date of Insertion: 09/22/22 Urinary Catheter Time of Insertion: 20:38 Date Urinary Catheter Removed: 09/25/22 Time Urinary Catheter Discontinued: 12:00 Data NPU 09/29/22 09:20 09/29/22 09:20 A&P Assessment and plan (1) Bipolar disorder, unspecified: (2) Suicidal ideation: (3) Alcohol dependence: (4) Malingering: (5) Hypothyroidism: (6) Depression: Qualifiers: Depression Type: unspecified Qualified Code(s): F32.A - Depression, unspecified Plan Patient is a 41-year-old white male with a history of alcohol dependence along with unspecified bipolar disorder with a history of multiple inpatient admissions, this going to be his sixth since July 29, 2022, coming to the unit via transfer from the ICU where he was intubated status post suicide attempt. 1. Continue current medications. Continue to make changes to clean up his medication regimen. Patient to decide whether he is open to an antidepressant that he has not been exposed to in the past. 2. Encourage individual, group and milieu therapy. Initiated naltrexone 50 mg p.o. daily and consider possible changes to Lamictal and/or resumption of Thorazine. Initiated Thorazine 100 mg p.o. 3 times daily. Increased it to 4 times a day. 3. Continue every 15 minute checks for safety 4. Recommend sober living treatment at the highest level of care to which the patient is willing to commit. Which ultimately would be inpatient given his current situation however there may be a need for overall residential treatment facility from a dual diagnosis or mental health standpoint. 5. [facility] protocol. 6. 21-day hold was established 10/01/2022. Involuntary Hold Information 96 Hour Hold: 96 Hour Involuntary Admission: Yes Attestations NPU Medical Necessity Statement*: Inpatient hospitalization is medically necessary and the clinically appropriate decision at this time. We will monitor medications and make changes as indicated. Likely length of stay of 6-9 days. Coding Level of Care Code Acute Code for [facility] Fwd Diagnoses Bipolar disorder, unspecified F31.9 Suicidal ideation R45.851 Alcohol dependence F10.20 Malingering Z76.5 Hypothyroidism E03.9 Depression F32.A Depression Type: unspecified
[2022-10-08 21:29] VITALS: BP 110/77; PULSE 105; RESP 18; TEMP 36.9; O2SAT 97
[2022-10-09] MEDS: levothyroxine 25 mcg Tablet PO (05:57)
[2022-10-09] MEDS: pantoprazole DR 40 mg Tablet PO (05:57)
[2022-10-09 06:00] VITALS: BP 108/76; PULSE 90; RESP 17; TEMP 36.6; O2SAT 99
[2022-10-09] MEDS: nicotine 4 mg lozenge MUCOUS MEM ×6 (08:14→20:42)
[2022-10-09] MEDS: atorvastatin 40 mg Tablet 20 MG PO (08:49)
[2022-10-09] MEDS: naproxen 500 mg Tablet PO ×2 (08:49→20:41)
[2022-10-09] MEDS: gabapentin 300 mg Capsule PO ×3 (08:49→20:42)
[2022-10-09] MEDS: chlorPROMazine 50 mg Tablet 100 MG PO ×4 (08:49→20:42)
[2022-10-09] MEDS: lamoTRIgine 25 mg Tablet PO ×2 (08:49→20:42)
[2022-10-09] MEDS: levETIRAcetam 500 mg Tablet 250 MG PO ×2 (08:50→20:43)
[2022-10-09] MEDS: multivitamin therapeutic Tablet 1 TAB PO (08:50)
[2022-10-09] MEDS: metoprolol succinate ER (24 HR) 50 mg Tablet PO (08:50)
[2022-10-09] MEDS: naltrexone hcl 50 mg Tablet PO (08:50)
[2022-10-09] MEDS: thiamine 100 mg Tablet PO (08:50)
[2022-10-09] MEDS: folic acid 1 mg Tablet PO (08:50)
[2022-10-09] MEDS: cyclobenzaprine 10 mg Tablet 5 MG PO ×2 (08:52→20:43)
--- NOTE | 2022-10-09 12:31 | ED.C_ITS ---
HPI - Psych General: Chief Complaint: Psychiatric Symptoms Stated Complaint: suicide risk Time Seen by Provider: 09/22/22 20:05 Mode of arrival: ambulatory History of Present Illness: . [facility] ED PFSH: Medical History Alcohol dependence Bipolar disorder, unspecified Hypothyroidism Psychiatric care Course Vital Signs: Vital signs: Vital Signs Temperature 97.8 F 10/09/22 06:00 Pulse Rate 90 10/09/22 06:00 Respiratory Rate 17 10/09/22 06:00 Blood Pressure 108/76 10/09/22 06:00 Pulse Oximetry 99 10/09/22 06:00 Oxygen Delivery Me thod Room Air 10/09/22 08:55 Oxygen Flow Rate 2 10/08/22 08:00 Fraction of Inspir ed Oxygen 30 09/24/22 15:40 MDM - Psych Medical Decision Making Addendum done to previous note Lab Data 09/29/22 09:20 09/29/22 09:[address] 09/22/22 21:40 IMPRESSION: No acute intracranial abnormality. Chest/Abdomen/Pelvis CT 09/23/22 08:29 IMPRESSION: 1. Nasogastric and endotracheal tubes are in good position. 2. Lung volumes are markedly decreased with multi lobar areas of atelectasis. Most significant atelectasis at the lung bases and RIGHT upper lobe. 3. No pneumothorax. 4. No ascites or free air in the abdomen or pelvis. 5. No renal obstruction. KUB X-Ray 09/23/22 08:29 IMPRESSION: Nasogastric tube, as noted above. Chest X-Ray 09/24/22 07:00 IMPRESSION: 1. NG tube is in the stomach. The tip is not imaged. 2. Satisfactory endotracheal tube position. 3. Platelike atelectasis in both lungs corresponding to the findings on chest CT 09/23/2022. Laboratory Results WBC 7.8 10^3/uL (4.0-10.0) 09/22/22 20:20 RBC 4.63 10^6/uL (4.1-5.3) 09/22/22 20:20 Hgb 12.8 g/dL (11.7-16.6) 09/22/22 20:20 Hct 39.5 % (42.0-52.0) L 09/22/22 20:20 MCV 85.3 fl (80-94) 09/22/22 20:20 MCH 27.6 pg (28.0-34.0) L 09/22/22 20:20 MCHC 32.4 g/dL (30.0-36.0) 09/22/22 20:20 RDW 14.0 % (12.1-15.1) 09/22/22 20:20 Plt Count 313 10^3/cmm (130-400) 09/22/22 20:20 MPV 8.9 fL (7.4-10.4) 09/22/22 20:20 Neut % (Auto) 43.3 % 09/22/22 20:20 Lymph % (Auto) 44.9 % 09/22/22 20:20 [place] % (Auto) 10.4 % 09/22/22 20:20 Eos % (Auto) 0.0 % 09/22/22 20:20 Baso % (Auto) 0.1 % 09/22/22 20:20 Neut # (Auto) 3.38 10^3/uL (1.8-7.7) 09/22/22 20:20 Lymph # (Auto) 3.5 10^3/uL (0.8-4.8) 09/22/22 20:20 [place] # (Auto) 0.8 10^3/uL (0.2-0.9) 09/22/22 20:20 Eos # (Auto) 0.0 10^3/uL (0.0-0.8) 09/22/22 20:20 Baso # (Auto) 0.0 10^3/uL (0.0-0.1) 09/22/22 20:20 Nucleated RBC % (auto) 0 % 09/22/22 20:20 Nucleated RBCs # 0.0 /100WBC 09/22/22 20:20 D-Dimer 0.37 ug/mIFEU (0-0.59) 09/22/22 20:20 Specimen Type Arterial 09/22/22 20:48 Sample Site Radial, right 09/22/22 20:48 ABG pH 7.24 (7.35-7.45) L 09/22/22 20:48 ABG pCO2 72.1 mmHg (35-45) H* 09/22/22 20:48 ABG pO2 81.6 mmHg (80.0-100.0) 09/22/22 20:48 ABG HCO3 30.7 mmol/L (22-26) H 09/22/22 20:48 ABG Base Excess 1.3 mmol/L (-2.0-2.0) 09/22/22 20:48 Erick Test Pos 09/22/22 20:48 Hematocrit 41.1 % (42-52) L 09/22/22 20:48 O2 Delivery Device Nc 09/22/22 20:48 O2 Liters/Min 6.0 % 09/22/22 20:48 Ict Account Manager ID [email or web address] 09/22/22 20:48 Sodium 139 mmol/L (136-145) 09/22/22 20:20 Potassium 4.2 mmol/L (3.5-5.1) 09/22/22 20:20 Chloride 98 mmol/L (98-107) 09/22/22 20:20 Carbon Dioxide 28 mmol/L (22-29) 09/22/22 20:20 Anion Gap 17.2 (5-19) 09/22/22 20:20 BUN 22 mg/dL (6-20) H 09/22/22 20:20 Creatinine 1.1 mg/dL (0.7-1.2) 09/22/22 20:20 GFR Calculation 73.4 mL/min (90-130) L 09/22/22 20:20 Glucose 99 mg/dL (65-115) 09/22/22 20:20 Calculated Osmolality 291 mOsm/kg (285-295) 09/22/22 20:20 Lactic Acid 1.9 mmol/L (0.5-2.2) 09/22/22 20:20 Calcium 8.9 mg/dL (8.5-10.5) 09/22/22 20:20 Total Bilirubin 0.2 mg/dL (0.15-1.2) 09/22/22 20:20 AST 20 U/L (0-40) 09/22/22 20:20 ALT 35 U/L (0-41) 09/22/22 20:20 Alkaline Phosphatase 78 U/L (40-130) 09/22/22 20:20 Troponin T Baseline Cancelled 09/22/22 22:54 Troponin T 120 Minute 11.08 ng/L (0-15) 09/22/22 22:54 Delta Troponin T -2.92 ABS# (0-10) L 09/22/22 22:54 NT-Pro-B Natriuret Pep 36 pg/mL (0-125) 09/22/22 20:20 Total Protein 7.5 g/dL (6.6-8.7) 09/22/22 20:20 Albumin 4.9 g/dL (3.5-5.2) 09/22/22 20:20 Globulin 2.6 g/dL (1.3-4.6) 09/22/22 20:20 TSH 4.00 uIU/mL (0.27-4.20) 09/22/22 22:54 TSH Cancelled 09/22/22 22:54 Salicylates < 0.3 mg/dL (3-10) L 09/22/22 20:20 Urine Opiates Screen Positive ng/mL (Negative) H 09/22/22 20:39 Acetaminophen 15.8 ug/mL (10-30) 09/22/22 22:54 Acetaminophen Cancelled 09/22/22 22:54 Ur Barbiturates Screen Negative ng/mL (Negative) 09/22/22 20:39 Lamotrigine <0.5 mcg/mL (2.5-15.0) L 09/22/22 20:20 Ur Phencyclidine Scrn Negative ng/mL (Negative) 09/22/22 20:39 Ur Amphetamines Screen Negative ng/mL (Negative) 09/22/22 20:39 U Benzodiazepines Scrn Negative ng/mL (Negative) 09/22/22 20:39 Urine Cocaine Screen Negative ng/mL (Negative) 09/22/22 20:39 U Marijuana (THC) Screen Positive ng/mL (Negative) H 09/22/22 20:39 Ethyl Alcohol 205 mg/dL (0-10) H 09/22/22 20:20 Critical Care Time Critical Care Time: Critical Care Time: Yes Total Critical Care Time: 40 Attestation: The high probability of a clinically significant, sudden or life threatening deterioration of the patient's resp system(s) required my full and direct attention, intervention and personal management. The critical care time is as shown. This time is in addition to time spent performing any reported procedures but includes the following: [x] Data and vital sign review and interpretation [x] Patient assessment, examination and intervention [x] Documentation [x] Medication orders and management Discharge Plan Discharge Patient Disposition: Admitted As Inpatient Admit Provider: Phoebe Coughlin Clinical Impression: Polysubstance abuse, Hypercapnic respiratory failure Condition: Stable Coding Level of Care Code ED Lift Slab Operator for Uriel Price
--- NOTE | 2022-10-09 12:41 | W.PM.NPUPNS ---
Subjective NPU Subjective: Patient presented today reporting that he is doing better. He wrote a letter outlining his goals and how he would like to address things moving forward. We discussed how this would not prevent him from having a guardian but that we would explore things. Otherwise he denies any problems with the medication and for the first time did not bring up the medication. Mental Status Exam MSE Comments: This is an obese versus morbidly obese white male in hospital scrubs with limited grooming and limited eye contact. No abnormal movements except for significant psychomotor retardation. Cooperative with exam in no acute distress. Speech was decreased rate and volume. Mood described as maybe a little better better. His affect was less flat and subdued. Thought process was organized. Thought content: Patient did not endorse suicidal or homicidal ideation, there were no delusions reported or noted, he denied any auditory or visual hallucinations. Attention and concentration were intact and memory appeared mostly reliable but none were formally tested. He is arousable and oriented x3. Insight is poor and judgment is limited, impulse control is improving. Vitals/I&O/Wt Last Vital Signs Temp 97.8 F 10/09/22 06:00 Pulse 90 10/09/22 06:00 Resp 17 10/09/22 06:00 BP 108/76 10/09/22 06:00 Pulse Ox 99 10/09/22 06:00 O2 Del Method Room Air 10/09/22 08:55 O2 Flow Rate 2 10/08/22 08:00 FiO2 30 09/24/22 15:40 Physical Exam Urinary Catheter Management: [place]: Cath Placed During This Visit: yes, but has since been removed by the nurse Reason for Continuing Indwelling Catheter: Accurate Measurement of Urinary Output in Critically Ill Patients Urinary Catheter Date of Insertion: 09/22/22 Urinary Catheter Time of Insertion: 20:38 Date Urinary Catheter Removed: 09/25/22 Time Urinary Catheter Discontinued: 12:00 Data NPU 09/29/22 09:20 09/29/22 09:20 A&P Assessment and plan (1) Bipolar disorder, unspecified: (2) Suicidal ideation: (3) Alcohol dependence: (4) Malingering: (5) Hypothyroidism: (6) Depression: Qualifiers: Depression Type: unspecified Qualified Code(s): F32.A - Depression, unspecified Plan Patient is a 41-year-old white male with a history of alcohol dependence along with unspecified bipolar disorder with a history of multiple inpatient admissions, this going to be his sixth since July 29, 2022, coming to the unit via transfer from the ICU where he was intubated status post suicide attempt. 1. Continue current medications. Continue to make changes to clean up his medication regimen. Patient to decide whether he is open to an antidepressant that he has not been exposed to in the past. 2. Encourage individual, group and milieu therapy. Initiated naltrexone 50 mg p.o. daily and consider possible changes to Lamictal and/or resumption of Thorazine. Initiated Thorazine 100 mg p.o. 3 times daily. Increased it to 4 times a day. 3. Continue every 15 minute checks for safety 4. Recommend sober living treatment at the highest level of care to which the patient is willing to commit. Which ultimately would be inpatient given his current situation however there may be a need for overall residential treatment facility from a dual diagnosis or mental health standpoint. 5. [facility] protocol. 6. 21-day hold was established 10/01/2022. Involuntary Hold Information 96 Hour Hold: 96 Hour Involuntary Admission: Yes Attestations NPU Medical Necessity Statement*: Inpatient hospitalization is medically necessary and the clinically appropriate decision at this time. We will monitor medications and make changes as indicated. Likely length of stay of 6-9 days. Coding Level of Care Code Acute Code for [facility] Fwd Diagnoses Bipolar disorder, unspecified F31.9 Suicidal ideation R45.851 Alcohol dependence F10.20 Malingering Z76.5 Hypothyroidism E03.9 Depression F32.A Depression Type: unspecified
[2022-10-09 14:00] VITALS: BP 132/76; PULSE 93; RESP 16; TEMP 36.8; O2SAT 96
[2022-10-09] MEDS: trazodone 50 mg Tablet PO ×2 (20:42→22:48)
[2022-10-09 22:08] VITALS: BP 114/79; PULSE 89; RESP 18; TEMP 36.4; O2SAT 93
[2022-10-10 06:00] VITALS: BP 107/70; PULSE 96; RESP 16; TEMP 36.7; O2SAT 95
[2022-10-10] MEDS: levothyroxine 25 mcg Tablet PO (06:00)
[2022-10-10] MEDS: pantoprazole DR 40 mg Tablet PO (06:00)
[2022-10-10] MEDS: chlorPROMazine 50 mg Tablet 100 MG PO ×4 (08:48→20:00)
[2022-10-10] MEDS: gabapentin 300 mg Capsule PO ×3 (08:48→20:05)
[2022-10-10] MEDS: nicotine 4 mg lozenge MUCOUS MEM ×5 (08:48→20:11)
[2022-10-10] MEDS: metoprolol succinate ER (24 HR) 50 mg Tablet PO (08:49)
[2022-10-10] MEDS: naproxen 500 mg Tablet PO ×2 (08:49→20:04)
[2022-10-10] MEDS: lamoTRIgine 25 mg Tablet PO ×2 (08:49→20:04)
[2022-10-10] MEDS: multivitamin therapeutic Tablet 1 TAB PO (08:50)
[2022-10-10] MEDS: thiamine 100 mg Tablet PO (08:50)
[2022-10-10] MEDS: folic acid 1 mg Tablet PO (08:50)
[2022-10-10] MEDS: naltrexone hcl 50 mg Tablet PO (08:50)
[2022-10-10] MEDS: levETIRAcetam 500 mg Tablet 250 MG PO ×2 (08:51→20:05)
[2022-10-10] MEDS: atorvastatin 40 mg Tablet 20 MG PO (08:51)
[2022-10-10] MEDS: cyclobenzaprine 10 mg Tablet 5 MG PO ×2 (10:02→20:05)
[2022-10-10 13:57] VITALS: BP 108/77; PULSE 102; RESP 17; TEMP 36.9; O2SAT 90
--- NOTE | 2022-10-10 17:45 | W.PM.NPUPNS ---
Subjective NPU Subjective: Patient presented to the discussion with a more open mind possibly since he met with therapist on the unit. He continues to have a vision of wanting to just go home at this point but we were able to discuss the treatment team's position of allowing for 1/7 hospitalization in the last couple months but to create an environment of success which at this point we feel involved a guardian. Dr. Rizzo will be here on Thursday and will put a fresh set of eyes on the situation and will determine whether we proceed with guardianship filing. Mental Status Exam MSE Comments: This is an obese versus morbidly obese white male in hospital scrubs with limited grooming and limited eye contact. No abnormal movements except for significant psychomotor retardation. Cooperative with exam in no acute distress. Speech was decreased rate and volume. Mood described as maybe a little better better. His affect was less flat and subdued. Thought process was organized. Thought content: Patient did not endorse suicidal or homicidal ideation, there were no delusions reported or noted, he denied any auditory or visual hallucinations. Attention and concentration were intact and memory appeared mostly reliable but none were formally tested. He is arousable and oriented x3. Insight is poor and judgment is limited, impulse control is improving. Vitals/I&O/Wt Last Vital Signs Temp 99 F 10/10/22 20:12 Pulse 96 10/10/22 20:12 Resp 12 10/10/22 20:12 BP 130/86 10/10/22 20:12 Pulse Ox 93 10/10/22 20:12 O2 Del Method Room Air 10/10/22 20:12 O2 Flow Rate 2 10/10/22 08:00 FiO2 30 09/24/22 15:40 Physical Exam Urinary Catheter Management: [place]: Cath Placed During This Visit: yes, but has since been removed by the nurse Reason for Continuing Indwelling Catheter: Accurate Measurement of Urinary Output in Critically Ill Patients Urinary Catheter Date of Insertion: 09/22/22 Urinary Catheter Time of Insertion: 20:38 Date Urinary Catheter Removed: 09/25/22 Time Urinary Catheter Discontinued: 12:00 Data NPU 09/29/22 09:20 09/29/22 09:20 A&P Assessment and plan (1) Bipolar disorder, unspecified: (2) Suicidal ideation: (3) Alcohol dependence: (4) Malingering: (5) Hypothyroidism: (6) Depression: Qualifiers: Depression Type: unspecified Qualified Code(s): F32.A - Depression, unspecified Plan Patient is a 41-year-old white male with a history of alcohol dependence along with unspecified bipolar disorder with a history of multiple inpatient admissions, this going to be his sixth since July 29, 2022, coming to the unit via transfer from the ICU where he was intubated status post suicide attempt. 1. Continue current medications. Continue to make changes to clean up his medication regimen. Patient to decide whether he is open to an antidepressant that he has not been exposed to in the past. 2. Encourage individual, group and milieu therapy. Initiated naltrexone 50 mg p.o. daily and consider possible changes to Lamictal and/or resumption of Thorazine. Initiated Thorazine 100 mg p.o. 3 times daily. Increased it to 4 times a day. 3. Continue every 15 minute checks for safety 4. Recommend sober living treatment at the highest level of care to which the patient is willing to commit. Which ultimately would be inpatient given his current situation however there may be a need for overall residential treatment facility from a dual diagnosis or mental health standpoint. 5. [facility] protocol. 6. 21-day hold was established 10/01/2022. Involuntary Hold Information 96 Hour Hold: 96 Hour Involuntary Admission: Yes Attestations NPU Medical Necessity Statement*: Inpatient hospitalization is medically necessary and the clinically appropriate decision at this time. We will monitor medications and make changes as indicated. Likely length of stay of 6-9 days. Coding Level of Care Code Acute Code for [facility] Fw Diagnoses Bipolar disorder, unspecified F31.9 Suicidal ideation R45.851 Alcohol dependence F10.20 Malingering Z76.5 Hypothyroidism E03.9 Depression F32.A Depression Type: unspecified
[2022-10-10] MEDS: trazodone 50 mg Tablet PO (20:05)
[2022-10-10 20:12] VITALS: BP 130/86; PULSE 96; RESP 12; TEMP 37.2; O2SAT 93
[2022-10-11] MEDS: pantoprazole DR 40 mg Tablet PO (06:02)
[2022-10-11] MEDS: levothyroxine 25 mcg Tablet PO (06:02)
[2022-10-11 06:28] VITALS: BP 120/75; PULSE 92; RESP 16; TEMP 36.4; O2SAT 94
--- NOTE | 2022-10-11 07:17 | W.PM.NPUPNS ---
Subjective NPU Subjective: Patient presented today reporting that he was feeling better. He continued to be akinetic and slowed but reports improvement. He reports that he is ready go home and manage things he needs to do at home. He reports that he wants himself and reports that he will not drink but does not appear to have a clear plan for how things to be different this time versus the last 5 discharges in the past couple months. We discussed Dr. Rizzo taking over and them identifying where to go with guardianship. Mental Status Exam MSE Comments: This is an obese versus morbidly obese white male in hospital scrubs with adequate grooming and limited eye contact. No abnormal movements except for psychomotor retardation. Cooperative with exam in no acute distress. Speech was decreased rate and volume. Mood described as maybe a little better. His affect was less flat and subdued. Thought process was organized. Thought content: Patient did not endorse suicidal or homicidal ideation, there were no delusions reported or noted, he denied any auditory or visual hallucinations. Attention and concentration were intact and memory appeared mostly reliable but none were formally tested. He is alert and oriented x3. Insight is poor and judgment is limited, impulse control is improving. Vitals/I&O/Wt Last Vital Signs Temp 97.5 F L 10/11/22 06:28 Pulse 92 10/11/22 06:28 Resp 16 10/11/22 06:28 BP 120/75 10/11/22 06:28 Pulse Ox 94 10/11/22 06:28 O2 Del Method Room Air 10/11/22 06:28 10/11/22 10/12/22 10/12/22 22:59 06:59 14:59 Intake Total 0 / 0 Output Total 1700 / 1700 Balance -1700 / -1700 Weight last 48 hrs Weight 138.436 kg Physical Exam Urinary Catheter Management: [place]: Cath Placed During This Visit: yes, but has since been removed by the nurse Reason for Continuing Indwelling Catheter: Accurate Measurement of Urinary Output in Critically Ill Patients Urinary Catheter Date of Insertion: 09/22/22 Urinary Catheter Time of Insertion: 20:38 Date Urinary Catheter Removed: 09/25/22 Time Urinary Catheter Discontinued: 12:00 Data NPU 09/29/22 09:20 09/29/22 09:20 A&P Assessment and plan (1) Bipolar disorder, unspecified: (2) Suicidal ideation: (3) Alcohol dependence: (4) Malingering: (5) Hypothyroidism: (6) Depression: Qualifiers: Depression Type: unspecified Qualified Code(s): F32.A - Depression, unspecified Plan Patient is a 41-year-old white male with a history of alcohol dependence along with unspecified bipolar disorder with a history of multiple inpatient admissions, this going to be his sixth since July 29, 2022, coming to the unit via transfer from the ICU where he was intubated status post suicide attempt. 1. Continue current medications. Continue to make changes to clean up his medication regimen. Patient to decide whether he is open to an antidepressant that he has not been exposed to in the past. 2. Encourage individual, group and milieu therapy. Initiated naltrexone 50 mg p.o. daily and consider possible changes to Lamictal and/or resumption of Thorazine. Initiated Thorazine 100 mg p.o. 3 times daily. Increased it to 4 times a day. 3. Continue every 15 minute checks for safety 4. Recommend sober living treatment at the highest level of care to which the patient is willing to commit. Which ultimately would be inpatient given his current situation however there may be a need for overall residential treatment facility from a dual diagnosis or mental health standpoint. 5. [facility] protocol. 6. 21-day hold was established 10/01/2022. Involuntary Hold Information 96 Hour Hold: 96 Hour Involuntary Admission: Yes Attestations NPU Medical Necessity Statement*: Inpatient hospitalization is medically necessary and the clinically appropriate decision at this time. We will monitor medications and make changes as indicated. Likely length of stay of 5-8 days. Coding Level of Care Code Acute Code for [facility] Diagnoses Bipolar disorder, unspecified F31.9 Suicidal ideation R45.851 Alcohol dependence F10.20 Malingering Z76.5 Hypothyroidism E03.9 Depression F32.A Depression Type: unspecified
[2022-10-11] MEDS: nicotine 4 mg lozenge MUCOUS MEM ×4 (07:50→15:03)
[2022-10-11] MEDS: thiamine 100 mg Tablet PO (08:53)
[2022-10-11] MEDS: chlorPROMazine 50 mg Tablet 100 MG PO ×4 (08:53→20:01)
[2022-10-11] MEDS: lamoTRIgine 25 mg Tablet PO ×2 (08:53→20:02)
[2022-10-11] MEDS: gabapentin 300 mg Capsule PO ×3 (08:53→20:01)
[2022-10-11] MEDS: naproxen 500 mg Tablet PO ×2 (08:54→20:02)
[2022-10-11] MEDS: naltrexone hcl 50 mg Tablet PO (08:54)
[2022-10-11] MEDS: cyclobenzaprine 10 mg Tablet 5 MG PO ×3 (08:54→22:02)
[2022-10-11] MEDS: metoprolol succinate ER (24 HR) 50 mg Tablet PO (08:54)
[2022-10-11] MEDS: atorvastatin 40 mg Tablet 20 MG PO (08:54)
[2022-10-11] MEDS: multivitamin therapeutic Tablet 1 TAB PO (08:55)
[2022-10-11] MEDS: levETIRAcetam 500 mg Tablet 250 MG PO ×2 (08:55→20:02)
[2022-10-11] MEDS: folic acid 1 mg Tablet PO (08:55)
[2022-10-11] MEDS: ibuprofen 800 mg tablet PO (13:30)
[2022-10-11 14:00] VITALS: BP 128/80; PULSE 97; RESP 18; TEMP 36.7; O2SAT 93
[2022-10-11] MEDS: nicotine 2 mg Gum BUCCAL ×2 (20:01→22:05)
[2022-10-11] MEDS: trazodone 50 mg Tablet PO ×2 (20:07→21:26)
[2022-10-11 21:25] VITALS: BP 118/79; PULSE 93; RESP 18; O2SAT 95
[2022-10-12] MEDS: levothyroxine 25 mcg Tablet PO (05:49)
[2022-10-12] MEDS: pantoprazole DR 40 mg Tablet PO (05:49)
[2022-10-12 06:00] VITALS: BP 99/62; PULSE 90; RESP 18; TEMP 36.4; O2SAT 93
[2022-10-12] MEDS: multivitamin therapeutic Tablet 1 TAB PO (08:27)
[2022-10-12] MEDS: metoprolol succinate ER (24 HR) 50 mg Tablet PO (08:27)
[2022-10-12] MEDS: gabapentin 300 mg Capsule PO ×3 (08:27→20:29)
[2022-10-12] MEDS: naltrexone hcl 50 mg Tablet PO (08:27)
[2022-10-12] MEDS: thiamine 100 mg Tablet PO (08:27)
[2022-10-12] MEDS: levETIRAcetam 500 mg Tablet 250 MG PO ×2 (08:27→20:29)
[2022-10-12] MEDS: chlorPROMazine 50 mg Tablet 100 MG PO ×4 (08:27→20:29)
[2022-10-12] MEDS: lamoTRIgine 25 mg Tablet PO (08:27)
[2022-10-12] MEDS: naproxen 500 mg Tablet PO ×2 (08:27→20:29)
[2022-10-12] MEDS: atorvastatin 40 mg Tablet 20 MG PO (08:27)
[2022-10-12] MEDS: folic acid 1 mg Tablet PO (08:27)
[2022-10-12] MEDS: cyclobenzaprine 10 mg Tablet 5 MG PO ×2 (08:29→20:50)
[2022-10-12] MEDS: nicotine 4 mg lozenge MUCOUS MEM (08:29)
[2022-10-12] MEDS: nicotine 2 mg Gum BUCCAL ×5 (10:32→20:50)
[2022-10-12] MEDS: ibuprofen 800 mg tablet PO (12:47)
[2022-10-12 12:55] VITALS: BP 136/87; PULSE 102; RESP 18; TEMP 36.4; O2SAT 93
--- NOTE | 2022-10-12 13:37 | P.NPUPN_ITS ---
Subjective NPU Subjective: Patient is a 41-year-old white male with alcohol dependence and bipolar disorder admitted with depression after overdose requiring ICU stay with suicidal intent. Patient had requested resuming gabapentin as previously prescribed. He states he had been feeling somewhat better. He reported no cravings for alcohol. He had again reiterated his desire to leave the hospital and expressed some concern about guardianship. He had stated that he had been told that it would cost approximately $3000 to have his father obtain guardianship over [place] and stated that this was not something that he could afford. He did continue to reiterate his desire to be placed in a treatment facility for an extended period of time to allow better evaluation of his medications. He had continued to reiterate that his medications needed to resume its previous doses despite the patient admitting that his previous doses of medications had not been successful in managing his mood problems. He continued to appear isolative on the milieu and stayed in his room most of the day. Mental Status Exam MSE Comments: This is an obese versus morbidly obese white male in hospital scrubs with adequate grooming and limited eye contact. No abnormal movements except for psychomotor retardation. Cooperative with exam in no acute distress. Speech was normal rate and decreased in volume. Mood described as frustrated. His affect was remained flat. Thought process was linear and organized. Thought content: Patient did not endorse suicidal or homicidal ideation, there were no delusions reported or noted, he denied any auditory or visual hallucinations. There was significant evidence of cognitive distortions. Attention and concentration were intact and memory appeared mostly reliable but none were formally tested. He is alert and oriented x3. Insight is poor and judgment remains poor., impulse control is limited but improving. Vitals/I&O/Wt Last Vital Signs Temp 97.5 F L 10/12/22 12:55 Pulse 102 H 10/12/22 12:55 Resp 18 10/12/22 12:55 BP 136/87 10/12/22 12:55 Pulse Ox 93 10/12/22 12:55 O2 Del Method Room Air 10/12/22 12:55 O2 Flow Rate 2 10/11/22 08:00 FiO2 30 09/24/22 15:40 10/11/22 10/12/22 10/12/22 22:59 06:59 14:59 Intake Total 0 / 0 Output Total 1700 / 1700 Balance -1700 / -1700 Weight last 48 hrs Weight 138.436 kg Physical Exam Urinary Catheter Management: [place]: Cath Placed During This Visit: yes, but has since been removed by the nurse Reason for Continuing Indwelling Catheter: Accurate Measurement of Urinary Output in Critically Ill Patients Urinary Catheter Date of Insertion: 09/22/22 Urinary Catheter Time of Insertion: 20:38 Date Urinary Catheter Removed: 09/25/22 Time Urinary Catheter Discontinued: 12:00 Data NPU 09/29/22 09:20 09/29/22 09:20 A&P Assessment and plan (1) Bipolar disorder, unspecified: (2) Suicidal ideation: (3) Alcohol dependence: (4) Malingering: (5) Hypothyroidism: (6) Depression: Qualifiers: Depression Type: unspecified Qualified Code(s): F32.A - Depression, unspecified Plan Patient is a 41-year-old white male with a history of alcohol dependence along with unspecified bipolar disorder with a history of multiple inpatient admissions, this going to be his sixth since July 29, 2022, coming to the unit via transfer from the ICU where he was intubated status post suicide attempt. 1. Continue current medications. Continue to make changes to clean up his medication regimen. Patient to decide whether he is open to an antidepressant that he has not been exposed to in the past. 2. Encourage individual, group and milieu therapy. Continue naltrexone 50 mg p.o. daily and increase Lamotrigine to 50mg bid. Continue Thorazine 100mg qid. Increase Gabapentin 300mg qid. 3. Continue every 15 minute checks for safety 4. Recommend sober living treatment at the highest level of care to which the patient is willing to commit. Which ultimately would be inpatient given his current situation however there may be a need for overall residential treatment facility from a dual diagnosis or mental health standpoint. 5. 21-day hold was established 10/01/2022. 6. Guardianship remains in question? Involuntary Hold Information 96 Hour Hold: 96 Hour Involuntary Admission: Yes Attestations NPU Medical Necessity Statement*: Inpatient hospitalization is medically necessary and the clinically appropriate decision at this time. We will monitor medications and make changes as in dicated. Likely length of stay of 5-8 days. Coding Level of Care Code Acute Code for [facility] Diagnoses Bipolar disorder, unspecified F31.9 Suicidal ideation R45.851 Alcohol dependence F10.20 Malingering Z76.5 Hypothyroidism E03.9 Depression F32.A Depression Type: unspecified
[2022-10-12] MEDS: lamoTRIgine 25 mg Tablet 50 MG PO (20:29)
[2022-10-12 20:30] VITALS: BP 116/77; PULSE 92; RESP 18; TEMP 36.6; O2SAT 93
[2022-10-13 06:00] VITALS: BP 92/60; PULSE 89; RESP 18; TEMP 36.4; O2SAT 93
[2022-10-13] MEDS: pantoprazole DR 40 mg Tablet PO (06:14)
[2022-10-13] MEDS: levothyroxine 25 mcg Tablet PO (06:14)
[2022-10-13] MEDS: nicotine 2 mg Gum BUCCAL ×4 (07:32→21:30)
[2022-10-13] MEDS: naproxen 500 mg Tablet PO ×2 (08:36→21:27)
[2022-10-13] MEDS: levETIRAcetam 500 mg Tablet 250 MG PO ×2 (08:36→21:27)
[2022-10-13] MEDS: multivitamin therapeutic Tablet 1 TAB PO (08:36)
[2022-10-13] MEDS: chlorPROMazine 50 mg Tablet 100 MG PO ×4 (08:37→21:25)
[2022-10-13] MEDS: metoprolol succinate ER (24 HR) 50 mg Tablet PO (08:37)
[2022-10-13] MEDS: gabapentin 300 mg Capsule PO ×4 (08:37→21:27)
[2022-10-13] MEDS: atorvastatin 40 mg Tablet 20 MG PO (08:37)
[2022-10-13] MEDS: folic acid 1 mg Tablet PO (08:37)
[2022-10-13] MEDS: lamoTRIgine 25 mg Tablet 50 MG PO ×2 (08:37→21:26)
[2022-10-13] MEDS: thiamine 100 mg Tablet PO (08:38)
[2022-10-13] MEDS: naltrexone hcl 50 mg Tablet PO (08:38)
[2022-10-13] MEDS: cyclobenzaprine 10 mg Tablet 5 MG PO ×2 (08:39→21:25)
[2022-10-13 09:12] VITALS: PULSE 89; RESP 18; O2SAT 93
[2022-10-13] MEDS: nicotine 4 mg lozenge MUCOUS MEM (11:43)
[2022-10-13 14:00] VITALS: BP 102/69; PULSE 94; RESP 16; TEMP 36.8; O2SAT 92
--- NOTE | 2022-10-13 18:28 | W.PM.NPUPNS ---
Subjective NPU Subjective: Patient is a 41-year-old white male with alcohol dependence and bipolar disorder admitted with depression after overdose requiring ICU stay with suicidal intent. He had been informed that the hospital intended on pursuing guardianship due to his continually expanding and more frequent hospitalizations that appeared more serious with each hospital stay. The patient had understood that he would likely be placed in a treatment facility to manage both his substance abuse needs as well as his mood disorder. The patient continued to isolate himself on the milieu. He reported no suicidal thoughts at this time. He continued to show evidence of interest in maintaining sobriety but appeared to show limited ability to manage his frustrations. He had acknowledged having previously been unable to tolerate intense treatment for his addiction. Mental Status Exam MSE Comments: This is an obese versus morbidly obese white male in hospital scrubs with adequate grooming and limited eye contact. No abnormal movements except for psychomotor retardation. Cooperative with exam in no acute distress. Speech was normal rate and decreased in volume. Mood described as okay. His affect remained flat. Thought process was linear and organized. Thought content: Patient did not endorse suicidal or homicidal ideation, there were no delusions reported or noted, he denied any auditory or visual hallucinations. There was significant evidence of cognitive distortions. Attention and concentration were intact and memory appeared mostly reliable but none were formally tested. He is alert and oriented x3. Insight is poor and judgment remains poor., impulse control is limited but improving. Vitals/I&O/Wt Last Vital Signs Temp 98.3 F 10/13/22 14:00 Pulse 94 10/13/22 14:00 Resp 16 10/13/22 14:00 BP 102/69 10/13/22 14:00 Pulse Ox 92 10/13/22 14:00 O2 Del Method Room Air 10/13/22 14:00 O2 Flow Rate 2 10/13/22 08:00 FiO2 30 09/24/22 15:40 10/13/22 10/13/22 10/13/22 06:59 14:59 22:59 Intake Total 0 / 0 Output Total 1700 / 1700 Balance -1700 / -1700 Weight last 48 hrs Weight 138.436 kg Physical Exam Urinary Catheter Management: [place]: Cath Placed During This Visit: yes, but has since been removed by the nurse Reason for Continuing Indwelling Catheter: Accurate Measurement of Urinary Output in Critically Ill Patients Urinary Catheter Date of Insertion: 09/22/22 Urinary Catheter Time of Insertion: 20:38 Date Urinary Catheter Removed: 09/25/22 Time Urinary Catheter Discontinued: 12:00 Data NPU 09/29/22 09:20 09/29/22 09:20 A&P Assessment and plan (1) Bipolar disorder, unspecified: (2) Suicidal ideation: (3) Alcohol dependence: (4) Malingering: (5) Hypothyroidism: (6) Depression: Qualifiers: Depression Type: unspecified Qualified Code(s): F32.A - Depression, unspecified Plan Patient is a 41-year-old white male with a history of alcohol dependence along with unspecified bipolar disorder with a history of multiple inpatient admissions, this going to be his sixth since July 29, 2022, coming to the unit via transfer from the ICU where he was intubated status post suicide attempt. 1. Continue current medications. Continue to make changes to clean up his medication regimen. Patient to decide whether he is open to an antidepressant that he has not been exposed to in the past. 2. Encourage individual, group and milieu therapy. Continue naltrexone 50 mg p.o. daily and continue Lamotrigine to 50mg bid. Continue Thorazine 100mg qid. Continue Gabapentin 300mg qid. 3. Continue every 15 minute checks for safety 4. Recommend sober living treatment at the highest level of care to which the patient is willing to commit. Which ultimately would be inpatient given his current situation however there may be a need for overall residential treatment facility from a dual diagnosis or mental health standpoint. 5. 21-day hold was established 10/01/2022. 6. Guardianship filed. Involuntary Hold Information 96 Hour Hold: 96 Hour Involuntary Admission: Yes Attestations NPU Medical Necessity Statement*: Inpatient hospitalization is medically necessary and the clinically appropriate decision at this time. We will monitor medications and make changes as indicated. Likely length of stay now determinant on guardianship hearing and will began seeking placement. Coding Level of Care Code Acute Code for g Fwd Diagnoses Bipolar disorder, unspecified F31.9 Suicidal ideation R45.851 Alcohol dependence F10.20 Malingering Z76.5 Hypothyroidism E03.9 Depression F32.A Depression Type: unspecified
[2022-10-13] MEDS: ibuprofen 800 mg tablet PO (19:34)
[2022-10-13 20:37] VITALS: BP 122/83; PULSE 92; RESP 18; TEMP 36.4; O2SAT 94
[2022-10-13] MEDS: trazodone 50 mg Tablet PO (21:25)
[2022-10-14 06:00] VITALS: BP 124/78; PULSE 94; RESP 20; TEMP 36.6; O2SAT 94
[2022-10-14 08:00] VITALS: O2SAT 94
[2022-10-14] MEDS: lamoTRIgine 25 mg Tablet 50 MG PO ×2 (08:41→20:08)
[2022-10-14] MEDS: naltrexone hcl 50 mg Tablet PO (08:42)
[2022-10-14] MEDS: naproxen 500 mg Tablet PO ×2 (08:42→20:08)
[2022-10-14] MEDS: folic acid 1 mg Tablet PO (08:42)
[2022-10-14] MEDS: metoprolol succinate ER (24 HR) 50 mg Tablet PO (08:42)
[2022-10-14] MEDS: pantoprazole DR 40 mg Tablet PO (08:42)
[2022-10-14] MEDS: gabapentin 300 mg Capsule PO ×4 (08:42→20:06)
[2022-10-14] MEDS: chlorPROMazine 50 mg Tablet 100 MG PO ×4 (08:42→20:06)
[2022-10-14] MEDS: levothyroxine 25 mcg Tablet PO (08:42)
[2022-10-14] MEDS: thiamine 100 mg Tablet PO (08:42)
[2022-10-14] MEDS: multivitamin therapeutic Tablet 1 TAB PO (08:42)
[2022-10-14] MEDS: levETIRAcetam 500 mg Tablet 250 MG PO ×2 (08:43→20:08)
[2022-10-14] MEDS: atorvastatin 40 mg Tablet 20 MG PO (08:43)
[2022-10-14] MEDS: nicotine 2 mg Gum BUCCAL ×4 (08:46→16:45)
[2022-10-14] MEDS: cyclobenzaprine 10 mg Tablet 5 MG PO ×2 (08:46→20:06)
[2022-10-14] MEDS: ibuprofen 800 mg tablet PO (12:56)
[2022-10-14 13:30] VITALS: BP 120/77; PULSE 101; RESP 16; TEMP 36.9; O2SAT 92
--- NOTE | 2022-10-14 18:53 | P.NPUPN_ITS ---
Subjective NPU Subjective: Patient is a 41-year-old white male with alcohol dependence and bipolar disorder admitted with depression after overdose requiring ICU stay with suicidal intent. Patient continued to show evidence of limited insight. He reported that he would fight for any legal maneuver that involved the patient being under guardianship of the county. He reported that he did not trust anyone other than his father to be his guardian. He had reported that things were worse here because he needed things to take care of at home that he would be unable to manage. He had reported no withdrawal symptoms. He had reported feeling anxious. He reported continued mood swings. Mental Status Exam MSE Comments: This is an obese versus morbidly obese white male in hospital scrubs with adequate grooming and limited eye contact. No abnormal movements except for psychomotor retardation. Cooperative with exam in no acute distress. Speech was normal rate and d normal in volume. Mood described as not good.. His affect remained constricted. Thought process was linear and organized. Thought content: Patient did not endorse suicidal or homicidal ideation, there were no delusions reported or noted, he denied any auditory or visual hallucinations. There was significant evidence of cognitive distortions. Attention and concentration were intact and memory appeared mostly reliable but none were formally tested. He is alert and oriented x3. Insight is poor and judgment remains poor., impulse control is limited but improving. Vitals/I&O/Wt Last Vital Signs Temp 98.4 F 10/14/22 13:30 Pulse 101 H 10/14/22 13:30 Resp 16 10/14/22 13:30 BP 120/77 10/14/22 13:30 Pulse Ox 92 10/14/22 13:30 O2 Del Method Room Air 10/14/22 08:00 O2 Flow Rate 2 10/13/22 08:00 FiO2 30 09/24/22 15:40 Physical Exam Urinary Catheter Management: [place]: Cath Placed During This Visit: yes, but has since been removed by the nurse Reason for Continuing Indwelling Catheter: Accurate Measurement of Urinary Output in Critically Ill Patients Urinary Catheter Date of Insertion: 09/22/22 Urinary Catheter Time of Insertion: 20:38 Date Urinary Catheter Removed: 09/25/22 Time Urinary Catheter Discontinued: 12:00 Data NPU 09/29/22 09:20 09/29/22 09:20 A&P Assessment and plan (1) Bipolar disorder, unspecified: (2) Suicidal ideation: (3) Alcohol dependence: (4) Malingering: (5) Hypothyroidism: (6) Depression: Qualifiers: Depression Type: unspecified Qualified Code(s): F32.A - Depression, unspecified Plan Patient is a 41-year-old white male with a history of alcohol dependence along w ith unspecified bipolar disorder with a history of multiple inpatient admissions, this going to be his sixth since July 29, 2022, coming to the unit via transfer from the ICU where he was intubated status post suicide attempt. 1. Started on Vivitrol intramuscularly today 380 mg 2. Encourage individual, group and milieu therapy. Discontinue naltrexone 50 mg p.o. daily and continue Lamotrigine to 50mg bid. Continue Thorazine 100mg qid. Continue Gabapentin 300mg qid. 3. Continue every 15 minute checks for safety 4. Recommend sober living treatment at the highest level of care to which the patient is willing to commit. Which ultimately would be inpatient given his current situation however there may be a need for overall residential treatment facility from a dual diagnosis or mental health standpoint. 5. 21-day hold was established 10/01/2022. 6. Guardianship filed. Involuntary Hold Information 96 Hour Hold: 96 Hour Involuntary Admission: Yes Attestations NPU Medical Necessity Statement*: Inpatient hospitalization is medically necessary and the clinically appropriate decision at this time. We will monitor medications and make changes as indicated. Likely length of stay now determinant on guardianship hearing and will began seeking placement. Coding Level of Care Code Acute Code for [facility] Fwd Diagnoses Bipolar disorder, unspecified F31.9 Suicidal ideation R45.851 Alcohol dependence F10.20 Malingering Z76.5 Hypothyroidism E03.9 Depression F32.A Depression Type: unspecified
[2022-10-14] MEDS: trazodone 50 mg Tablet PO (20:32)
[2022-10-14] MEDS: nicotine 4 mg lozenge MUCOUS MEM (20:33)
[2022-10-14 22:00] VITALS: BP 108/72; PULSE 94; RESP 18; TEMP 36.6; O2SAT 91
[2022-10-15 06:00] VITALS: BP 117/85; PULSE 90; RESP 18; TEMP 36.4; O2SAT 91
[2022-10-15 08:00] VITALS: PULSE 90; RESP 18; O2SAT 94
[2022-10-15] MEDS: levETIRAcetam 500 mg Tablet 250 MG PO ×2 (08:34→20:18)
[2022-10-15] MEDS: thiamine 100 mg Tablet PO (08:34)
[2022-10-15] MEDS: folic acid 1 mg Tablet PO (08:34)
[2022-10-15] MEDS: naproxen 500 mg Tablet PO ×2 (08:34→20:17)
[2022-10-15] MEDS: metoprolol succinate ER (24 HR) 50 mg Tablet PO (08:34)
[2022-10-15] MEDS: pantoprazole DR 40 mg Tablet PO (08:35)
[2022-10-15] MEDS: cyclobenzaprine 10 mg Tablet 5 MG PO ×3 (08:35→20:21)
[2022-10-15] MEDS: atorvastatin 40 mg Tablet 20 MG PO (08:35)
[2022-10-15] MEDS: levothyroxine 25 mcg Tablet PO (08:35)
[2022-10-15] MEDS: chlorPROMazine 50 mg Tablet 100 MG PO ×4 (08:36→20:15)
[2022-10-15] MEDS: gabapentin 300 mg Capsule PO ×4 (08:36→20:17)
[2022-10-15] MEDS: multivitamin therapeutic Tablet 1 TAB PO (08:36)
[2022-10-15] MEDS: lamoTRIgine 25 mg Tablet 50 MG PO ×2 (08:36→20:19)
[2022-10-15] MEDS: nicotine 4 mg lozenge MUCOUS MEM ×5 (08:36→18:04)
[2022-10-15] MEDS: OLANZapine 5 mg ODT PO (08:39)
[2022-10-15] MEDS: haloperidol 5 mg Tablet PO (10:00)
[2022-10-15] MEDS: hyDROXYzine 25 mg Capsule 50 MG PO (11:44)
[2022-10-15] MEDS: ibuprofen 800 mg tablet PO (12:57)
[2022-10-15 14:00] VITALS: BP 105/71; PULSE 101; RESP 17; TEMP 37.1; O2SAT 98
--- NOTE | 2022-10-15 15:46 | PC.NURSE ---
while administering a nicotine lozenge pt dropped lozenge. lozenge was disposed of and wasted in the pyxis. pt was then given a different lozenge.
--- NOTE | 2022-10-15 17:30 | W.PM.NPUPNS ---
Subjective NPU Subjective: Patient is a 41-year-old white male with alcohol dependence and bipolar disorder admitted with depression after overdose requiring ICU stay with suicidal intent. He appeared to isolate himself on the milieu. He continued to complain of not having a chance to try to succeed outside of the hospital and stated that he would fight any efforts for the state to obtain guardianship. He appeared to be minimally interested in treatment. He had reported no side effects from his current medications. He had not complained significantly regarding pain issues today. He reported no suicidal thoughts at this time. Mental Status Exam MSE Comments: This is an obese versus morbidly obese white male in hospital scrubs with adequate grooming and limited eye contact. No abnormal movements except for psychomotor retardation. Cooperative with exam in no acute distress. Speech was normal rate and d normal in volume. Mood described as terrible. His affect remained constricted. Thought process was linear and organized. Thought content: Patient did not endorse suicidal or homicidal ideation, there were no delusions reported or noted, he denied any auditory or visual hallucinations. There was significant evidence of cognitive distortions. Attention and concentration were intact and memory appeared mostly reliable but none were formally tested. He is alert and oriented x3. Insight is impaired and judgment remains poor., impulse control is less than adequate. Vitals/I&O/Wt Last Vital Signs Temp 98.7 F 10/15/22 14:00 Pulse 101 H 10/15/22 14:00 Resp 17 10/15/22 14:00 BP 105/71 10/15/22 14:00 Pulse Ox 98 10/15/22 14:00 O2 Del Method Room Air 10/15/22 08:00 O2 Flow Rate 2 10/13/22 08:00 FiO2 30 09/24/22 15:40 Physical Exam Urinary Catheter Management: [place]: Cath Placed During This Visit: yes, but has since been removed by the nurse Reason for Continuing Indwelling Catheter: Accurate Measurement of Urinary Output in Critically Ill Patients Urinary Catheter Date of Insertion: 09/22/22 Urinary Catheter Time of Insertion: 20:38 Date Urinary Catheter Removed: 09/25/22 Time Urinary Catheter Discontinued: 12:00 Data NPU 09/29/22 09:20 09/29/22 09:20 A&P Assessment and plan (1) Bipolar disorder, unspecified: (2) Suicidal ideation: (3) Alcohol dependence: (4) Malingering: (5) Hypothyroidism: (6) Depression: Qualifiers: Depression Type: unspecified Qualified Code(s): F32.A - Depression, unspecified Plan Patient is a 41-year-old white male with a history of alcohol dependence along with unspecified bipolar disorder with a history of multiple inpatient admissions, this going to be his sixth since July 29, 2022, coming to the unit via transfer from the ICU where he was intubated status post suicide attempt. 1. Started on Vivitrol intramuscularly today 380 mg 2. Encourage individual, group and milieu therapy. Continue Lamotrigine to 50mg bid. Continue Thorazine 100mg qid. Continue Gabapentin 300mg qid. 3. Continue every 15 minute checks for safety 4. Recommend sober living treatment at the highest level of care to which the patient is willing to commit. Which ultimately would be inpatient given his current situation however there may be a need for overall residential treatment facility from a dual diagnosis or mental health standpoint. 5. 21-day hold was established 10/01/2022. 6. Guardianship filed. Involuntary Hold Information 96 Hour Hold: 96 Hour Involuntary Admission: Yes Attestations NPU Medical Necessity Statement*: Inpatient hospitalization is medically necessary and the clinically appropriate decision at this time. We will monitor medications and make changes as indicated. Likely length of stay now determinant on guardianship hearing and will began seeking placement. Coding Level of Care Code Acute Code for [facility] Fwd Diagnoses Bipolar disorder, unspecified F31.9 Suicidal ideation R45.851 Alcohol dependence F10.20 Malingering Z76.5 Hypothyroidism E03.9 Depression F32.A Depression Type: unspecified
[2022-10-15] MEDS: trazodone 50 mg Tablet PO (20:21)
[2022-10-15] MEDS: nicotine 2 mg Gum BUCCAL (20:21)
[2022-10-15 20:58] VITALS: BP 131/87; PULSE 95; RESP 18; TEMP 36.4; O2SAT 93
[2022-10-16] MEDS: trazodone 50 mg Tablet PO ×3 (01:53→21:55)
[2022-10-16 06:00] VITALS: BP 105/71; PULSE 89; RESP 16; TEMP 36.4; O2SAT 96
[2022-10-16] MEDS: nicotine 2 mg Gum BUCCAL ×5 (06:27→20:42)
[2022-10-16] MEDS: atorvastatin 40 mg Tablet 20 MG PO (09:14)
[2022-10-16] MEDS: metoprolol succinate ER (24 HR) 50 mg Tablet PO (09:14)
[2022-10-16] MEDS: cyclobenzaprine 10 mg Tablet 5 MG PO ×2 (09:14→20:41)
[2022-10-16] MEDS: chlorPROMazine 50 mg Tablet 100 MG PO ×4 (09:14→20:42)
[2022-10-16] MEDS: multivitamin therapeutic Tablet 1 TAB PO (09:14)
[2022-10-16] MEDS: levothyroxine 25 mcg Tablet PO (09:15)
[2022-10-16] MEDS: pantoprazole DR 40 mg Tablet PO (09:15)
[2022-10-16] MEDS: levETIRAcetam 500 mg Tablet 250 MG PO ×2 (09:15→20:40)
[2022-10-16] MEDS: naproxen 500 mg Tablet PO ×2 (09:15→21:13)
[2022-10-16] MEDS: folic acid 1 mg Tablet PO (09:15)
[2022-10-16] MEDS: gabapentin 300 mg Capsule PO ×4 (09:15→20:41)
[2022-10-16] MEDS: thiamine 100 mg Tablet PO (09:15)
[2022-10-16] MEDS: lamoTRIgine 25 mg Tablet 50 MG PO ×2 (09:18→20:41)
[2022-10-16 14:00] VITALS: BP 123/86; PULSE 101; RESP 16; TEMP 36.6; O2SAT 90
--- NOTE | 2022-10-16 15:37 | P.NPUPN_ITS ---
Subjective NPU Subjective: Patient is a 41-year-old white male with alcohol dependence and bipolar disorder admitted with depression after overdose requiring ICU stay with suicidal intent and plan. He continues to insist upon his discharge. He had understood that he was here to stay with guardianship hearing pending. He had reported some difficulties with sleep. He continued to isolate himself on the milieu. He continued to report having a series of many things that needed to be done on the outside as he stated that he had desire to work despite not having been able to engage in work due to the significant consumption of alcohol. He had minimized any cravings for alcohol. He had denied any suicidal thoughts at this time. He had endorsed feeling anxious at this time. Mental Status Exam MSE Comments: This is an obese white male in hospital scrubs with adequate grooming and limited eye contact. No abnormal movements except for psychomotor retardation. He was cooperative with exam in no acute distress. Speech was normal in volume and prosody with diminshed rate. Mood described as horrible. His affect remained sullen and flat. Thought process was linear and organized. Thought content: Patient did not endorse suicidal or homicidal ideation, there were no delusions reported or noted, he denied any auditory or visual hallucinations. There was significant evidence of cognitive distortions. Attention and concentration were intact and memory appeared mostly reliable but none were f ormally tested. He is alert and oriented x3. Insight is impaired and judgment remains poor, impulse control is poor. Vitals/I&O/Wt Last Vital Signs Temp 97.8 F 10/16/22 14:00 Pulse 101 H 10/16/22 14:00 Resp 16 10/16/22 14:00 BP 123/86 10/16/22 14:00 Pulse Ox 90 10/16/22 14:00 O2 Del Method Room Air 10/16/22 14:00 O2 Flow Rate 2 10/16/22 08:00 FiO2 30 09/24/22 15:40 Physical Exam Urinary Catheter Management: [place]: Cath Placed During This Visit: yes, but has since been removed by the nurse Reason for Continuing Indwelling Catheter: Accurate Measurement of Urinary Output in Critically Ill Patients Urinary Catheter Date of Insertion: 09/22/22 Urinary Catheter Time of Insertion: 20:38 Date Urinary Catheter Removed: 09/25/22 Time Urinary Catheter Discontinued: 12:00 Data NPU 09/29/22 09:20 09/29/22 09:20 A&P Assessment and plan (1) Bipolar disorder, unspecified: (2) Suicidal ideation: (3) Alcohol dependence: (4) Malingering: (5) Hypothyroidism: (6) Depression: Qualifiers: Depression Type: unspecified Qualified Code(s): F32.A - Depression, unspecified Plan Patient is a 41-year-old white male with a history of alcohol dependence along with unspecified bipolar disorder with a history of multiple inpatient admissions, this going to be his sixth since July 29, 2022, coming to the unit via transfer from the ICU where he was intubated status post suicide attempt. 1. Patient on Vivitrol intramuscularly 380 mg given on 10/13/22. 2. Encourage individual, group and milieu therapy. Continue Lamotrigine to 50mg bid. Continue Thorazine 100mg qid. Continue Gabapentin 300mg qid. 3. Continue every 15 minute checks for safety 4. Recommend sober living treatment at the highest level of care to which the patient is willing to commit. Which ultimately would be inpatient given his current situation however there may be a need for overall residential treatment facility from a dual diagnosis or mental health standpoint. 5. 21-day hold was established 10/01/2022. 6. Guardianship filed. Involuntary Hold Information 96 Hour Hold: 96 Hour Involuntary Admission: Yes Attestations NPU Medical Necessity Statement*: Inpatient hospitalization is medically necessary and the clinically appropriate decision at this time. We will monitor medications and make changes as indicated. Likely length of stay now determinant on guardianship hearing and will began seeking placement. Coding Level of Care Code Acute Code for [facility] Fw Diagnoses Bipolar disorder, unspecified F31.9 Suicidal ideation R45.851 Alcohol dependence F10.20 Malingering Z76.5 Hypothyroidism E03.9 Depression F32.A Depression Type: unspecified
[2022-10-16] MEDS: ibuprofen 800 mg tablet PO (16:55)
[2022-10-16] MEDS: OLANZapine 5 mg ODT PO (21:55)
[2022-10-16] MEDS: hyDROXYzine 25 mg Capsule 50 MG PO (21:55)
[2022-10-16 22:00] VITALS: BP 117/81; PULSE 95; RESP 18; O2SAT 91
[2022-10-17] MEDS: nicotine 2 mg Gum BUCCAL ×3 (07:04→20:45)
[2022-10-17] MEDS: levETIRAcetam 500 mg Tablet 250 MG PO ×2 (08:44→20:46)
[2022-10-17] MEDS: thiamine 100 mg Tablet PO (08:45)
[2022-10-17] MEDS: lamoTRIgine 25 mg Tablet 50 MG PO ×2 (08:45→20:45)
[2022-10-17] MEDS: atorvastatin 40 mg Tablet 20 MG PO (08:46)
[2022-10-17] MEDS: levothyroxine 25 mcg Tablet PO (08:46)
[2022-10-17] MEDS: folic acid 1 mg Tablet PO (08:46)
[2022-10-17] MEDS: metoprolol succinate ER (24 HR) 50 mg Tablet PO (08:47)
[2022-10-17] MEDS: naproxen 500 mg Tablet PO ×2 (08:47→20:45)
[2022-10-17] MEDS: gabapentin 300 mg Capsule PO ×4 (08:47→20:45)
[2022-10-17] MEDS: cyclobenzaprine 10 mg Tablet 5 MG PO ×3 (08:48→20:46)
[2022-10-17] MEDS: pantoprazole DR 40 mg Tablet PO (08:48)
[2022-10-17] MEDS: multivitamin therapeutic Tablet 1 TAB PO (08:48)
[2022-10-17] MEDS: chlorPROMazine 50 mg Tablet 100 MG PO ×4 (08:48→20:45)
[2022-10-17] MEDS: nicotine 4 mg lozenge MUCOUS MEM ×2 (12:40→18:03)
[2022-10-17] MEDS: CLONazepam 0.5 mg Tablet 0.25 MG PO ×2 (13:08→17:12)
[2022-10-17] MEDS: ibuprofen 800 mg tablet PO (13:08)
[2022-10-17 14:00] VITALS: BP 130/85; PULSE 100; RESP 20; TEMP 36.9; O2SAT 93
--- NOTE | 2022-10-17 14:52 | W.PM.NPUPNS ---
Subjective NPU Subjective: Patient is a 41-year-old white male with alcohol dependence and bipolar disorder admitted with depression after overdose requiring ICU stay with suicidal intent and plan. He had reported having struggles with anxiety for a long period of time and included symptom suggestive of social phobia and generalized anxiety disorder since childhood. He had reported having problems with managing stress and stated that he had often taken all of his medicines at once to help with managing his distress. He had reported that he was not having as many cravings for alcohol with the naltrexone (Vivitrol). He reported having no suicidal thoughts. He had reported that he had had chronic problems with distrust of others and was informed that guardianship would be likely temporary until the patient was placed in a facility. He had reported an inability to tolerate groups while attending [facility] and stated that he had struggled with focusing on his own issues as he stated that he disliked being the center of attention. He had reported being annoyed easily and stated that he was concerned that he would be homeless if he did not take care of his current living situation. The patient was agreeable to getting help with disability. Patient had isolated on the milieu. He had struggled with attending groups and when he did he appeared relatively quiet. Mental Status Exam MSE Comments: This is an obese white male in hospital scrubs with adequate grooming and limited eye contact. No abnormal movements except for psychomotor retardation. He was cooperative with exam in no acute distress. Speech was normal in volume and prosody with normal rate. His mood was described as okay.. His affect remained flat. Thought process was linear and organized. Thought content: Patient did not endorse suicidal or homicidal ideation, there were no delusions reported or noted, he denied any auditory or visual hallucinations. There was significant evidence of cognitive distortions. Attention and concentration were intact and memory appeared mostly reliable but none were formally tested. He is alert and oriented x3. Insight is impaired and judgment remains poor, impulse control is poor. Vitals/I&O/Wt Last Vital Signs Temp 98.4 F 10/17/22 14:00 Pulse 100 10/17/22 14:00 Resp 20 H 10/17/22 14:00 BP 130/85 10/17/22 14:00 Pulse Ox 93 10/17/22 14:00 O2 Del Method Room Air 10/16/22 22:00 O2 Flow Rate 2 06/09/23 08:00 FiO2 30 09/24/22 15:40 10/16/22 10/17/22 10/17/22 22:59 06:59 14:59 Intake Total 0 / 0 0 / 0 Output Total 1700 / 1700 1700 / 1700 Balance -1700 / -1700 -1700 / -1700 Physical Exam Urinary Catheter Management: [place]: Cath Placed During This Visit: yes, but has since been removed by the nurse Reason for Continuing Indwelling Catheter: Accurate Measurement of Urinary Output in Critically Ill Patients Urinary Catheter Date of Insertion: 09/22/22 Urinary Catheter Time of Insertion: 20:38 Date Urinary Catheter Removed: 09/25/22 Time Urinary Catheter Discontinued: 12:00 Data NPU 09/29/22 09:20 09/29/22 09:20 A&P Assessment and plan (1) Bipolar disorder, unspecified: (2) Anxiety disorder: (3) Suicidal ideation: (4) Alcohol dependence: (5) Hypothyroidism: (6) Depression: Qualifiers: Depression Type: unspecified Qualified Code(s): F32.A - Depression, unspecified Plan Patient is a 41-year-old white male with a history of alcohol dependence along with unspecified bipolar disorder with a history of multiple inpatient admissions, this going to be his sixth since July 29, 2022, coming to the unit via transfer from the ICU where he was intubated status post suicide attempt. 1. Patient on Vivitrol intramuscularly 380 mg given on 10/13/22. Add Klonopin .25mg bid. 2. Encourage individual, group and milieu therapy. Continue Lamotrigine to 50mg bid. Continue Thorazine 100mg qid. Continue Gabapentin 300mg qid. 3. Continue every 15 minute checks for safety 4. Recommend sober living treatment at the highest level of care to which the patient is willing to commit. Which ultimately would be inpatient given his current situation however there may be a need for overall residential treatment facility from a dual diagnosis or mental health standpoint. 5. 21-day hold was established 10/01/2022. 6. Guardianship filed. Involuntary Hold Information 96 Hour Hold: 96 Hour Involuntary Admission: Yes Attestations NPU Medical Necessity Statement*: Inpatient hospitalization is medically necessary and the clinically appropriate decision at this time. We will monitor medications and make changes as indicated. Likely length of stay now determinant on guardianship hearing and will began seeking placement. Coding Level of Care Code Acute Code for [facility] Fwd Diagnoses Bipolar disorder, unspecified F31.9 Anxiety disorder F41.9 Suicidal ideation R45.851 Alcohol dependence F10.20 Hypothyroidism E03.9 Depression F32.A Depression Type: unspecified
[2022-10-17] MEDS: trazodone 50 mg Tablet PO ×2 (20:45→22:19)
[2022-10-17 21:13] VITALS: BP 111/75; PULSE 100; RESP 17; TEMP 36.4; O2SAT 94
[2022-10-18 06:00] VITALS: BP 119/71; PULSE 91; RESP 16; TEMP 36.3; O2SAT 92
[2022-10-18] MEDS: nicotine 2 mg Gum BUCCAL ×2 (07:24→20:05)
[2022-10-18] MEDS: lamoTRIgine 25 mg Tablet 50 MG PO ×2 (08:47→19:51)
[2022-10-18] MEDS: multivitamin therapeutic Tablet 1 TAB PO (08:47)
[2022-10-18] MEDS: metoprolol succinate ER (24 HR) 50 mg Tablet PO (08:47)
[2022-10-18] MEDS: chlorPROMazine 50 mg Tablet 100 MG PO ×4 (08:47→19:52)
[2022-10-18] MEDS: levETIRAcetam 500 mg Tablet 250 MG PO ×2 (08:48→19:57)
[2022-10-18] MEDS: naproxen 500 mg Tablet PO ×2 (08:48→19:54)
[2022-10-18] MEDS: thiamine 100 mg Tablet PO (08:48)
[2022-10-18] MEDS: pantoprazole DR 40 mg Tablet PO (08:49)
[2022-10-18] MEDS: gabapentin 300 mg Capsule PO ×4 (08:49→19:53)
[2022-10-18] MEDS: levothyroxine 25 mcg Tablet PO (08:49)
[2022-10-18] MEDS: cyclobenzaprine 10 mg Tablet 5 MG PO (08:49)
[2022-10-18] MEDS: atorvastatin 40 mg Tablet 20 MG PO (08:49)
[2022-10-18] MEDS: folic acid 1 mg Tablet PO (08:49)
[2022-10-18] MEDS: CLONazepam 0.5 mg Tablet 0.25 MG PO ×2 (08:50→17:38)
[2022-10-18] MEDS: nicotine 4 mg lozenge MUCOUS MEM ×5 (09:44→18:05)
[2022-10-18] MEDS: ibuprofen 800 mg tablet PO (12:45)
--- NOTE | 2022-10-18 12:51 | P.NPUPN_ITS ---
Subjective NPU Subjective: Patient is a 41-year-old white male with alcohol dependence and bipolar disorder admitted with depression after overdose requiring ICU stay with suicidal intent and plan. The patient reported no cravings for alcohol. He reported no side effects from the Klonopin initiation. He had reported having some muscle pain and requested an increase back to his previous dose of Flexeril. He had re ported improved sleep. He had continued to isolate himself on the milieu. He had continued to reiterate that he did not need to be here but had expressed gratitude for having started on something to help with his anxiety as he stated that the anxiety had historically been overwhelming and prevented him from being around other people. Staff notes patient had continue to isolate himself. He had engaged in appropriate self-care. The patient had complained of having some muscle spasms. He had reported feeling less tired. He did not require any as needed medications. He had minimized having thoughts of hurting himself or others at this time. Mental Status Exam MSE Comments: This is an obese white male in hospital scrubs with adequate grooming and limited eye contact. No abnormal movements except for psychomotor retardation. He was cooperative with exam in no acute distress. Speech was normal in volume and prosody with normal rate. His mood was described as allright. His af fect remained restricted. Thought process was linear and organized. Thought content: Patient did not endorse suicidal or homicidal ideation, there were no delusions reported or noted, he denied any auditory or visual hallucinations. There was significant evidence of cognitive distortions. Attention and concentration were intact and memory appeared mostly reliable but none were formally tested. He is alert and oriented x3. Insight is impaired and judgment remains poor, impulse control is poor. Vitals/I&O/Wt Last Vital Signs Temp 97.4 F L 10/18/22 06:00 Pulse 91 10/18/22 06:00 Resp 16 10/18/22 06:00 BP 119/71 10/18/22 06:00 Pulse Ox 92 10/18/22 06:00 O2 Del Method Room Air 10/16/22 22:00 O2 Flow Rate 2 10/17/22 08:00 FiO2 30 09/24/22 15:40 Physical Exam Urinary Catheter Management: [place]: Cath Placed During This Visit: yes, but has since been removed by the nurse Reason for Continuing Indwelling Catheter: Accurate Measurement of Urinary Output in Critically Ill Patients Urinary Catheter Date of Insertion: 09/22/22 Urinary Catheter Time of Insertion: 20:38 Date Urinary Catheter Removed: 09/25/22 Time Urinary Catheter Discontinued: 12:00 Data NPU 09/29/22 09:20 09/29/22 09:20 A&P Assessment and plan (1) Bipolar disorder, unspecified: (2) Anxiety disorder: (3) Suicidal ideation: (4) Alcohol dependence: (5) Hypothyroidism: (6) Depression: Qualifiers: Depression Type: unspecified Qualified Code(s): F32.A - Depression, unspecified Plan Patient is a 41-year-old white male with a history of alcohol dependence along with unspecified bipolar disorder with a history of multiple inpatient admissions, this going to be his sixth since July 29, 2022, coming to the unit via transfer from the ICU where he was intubated status post suicide attempt. 1. Patient on Vivitrol intramuscularly 380 mg given on 10/13/22. Continue Klonopin .25mg bid. Restart Prozac 20mg daily 2. Encourage individual, group and milieu therapy. Continue Lamotrigine to 50mg bid. Continue Thorazine 100mg qid. Continue Gabapentin 300mg qid. Increase cyclobenzaprine to 10 mg 3 times a day. 3. Continue every 15 minute checks for safety 4. Recommend sober living treatment at the highest level of care to which the patient is willing to commit. Which ultimately would be inpatient given his current situation however there may be a need for overall residential treatment facility from a dual diagnosis or mental health standpoint. 5. 21-day hold was established 10/01/2022. 6. Guardianship filed. Involuntary Hold Information 96 Hour Hold: 96 Hour Involuntary Admission: Yes Attestations NPU Medical Necessity Statement*: Inpatient hospitalization is medically necessary and the clinically appropriate decision at this time. We will monitor medications and make changes as indicated. Likely length of stay now determinant on guardianship hearing and will began seeking placement. Coding Level of Care Code Acute Code for g Fwd Diagnoses Bipolar disorder, unspecified F31.9 Anxiety disorder F41.9 Suicidal ideation R45.851 Alcohol dependence F10.20 Hypothyroidism E03.9 Depression F32.A Depression Type: unspecified
[2022-10-18 14:00] VITALS: BP 130/85; PULSE 105; RESP 16; TEMP 36.9; O2SAT 93
[2022-10-18] MEDS: cyclobenzaprine 10 mg Tablet PO ×2 (14:25→19:58)
[2022-10-18] MEDS: trazodone 50 mg Tablet PO (19:58)
[2022-10-18 20:22] VITALS: BP 114/77; PULSE 99; RESP 18; TEMP 36.7; O2SAT 93
[2022-10-19 06:00] VITALS: BP 102/64; PULSE 88; RESP 16; O2SAT 95
[2022-10-19 08:00] VITALS: PULSE 111; RESP 18; O2SAT 93
[2022-10-19] MEDS: nicotine 2 mg Gum BUCCAL ×3 (08:33→18:05)
[2022-10-19] MEDS: CLONazepam 0.5 mg Tablet 0.25 MG PO ×3 (09:36→19:59)
[2022-10-19] MEDS: cyclobenzaprine 10 mg Tablet PO ×3 (09:36→19:59)
[2022-10-19] MEDS: thiamine 100 mg Tablet PO (09:36)
[2022-10-19] MEDS: metoprolol succinate ER (24 HR) 50 mg Tablet PO (09:36)
[2022-10-19] MEDS: pantoprazole DR 40 mg Tablet PO (09:36)
[2022-10-19] MEDS: fluoxetine 20 mg Capsule PO (09:36)
[2022-10-19] MEDS: levETIRAcetam 500 mg Tablet 250 MG PO (09:37)
[2022-10-19] MEDS: multivitamin therapeutic Tablet 1 TAB PO (09:37)
[2022-10-19] MEDS: levothyroxine 25 mcg Tablet PO (09:37)
[2022-10-19] MEDS: gabapentin 300 mg Capsule PO ×2 (09:37→12:33)
[2022-10-19] MEDS: folic acid 1 mg Tablet PO (09:37)
[2022-10-19] MEDS: atorvastatin 40 mg Tablet 20 MG PO (09:37)
[2022-10-19] MEDS: lamoTRIgine 25 mg Tablet 50 MG PO ×2 (09:38→19:59)
[2022-10-19] MEDS: chlorPROMazine 50 mg Tablet 100 MG PO ×4 (09:38→19:59)
[2022-10-19] MEDS: naproxen 500 mg Tablet PO ×2 (10:18→19:59)
[2022-10-19] MEDS: nicotine 4 mg lozenge MUCOUS MEM ×2 (12:40→20:08)
--- NOTE | 2022-10-19 12:53 | P.NPUPN_ITS ---
Subjective NPU Subjective: Patient is a 41-year-old white male with alcohol dependence and bipolar disorder admitted with depression after overdose requiring ICU stay with suicidal intent and plan. Treatment team continues to wait for a guardianship hearing. He continues to be opposed to this hearing. He has been more compliant and less preoccupied by his hospital stay here over the last 2 days. He reported no cr avings for alcohol at this time. He had reported some continued muscle spasms and requested an increase in his cyclobenzaprine back to his previous dose. He had also reported shooting nerve pain stating that he had spinal stenosis. He had reported no past history of back surgeries. He reported no side effects and no excess sedation from the initiation of Klonopin. He had minimized having any thoughts of hurting himself or others. He continued to isolate himself on the milieu. Mental Status Exam MSE Comments: This is an obese white male in hospital scrubs with adequate grooming and limited eye contact. No abnormal involuntary motor movements except for psychomotor retardation. He was cooperative with exam in no acute distress today. Speech was normal in volume and prosody with normal rate. His mood was described as okay. His affect remained restricted. Thought process was linear and organized. Thought content: Patient did not endorse suicidal or homicidal ideation, there were no delusions reported or noted, he denied any auditory or visual hallucinations. There was significant evidence of cognitive distortions and overvalued ideas. Attention and concentration were intact and memory appeared mostly reliable but none were formally tested. He is alert and oriented x3. Insight is impaired and judgment remains poor. His impulse control is poor. Vitals/I&O/Wt Last Vital Signs Temp 98.1 F 10/18/22 20:22 Pulse 111 H 10/19/22 08:00 Resp 18 10/19/22 08:00 BP 102/64 10/19/22 06:00 Pulse Ox 93 10/19/22 08:00 O2 Del Method Room Air 10/19/22 08:00 O2 Flow Rate 2 10/19/22 08:00 FiO2 30 09/24/22 15:40 Weight last 48 hrs Weight 141.43 kg Physical Exam Urinary Catheter Management: [place]: Cath Placed During This Visit: yes, but has since been removed by the nurse Reason for Continuing Indwelling Catheter: Accurate Measurement of Urinary Ou tput in Critically Ill Patients Urinary Catheter Date of Insertion: 09/22/22 Urinary Catheter Time of Insertion: 20:38 Date Urinary Catheter Removed: 09/25/22 Time Urinary Catheter Discontinued: 12:00 Data NPU 09/29/22 09:20 09/29/22 09:20 A&P Assessment and plan (1) Bipolar disorder, unspecified: (2) Anxiety disorder: (3) Suicidal ideation: (4) Alcohol dependence: (5) Hypothyroidism: (6) Depression: Qualifiers: Depression Type: unspecified Qualified Code(s): F32.A - Depression, unspecified Plan Patient is a 41-year-old white male with a history of alcohol dependence along with unspecified bipolar disorder with a history of multiple inpatient admissions, this going to be his sixth since July 29, 2022, coming to the unit via transfer from the ICU where he was intubated status post suicide attempt. 1. Patient on Vivitrol intramuscularly 380 mg given on 10/13/22. Continue Klonopin with increase to .25mg tid. Increase Prozac 40mg daily 2. Encourage individual, group and milieu therapy. Continue Lamotrigine to 50mg bid. Continue Thorazine 100mg qid. Increase gabapentin 400mg qid. Continue cyclobenzaprine to 10 mg 3 times a day. 3. Continue every 15 minute checks for safety 4. Recommend sober living treatment at the highest level of care to which the patient is willing to commit. Which ultimately would be inpatient given his current situation however there may be a need for overall residential treatment facility from a dual diagnosis or mental health standpoint. 5. 21-day hold was established 10/01/2022. 6. Guardianship filed awaiting courtdate. Involuntary Hold Information 96 Hour Hold: 96 Hour Involuntary Admission: Yes Attestations NPU Medical Necessity Statement*: Inpatient hospitalization is medically necessary and the clinically appropriate decision at this time. We will monitor medications and make changes as indicated. Likely length of stay now determinant on guardianship hearing and will began seeking placement. Coding Level of Care Code Acute Code for Chg Fwd Diagnoses Bipolar disorder, unspecified F31.9 Anxiety disorder F41.9 Suicidal ideation R45.851 Alcohol dependence F10.20 Hypothyroidism E03.9 Depression F32.A Depression Type: unspecified
[2022-10-19] MEDS: ibuprofen 800 mg tablet PO (13:26)
[2022-10-19] MEDS: gabapentin 400 mg Capsule PO ×3 (13:27→19:59)
[2022-10-19 14:00] VITALS: BP 113/71; PULSE 101; RESP 16; TEMP 36.8; O2SAT 91
[2022-10-19] MEDS: trazodone 50 mg Tablet PO (19:59)
[2022-10-19 21:00] VITALS: BP 129/87; PULSE 95; RESP 18; O2SAT 93
[2022-10-20 06:00] VITALS: BP 115/72; PULSE 93; RESP 16; TEMP 36.3; O2SAT 93
[2022-10-20] MEDS: naproxen 500 mg Tablet PO ×2 (08:29→20:23)
[2022-10-20] MEDS: nicotine 4 mg lozenge MUCOUS MEM ×6 (08:29→20:23)
[2022-10-20] MEDS: gabapentin 400 mg Capsule PO ×4 (08:29→20:23)
[2022-10-20] MEDS: atorvastatin 40 mg Tablet 20 MG PO (08:29)
[2022-10-20] MEDS: levETIRAcetam 500 mg Tablet 250 MG PO (08:30)
[2022-10-20] MEDS: pantoprazole DR 40 mg Tablet PO (08:30)
[2022-10-20] MEDS: thiamine 100 mg Tablet PO (08:30)
[2022-10-20] MEDS: metoprolol succinate ER (24 HR) 50 mg Tablet PO (08:30)
[2022-10-20] MEDS: multivitamin therapeutic Tablet 1 TAB PO (08:30)
[2022-10-20] MEDS: CLONazepam 0.5 mg Tablet 0.25 MG PO ×3 (08:30→20:23)
[2022-10-20] MEDS: folic acid 1 mg Tablet PO (08:31)
[2022-10-20] MEDS: lamoTRIgine 25 mg Tablet 50 MG PO ×2 (08:31→20:23)
[2022-10-20] MEDS: cyclobenzaprine 10 mg Tablet PO ×3 (08:31→20:23)
[2022-10-20] MEDS: fluoxetine 20 mg Capsule 40 MG PO (08:31)
[2022-10-20] MEDS: levothyroxine 25 mcg Tablet PO (08:31)
[2022-10-20] MEDS: chlorPROMazine 50 mg Tablet 100 MG PO ×4 (08:32→20:23)
[2022-10-20 13:13] VITALS: BP 120/72; PULSE 107; RESP 18; TEMP 36.4; O2SAT 91
[2022-10-20] MEDS: ibuprofen 800 mg tablet PO (13:49)
--- NOTE | 2022-10-20 16:51 | P.NPUPN_ITS ---
Subjective NPU Subjective: Patient is a 41-year-old white male with alcohol dependence and bipolar disorder admitted with depression after overdose requiring ICU stay with suicidal intent and plan. Patient had reported that he had continued episodes of agitation but stated that he felt less anxious with the addition of Klonopin with no complaints recently about being here with guardianship hearing. He had been redirectable and remains somewhat isolative. He reported no cravings for alcohol. He had provided some history suggestive of hypomania in the past. He reported no side effects from lamotrigine. He denied any sleep continuity disruption. Patient reported no excess sedation with the increase in gabapentin from 1200mg /day to 1600mg per day. He denies any racing thoughts at this time. He had reported having no bowel movement for several days and was agreeable to a trial of lactulose to alleviate his constipation. Mental Status Exam MSE Comments: This is an obese white male in hospital scrubs with adequate grooming and limited eye contact. No abnormal involuntary motor movements except for ps ychomotor retardation. He was cooperative with exam in no acute distress today. Speech was normal in volume and prosody with normal rate. His mood was described as allright. His affect remained flat.. Thought process was linear and organized. Thought content: Patient did not endorse suicidal or homicidal ideation, there were no delusions reported or noted, he denied any auditory or visual hallucinations. There was significant evidence of cognitive distortions and overvalued ideas. Attention and concentration were intact and memory appeared mostly reliable but none were formally tested. He is alert and oriented x3. Insight is impaired. Judgment remains poor. His impulse control is poor. Vitals/I&O/Wt Last Vital Signs Temp 97.6 F 10/20/22 13:13 Pulse 107 H 10/20/22 13:13 Resp 18 10/20/22 13:13 BP 120/72 10/20/22 13:13 Pulse Ox 91 10/20/22 13:13 O2 Del Method Room Air 10/19/22 20:00 O2 Flow Rate 2 10/19/22 08:00 FiO2 30 09/24/22 15:40 Weight last 48 hrs Weight 141.43 kg Physical Exam Urinary Catheter Management: [place]: Cath Placed During This Visit: yes, but has since been removed by the nurse Reason for Continuing Indwelling Catheter: Accurate Measurement of Urinary Output in Critically Ill Patients Urinary Catheter Date of Insertion: 09/22/22 Urinary Catheter Time of Insertion: 20:38 Date Urinary Catheter Removed: 09/25/22 Time Urinary Catheter Discontinued: 12:00 Data NPU 09/29/22 09:20 09/29/22 09:20 A&P Assessment and plan (1) Bipolar disorder, unspecified: (2) Anxiety disorder: (3) Suicidal ideation: (4) Alcohol dependence: (5) Hypothyroidism: (6) Depression: Qualifiers: Depression Type: unspecified Qualified Code(s): F32.A - Depression, unspecified Plan Patient is a 41-year-old white male with a history of alcohol dependence along with unspecified bipolar disorder with a history of multiple inpatient admissions, this going to be his sixth since July 29, 2022, coming to the unit via transfer from the ICU where he was intubated status post suicide attempt. 1. Patient on Vivitrol intramuscularly 380 mg given on 10/13/22. Continue Klonopin at .25mg tid. Continue Prozac 40mg daily 2. Encourage individual, group and milieu therapy. Continue Lamotrigine to 50mg bid. Continue Thorazine 100mg qid. Continue gabapentin 400mg qid. Continue cyclobenzaprine to 10 mg 3 times a day. 3. Continue every 15 minute checks for safety 4. Recommend sober living treatment at the highest level of care to which the patient is willing to commit. Which ultimately would be inpatient given his current situation however there may be a need for overall residential treatment facility from a dual diagnosis or mental health standpoint. 5. 21-day hold was established 10/01/2022. 6. Guardianship filed awaiting courtdate. Involuntary Hold Information 96 Hour Hold: 96 Hour Involuntary Admission: Yes Attestations NPU Medical Necessity Statement*: Inpatient hospitalization is medically necessary and the clinically appropriate decision at this time. We will monitor medications and make changes as indicated. Likely length of stay now determinant on guardianship hearing and will began seeking placement. Coding Level of Care Code Acute Code for Chg Fwd Diagnoses Bipolar disorder, unspecified F31.9 Anxiety disorder F41.9 Suicidal ideation R45.851 Alcohol dependence F10.20 Hypothyroidism E03.9 Depression F32.A Depression Type: unspecified
[2022-10-20] MEDS: lactulose oral liq 20 gm/30 mL UDC PO (19:40)
[2022-10-20] MEDS: trazodone 50 mg Tablet PO (20:23)
[2022-10-20] MEDS: sennosides 8.6 mg Tablet 17.2 MG PO (20:23)
[2022-10-20 20:59] VITALS: BP 128/87; PULSE 98; RESP 18; O2SAT 93
[2022-10-21 06:00] VITALS: BP 122/79; PULSE 98; RESP 18; O2SAT 93
[2022-10-21] MEDS: nicotine 4 mg lozenge MUCOUS MEM ×6 (07:25→20:16)
[2022-10-21] MEDS: cyclobenzaprine 10 mg Tablet PO ×3 (08:48→20:16)
[2022-10-21] MEDS: naproxen 500 mg Tablet PO ×2 (08:48→20:16)
[2022-10-21] MEDS: chlorPROMazine 50 mg Tablet 100 MG PO ×4 (08:48→20:16)
[2022-10-21] MEDS: gabapentin 400 mg Capsule PO ×4 (08:48→20:16)
[2022-10-21] MEDS: fluoxetine 20 mg Capsule 40 MG PO (08:48)
[2022-10-21] MEDS: lamoTRIgine 25 mg Tablet 50 MG PO ×2 (08:48→20:16)
[2022-10-21] MEDS: metoprolol succinate ER (24 HR) 50 mg Tablet PO (08:49)
[2022-10-21] MEDS: pantoprazole DR 40 mg Tablet PO (08:49)
[2022-10-21] MEDS: levETIRAcetam 500 mg Tablet 250 MG PO (08:49)
[2022-10-21] MEDS: levothyroxine 25 mcg Tablet PO (08:49)
[2022-10-21] MEDS: atorvastatin 40 mg Tablet 20 MG PO (08:49)
[2022-10-21] MEDS: thiamine 100 mg Tablet PO (08:49)
[2022-10-21] MEDS: multivitamin therapeutic Tablet 1 TAB PO (08:49)
[2022-10-21] MEDS: folic acid 1 mg Tablet PO (08:49)
[2022-10-21] MEDS: CLONazepam 0.5 mg Tablet 0.25 MG PO ×3 (08:50→20:16)
[2022-10-21 14:00] VITALS: BP 135/87; PULSE 116; RESP 16; TEMP 36.8; O2SAT 91
--- NOTE | 2022-10-21 15:34 | P.NPUPN_ITS ---
Subjective NPU Subjective: Patient is a 41-year-old white male with alcohol dependence and bipolar disorder admitted with depression after overdose requiring ICU stay with suicidal intent and plan. Patient reported no side effects from his medication today. He had reported relief from his constipation. He had reported no cravings for alcohol. He stated that he had been feeling better with a reduction in his anxiety. He reported no side effects from his medication regimen. 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 He did not endorse any manic symptoms. Mental Status Exam MSE Comments: This is an obese white male in hospital scrubs with adequate grooming and limit ed eye contact. No abnormal involuntary motor movements except for psychomotor retardation. He was cooperative with exam and more engagable on interview. Speech was normal in volume and prosody with normal rate. His mood was described as okay. His affect was flat and mood incongruent. Thought process was linear and organized. Thought content: Patient did not endorse suicidal or homicidal ideation, there were no delusions reported or noted, he denied any auditory or visual hallucinations. There was significant evidence of cognitive distortions and overvalued ideas. Attention and concentration were intact and memory appeared mostly reliable but none were formally tested. He is alert and oriented x3. Insight is impaired. Judgment remains poor. His impulse control is poor. Vitals/I&O/Wt Last Vital Signs Temp 98.2 F 10/21/22 14:00 Pulse 116 H 10/21/22 14:00 Resp 16 10/21/22 14:00 BP 135/87 10/21/22 14:00 Pulse Ox 91 10/21/22 14:00 O2 Del Method Room Air 10/21/22 14:00 O2 Flow Rate 2 10/21/22 08:00 FiO2 30 09/24/22 15:40 10/21/22 10/21/22 10/21/22 06:59 14:59 22:59 Intake Total 0 / 0 Output Total 1700 / 1700 Balance -1700 / -1700 Physical Exam 2 Urinary Catheter Management: [place]: Cath Placed During This Visit: yes, but has since been removed by the nurse Reason for Continuing Indwelling Catheter: Accurate Measurement of Urinary Output in Critically Ill Patients Urinary Catheter Date of Insertion: 09/22/22 Urinary Catheter Time of Insertion: 20:38 Date Urinary Catheter Removed: 05/18/23 Time Urinary Catheter Discontinued: 12:00 Data NPU 09/29/22 09:20 09/29/22 09:20 A&P Assessment and plan (1) Bipolar disorder, unspecified: (2) Anxiety disorder: (3) Suicidal ideation: (4) Alcohol dependence: (5) Hypothyroidism: (6) Depression: Qualifiers: Depression Type: unspecified Qualified Code(s): F32.A - Depression, unspecified Plan Patient is a 41-year-old white male with a history of alcohol dependence along with unspecified bipolar disorder with a history of multiple inpatient admissions, this going to be his sixth since July 29, 2022, coming to the unit via transfer from the ICU where he was intubated status post suicide attempt. 1. Patient on Vivitrol intramuscularly 380 mg given on 10/13/22. Continue Klonopin at .25mg tid. Increase Prozac 60mg daily 2. Encourage individual, group and milieu therapy. Continue Lamotrigine to 50mg bid. Continue Thorazine 100mg qid. Continue gabapentin 400mg qid. Continue cyclobenzaprine to 10 mg 3 times a day. 3. Continue every 15 minute checks for safety 4. Recommend sober living treatment at the highest level of care to which the patient is willing to commit. Which ultimately would be inpatient given his current situation however there may be a need for overall residential treatment facility from a dual diagnosis or mental health standpoint. 5. 21-day hold was established 10/01/2022. 6. Guardianship filed awaiting court date. Involuntary Hold Information 96 Hour Hold: 96 Hour Involuntary Admission: Yes Attestations NPU Medical Necessity Statement*: Inpatient hospitalization is medically necessary and the clinically appropriate decision at this time. We will monitor medications and make changes as indicated. Likely length of stay now determinant on guardianship hearing and will began seeking placement. Coding Level of Care Code Acute Code for Chg Fwd Diagnoses Bipolar disorder, unspecified F31.9 Anxiety disorder F41.9 Suicidal ideation R45.851 Alcohol dependence F10.20 Hypothyroidism E03.9 Depression F32.A Depression Type: unspecified
[2022-10-21 17:35] VITALS: BP 135/87
[2022-10-21] MEDS: cloNIDine 0.1 mg Tablet PO (17:35)
[2022-10-21] MEDS: trazodone 50 mg Tablet PO (20:16)
[2022-10-21] MEDS: sennosides 8.6 mg Tablet 17.2 MG PO (20:16)
[2022-10-21 21:18] VITALS: BP 118/78; PULSE 120; RESP 18; TEMP 36.7; O2SAT 95
[2022-10-22 06:00] VITALS: RESP 20
[2022-10-22] MEDS: nicotine 4 mg lozenge MUCOUS MEM ×7 (07:40→21:51)
[2022-10-22] MEDS: chlorPROMazine 50 mg Tablet 100 MG PO ×4 (08:43→20:14)
[2022-10-22] MEDS: fluoxetine 20 mg Capsule 60 MG PO (08:43)
[2022-10-22] MEDS: thiamine 100 mg Tablet PO (08:43)
[2022-10-22] MEDS: atorvastatin 40 mg Tablet 20 MG PO (08:43)
[2022-10-22] MEDS: levETIRAcetam 500 mg Tablet 250 MG PO (08:44)
[2022-10-22] MEDS: lamoTRIgine 25 mg Tablet 50 MG PO ×2 (08:44→20:15)
[2022-10-22] MEDS: cyclobenzaprine 10 mg Tablet PO ×3 (08:44→20:15)
[2022-10-22] MEDS: levothyroxine 25 mcg Tablet PO (08:44)
[2022-10-22] MEDS: gabapentin 400 mg Capsule PO ×4 (08:44→20:14)
[2022-10-22 08:45] VITALS: BP 167/109
[2022-10-22] MEDS: pantoprazole DR 40 mg Tablet PO (08:45)
[2022-10-22] MEDS: cloNIDine 0.1 mg Tablet PO (08:45)
[2022-10-22] MEDS: folic acid 1 mg Tablet PO (08:45)
[2022-10-22] MEDS: CLONazepam 0.5 mg Tablet 0.25 MG PO ×3 (08:48→20:14)
[2022-10-22] MEDS: metoprolol succinate ER (24 HR) 50 mg Tablet PO (08:49)
[2022-10-22] MEDS: multivitamin therapeutic Tablet 1 TAB PO (08:49)
[2022-10-22] MEDS: naproxen 500 mg Tablet PO ×2 (08:50→20:15)
--- NOTE | 2022-10-22 10:04 | P.NPUPN_ITS ---
Subjective NPU Subjective: Patient is a 41-year-old white male with alcohol dependence and bipolar disorder admitted with depression after overdose requiring ICU stay with suicidal intent and plan. The patient had elevated blood pressure noted today. He had reported some reduction in anxiety with the Klonopin. He reported no cravings for alcohol. He had been spending time on the milieu reading his Bible and had been attending groups. He reported no thoughts of hurting himself or others. He denied any racing thoughts at this time. He reported no side effects from his medication. He had reported no particular overwhelming pain issues today. The patient had continued to insist that he would be able to leave the hospital and avoid alcohol and was again reminded of the severity of his overdose and continu ed inability to manage any intensive forms of therapy that focuses on his addiction. Mental Status Exam MSE Comments: This is an obese white male in hospital scrubs with adequate grooming and limited eye contact. No abnormal involuntary motor movements except for psychomotor retardation. He was cooperative with exam and was engaged in interview today. Speech was normal in volume and prosody with normal rate. His mood was described as all right. His affect remained flat and mood incongruent. Thought process was linear and organized. Thought content: Patient did not endorse suicidal or homicidal ideation, there were no delusions reported or noted, he denied any auditory or visual hallucinations. There was significant evidence of cognitive distortions and overvalued ideas. Attention and concentration were intact and memory appeared mostly reliable but none were formally tested. He is alert and oriented x3. Insight is impaired. Judgment remains poor. His impulse control is poor. Vitals/I&O/Wt Last Vital Signs Temp 98.1 F 10/21/22 21:18 Pulse 120 H 10/21/22 21:18 Resp 20 H 10/22/22 06:00 BP 167/109 10/22/22 08:45 Pulse Ox 95 10/21/22 21:18 O2 Del Method Room Air 10/21/22 21:18 O2 Flow Rate 2 10/22/22 08:00 FiO2 30 09/24/22 15:40 10/21/22 10/22/22 10/22/22 22:59 06:59 14:59 Intake Total 0 / 0 Output Total 1700 / 3400 Balance -1700 / -3400 Physical Exam Urinary Catheter Management: [place]: Cath Placed During This Visit: yes, but has since been removed by the nurse Reason for Continuing Indwelling Catheter: Accurate Measurement of Urinary Output in Critically Ill Patients Urinary Catheter Date of Insertion: 09/22/22 Urinary Catheter Time of Insertion: 20:38 Date Urinary Catheter Removed: 09/25/22 Time Urinary Catheter Discontinued: 12:00 Data NPU 09/29/22 09:20 09/29/22 09:20 A&P Assessment and plan (1) Bipolar disorder, unspecified: (2) Anxiety disorder: (3) Suicidal ideation: (4) Alcohol dependence: (5) Hypothyroidism: (6) Depression: Qualifiers: Depression Type: unspecified Qualified Code(s): F32.A - Depression, unspecified Plan Patient is a 41-year-old white male with a history of alcohol dependence along with unspecified bipolar disorder with a history of multiple inpatient admissions, this going to be his sixth since July 29, 2022, coming to the unit via transfer from the ICU where he was intubated status post suicide attempt. 1. Patient on Vivitrol intramuscularly 380 mg given on 10/13/22. Increase Klonopin .5mg bid, Continue Prozac 60mg daily. Restart Losartan for hypertension. 2. Encourage individual, group and milieu therapy. Continue Lamotrigine to 50mg bid. Continue Thorazine 100mg qid. Continue gabapentin 400mg qid. Continue cyclobenzaprine to 10 mg 3 times a day. 3. Continue every 15 minute checks for safety 4. Recommend sober living treatment at the highest level of care to which the patient is willing to commit. Which ultimately would be inpatient given his current situation however there may be a need for overall residential treatment facility from a dual diagnosis or mental health standpoint. 5. 21-day hold was established 10/01/2022. 6. Guardianship filed awaiting court date. Involuntary Hold Information 96 Hour Hold: 96 Hour Involuntary Admission: Yes Attestations NPU Medical Necessity Statement*: Inpatient hospitalization is medically necessary and the clinically appropriate decision at this time. We will monitor medications and make changes as indicated. Likely length of stay now determinant on guardianship hearing and will began seeking placement. Likely length of stay 10-15 days. Coding Level of Care Code Acute Code for [facility] Fwd Diagnoses Bipolar disorder, unspecified F31.9 Anxiety disorder F41.9 Suicidal ideation R45.851 Alcohol dependence F10.20 Hypothyroidism E03.9 Depression F32.A Depression Type: unspecified
[2022-10-22 10:21] VITALS: BP 137/102
[2022-10-22] MEDS: losartan 50 mg Tablet PO (10:21)
[2022-10-22 14:00] VITALS: BP 116/84; PULSE 111; RESP 18; TEMP 36.9; O2SAT 93
[2022-10-22] MEDS: trazodone 50 mg Tablet PO (20:15)
[2022-10-22 20:20] VITALS: BP 121/83
[2022-10-22 21:20] VITALS: BP 121/83; PULSE 108; RESP 17; TEMP 37.2; O2SAT 92
[2022-10-23 06:00] VITALS: RESP 18
[2022-10-23] MEDS: nicotine 4 mg lozenge MUCOUS MEM ×7 (07:19→21:27)
[2022-10-23] MEDS: atorvastatin 40 mg Tablet 20 MG PO (08:13)
[2022-10-23] MEDS: cyclobenzaprine 10 mg Tablet PO ×3 (08:13→21:26)
[2022-10-23] MEDS: lamoTRIgine 25 mg Tablet 50 MG PO ×2 (08:13→21:26)
[2022-10-23] MEDS: chlorPROMazine 50 mg Tablet 100 MG PO ×4 (08:13→21:26)
[2022-10-23] MEDS: levETIRAcetam 500 mg Tablet 250 MG PO (08:14)
[2022-10-23] MEDS: levothyroxine 25 mcg Tablet PO (08:14)
[2022-10-23] MEDS: metoprolol succinate ER (24 HR) 50 mg Tablet PO (08:14)
[2022-10-23] MEDS: pantoprazole DR 40 mg Tablet PO (08:14)
[2022-10-23] MEDS: gabapentin 400 mg Capsule PO ×4 (08:15→21:26)
[2022-10-23] MEDS: thiamine 100 mg Tablet PO (08:15)
[2022-10-23] MEDS: folic acid 1 mg Tablet PO (08:15)
[2022-10-23] MEDS: naproxen 500 mg Tablet PO ×2 (08:15→21:27)
[2022-10-23] MEDS: multivitamin therapeutic Tablet 1 TAB PO (08:15)
[2022-10-23] MEDS: fluoxetine 20 mg Capsule 60 MG PO (08:15)
[2022-10-23 08:16] VITALS: BP 133/90
[2022-10-23] MEDS: losartan 50 mg Tablet PO (08:16)
[2022-10-23] MEDS: CLONazepam 0.5 mg Tablet 0.25 MG PO ×3 (08:18→21:27)
[2022-10-23 11:58] LABS: Glucose Point of Care 284 mg/dL (70-110)
[2022-10-23] MEDS: ibuprofen 800 mg tablet PO (12:52)
[2022-10-23 14:00] VITALS: BP 145/77; PULSE 123; RESP 20; TEMP 36.4; O2SAT 96
--- NOTE | 2022-10-23 15:52 | P.NPUPN_ITS ---
Subjective NPU Subjective: Patient presented today reporting that he is doing okay. We spent most of the time discussing his medications as he was once again focused on medication changes and making sure my medications are right. We talked about some medications that would make sense to make the changes, and others we would work through as we have discussed before. We also discussed his guardianship hearing tomorrow and whether he would attend which he currently plans to. Mental Status Exam MSE Comments: This is an obese versus morbidly obese white male in hospital scrubs with adequate grooming and limited eye contact. No abnormal involuntary motor movements except for mild psychomotor retardation. He was cooperative with exam in no acute distress. Speech was normal in volume and prosody with rate begin araceli to normalize but slightly decreased. His mood was described as all right. His affect remained flat. Thought process was linear and organized. Thought content: Patient did not endorse suicidal or homicidal ideation, there were no delusions reported or noted, he denied any auditory or visual hallucinations. There was significant evidence of cognitive distortions and overvalued ideas. Attention and concentration were intact and memory appeared mostly reliable but none were formally tested. He is alert and oriented x3. Insight is impaired. Judgment remains poor. His impulse control is poor. Vitals/I&O/Wt Last Vital Signs Temp 97.6 F 10/23/22 14:00 Pulse 123 H 10/23/22 14:00 Resp 20 H 10/23/22 14:00 BP 145/77 10/23/22 14:00 Pulse Ox 96 10/23/22 14:00 O2 Del Method Room Air 10/22/22 21:20 O2 Flow Rate 2 10/23/22 07:35 FiO2 30 09/24/22 15:40 Physical Exam Urinary Catheter Management: [place]: Cath Placed During This Visit: yes, but has since been removed by the nurse Reason for Continuing Indwelling Catheter: Accurate Measurement of Urinary Output in Critically Ill Patients Urinary Catheter Date of Insertion: 09/22/22 Urinary Catheter Time of Insertion: 20:38 Date Urinary Catheter Removed: 09/25/22 Time Urinary Catheter Discontinued: 12:00 Data NPU 09/29/22 09:20 09/29/22 09:20 A&P Assessment and plan (1) Bipolar disorder, unspecified: (2) Anxiety disorder: (3) Suicidal ideation: (4) Alcohol dependence: (5) Hypothyroidism: (6) Depression: Qualifiers: Depression Type: unspecified Qualified Code(s): F32.A - Depression, unspecified Plan Patient is a 41-year-old white male with a history of alcohol dependence along with unspecified bipolar disorder with a history of multiple inpatient admissions, this going to be his sixth since July 29, 2022, coming to the unit via transfer from the ICU where he was intubated status post suicide attempt. 1. Patient on Vivitrol intramuscularly 380 mg given on 10/13/22. Increase Kl onopin .5mg bid, Continue Prozac 60mg daily. Restart Losartan for hypertension, and we will increase to 100 mg. 2. Encourage individual, group and milieu therapy. Continue Lamotrigine to 50mg bid. Continue Thorazine 100mg qid. Continue gabapentin 400mg qid. Continue cyclobenzaprine to 10 mg 3 times a day. 3. Continue every 15 minute checks for safety 4. Recommend sober living treatment at the highest level of care to which the patient is willing to commit. Which ultimately would be inpatient given his current situation however there may be a need for overall residential treatment facility from a dual diagnosis or mental health standpoint. 5. 21-day hold was established 10/01/2022. 6. Guardianship filed. Court date tomorrow 10/24/2022. Involuntary Hold Information 96 Hour Hold: 96 Hour Involuntary Admission: Yes Attestations NPU Medical Necessity Statement*: Inpatient hospitalization is medically necessary and the clinically appropriate decision at this time. We will monitor medications and make changes as indicated. Likely length of stay now determinant on guardianship hearing and will began seeking placement. Likely length of stay 10-15 days. Coding Level of Care Code Acute Code for [facility] Fwd Diagnoses Bipolar disorder, unspecified F31.9 Anxiety disorder F41.9 Suicidal ideation R45.851 Alcohol dependence F10.20 Hypothyroidism E03.9 Depression F32.A Depression Type: unspecified
[2022-10-23 19:59] VITALS: BP 122/75
[2022-10-23] MEDS: trazodone 50 mg Tablet PO (21:26)
[2022-10-23 21:45] VITALS: BP 122/75; PULSE 101; RESP 13; TEMP 36.3; O2SAT 93
[2022-10-24 06:00] VITALS: BP 110/74; PULSE 99; RESP 20; O2SAT 97
[2022-10-24] MEDS: nicotine 4 mg lozenge MUCOUS MEM ×6 (06:33→20:26)
[2022-10-24] MEDS: levETIRAcetam 500 mg Tablet 250 MG PO (08:00)
[2022-10-24] MEDS: pantoprazole DR 40 mg Tablet PO (08:00)
[2022-10-24] MEDS: gabapentin 400 mg Capsule PO ×2 (08:00→11:45)
[2022-10-24] MEDS: chlorPROMazine 50 mg Tablet 100 MG PO ×4 (08:00→20:22)
[2022-10-24] MEDS: fluoxetine 20 mg Capsule 60 MG PO (08:00)
[2022-10-24] MEDS: cyclobenzaprine 10 mg Tablet PO ×3 (08:00→20:21)
[2022-10-24] MEDS: metoprolol succinate ER (24 HR) 50 mg Tablet PO (08:00)
[2022-10-24] MEDS: atorvastatin 40 mg Tablet 20 MG PO (08:01)
[2022-10-24] MEDS: naproxen 500 mg Tablet PO ×2 (08:01→20:20)
[2022-10-24 08:02] VITALS: BP 139/107
[2022-10-24] MEDS: multivitamin therapeutic Tablet 1 TAB PO (08:02)
[2022-10-24] MEDS: thiamine 100 mg Tablet PO (08:02)
[2022-10-24] MEDS: losartan 50 mg Tablet PO ×2 (08:02→14:59)
[2022-10-24] MEDS: levothyroxine 25 mcg Tablet PO (08:02)
[2022-10-24] MEDS: folic acid 1 mg Tablet PO (08:02)
[2022-10-24] MEDS: CLONazepam 0.5 mg Tablet 0.25 MG PO ×3 (08:04→20:21)
[2022-10-24] MEDS: lamoTRIgine 25 mg Tablet 50 MG PO ×2 (08:06→20:21)
[2022-10-24] MEDS: hyDROXYzine 25 mg Capsule 50 MG PO (11:20)
[2022-10-24] MEDS: nicotine 2 mg Gum BUCCAL (11:20)
--- NOTE | 2022-10-24 11:46 | PC.NURSE ---
administered 1300 medication per patient request because he has court today will be off the unit at that time.
--- NOTE | 2022-10-24 11:50 | P.NPUPN_ITS ---
Subjective NPU Subjective: Patient presented today reporting that things are going okay. We discussed the plan to increase the losartan to 100 mg p.o. nightly, increase his Neurontin to 600 mg p.o. 4 times daily and officially discontinue the clonidine. He discussed a plan to go to his hearing today for guardianship. We discussed the fact that we are working with some different options for appropriate discharge planning. He reports that he is eating and sleeping better. Mental Status Exam MSE Comments: This is an obese versus morbidly obese white male in hospital scrubs with adequate grooming and limited eye contact. No abnormal involuntary motor movements except for mild psychomotor retardation. He was cooperative with exam in no acute distress. Speech was normal in volume and prosody with rate beginning to normalize but slightly decreased. His mood was described as okay, ready to get out of here. His affect remained flat but less subdued. Thought process was linear and organized. Thought content: Patient did not endorse suicidal or homicidal ideation, there were no delusions reported or n oted, he denied any auditory or visual hallucinations. There was significant evidence of cognitive distortions and overvalued ideas. Attention and concentration were intact and memory appeared mostly reliable but none were formally tested. He is alert and oriented x3. Insight is impaired. Judgment remains poor. His impulse control is poor. Vitals/I&O/Wt Last Vital Signs Temp 97.4 F L 10/23/22 21:45 Pulse 99 10/24/22 06:00 Resp 20 H 10/24/22 06:00 BP 139/107 10/24/22 08:02 Pulse Ox 97 10/24/22 06:00 O2 Del Method Room Air 10/24/22 06:00 O2 Flow Rate 2 10/24/22 07:40 FiO2 30 09/24/22 15:40 10/23/22 10/24/22 10/24/22 22:59 06:59 14:59 Intake Total 0 / 0 0 / 0 Output Total 1700 / 1700 1700 / 1700 Balance -1700 / -1700 -1700 / -1700 Physical Exam Urinary Catheter Management: [place]: Cath Placed During This Visit: yes, but has since been removed by the nurse Reason for Continuing Indwelling Catheter: Accurate Measurement of Urinary Output in Critically Ill Patients Urinary Catheter Date of Insertion: 09/22/22 Urinary Catheter Time of Insertion: 20:38 Date Urinary Catheter Removed: 09/25/22 Time Urinary Catheter Discontinued: 12:00 Data NPU 09/29/22 09:20 09/29/22 09:20 A&P Assessment and plan (1) Bipolar disorder, unspecified: (2) Anxiety disorder: (3) Suicidal ideation: (4) Alcohol dependence: (5) Hypothyroidism: (6) Depression: Qualifiers: Depression Type: unspecified Qualified Code(s): F32.A - Depression, unspecified Plan Patient is a 41-year-old white male with a history of alcohol dependence along with unspecified bipolar disorder with a history of multiple inpatient a dmissions, this going to be his sixth since July 29, 2022, coming to the unit via transfer from the ICU where he was intubated status post suicide attempt. 1. Patient on Vivitrol intramuscularly 380 mg given on 10/13/22. Increase Klonopin .5mg bid, Continue Prozac 60mg daily. Restart Losartan for hypertension, and increase to 100 mg. 2. Encourage individual, group and milieu therapy. Continue Lamotrigine to 50mg bid. Continue Thorazine 100mg qid. Continued gabapentin 400mg qid, but incre ased to 600 mg p.o. 4 times daily. Continue cyclobenzaprine to 10 mg 3 times a day. 3. Continue every 15 minute checks for safety 4. Recommend sober living treatment at the highest level of care to which the patient is willing to commit. Which ultimately would be inpatient given his current situation however there may be a need for overall residential treatment facility from a dual diagnosis or mental health standpoint. 5. 21-day hold was established 10/01/2022. 6. Guardianship filed. Court date today, 10/24/2022. Involuntary Hold Information 96 Hour Hold: 96 Hour Involuntary Admission: Yes Attestations NPU Medical Necessity Statement*: Inpatient hospitalization is medically necessary and the clinically appropriate decision at this time. We will monitor medications and make changes as indicate d. Likely length of stay now determinant on guardianship hearing and will began seeking placement. Likely length of stay 10-15 days. Coding Level of Care Code Acute Code for g Fwd Diagnoses Bipolar disorder, unspecified F31.9 Anxiety disorder F41.9 Suicidal ideation R45.851 Alcohol dependence F10.20 Hypothyroidism E03.9 Depression F32.A Depression Type: unspecified
[2022-10-24] MEDS: OLANZapine 5 mg ODT PO (12:53)
[2022-10-24] MEDS: ibuprofen 800 mg tablet PO (13:35)
[2022-10-24 14:00] VITALS: BP 133/80; PULSE 100; RESP 16; TEMP 36.7; O2SAT 92
[2022-10-24 14:59] VITALS: BP 124/84
[2022-10-24] MEDS: haloperidol 5 mg Tablet PO (15:27)
--- NOTE | 2022-10-24 15:28 | PC.NURSE ---
Patient rating anxiety 8/10. Cause of anxiety for patient is the people in the unit, per patient. Haldol 5mg PO administered.
[2022-10-24] MEDS: gabapentin 300 mg Capsule 600 MG PO ×2 (17:07→20:20)
[2022-10-24] MEDS: trazodone 50 mg Tablet PO (20:22)
[2022-10-24 21:05] VITALS: BP 117/73; PULSE 94; RESP 20; TEMP 36.4; O2SAT 95
[2022-10-25 06:00] VITALS: BP 137/92; PULSE 99; RESP 20; TEMP 36.7; O2SAT 95
[2022-10-25] MEDS: multivitamin therapeutic Tablet 1 TAB PO (07:45)
[2022-10-25] MEDS: gabapentin 300 mg Capsule 600 MG PO ×4 (07:45→20:21)
[2022-10-25] MEDS: losartan 50 mg Tablet 100 MG PO (07:46)
[2022-10-25] MEDS: lamoTRIgine 25 mg Tablet 50 MG PO ×2 (07:46→20:22)
[2022-10-25] MEDS: folic acid 1 mg Tablet PO (07:47)
[2022-10-25] MEDS: thiamine 100 mg Tablet PO (07:47)
[2022-10-25] MEDS: cyclobenzaprine 10 mg Tablet PO ×3 (07:47→20:22)
[2022-10-25] MEDS: CLONazepam 0.5 mg Tablet 0.25 MG PO ×3 (07:47→20:21)
[2022-10-25] MEDS: levETIRAcetam 500 mg Tablet 250 MG PO (07:47)
[2022-10-25] MEDS: nicotine 4 mg lozenge MUCOUS MEM ×5 (07:47→20:22)
[2022-10-25] MEDS: fluoxetine 20 mg Capsule 60 MG PO (07:47)
[2022-10-25] MEDS: metoprolol succinate ER (24 HR) 50 mg Tablet PO (07:48)
[2022-10-25] MEDS: atorvastatin 40 mg Tablet 20 MG PO (07:49)
[2022-10-25] MEDS: levothyroxine 25 mcg Tablet PO (07:49)
[2022-10-25] MEDS: pantoprazole DR 40 mg Tablet PO (07:50)
[2022-10-25] MEDS: chlorPROMazine 50 mg Tablet 100 MG PO ×4 (07:50→20:32)
[2022-10-25 08:00] VITALS: BP 127/87; RESP 18
[2022-10-25] MEDS: naproxen 500 mg Tablet PO ×2 (08:08→20:21)
--- NOTE | 2022-10-25 11:46 | P.NPUPN_ITS ---
Subjective NPU Subjective: Patient presented today reporting that he is sleeping today was not from not using CPAP but just being bored. He is once again in a medication focus mode and continues to try to lobby for increase in his Klonopin. We continue to discuss the fact that long-term I still think is a great idea and a higher dose is certainly not more ideal. He continues to discussed wanting the Keppra discontinued. We talked about the possibility of increasing his Prozac back to his previous dose of 80 mg next week. He continues to be highly focused on medication as a primary solution versus a support. Mental Status Exam MSE Comments: This is an obese versus morbidly obese white male in hospital scrubs with adequate grooming and limited eye contact. No abnormal involuntary motor movements except for mild psychomotor retardation. He was cooperative with exam in no acute distress. Speech was normal in volume and prosody with rate beginning to normalize but slightly decreased. His mood was described as okay, ready to get out of here. His affect remained flat but less subdued. Thought process was linear and organized. Thought content: Patient did not endorse suicidal or homicidal ideation, there were no delusions reported or noted, he denied any auditory or visual hallucinations. There was significant evidence of cognitive distortions and overvalued ideas. Attention and concentration were intact and memory appeared mostly reliable but none were formally tested. He is alert and oriented x3. Insight is limited. Judgment remains poor. His impulse control is limited. Vitals/I&O/Wt Last Vital Signs Temp 98.0 F 10/25/22 06:00 Pulse 99 10/25/22 06:00 Resp 18 10/25/22 08:00 BP 127/87 10/25/22 08:00 Pulse Ox 95 10/25/22 06:00 O2 Del Method Room Air 10/25/22 06:00 O2 Flow Rate 2 10/24/22 20:00 FiO2 30 09/24/22 15:40 10/24/22 10/25/22 10/25/22 22:59 06:59 14:59 Intake Total 0 / 0 Output Total 1700 / 3400 Balance -1700 / -3400 Physical Exam Urinary Catheter Management: [place]: Cath Placed During This Visit: yes, but has since been removed by the nurse Reason for Continuing Indwelling Catheter: Accurate Measurement of Urinary Output in Critically Ill Patients Urinary Catheter Date of Insertion: 09/22/22 Urinary Catheter Time of Insertion: 20:38 Date Urinary Catheter Removed: 09/25/22 Time Urinary Catheter Discontinued: 12:00 Data NPU 09/29/22 09:20 09/29/22 09:20 A&P Assessment and plan (1) Bipolar disorder, unspecified: (2) Anxiety disorder: (3) Suicidal ideation: (4) Alcohol dependence: (5) Hypothyroidism: (6) Depression: Qualifiers: Depression Type: unspecified Qualified Code(s): F32.A - Depression, unspecified Plan Patient is a 41-year-old white male with a history of alcohol dependence along with unspecified bipolar disorder with a history of multiple inpatient admissions, this going to be his sixth since July 29, 2022, coming to the unit via transfer from the ICU where he was intubated status post suicide attempt. 1. Patient on Vivitrol intramuscularly 380 mg given on 10/13/22. Continue Klonopin 0.25 mg p.o. 3 times daily, Continue Prozac 60mg daily. Restarted Losartan for hypertension, and increased to 100 mg. 2. Encourage individual, group and milieu therapy. Continue Lamotrigine to 50mg bid. Continue Thorazine 100mg qid. Continued gabapentin 400mg qid, but increased to 600 mg p.o. 4 times daily. Continue cyclobenzaprine to 10 mg 3 times a day. 3. Continue every 15 minute checks for safety 4. Recommend sober living treatment at the highest level of care to which the patient is willing to commit. Which ultimately would be inpatient given his current situation however there may be a need for overall residential treatment facility from a dual diagnosis or mental health standpoint. 5. 21-day hold was established 10/01/2022. 6. Guard[address]hip filed. Court date 10/24/2022. Temporary guardianship was granted. Involuntary Hold Information 96 Hour Hold: 96 Hour Involuntary Admission: Yes Attestations NPU Medical Necessity Statement*: Inpatient hospitalization is medically necessary and the clinically appropriate decision at this time. We will monitor medications and make changes as indicated. Likely length of stay now determinant on guardianship hearing and finding placement. Likely length of stay 3-7 days. Coding Level of Care Code Acute Code for [facility] Fw Diagnoses Bipolar disorder, unspecified F31.9 Anxiety disorder F41.9 Suicidal ideation R45.851 Alcohol dependence F10.20 Hypothyroidism E03.9 Depression F32.A Depression Type: unspecified
[2022-10-25 14:00] VITALS: BP 131/81; PULSE 103; RESP 18; TEMP 36.3; O2SAT 95
--- NOTE | 2022-10-25 15:38 | PC.NURSE ---
pt requested moe in the safe given to his neighbor miko totalling $49.00 to be spent on 2 cartons of cigarettes and for them to keep the change for doing it. moe counted by patient documented and signed by patient and staff.
[2022-10-25 20:10] VITALS: BP 122/66; PULSE 95; RESP 20; TEMP 36.3; O2SAT 93
[2022-10-25] MEDS: trazodone 50 mg Tablet PO (20:27)
[2022-10-26 05:51] VITALS: BP 145/99; PULSE 108; RESP 20; O2SAT 96
--- NOTE | 2022-10-26 08:38 | PC.NURSE ---
refused scheduled Koki
[2022-10-26] MEDS: naproxen 500 mg Tablet PO ×2 (08:39→20:54)
[2022-10-26] MEDS: atorvastatin 40 mg Tablet 20 MG PO (08:39)
[2022-10-26] MEDS: pantoprazole DR 40 mg Tablet PO (08:39)
[2022-10-26] MEDS: CLONazepam 0.5 mg Tablet 0.25 MG PO ×3 (08:39→20:54)
[2022-10-26] MEDS: levothyroxine 25 mcg Tablet PO (08:40)
[2022-10-26] MEDS: losartan 50 mg Tablet 100 MG PO (08:40)
[2022-10-26] MEDS: multivitamin therapeutic Tablet 1 TAB PO (08:40)
[2022-10-26] MEDS: folic acid 1 mg Tablet PO (08:40)
[2022-10-26] MEDS: thiamine 100 mg Tablet PO (08:40)
[2022-10-26] MEDS: metoprolol succinate ER (24 HR) 50 mg Tablet PO (08:40)
[2022-10-26] MEDS: cyclobenzaprine 10 mg Tablet PO ×3 (08:41→20:54)
[2022-10-26] MEDS: fluoxetine 20 mg Capsule 60 MG PO (08:41)
[2022-10-26] MEDS: gabapentin 300 mg Capsule 600 MG PO ×4 (08:41→20:53)
[2022-10-26] MEDS: chlorPROMazine 50 mg Tablet 100 MG PO ×4 (08:42→20:54)
[2022-10-26] MEDS: lamoTRIgine 25 mg Tablet 50 MG PO ×2 (08:42→21:05)
[2022-10-26] MEDS: nicotine 4 mg lozenge MUCOUS MEM ×4 (08:42→20:54)
--- NOTE | 2022-10-26 11:24 | P.NPUPN_ITS ---
Subjective NPU Subjective: Patient presented today continuing to report that he is doing okay but just needing to make sure that my medications are right before I leave. We will continue to discuss Keppra which he is now refusing. Discussed a likely formal discontinuation. 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 We discussed his level to interview and be hopeful that it happens in the next 48 hours. Mental Status Exam MSE Comments: This is an obese versus morbidly obese white male in hospital scrubs with adequate grooming and limited eye contact. No abnormal involuntary motor movements except for mild psychomotor retardation. He was cooperative with exam in no acute distress. Speech was normal in volume and prosody with rate beginning to normalize but slightly decreased. His mood was described as okay, ready to get out of here. His affect remained flat but less subdued. Thought process was linear and organized. Thought content: Patient did not endorse suicidal or homicidal ideation, there were no delusions reported or noted, he denied any auditory or visual hallucinations. There was significant evidence of cognitive distortions and overvalued ideas. Attention and concentration were intact and memory appeared mostly reliable but none were formally tested. He is alert and oriented x3. Insight is limited. Judgment remains poor. His impulse control is limited. Vitals/I&O/Wt Last Vital Signs Temp 97.4 F L 10/25/22 20:10 Pulse 108 H 10/26/22 05:51 Resp 20 H 10/26/22 05:51 BP 145/99 10/26/22 05:51 Pulse Ox 96 10/26/22 05:51 O2 Del Method Room Air 10/26/22 05:51 O2 Flow Rate 2 10/26/22 10:10 FiO2 30 09/24/22 15:40 Weight last 48 hrs Weight 146.057 kg Physical Exam Urinary Catheter Management: [place]: Cath Placed During This Visit: yes, but has since been removed by the nurse Reason for Continuing Indwelling Catheter: Accurate Measurement of Urinary Output in Critically Ill Patients Urinary Catheter Date of Insertion: 09/22/22 Urinary Catheter Time of Insertion: 20:38 Date Urinary Catheter Removed: 09/25/22 Time Urinary Catheter Discontinued: 12:00 Data NPU 09/29/22 09:20 09/29/22 09:20 A&P Assessment and plan (1) Bipolar disorder, unspecified: (2) Anxiety disorder: (3) Suicidal ideation: (4) Alcohol dependence: (5) Hypothyroidism: (6) Depression: Qualifiers: Depression Type: unspecified Qualified Code(s): F32.A - Depression, unspecified Plan Patient is a 41-year-old white male with a history of alcohol dependence along with unspecified bipolar disorder with a history of multiple inpatient admissions, this going to be his sixth since July 29, 2022, coming to the unit via transfer from the ICU where he was intubated status post suicide attempt. 1. Patient on Vivitrol intramuscularly 380 mg given on 10/13/22. Continue Klonopin 0.25 mg p.o. 3 times daily, Continue Prozac 60mg daily. Restarted Losartan for hypertension, and increased to 100 mg. 2. Encourage individual, group and milieu therapy. Continue Lamotrigine to 50mg bid. Continue Thorazine 100mg qid. Continued gabapentin 400mg qid, but incr eased to 600 mg p.o. 4 times daily. Continue cyclobenzaprine to 10 mg 3 times a day. 3. Continue every 15 minute checks for safety 4. Recommend sober living treatment at the highest level of care to which the patient is willing to commit. Which ultimately would be inpatient given his current situation however there may be a need for overall residential treatment facility from a dual diagnosis or mental health standpoint. 5. 21-day hold was established 10/01/2022. 6. Guardianship filed. Court date 10/24/2022. Temporary guardianship was granted. Involuntary Hold Information 96 Hour Hold: 96 Hour Involuntary Admission: Yes Attestations NPU Medical Necessity Statement*: Inpatient hospitalization is medically necessary and the clinically appropriate decision at this time. We will monitor medications and make changes as indicated. Likely length of stay now determinant on guardianship hearing and finding placement. Likely length of stay 2-6 days. Coding Level of Care Code Acute Code for [facility] Fwd Diagnoses Bipolar disorder, unspecified F31.9 Anxiety disorder F41.9 Suicidal ideation R45.851 Alcohol dependence F10.20 Hypothyroidism E03.9 Depression F32.A Depression Type: unspecified
[2022-10-26] MEDS: hyDROXYzine 25 mg Capsule 50 MG PO (12:40)
--- NOTE | 2022-10-26 12:40 | PC.NURSE ---
PRN VISTARIL 50 MG GIVEN PO PER C/O STATED ANXIETY, HE SPECIFICALLY ASKED FOR A ZYPREXA BUT WAS TOLD BY THIS NURSE HE WAS JUST GIVEN SCHEDULED THORAZINE WITHIN 20 MINUTES & WOULD NOT BE RECEIVING PRN ZYPREXA. PT SAID WELL THEN CAN I HAVE A VISTARIL DOES NOT APPEAR TO BE ANXIOUS OR AGITATED
[2022-10-26 14:00] VITALS: RESP 16
[2022-10-26] MEDS: nicotine 2 mg Gum BUCCAL (17:36)
[2022-10-26] MEDS: trazodone 50 mg Tablet PO (20:53)
[2022-10-26] MEDS: sennosides 8.6 mg Tablet 17.2 MG PO (20:53)
[2022-10-26 21:01] VITALS: BP 120/80; PULSE 97; RESP 18; TEMP 36.6; O2SAT 94
[2022-10-27 06:00] VITALS: BP 124/69; PULSE 110; RESP 18; TEMP 36.4; O2SAT 93
[2022-10-27] MEDS: nicotine 4 mg lozenge MUCOUS MEM ×6 (06:33→20:18)
[2022-10-27] MEDS: losartan 50 mg Tablet 100 MG PO (08:07)
[2022-10-27] MEDS: CLONazepam 0.5 mg Tablet 0.25 MG PO ×3 (08:07→20:18)
[2022-10-27] MEDS: naproxen 500 mg Tablet PO ×2 (08:07→20:17)
[2022-10-27] MEDS: cyclobenzaprine 10 mg Tablet PO ×3 (08:07→20:18)
[2022-10-27] MEDS: levothyroxine 25 mcg Tablet PO (08:08)
[2022-10-27] MEDS: folic acid 1 mg Tablet PO (08:09)
[2022-10-27] MEDS: chlorPROMazine 50 mg Tablet 100 MG PO ×4 (08:09→20:18)
[2022-10-27] MEDS: atorvastatin 40 mg Tablet 20 MG PO (08:09)
[2022-10-27] MEDS: multivitamin therapeutic Tablet 1 TAB PO (08:09)
[2022-10-27] MEDS: pantoprazole DR 40 mg Tablet PO (08:09)
[2022-10-27] MEDS: metoprolol succinate ER (24 HR) 50 mg Tablet PO (08:10)
[2022-10-27] MEDS: fluoxetine 20 mg Capsule 60 MG PO (08:10)
[2022-10-27] MEDS: gabapentin 300 mg Capsule 600 MG PO ×4 (08:10→20:17)
[2022-10-27] MEDS: lamoTRIgine 25 mg Tablet 50 MG PO ×2 (08:10→20:17)
[2022-10-27] MEDS: thiamine 100 mg Tablet PO (08:10)
--- NOTE | 2022-10-27 08:11 | PC.NURSE ---
refused scheduled Koki
--- NOTE | 2022-10-27 11:59 | P.NPUPN_ITS ---
Subjective NPU Subjective: Patient presented today reporting that he is doing okay except for wanting someone to check out his swelling. He also continued to ask about some medications but we continue to discuss the fact that we would leave additional changes outside of discontinuing the Keppra to his outpatient doctors. We discussed the fact that his level 2 interview likely did not happen today secondary to the holiday and that it would likely happen in the next couple days once social work team was able to reach them post holiday. Mental Status Exam MSE Comments: This is an obese versus morbidly obese white male in hospital scrubs with adequate grooming and limited eye contact. No abnormal involuntary motor movements except for mild psychomotor retardation. He was cooperative with exam in no acute distress. Speech was normal in volume and prosody with rate beginning to normalize but slightly decreased. His mood was described as okay, ready to get out of here. His affect remained flat but less subdued. Thought process was linear and organized. Thought content: Patient did not end orse suicidal or homicidal ideation, there were no delusions reported or noted, he denied any auditory or visual hallucinations. There was significant evidence of cognitive distortions and overvalued ideas. Attention and concentration were intact and memory appeared mostly reliable but none were formally tested. He is alert and oriented x3. Insight is limited. Judgment remains poor. His impulse control is limited. Vitals/I&O/Wt Last Vital Signs Temp 97.5 F L 10/27/22 06:00 Pulse 110 H 10/27/22 06:00 Resp 18 10/27/22 06:00 BP 124/69 10/27/22 06:00 Pulse Ox 93 10/27/22 06:00 O2 Del Method Room Air 10/27/22 08:51 O2 Flow Rate 2 10/26/22 10:10 FiO2 30 09/24/22 15:40 Weight last 48 hrs Weight 146.057 kg Physical Exam Urinary Catheter Management: [place]: Cath Placed During This Visit: yes, but has since been removed by the nurse Reason for Continuing Indwelling Catheter: Accurate Measurement of Urinary Output in Critically Ill Patients Urinary Catheter Date of Insertion: 09/22/22 Urinary Catheter Time of Insertion: 20:38 Date Urinary Catheter Removed: 09/25/22 Time Urinary Catheter Discontinued: 12:00 Data NPU 09/29/22 09:20 09/29/22 09:20 A&P Assessment and plan (1) Bipolar disorder, unspecified: (2) Anxiety disorder: (3) Suicidal ideation: (4) Alcohol dependence: (5) Hypothyroidism: (6) Depression: Qualifiers: Depression Type: unspecified Qualified Code(s): F32.A - Depression, unspecified Plan Patient is a 41-year-old white male with a history of alcohol dependence along with unspecified bipolar disorder with a history of multiple inpatient admissions, this going to be his sixth since July 29, 2022, coming to the unit via transfer from the ICU where he was intubated status post suicide attempt. 1. Patient on Vivitrol intramuscularly 380 mg given on 10/13/22. Continue Klonopin 0.25 mg p.o. 3 times daily, Continue Prozac 60mg daily. Restarted Losartan for hypertension, and increased to 100 mg. 2. Encourage individual, group and milieu therapy. Continue Lamotrigine to 50mg bid. Continue Thorazine 100mg qid. Continued gabapentin 400mg qid, but increased to 600 mg p.o. 4 times daily. Continue cyclobenzaprine to 10 mg 3 times a day. 3. Continue every 15 minute checks for safety 4. Recommend sober living treatment at the highest level of care to which the patient is willing to commit. Which ultimately would be inpatient given his cu rrent situation however there may be a need for overall residential treatment facility from a dual diagnosis or mental health standpoint. 5. 21-day hold was established 10/01/2022. 6. Guardianship filed. Court date 10/24/2022. Temporary guardianship was granted. Involuntary Hold Information 96 Hour Hold: 96 Hour Involuntary Admission: Yes Attestations NPU Medical Necessity Statement*: Inpatient hospitalization is medically necessary and the clinically appropriate decision at this time. We will monitor medications and make changes as indicated. Likely length of stay now determinant on guardianship hearing and finding placement. Likely length of stay 2-5 days. Coding Level of Care Code Acute Code for [facility] Fwd Diagnoses Bipolar disorder, unspecified F31.9 Anxiety disorder F41.9 Suicidal ideation R45.851 Alcohol dependence F10.20 Hypothyroidism E03.9 Depression F32.A Depression Type: unspecified
[2022-10-27] MEDS: ibuprofen 800 mg tablet PO (12:39)
[2022-10-27] MEDS: sennosides 8.6 mg Tablet 17.2 MG PO (20:17)
[2022-10-27] MEDS: trazodone 50 mg Tablet PO (20:18)
[2022-10-27 20:43] VITALS: BP 107/66; PULSE 95; RESP 18; TEMP 36.5; O2SAT 96
[2022-10-28 06:00] VITALS: BP 119/86; PULSE 108; RESP 18; O2SAT 94
[2022-10-28] MEDS: nicotine 4 mg lozenge MUCOUS MEM ×6 (07:38→19:21)
[2022-10-28] MEDS: fluoxetine 20 mg Capsule 60 MG PO (08:53)
[2022-10-28] MEDS: chlorPROMazine 50 mg Tablet 100 MG PO ×4 (08:53→20:09)
[2022-10-28] MEDS: naproxen 500 mg Tablet PO ×2 (08:54→20:10)
[2022-10-28] MEDS: cyclobenzaprine 10 mg Tablet PO ×3 (08:55→20:09)
[2022-10-28] MEDS: gabapentin 300 mg Capsule 600 MG PO ×4 (08:55→20:10)
[2022-10-28] MEDS: lamoTRIgine 25 mg Tablet 50 MG PO ×2 (08:55→20:09)
[2022-10-28] MEDS: levothyroxine 25 mcg Tablet PO (08:55)
[2022-10-28] MEDS: thiamine 100 mg Tablet PO (08:55)
[2022-10-28] MEDS: folic acid 1 mg Tablet PO (08:55)
[2022-10-28 08:56] VITALS: BP 119/86
[2022-10-28] MEDS: losartan 50 mg Tablet 100 MG PO (08:56)
[2022-10-28] MEDS: pantoprazole DR 40 mg Tablet PO (08:56)
[2022-10-28] MEDS: metoprolol succinate ER (24 HR) 50 mg Tablet PO (08:56)
[2022-10-28] MEDS: atorvastatin 40 mg Tablet 20 MG PO (08:56)
[2022-10-28] MEDS: multivitamin therapeutic Tablet 1 TAB PO (08:56)
[2022-10-28] MEDS: CLONazepam 0.5 mg Tablet 0.25 MG PO ×3 (08:57→20:10)
[2022-10-28] MEDS: ibuprofen 800 mg tablet PO (10:26)
[2022-10-28 14:00] VITALS: BP 126/65; PULSE 112; RESP 16; TEMP 536.7; TEMP 998; O2SAT 92
--- NOTE | 2022-10-28 18:48 | W.PM.NPUPNS ---
Subjective NPU Subjective: Patient presented today reporting that he is doing fine. He is happy that his level 2 interview is going to be tomorrow morning he reports he was told 9 AM. We discussed the likelihood that his earliest discharge would be the day after tomorrow given the way processes work, but he was advised that we would not be doing anything to slow down the process and if there was a way that he could discharge tomorrow we would allow him to. Otherwise we discussed returning his Prozac to 80 mg p.o. every morning and officially discontinuing the Keppra. Mental Status Exam MSE Comments: This is an obese versus morbidly obese white male in hospital scrubs with adequate grooming and limited eye contact. No abnormal involuntary motor movements except for mild psychomotor retardation. He was cooperative with exam in no acute distress. Speech was normal in volume and prosody with rate beginning to normalize but slightly decreased. His mood was described as okay, ready to get out of here. His affect remained flat but less subdued. Thought process was linear and organized. Thought content: Patient did not endorse suicidal or homicidal ideation, there were no delusions reported or noted, he denied any auditory or visual hallucinations. There was significant evidence of cognitive distortions and overvalued ideas. Attention and concentration were intact and memory appeared mostly reliable but none were formally tested. He is alert and oriented x3. Insight is limited. Judgment remains poor. His impulse control is limited. Vitals/I&O/Wt Last Vital Signs Temp 97.4 F L 10/28/22 22:00 Pulse 101 H 10/28/22 22:00 Resp 18 10/28/22 22:00 BP 122/80 10/28/22 22:00 Pulse Ox 94 10/28/22 22:00 O2 Del Method Room Air 10/28/22 22:00 O2 Flow Rate 2 10/28/22 08:00 FiO2 30 09/24/22 15:40 Physical Exam Urinary Catheter Management: [place]: Cath Placed During This Visit: yes, but has since been removed by the nurse Reason for Continuing Indwelling Catheter: Accurate Measurement of Urinary Output in Critically Ill Patients Urinary Catheter Date of Insertion: 09/22/22 Urinary Catheter Time of Insertion: 20:38 Date Urinary Catheter Removed: 09/25/22 Time Urinary Catheter Discontinued: 12:00 Data NPU 09/29/22 09:20 09/29/22 09:20 A&P Assessment and plan (1) Bipolar disorder, unspecified: (2) Anxiety disorder: (3) Suicidal ideation: (4) Alcohol dependence: (5) Hypothyroidism: (6) Depression: Qualifiers: Depression Type: unspecified Qualified Code(s): F32.A - Depression, unspecified Plan Patient is a 41-year-old white male with a history of alcohol dependence along with unspecified bipolar disorder with a history of multiple inpatient admissions, this going to be his sixth since July 29, 2022, coming to the unit via transfer from the ICU where he was intubated status post suicide attempt. 1. Patient on Vivitrol intramuscularly 380 mg given on 10/13/22. Continue Klonopin 0.25 mg p.o. 3 times daily, Continue Prozac 60mg daily. Restarted Losartan for hypertension, and increased to 100 mg. Discontinue Keppra. 2. Encourage individual, group and milieu therapy. Continue Lamotrigine to 50mg bid. Continue Thorazine 100mg qid. Continued gabapentin 400mg qid, but increased to 600 mg p.o. 4 times daily. Continue cyclobenzaprine to 10 mg 3 times a day. 3. Continue every 15 minute checks for safety 4. Recommend sober living treatment at the highest level of care to which the patient is willing to commit. Which ultimately would be inpatient given his current situation however there may be a need for overall residential treatment facility from a dual diagnosis or mental health standpoint. 5. 21-day hold was established 10/01/2022. 6. Guard[address] filed. Court date 10/24/2022. Temporary guardianship was granted. Involuntary Hold Information 96 Hour Hold: 96 Hour Involuntary Admission: Yes Attestations U Medical Necessity Statement*: Inpatient hospitalization is medically necessary and the clinically appropriate decision at this time. We will monitor medications and make changes as indicated. Likely length of stay now determinant on guardianship hearing and finding placement. Likely length of stay 2-4 days. Discharge will occur as soon as placement identified. Coding Level of Care Code Acute Code for [facility] Diagnoses Bipolar disorder, unspecified F31.9 Anxiety disorder F41.9 Suicidal ideation R45.851 Alcohol dependence F10.20 Hypothyroidism E03.9 Depression F32.A Depression Type: unspecified
[2022-10-28] MEDS: trazodone 50 mg Tablet PO (20:10)
[2022-10-28 22:00] VITALS: BP 122/80; PULSE 101; RESP 18; TEMP 36.3; O2SAT 94
[2022-10-29 06:00] VITALS: BP 112/81; PULSE 100; RESP 18; O2SAT 91
[2022-10-29] MEDS: nicotine 2 mg Gum BUCCAL (06:11)
[2022-10-29] MEDS: thiamine 100 mg Tablet PO (08:21)
[2022-10-29] MEDS: losartan 50 mg Tablet 100 MG PO (08:21)
[2022-10-29] MEDS: levothyroxine 25 mcg Tablet PO (08:21)
[2022-10-29] MEDS: naproxen 500 mg Tablet PO ×2 (08:22→20:02)
[2022-10-29] MEDS: lamoTRIgine 25 mg Tablet 50 MG PO ×2 (08:22→20:00)
[2022-10-29] MEDS: fluoxetine 20 mg Capsule 80 MG PO (08:22)
[2022-10-29] MEDS: chlorPROMazine 50 mg Tablet 100 MG PO ×4 (08:22→20:03)
[2022-10-29] MEDS: gabapentin 300 mg Capsule 600 MG PO ×4 (08:22→20:02)
[2022-10-29] MEDS: atorvastatin 40 mg Tablet 20 MG PO (08:23)
[2022-10-29] MEDS: CLONazepam 0.5 mg Tablet 0.25 MG PO ×3 (08:23→20:03)
[2022-10-29] MEDS: pantoprazole DR 40 mg Tablet PO (08:23)
[2022-10-29] MEDS: metoprolol succinate ER (24 HR) 50 mg Tablet PO (08:23)
[2022-10-29] MEDS: multivitamin therapeutic Tablet 1 TAB PO (08:23)
[2022-10-29] MEDS: cyclobenzaprine 10 mg Tablet PO ×3 (08:23→20:03)
[2022-10-29] MEDS: folic acid 1 mg Tablet PO (08:28)
[2022-10-29] MEDS: nicotine 4 mg lozenge MUCOUS MEM ×4 (08:49→20:17)
[2022-10-29 14:02] VITALS: BP 134/84; PULSE 104; RESP 18; TEMP 36.4; O2SAT 92
--- NOTE | 2022-10-29 19:10 | P.NPUPN_ITS ---
Subjective NPU Subjective: Patient presented today reporting that he is doing fine. He denies any problems with his medication changes and continues to be focused on and optimistic about discharge. He has little to interview today and it went well and without incident and now he has all the boxes checked for excepting agencies. We discussed the fact that multiple places voiced an interest and so we are hopeful for discharge tomorrow. Mental Status Exam MSE Comments: This is an obese versus morbidly obese white male in hospital scrubs with adequate grooming and limited eye contact. No abnormal involuntary motor movements except for mild psychomotor retardation. He was cooperative with exam in no acute distress. Speech was normal in volume and prosody with rate beginning to normalize but slightly decreased. His mood was described as okay, ready to get out of here. His affect remained flat but less subdued. Thought process was linear and organized. Thought content: Patient did not endorse suicidal or homicidal ideation, there were no delusions reported or noted, he denied any auditory or visual hallucinations. There was significant evidence of cognitive distortions and overvalued ideas. Attention and concentration were intact and memory appeared mostly reliable but none were formally tested. He is alert and oriented x3. Insight is limited. Judgment remains poor. His impulse control is limited. Vitals/I&O/Wt Last Vital Signs Temp 97.5 F L 10/29/22 14:02 Pulse 104 H 10/29/22 14:02 Resp 18 10/29/22 14:02 BP 134/84 10/29/22 14:02 Pulse Ox 92 10/29/22 14:02 O2 Del Method Room Air 10/29/22 14:02 O2 Flow Rate 2 10/28/22 08:00 FiO2 30 09/24/22 15:40 10/29/22 10/29/22 10/29/22 06:59 14:59 22:59 Intake Total 0 / 0 Output Total 1700 / 1700 Balance -1700 / -1700 Physical Exam Urinary Catheter Management: [place]: Cath Placed During This Visit: yes, but has since been removed by the nurse Reason for Continuing Indwelling Catheter: Accurate Measurement of Urinary Output in Critically Ill Patients Urinary Catheter Date of Insertion: 09/22/22 Urinary Catheter Time of Insertion: 20:38 Date Urinary Catheter Removed: 09/25/22 Time Urinary Catheter Discontinued: 12:00 Data NPU 09/29/22 09:20 09/29/22 09:20 A&P Assessment and plan (1) Bipolar disorder, unspecified: (2) Anxiety disorder: (3) Suicidal ideation: (4) Alcohol dependence: (5) Hypothyroidism: (6) Depression: Qualifiers: Depression Type: unspecified Qualified Code(s): F32.A - Depression, unspecified Plan Patient is a 41-year-old white male with a history of alcohol dependence along with unspecified bipolar disorder with a history of multiple inpatient admissions, this going to be his sixth since July 29, 2022, coming to the unit via transfer from the ICU where he was intubated status post suicide attempt. 1. Patient on Vivitrol intramuscularly 380 mg given on 10/13/22. Continue Klonopin 0.25 mg p.o. 3 times daily, increased Prozac to 80mg daily. Restarted Losartan for hypertension, and increased to 100 mg. Discontinue Keppra. 2. Encourage individual, group and milieu therapy. Continue Lamotrigine to 50mg bid. Continue Thorazine 100mg qid. Continued gabapentin 400mg qid, but increased to 600 mg p.o. 4 times daily. Continue cyclobenzaprine to 10 mg 3 times a day. 3. Continue every 15 minute checks for safety 4. Recommend sober living treatment at the highest level of care to which the patient is willing to commit. Which ultimately would be inpatient given his current situation however there may be a need for overall residential treatment facility from a dual diagnosis or mental health standpoint. 5. 21-day hold was established 10/01/2022. 6. Guardianship filed. Court date 10/24/2022. Temporary guardianship was granted. Involuntary Hold Information 96 Hour Hold: 96 Hour Involuntary Admission: Yes Attestations U Medical Necessity Statement*: Inpatient hospitalization is medically necessary and the clinically appropriate decision at this time. We will monitor medications and make changes as indicated. Likely length of stay now determinant on guardianship hearing and finding placement. Likely length of stay 1-3 days. Discharge will occur as soon as placement identified. Coding Level of Care Code Acute Code for [facility] Diagnoses Bipolar disorder, unspecified F31.9 Anxiety disorder F41.9 Suicidal ideation R45.851 Alcohol dependence F10.20 Hypothyroidism E03.9 Depression F32.A Depression Type: unspecified
[2022-10-29] MEDS: trazodone 50 mg Tablet PO (20:03)
[2022-10-29] MEDS: sennosides 8.6 mg Tablet 17.2 MG PO (20:06)
[2022-10-29 21:25] VITALS: BP 141/82; PULSE 99; RESP 18; TEMP 37.1; O2SAT 91
[2022-10-30 06:00] VITALS: BP 109/72; PULSE 92; RESP 18; TEMP 36.4; O2SAT 93
[2022-10-30] MEDS: nicotine 2 mg Gum BUCCAL (07:36)
[2022-10-30] MEDS: multivitamin therapeutic Tablet 1 TAB PO (09:20)
[2022-10-30] MEDS: chlorPROMazine 50 mg Tablet 100 MG PO ×4 (09:20→20:06)
[2022-10-30] MEDS: fluoxetine 20 mg Capsule 80 MG PO (09:20)
[2022-10-30] MEDS: naproxen 500 mg Tablet PO ×2 (09:20→20:06)
[2022-10-30 09:21] VITALS: BP 109/72
[2022-10-30] MEDS: lamoTRIgine 25 mg Tablet 50 MG PO ×2 (09:21→20:06)
[2022-10-30] MEDS: cyclobenzaprine 10 mg Tablet PO ×3 (09:21→20:07)
[2022-10-30] MEDS: losartan 50 mg Tablet 100 MG PO (09:21)
[2022-10-30] MEDS: CLONazepam 0.5 mg Tablet 0.25 MG PO ×3 (09:21→20:06)
[2022-10-30] MEDS: folic acid 1 mg Tablet PO (09:21)
[2022-10-30] MEDS: gabapentin 300 mg Capsule 600 MG PO ×4 (09:21→20:07)
[2022-10-30] MEDS: pantoprazole DR 40 mg Tablet PO (09:22)
[2022-10-30] MEDS: metoprolol succinate ER (24 HR) 50 mg Tablet PO (09:22)
[2022-10-30] MEDS: nicotine 4 mg lozenge MUCOUS MEM ×5 (09:22→18:22)
[2022-10-30] MEDS: levothyroxine 25 mcg Tablet PO (09:22)
[2022-10-30] MEDS: atorvastatin 40 mg Tablet 20 MG PO (09:30)
[2022-10-30] MEDS: thiamine 100 mg Tablet PO (09:30)
[2022-10-30] MEDS: ibuprofen 800 mg tablet PO (13:19)
[2022-10-30 14:00] VITALS: BP 134/74; PULSE 68; RESP 16; TEMP 36.9; O2SAT 92
--- NOTE | 2022-10-30 16:43 | W.PM.NPUPNS ---
Subjective NPU Subjective: Patient presented today reporting that he feels somewhat depressed about not being excepted by the lodges. We had a bit of a chuckle about concerns about him and appointments. As we talked about not knowing last time he ran anywhere. We discussed that the treatment team is not worried as there were multiple entities expressing interest in his case. We discussed the importance for him to keep a positive mindset and just wait for the right opportunity hopefully sooner rather than later. He denies any issues with the medication changes. Mental Status Exam MSE Comments: This is an obese versus morbidly obese white male in hospital scrubs with adequate grooming and limited eye contact. No abnormal involuntary motor movements except for mild psychomotor retardation. He was cooperative with exam in no acute distress. Speech was normal in volume and prosody with rate beginning to normalize but slightly decreased. His mood was described as a little down about being rejected, his affect remained flat and more subdued today reportedly in response to the decision. Thought process was linear and organized. Thought content: Patient did not endorse suicidal or homicidal ideation, there were no delusions reported or noted, he denied any auditory or visual hallucinations. There was significant evidence of cognitive distortions and overvalued ideas. Attention and concentration were intact and memory appeared mostly reliable but none were formally tested. He is alert and oriented x3. Insight is limited. Judgment remains poor. His impulse control is limited. Vitals/I&O/Wt Last Vital Signs Temp 97.5 F L 10/30/22 20:04 Pulse 100 10/30/22 20:04 Resp 16 10/30/22 20:04 BP 90/53 10/30/22 20:04 Pulse Ox 95 10/30/22 20:04 O2 Del Method Room Air 10/30/22 20:04 O2 Flow Rate 2 10/28/22 08:00 FiO2 30 09/24/22 15:40 Physical Exam Urinary Catheter Management: [place]: Cath Placed During This Visit: yes, but has since been removed by the nurse Reason for Continuing Indwelling Catheter: Accurate Measurement of Urinary Output in Critically Ill Patients Urinary Catheter Date of Insertion: 09/22/22 Urinary Catheter Time of Insertion: 20:38 Date Urinary Catheter Removed: 09/25/22 Time Urinary Catheter Discontinued: 12:00 Data NPU 09/29/22 09:20 09/29/22 09:20 A&P Assessment and plan (1) Bipolar disorder, unspecified: (2) Anxiety disorder: (3) Suicidal ideation: (4) Alcohol dependence: (5) Hypothyroidism: (6) Depression: Qualifiers: Depression Type: unspecified Qualified Code(s): F32.A - Depression, unspecified Plan Patient is a 41-year-old white male with a history of alcohol dependence along with unspecified bipolar disorder with a history of multiple inpatient admissions, this going to be his sixth since July 29, 2022, coming to the unit via transfer from the ICU where he was intubated status post suicide attempt. 1. Patient on Vivitrol intramuscularly 380 mg given on 10/13/22. Continue Klonopin 0.25 mg p.o. 3 times daily, increased Prozac to 80mg daily. Restarted Losartan for hypertension, and increased to 100 mg. Discontinued Keppra. 2. Encourage individual, group and milieu therapy. Continue Lamotrigine to 50mg bid. Continue Thorazine 100mg qid. Continued gabapentin 400mg qid, but increased to 600 mg p.o. 4 times daily. Continue cyclobenzaprine to 10 mg 3 times a day. 3. Continue every 15 minute checks for safety 4. Recommend sober living treatment at the highest level of care to which the patient is willing to commit. Which ultimately would be inpatient given his current situation however there may be a need for overall residential treatment facility from a dual diagnosis or mental health standpoint. 5. 21-day hold was established 10/01/2022. 6. Guardianship filed. Court date 10/24/2022. Temporary guardianship was granted. Involuntary Hold Information 96 Hour Hold: 96 Hour Involuntary Admission: Yes Attestations NPU Medical Necessity Statement*: Inpatient hospitalization is medically necessary and the clinically appropriate decision at this time. We will monitor medications and make changes as indicated. Likely length of stay now determinant on guardianship hearing and finding placement. Likely length of stay 1-3 days. Discharge will occur as soon as placement identified. Coding Level of Care Code Acute Code for [facility]wd Diagnoses Bipolar disorder, unspecified F31.9 Anxiety disorder F41.9 Suicidal ideation R45.851 Alcohol dependence F10.20 Hypothyroidism E03.9 Depression F32.A Depression Type: unspecified
[2022-10-30 20:04] VITALS: BP 90/53; PULSE 100; RESP 16; TEMP 36.4; O2SAT 95
[2022-10-30] MEDS: sennosides 8.6 mg Tablet 17.2 MG PO (20:07)
[2022-10-30] MEDS: OLANZapine 5 mg ODT PO (20:07)
[2022-10-30] MEDS: trazodone 50 mg Tablet PO (20:13)
[2022-10-31 06:00] VITALS: RESP 17
[2022-10-31] MEDS: nicotine 4 mg lozenge MUCOUS MEM ×5 (07:32→20:18)
[2022-10-31] MEDS: gabapentin 300 mg Capsule 600 MG PO ×4 (08:17→20:23)
[2022-10-31] MEDS: lamoTRIgine 25 mg Tablet 50 MG PO ×2 (08:18→20:23)
[2022-10-31] MEDS: CLONazepam 0.5 mg Tablet 0.25 MG PO ×3 (08:19→20:24)
[2022-10-31] MEDS: levothyroxine 25 mcg Tablet PO (08:20)
[2022-10-31] MEDS: naproxen 500 mg Tablet PO ×2 (08:20→20:23)
[2022-10-31] MEDS: atorvastatin 40 mg Tablet 20 MG PO (08:20)
[2022-10-31] MEDS: folic acid 1 mg Tablet PO (08:20)
[2022-10-31] MEDS: cyclobenzaprine 10 mg Tablet PO ×3 (08:20→20:23)
[2022-10-31] MEDS: multivitamin therapeutic Tablet 1 TAB PO (08:20)
[2022-10-31] MEDS: fluoxetine 20 mg Capsule 80 MG PO (08:20)
[2022-10-31] MEDS: losartan 50 mg Tablet 100 MG PO (08:20)
[2022-10-31] MEDS: metoprolol succinate ER (24 HR) 50 mg Tablet PO (08:20)
[2022-10-31] MEDS: chlorPROMazine 50 mg Tablet 100 MG PO ×4 (08:20→20:23)
[2022-10-31] MEDS: pantoprazole DR 40 mg Tablet PO (08:21)
[2022-10-31] MEDS: thiamine 100 mg Tablet PO (08:21)
[2022-10-31] MEDS: ibuprofen 800 mg tablet PO (12:55)
[2022-10-31 14:00] VITALS: BP 107/75; PULSE 101; RESP 20; TEMP 36.4; O2SAT 91
--- NOTE | 2022-10-31 18:06 | W.PM.NPUPNS ---
Subjective NPU Subjective: Patient presented today reporting that he is unchanged. He reports he is tolerating all the medications fine and denied any significant issues. He continues to report lingering anxiety and continues to query about the Klonopin being increased. We discussed him working with the outpatient team that he inherits about that possibility. We discussed the fact that I am continuing what Dr. Rizzo started, but I continue to feel any increase would be problematic and that long-term use of benzodiazepine with his alcohol history is of challenging utility. Mental Status Exam MSE Comments: This is an obese versus morbidly obese white male in hospital scrubs with adequate grooming and limited eye contact. No abnormal involuntary motor movements except for mild psychomotor retardation. He was cooperative with exam in no acute distress. Speech was normal in volume and prosody with rate beginning to normalize but slightly decreased. His mood was described as a little down about being rejected, his affect remained flat and more subdued today reportedly in response to the decision. Thought process was linear and organized. Thought content: Patient did not endorse suicidal or homicidal ideation, there were no delusions reported or noted, he denied any auditory or visual hallucinations. There was significant evidence of cognitive distortions and overvalued ideas. Attention and concentration were intact and memory appeared mostly reliable but none were formally tested. He is alert and oriented x3. Insight is limited. Judgment remains poor. His impulse control is limited. Vitals/I&O/Wt Last Vital Signs Temp 97.5 F L 10/31/22 14:00 Pulse 98 10/31/22 20:55 Resp 18 10/31/22 20:55 BP 121/80 10/31/22 20:55 Pulse Ox 93 10/31/22 20:55 O2 Del Method Room Air 10/31/22 14:00 O2 Flow Rate 2 10/31/22 20:00 FiO2 30 09/24/22 15:40 Physical Exam Urinary Catheter Management: [place]: Cath Placed During This Visit: yes, but has since been removed by the nurse Reason for Continuing Indwelling Catheter: Accurate Measurement of Urinary Output in Critically Ill Patients Urinary Catheter Date of Insertion: 09/22/22 Urinary Catheter Time of Insertion: 20:38 Date Urinary Catheter Removed: 09/25/22 Time Urinary Catheter Discontinued: 12:00 Data NPU 09/29/22 09:20 09/29/22 09:20 A&P Assessment and plan (1) Bipolar disorder, unspecified: (2) Anxiety disorder: (3) Suicidal ideation: (4) Alcohol dependence: (5) Hypothyroidism: (6) Depression: Qualifiers: Depression Type: unspecified Qualified Code(s): F32.A - Depression, unspecified Plan Patient is a 41-year-old white male with a history of alcohol dependence along with unspecified bipolar disorder with a history of multiple inpatient admissions, this going to be his sixth since July 29, 2022, coming to the unit via transfer from the ICU where he was intubated status post suicide attempt. 1. Patient on Vivitrol intramuscularly 380 mg given on 10/13/22. Continue Klonopin 0.25 mg p.o. 3 times daily, increased Prozac to 80mg daily. Restarted Losartan for hypertension, and increased to 100 mg. Discontinued Keppra. 2. Encourage individual, group and milieu therapy. Continue Lamotrigine to 50mg bid. Continue Thorazine 100mg qid. Continued gabapentin 400mg qid, but increased to 600 mg p.o. 4 times daily. Continue cyclobenzaprine to 10 mg 3 times a day. 3. Continue every 15 minute checks for safety 4. Recommend sober living treatment at the highest level of care to which the patient is willing to commit. Which ultimately would be inpatient given his current situation however there may be a need for overall residential treatment facility from a dual diagnosis or mental health standpoint. 5. 21-day hold was established 10/01/2022. 6. Guardianship filed. Court date 10/24/2022. Temporary guardianship was granted. Involuntary Hold Information 96 Hour Hold: 96 Hour Involuntary Admission: Yes Attestations NPU Medical Necessity Statement*: Inpatient hospitalization is medically necessary and the clinically appropriate decision at this time. We will monitor medications and make changes as indicated. Likely length of stay now determinant on guardianship hearing and finding placement. Likely length of stay 3-4 days. Discharge will occur as soon as placement identified. Coding Level of Care Code Acute Code for [facility] Diagnoses Bipolar disorder, unspecified F31.9 Anxiety disorder F41.9 Suicidal ideation R45.851 Alcohol dependence F10.20 Hypothyroidism E03.9 Depression F32.A Depression Type: unspecified
[2022-10-31] MEDS: trazodone 50 mg Tablet PO (20:23)
[2022-10-31 20:55] VITALS: BP 121/80; PULSE 98; RESP 18; O2SAT 93
[2022-11-01 06:00] VITALS: BP 114/72; PULSE 98; RESP 16; O2SAT 96
[2022-11-01] MEDS: nicotine 4 mg lozenge MUCOUS MEM ×6 (07:45→20:35)
[2022-11-01] MEDS: atorvastatin 40 mg Tablet 20 MG PO (08:30)
[2022-11-01] MEDS: folic acid 1 mg Tablet PO (08:30)
[2022-11-01] MEDS: cyclobenzaprine 10 mg Tablet PO ×3 (08:30→20:34)
[2022-11-01] MEDS: levothyroxine 25 mcg Tablet PO (08:30)
[2022-11-01] MEDS: multivitamin therapeutic Tablet 1 TAB PO (08:30)
[2022-11-01] MEDS: thiamine 100 mg Tablet PO (08:30)
[2022-11-01] MEDS: lamoTRIgine 25 mg Tablet 50 MG PO ×2 (08:30→20:35)
[2022-11-01] MEDS: chlorPROMazine 50 mg Tablet 100 MG PO ×4 (08:30→20:35)
[2022-11-01] MEDS: gabapentin 300 mg Capsule 600 MG PO ×4 (08:30→20:35)
[2022-11-01] MEDS: naproxen 500 mg Tablet PO ×2 (08:31→20:35)
[2022-11-01 08:32] VITALS: BP 125/84
[2022-11-01] MEDS: metoprolol succinate ER (24 HR) 50 mg Tablet PO (08:32)
[2022-11-01] MEDS: pantoprazole DR 40 mg Tablet PO (08:32)
[2022-11-01] MEDS: fluoxetine 20 mg Capsule 80 MG PO (08:32)
[2022-11-01] MEDS: losartan 50 mg Tablet 100 MG PO (08:32)
[2022-11-01] MEDS: CLONazepam 0.5 mg Tablet 0.25 MG PO ×3 (08:34→20:35)
[2022-11-01 09:50] VITALS: PULSE 98; RESP 16; O2SAT 96
[2022-11-01] MEDS: ibuprofen 800 mg tablet PO (12:42)
[2022-11-01 14:00] VITALS: BP 109/77; PULSE 96; RESP 17; TEMP 36.5; O2SAT 90
--- NOTE | 2022-11-01 17:28 | P.NPUPN_ITS ---
Subjective NPU Subjective: Patient presented today reporting that he is doing okay. We discussed the fact that with my understanding that he has been accepted at a facility but is only a technicality preventing his transfer. He wanted to know more about the place where it was. I explained to him that I was unaware of the specifics but that he might be further than [place], but that it is still a quality facility. We discussed that this is a starting place while things are figured out in his overall long-term plan. Mental Status Exam MSE Comments: This is an obese versus morbidly obese white male in hospital scrubs with adequate grooming and limited eye contact. No abnormal involuntary motor movements except for mild psychomotor retardation. He was cooperative with exam in no acute distress. Speech was normal in volume and prosody with rate beginning to normalize but slightly decreased. His mood was described as okay, his affect remained flat but less subdued. Thought process was linear and organized. Thought content: Patient denied suicidal or homicidal ideation, there were no delusions reported or noted, he denied any auditory or visual hallucinations. There was significant evidence of cognitive distortions and overvalued ideas. Attention and concentration were intact and memory appeared mostly reliable but none were formally tested. He is alert and oriented x3. Insight is limited. Judgment remains limited. His impulse control is limited. Vitals/I&O/Wt Last Vital Signs Temp 97.7 F 11/01/22 14:00 Pulse 97 11/01/22 21:30 Resp 18 11/01/22 21:30 BP 132/93 11/01/22 21:30 Pulse Ox 91 11/01/22 21:30 O2 Del Method Room Air 11/01/22 14:00 O2 Flow Rate 2 11/01/22 07:54 FiO2 30 09/24/22 15:40 11/01/22 14:59 Intake Total 0 / 0 Output Total 1700 / 1700 Balance -1700 / -1700 Physical Exam Urinary Catheter Management: [place]: Cath Placed During This Visit: yes, but has since been removed by the nurse Reason for Continuing Indwelling Catheter: Accurate Measurement of Urinary Output in Critically Ill Patients Urinary Catheter Date of Insertion: 09/22/22 Urinary Catheter Time of Insertion: 20:38 Date Urinary Catheter Removed: 09/25/22 Time Urinary Catheter Discontinued: 12:00 Data NPU 09/29/22 09:20 09/29/22 09:20 A&P Assessment and plan (1) Bipolar disorder, unspecified: (2) Anxiety disorder: (3) Suicidal ideation: (4) Alcohol dependence: (5) Hypothyroidism: (6) Depression: Qualifiers: Depression Type: unspecified Qualified Code(s): F32.A - Depression, unspecified Plan Patient is a 41-year-old white male with a history of alcohol dependence along with unspecified bipolar disorder with a history of multiple inpatient admissions, this going to be his sixth since July 29, 2022, coming to the unit via transfer from the ICU where he was intubated status post suicide attempt. 1. Patient on Vivitrol intramuscularly 380 mg given on 10/13/22. Continue Klonopin 0.25 mg p.o. 3 times daily, increased Prozac to 80mg daily. Restarted Losartan for hypertension, and increased to 100 mg. Discontinued Keppra. 2. Encourage individual, group and milieu therapy. Continue Lamotrigine to 50mg bid. Continue Thorazine 100mg qid. Continued gabapentin 400mg qid, but increased to 600 mg p.o. 4 times daily. Continue cyclobenzaprine to 10 mg 3 times a day. 3. Continue every 15 minute checks for safety 4. Recommend sober living treatment at the highest level of care to which the patient is willing to commit. Which ultimately would be inpatient given his current situation however there may be a need for overall residential treatment facility from a dual diagnosis or mental health standpoint. 5. 21-day hold was established 10/01/2022. 6. Guardianship filed. Court date 10/24/2022. Temporary guardianship was granted. 7. He has been accepted at a facility. We will share with him the specifics of the facility once the level 2 clearance has been completely finalized Involuntary Hold Information 96 Hour Hold: 96 Hour Involuntary Admission: Yes Attestations NPU Medical Necessity Statement*: Inpatient hospitalization is medically necessary and the clinically appropriate decision at this time. We will monitor medications and make changes as indicated. Likely length of stay now determinant on guardianship hearing and finding placement. Likely length of stay 2-3 days. Discharge will occur as soon as placement identified. Coding Level of Care Code Acute Code for [facility] Fwd Diagnoses Bipolar disorder, unspecified F31.9 Anxiety disorder F41.9 Suicidal ideation R45.851 Alcohol dependence F10.20 Hypothyroidism E03.9 Depression F32.A Depression Type: unspecified
[2022-11-01] MEDS: trazodone 50 mg Tablet PO (20:35)
[2022-11-01 21:30] VITALS: BP 132/93; PULSE 97; RESP 18; O2SAT 91
[2022-11-02 06:00] VITALS: BP 125/84; PULSE 95; RESP 18; O2SAT 93
[2022-11-02] MEDS: chlorPROMazine 50 mg Tablet 100 MG PO ×4 (07:53→20:15)
[2022-11-02] MEDS: cyclobenzaprine 10 mg Tablet PO ×3 (07:54→20:15)
[2022-11-02] MEDS: gabapentin 300 mg Capsule 600 MG PO ×4 (07:54→20:15)
[2022-11-02] MEDS: fluoxetine 20 mg Capsule 80 MG PO (07:54)
[2022-11-02] MEDS: losartan 50 mg Tablet 100 MG PO (07:55)
[2022-11-02] MEDS: levothyroxine 25 mcg Tablet PO (07:55)
[2022-11-02] MEDS: thiamine 100 mg Tablet PO (07:55)
[2022-11-02] MEDS: metoprolol succinate ER (24 HR) 50 mg Tablet PO (07:55)
[2022-11-02] MEDS: pantoprazole DR 40 mg Tablet PO (07:56)
[2022-11-02] MEDS: folic acid 1 mg Tablet PO (07:56)
[2022-11-02] MEDS: atorvastatin 40 mg Tablet 20 MG PO (07:56)
[2022-11-02] MEDS: CLONazepam 0.5 mg Tablet 0.25 MG PO ×3 (07:56→20:15)
[2022-11-02] MEDS: lamoTRIgine 25 mg Tablet 50 MG PO ×2 (08:05→20:15)
[2022-11-02] MEDS: naproxen 500 mg Tablet PO ×2 (08:06→20:15)
[2022-11-02] MEDS: nicotine 4 mg lozenge MUCOUS MEM ×3 (10:25→20:21)
--- NOTE | 2022-11-02 10:30 | W.PM.NPUPNS ---
Subjective NPU Subjective: Patient is in today reporting that he is doing fine. We discussed that I reviewed his records identified that there was a place that was willing to set him however his level 2 paperwork had not been officially completed which is the delay in his discharge. He had wondered about whether this could have any impact on the lodges reconsidering him. Otherwise he denied any changes or any concerns at this time. Mental Status Exam MSE Comments: This is an obese versus morbidly obese white male in hospital scrubs with adequate grooming and limited eye contact. No abnormal involuntary motor movements except for mild psychomotor retardation. He was cooperative with exam in no acute distress. Speech was normal in volume and prosody with rate beginning to normalize but slightly decreased. His mood was described as okay, his affect remained flat but less subdued. Thought process was linear and organized. Thought content: Patient denied suicidal or homicidal ideation, there were no delusions reported or noted, he denied any auditory or visual hallucinations. There was significant evidence of cognitive distortions and overvalued ideas. Attention and concentration were intact and memory appeared mostly reliable but none were formally tested. He is alert and oriented x3. Insight is limited. Judgment remains limited. His impulse control is limited. Vitals/I&O/Wt Last Vital Signs Temp 97.7 F 11/01/22 14:00 Pulse 95 11/02/22 06:00 Resp 18 11/02/22 06:00 BP 125/84 11/02/22 06:00 Pulse Ox 93 11/02/22 06:00 O2 Del Method Room Air 11/01/22 14:00 O2 Flow Rate 2 11/01/22 07:54 FiO2 30 09/24/22 15:40 11/01/22 11/02/22 11/02/22 22:59 06:59 14:59 Intake Total 0 / 0 Output Total 1700 / 3400 Balance -1700 / -3400 Weight last 48 hrs Weight 145.603 kg Physical Exam Urinary Catheter Management: [place]: Cath Placed During This Visit: yes, but has since been removed by the nurse Reason for Continuing Indwelling Catheter: Accurate Measurement of Urinary Output in Critically Ill Patients Urinary Catheter Date of Insertion: 09/22/22 Urinary Catheter Time of Insertion: 20:38 Date Urinary Catheter Removed: 09/25/22 Time Urinary Catheter Discontinued: 12:00 Data NPU 09/29/22 09:20 09/29/22 09:20 A&P Assessment and plan (1) Bipolar disorder, unspecified: (2) Anxiety disorder: (3) Suicidal ideation: (4) Alcohol dependence: (5) Hypothyroidism: (6) Depression: Qualifiers: Depression Type: unspecified Qualified Code(s): F32.A - Depression, unspecified Plan Patient is a 41-year-old white male with a history of alcohol dependence along with unspecified bipolar disorder with a history of multiple inpatient admissions, this going to be his sixth since July 29, 2022, coming to the unit via transfer from the ICU where he was intubated status post suicide attempt. 1. Patient on Vivitrol intramuscularly 380 mg given on 10/13/22. Continue Klonopin 0.25 mg p.o. 3 times daily, increased Prozac to 80mg daily. Restarted Losartan for hypertension, and increased to 100 mg. Discontinued Keppra. 2. Encourage individual, group and milieu therapy. Continue Lamotrigine to 50mg bid. Continue Thorazine 100mg qid. Continued gabapentin 400mg qid, but increased to 600 mg p.o. 4 times daily. Continue cyclobenzaprine to 10 mg 3 times a day. 3. Continue every 15 minute checks for safety 4. Recommend sober living treatment at the highest level of care to which the patient is willing to commit. Which ultimately would be inpatient given his current situation however there may be a need for overall residential treatment facility from a dual diagnosis or mental health standpoint. 5. 21-day hold was established 10/01/2022. 6. Guardianship filed. Court date 10/24/2022. Temporary guardianship was granted. 7. He has been accepted at a facility. We will share with him the specifics of the facility once the level 2 clearance has been completely finalized Involuntary Hold Information 96 Hour Hold: 96 Hour Involuntary Admission: Yes Attestations NPU Medical Necessity Statement*: Inpatient hospitalization is medically necessary and the clinically appropriate decision at this time. We will monitor medications and make changes as indicated. Likely length of stay now determinant on guardianship hearing and finding placement. Likely length of stay 1-3 days. Discharge will occur as soon as placement identified. Coding Level of Care Code Acute Code for [facility] Diagnoses Bipolar disorder, unspecified F31.9 Anxiety disorder F41.9 Suicidal ideation R45.851 Alcohol dependence F10.20 Hypothyroidism E03.9 Depression F32.A Depression Type: unspecified
[2022-11-02] MEDS: ibuprofen 800 mg tablet PO (12:23)
[2022-11-02 14:00] VITALS: BP 107/68; PULSE 103; RESP 16; TEMP 36.8; O2SAT 90
[2022-11-02] MEDS: trazodone 50 mg Tablet PO (20:15)
[2022-11-02 20:24] VITALS: BP 113/74; PULSE 97; RESP 18; O2SAT 93
[2022-11-03 06:00] VITALS: BP 119/71; PULSE 90; RESP 18; O2SAT 95
[2022-11-03] MEDS: gabapentin 300 mg Capsule 600 MG PO ×4 (08:32→20:21)
[2022-11-03] MEDS: fluoxetine 20 mg Capsule 80 MG PO (08:32)
[2022-11-03] MEDS: folic acid 1 mg Tablet PO (08:32)
[2022-11-03] MEDS: cyclobenzaprine 10 mg Tablet PO ×3 (08:32→20:22)
[2022-11-03] MEDS: lamoTRIgine 25 mg Tablet 50 MG PO ×2 (08:32→20:35)
[2022-11-03] MEDS: levothyroxine 25 mcg Tablet PO (08:32)
[2022-11-03] MEDS: thiamine 100 mg Tablet PO (08:33)
[2022-11-03] MEDS: chlorPROMazine 50 mg Tablet 100 MG PO ×4 (08:33→20:23)
[2022-11-03] MEDS: naproxen 500 mg Tablet PO ×2 (08:33→20:20)
[2022-11-03 08:34] VITALS: BP 119/71
[2022-11-03] MEDS: CLONazepam 0.5 mg Tablet 0.25 MG PO ×3 (08:34→20:23)
[2022-11-03] MEDS: atorvastatin 40 mg Tablet 20 MG PO (08:34)
[2022-11-03] MEDS: losartan 50 mg Tablet 100 MG PO (08:34)
[2022-11-03] MEDS: metoprolol succinate ER (24 HR) 50 mg Tablet PO (08:34)
[2022-11-03] MEDS: pantoprazole DR 40 mg Tablet PO (08:35)
[2022-11-03] MEDS: nicotine 4 mg lozenge MUCOUS MEM ×6 (08:39→20:24)
[2022-11-03 14:00] VITALS: BP 126/72; PULSE 106; RESP 18; TEMP 36.6; O2SAT 92
[2022-11-03] MEDS: ibuprofen 800 mg tablet PO (16:42)
--- NOTE | 2022-11-03 18:25 | W.PM.NPUPNS ---
Subjective NPU Subjective: Patient presented today reporting that he is worried that things are going to fall into place. We discussed some being patient and identifying that patients with greater challenges than him has been placed and this is just a matter of time. He denies any issues with his medications and reports he is eating well and sleeping well too. We discussed his apnea and he denies feeling sleepy secondary to that. Mental Status Exam MSE Comments: This is an obese versus morbidly obese white male in hospital scrubs with adequate grooming and limited eye contact. No abnormal involuntary motor movements except for mild psychomotor retardation. He was cooperative with exam in no acute distress. Speech was normal in volume and prosody with rate beginning to normalize but slightly decreased. His mood was described as okay, his affect remained flat but less subdued. Thought process was linear and organized. Thought content: Patient denied suicidal or homicidal ideation, there were no delusions reported or noted, he denied any auditory or visual hallucinations. There was significant evidence of cognitive distortions and overvalued ideas. Attention and concentration were intact and memory appeared mostly reliable but none were formally tested. He is alert and oriented x3. Insight is limited. Judgment remains limited. His impulse control is limited. Vitals/I&O/Wt Last Vital Signs Temp 97.7 F 11/03/22 20:33 Pulse 100 11/03/22 20:33 Resp 18 11/03/22 20:33 BP 113/65 11/03/22 20:33 Pulse Ox 93 11/03/22 20:33 O2 Del Method Room Air 11/02/22 14:00 O2 Flow Rate 2 11/01/22 07:54 FiO2 30 09/24/22 15:40 11/03/22 11/03/22 11/04/22 14:59 22:59 06:59 Intake Total 0 / 0 Output Total 1700 / 1700 Balance -1700 / -1700 Weight last 48 hrs Weight 145.603 kg Physical Exam Urinary Catheter Management: [place]: Cath Placed During This Visit: yes, but has since been removed by the nurse Reason for Continuing Indwelling Catheter: Accurate Measurement of Urinary Output in Critically Ill Patients Urinary Catheter Date of Insertion: 09/22/22 Urinary Catheter Time of Insertion: 20:38 Date Urinary Catheter Removed: 09/25/22 Time Urinary Catheter Discontinued: 12:00 Data NPU 09/29/22 09:20 09/29/22 09:20 A&P Assessment and plan (1) Bipolar disorder, unspecified: (2) Anxiety disorder: (3) Suicidal ideation: (4) Alcohol dependence: (5) Hypothyroidism: (6) Depression: Qualifiers: Depression Type: unspecified Qualified Code(s): F32.A - Depression, unspecified Plan Patient is a 41-year-old white male with a history of alcohol dependence along with unspecified bipolar disorder with a history of multiple inpatient admissions, this going to be his sixth since July 29, 2022, coming to the unit via transfer from the ICU where he was intubated status post suicide attempt. 1. Patient on Vivitrol intramuscularly 380 mg given on 10/13/22. Continue Klonopin 0.25 mg p.o. 3 times daily, increased Prozac to 80mg daily. Restarted Losartan for hypertension, and increased to 100 mg. Discontinued Keppra. 2. Encourage individual, group and milieu therapy. Continue Lamotrigine to 50mg bid. Continue Thorazine 100mg qid. Continued gabapentin 400mg qid, but increased to 600 mg p.o. 4 times daily. Continue cyclobenzaprine to 10 mg 3 times a day. 3. Continue every 15 minute checks for safety 4. Recommend sober living treatment at the highest level of care to which the patient is willing to commit. Which ultimately would be inpatient given his current situation however there may be a need for overall residential treatment facility from a dual diagnosis or mental health standpoint. 5. 21-day hold was established 10/01/2022. 6. Guardianship filed. Court date 10/24/2022. Temporary guardianship was granted. 7. He has been accepted at a facility. We will share with him the specifics of the facility once the level 2 clearance has been completely finalized Involuntary Hold Information 96 Hour Hold: 96 Hour Involuntary Admission: Yes Attestations NPU Medical Necessity Statement*: Inpatient hospitalization is medically necessary and the clinically appropriate decision at this time. We will monitor medications and make changes as indicated. Likely length of stay now determinant on guardianship hearing and finding placement. Likely length of stay 1-3 days. Discharge will occur as soon as placement identified. Coding Level of Care Code Acute Code for [facility] Diagnoses Bipolar disorder, unspecified F31.9 Anxiety disorder F41.9 Suicidal ideation R45.851 Alcohol dependence F10.20 Hypothyroidism E03.9 Depression F32.A Depression Type: unspecified
[2022-11-03] MEDS: sennosides 8.6 mg Tablet 17.2 MG PO (20:22)
[2022-11-03] MEDS: trazodone 50 mg Tablet PO (20:27)
[2022-11-03 20:33] VITALS: BP 113/65; PULSE 100; RESP 18; TEMP 36.5; O2SAT 93
[2022-11-04 06:00] VITALS: BP 135/91; PULSE 104; RESP 16; TEMP 36.9; O2SAT 92
[2022-11-04] MEDS: atorvastatin 40 mg Tablet 20 MG PO (07:48)
[2022-11-04] MEDS: levothyroxine 25 mcg Tablet PO (07:48)
[2022-11-04] MEDS: cyclobenzaprine 10 mg Tablet PO ×3 (07:48→20:21)
[2022-11-04] MEDS: pantoprazole DR 40 mg Tablet PO (07:49)
[2022-11-04] MEDS: nicotine 4 mg lozenge MUCOUS MEM ×6 (07:49→20:20)
[2022-11-04] MEDS: naproxen 500 mg Tablet PO ×2 (07:49→20:20)
[2022-11-04] MEDS: lamoTRIgine 25 mg Tablet 50 MG PO ×2 (07:49→20:20)
[2022-11-04] MEDS: thiamine 100 mg Tablet PO (07:49)
[2022-11-04] MEDS: metoprolol succinate ER (24 HR) 50 mg Tablet PO (07:49)
[2022-11-04 07:50] VITALS: BP 135/90
[2022-11-04] MEDS: chlorPROMazine 50 mg Tablet 100 MG PO ×4 (07:50→20:21)
[2022-11-04] MEDS: fluoxetine 20 mg Capsule 80 MG PO (07:50)
[2022-11-04] MEDS: gabapentin 300 mg Capsule 600 MG PO ×4 (07:50→20:19)
[2022-11-04] MEDS: losartan 50 mg Tablet 100 MG PO (07:50)
[2022-11-04] MEDS: CLONazepam 0.5 mg Tablet 0.25 MG PO ×3 (07:50→20:20)
[2022-11-04] MEDS: folic acid 1 mg Tablet PO (07:50)
[2022-11-04] MEDS: OLANZapine 5 mg ODT PO (11:11)
[2022-11-04] MEDS: haloperidol 5 mg Tablet PO (12:09)
[2022-11-04 14:00] VITALS: BP 115/75; PULSE 100; RESP 16; TEMP 36.8; O2SAT 90
--- NOTE | 2022-11-04 17:51 | P.NPUPN_ITS ---
Subjective NPU Subjective: Patient presented today reporting that he was feeling okay. He has a little frustration at the level 2 process and lack of control over it. We discussed the fact that he is excepted at facility but that may be the level 2 completion to show up in the system allowing him to move forward. We agreed we would continue to follow-up on this and are still hopeful about discharge this week. He denies any problems or issues with his medications. Mental Status Exam MSE Comments: This is an obese versus morbidly obese white male in hospital scrubs with adequate grooming and limited eye contact. No abnormal involuntary motor movements except for mild psychomotor retardation. He was cooperative with exam in no acute distress. Speech was normal in volume and prosody with rate beginning to normalize but slightly decreased. His mood was described as okay, his affect remained flat but less subdued. Thought process was linear and organized. Thought content: Patient denied suicidal or homicidal ideation, there were no delusions reported or noted, he denied any auditory or visual hallucinations. There was significant evidence of cognitive distortions and overvalued ideas. Attention and concentration were intact and memory appeared mostly reliable but none were formally tested. He is alert and oriented x3. Insight is limited. Judgment remains limited. His impulse control is limited. Vitals/I&O/Wt Last Vital Signs Temp 97.6 F 11/04/22 20:42 Pulse 96 11/04/22 20:42 Resp 21 H 11/04/22 20:42 BP 98/67 11/04/22 20:42 Pulse Ox 92 11/04/22 20:42 O2 Del Method Room Air 11/04/22 20:42 O2 Flow Rate 2 11/01/22 07:54 FiO2 30 09/24/22 15:40 Physical Exam Urinary Catheter Management: [place]: Cath Placed During This Visit: yes, but has since been removed by the nurse Reason for Continuing Indwelling Catheter: Accurate Measurement of Urinary Output in Critically Ill Patients Urinary Catheter Date of Insertion: 09/22/22 Urinary Catheter Time of Insertion: 20:38 Date Urinary Catheter Removed: 09/25/22 Time Urinary Catheter Discontinued: 12:00 Data NPU 09/29/22 09:20 09/29/22 09:20 A&P Assessment and plan (1) Bipolar disorder, unspecified: (2) Anxiety disorder: (3) Suicidal ideation: (4) Alcohol dependence: (5) Hypothyroidism: (6) Depression: Qualifiers: Depression Type: unspecified Qualified Code(s): F32.A - Depression, unspecified Plan Patient is a 41-year-old white male with a history of alcohol dependence along with unspecified bipolar disorder with a history of multiple inpatient admissions, this going to be his sixth since July 29, 2022, coming to the unit via transfer from the ICU where he was intubated status post suicide attempt. 1. Patient on Vivitrol intramuscularly 380 mg given on 10/13/22. Continue Klonopin 0.25 mg p.o. 3 times daily, increased Prozac to 80mg daily. Restarted Losartan for hypertension, and increased to 100 mg. Discontinued Keppra. 2. Encourage individual, group and milieu therapy. Continue Lamotrigine to 50mg bid. Continue Thorazine 100mg qid. Continued gabapentin 400mg qid, but i ncreased to 600 mg p.o. 4 times daily. Continue cyclobenzaprine to 10 mg 3 times a day. 3. Continue every 15 minute checks for safety 4. Recommend sober living treatment at the highest level of care to which the patient is willing to commit. Which ultimately would be inpatient given his current situation however there may be a need for overall residential treatment facility from a dual diagnosis or mental health standpoint. 5. 21-day hold was established 10/01/2022. 6. Guardianship filed. Court date 10/24/2022. Temporary guardianship was granted. 7. He has been accepted at a facility. We will share with him the specifics of the facility once the level 2 clearance has been completely finalized Involuntary Hold Information 96 Hour Hold: 96 Hour Involuntary Admission: Yes Attestations NPU Medical Necessity Statement*: Inpatient hospitalization is medically necessary and the clinically appropriate decision at this time. We will monitor medications and make changes as indicated. Likely length of stay now determinant on guardianship hearing and finding placement. Likely length of stay 1-3 days. Discharge will occur as soon as placement identified. Coding Level of Care Code Acute Code for [facility] Diagnoses Bipolar disorder, unspecified F31.9 Anxiety disorder F41.9 Suicidal ideation R45.851 Alcohol dependence F10.20 Hypothyroidism E03.9 Depression F32.A Depression Type: unspecified
[2022-11-04] MEDS: trazodone 50 mg Tablet PO (20:19)
[2022-11-04 20:42] VITALS: BP 98/67; PULSE 96; RESP 21; TEMP 36.4; O2SAT 92
[2022-11-05 06:00] VITALS: BP 132/86; PULSE 100; RESP 16; O2SAT 92
[2022-11-05] MEDS: losartan 50 mg Tablet 100 MG PO (08:21)
[2022-11-05] MEDS: gabapentin 300 mg Capsule 600 MG PO ×3 (08:21→16:01)
[2022-11-05] MEDS: CLONazepam 0.5 mg Tablet 0.25 MG PO ×2 (08:22→14:11)
[2022-11-05] MEDS: fluoxetine 20 mg Capsule 80 MG PO (08:22)
[2022-11-05] MEDS: lamoTRIgine 25 mg Tablet 50 MG PO (08:23)
[2022-11-05] MEDS: thiamine 100 mg Tablet PO (08:23)
[2022-11-05] MEDS: atorvastatin 40 mg Tablet 20 MG PO (08:23)
[2022-11-05] MEDS: levothyroxine 25 mcg Tablet PO (08:23)
[2022-11-05] MEDS: folic acid 1 mg Tablet PO (08:23)
[2022-11-05] MEDS: pantoprazole DR 40 mg Tablet PO (08:23)
[2022-11-05] MEDS: metoprolol succinate ER (24 HR) 50 mg Tablet PO (08:23)
[2022-11-05] MEDS: cyclobenzaprine 10 mg Tablet PO ×2 (08:23→14:10)
[2022-11-05] MEDS: chlorPROMazine 50 mg Tablet 100 MG PO ×3 (08:24→16:01)
[2022-11-05] MEDS: naproxen 500 mg Tablet PO (08:50)
[2022-11-05] MEDS: nicotine 4 mg lozenge MUCOUS MEM ×4 (08:50→15:23)
[2022-11-05] MEDS: ibuprofen 800 mg tablet PO (12:35)
[2022-11-05 14:00] VITALS: BP 124/72; PULSE 113; RESP 18; TEMP 36.4; O2SAT 92
--- NOTE | 2022-11-05 14:08 | P.NPUDS_ITS ---
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 <0.5 mcg/mL (2.5- 15.0) L 09/22/22 20:20 Ur Phencyclidine S crn Negative ng/mL (N egative) 09/22/22 20:39 Ur Amphetamines Sc reen Negative ng/mL (N egative) 09/22/22 20:39 U Benzodiazepines Scrn Negative ng/mL (N egative) 09/22/22 20:39 Urine Cocaine Scre en Negative ng/mL (N egative) 09/22/22 20:39 U Marijuana (THC) Screen Positive ng/mL (N egative) H 09/22/22 20:39 Ethyl Alcohol 205 mg/dL (0-10) H 09/22/22 20:20 Vitals: Last Vital Signs Temp 97.6 F 11/04/22 20:42 Pulse 100 11/05/22 06:00 Resp 16 11/05/22 06:00 BP 132/86 11/05/22 06:00 Pulse Ox 92 11/05/22 06:00 O2 Del Method Room Air 11/04/22 20:42 O2 Flow Rate 2 11/01/22 07:54 FiO2 30 09/24/22 15:40 Discharge Plan Discharge Patient Disposition: Home Condition: Stable Prescriptions: New lamotrigine 25 mg Tablet 50 mg PO 0900,2100 30 Days Qty: 120 1RF chlorpromazine 100 mg tablet 100 mg PO QID 30 Days Qty: 120 1RF cyclobenzaprine 10 mg Tablet 10 mg PO TID 30 Days Qty: 90 1RF clonazepam 0.5 mg Tablet 0.25 mg PO TID 30 Days Qty: 45 1RF fluoxetine 40 mg capsule 80 mg PO DAILY 30 Days Qty: 60 1RF ibuprofen 800 mg Tablet 800 mg PO Q8H PRN (Reason: Moderate Pain) 30 Days Qty: 90 1RF Senna Lax 8.6 mg Tablet 17.2 mg PO BEDTIME 30 Days Qty: 60 1RF Non-Formulary Medication [Non-Formulary] 380 mg IM Q28D Qty: 28 1RF Rx Instructions: Vivitrol next dose due 11/13/22 Continued albuterol sulfate [Ventolin HFA] 90 mcg/actuation HFA aerosol inhaler 1 - 2 puff INHALATION Q4H PRN (Reason: Shortness Of Breath Or Wheezing) losartan 50 mg Tablet 100 mg PO DAILY 30 Days Qty: 60 1RF cyclobenzaprine 10 mg Tablet 10 mg PO TID PRN (Reason: Muscle Spasms) 15 Days Qty: 45 1RF omeprazole 20 mg capsule,delayed release(DR/EC) 20 mg PO QAM 30 Days Qty: 30 1RF trazodone 50 mg Tablet 50 mg PO BEDTIME 30 Days Qty: 30 1RF naproxen 500 mg tablet 500 mg PO BID atorvastatin 40 mg Tablet 20 mg PO DAILY 30 Days Qty: 15 1RF gabapentin 600 mg tablet 600 mg PO QID 30 Days Qty: 120 1RF metoprolol succinate 50 mg Tablet Extended Release 24 Hr 50 mg PO DAILY 30 Days Qty: 30 1RF levothyroxine 25 mcg Tablet 25 mcg PO QAM 30 Days Qty: 30 1RF Vitamin B-1 (mononitrate) 100 mg Tablet 100 mg PO DAILY 30 Days Qty: 30 1RF Discontinued haloperidol 5 mg Tablet 5 mg PO TID 30 Days Qty: 90 1RF lamotrigine 25 mg Tablet 25 mg PO BID 30 Days Qty: 60 1RF chlorpromazine 200 mg tablet 200 mg PO QID 30 Days Qty: 120 1RF naproxen 500 mg tablet 500 mg PO BID 30 Days Qty: 60 0RF naloxone [Narcan] 4 mg/actuation [place],Non-Aerosol 4 mg INTRANASAL Q3M PRN (Reason: Opioid Overdose) 30 Days Qty: 2 0RF Rx Instructions: spray 1 dose into ONE nostril; alternate nostrils w each dose until help arrives hydrocodone-acetaminophen 7.5-325 mg tablet 1 tab PO Q12H paliperidone 6 mg tablet extended release 24 hr 6 mg PO DAILY Discharge Orders: Discharge Order (Routine); Ordered 11/05/22 Ordered By: Ovidio Cordoba Referrals: [facility] [Other] - 11/05/22 Dr Linares [Other] - 11/06/22 8:00 am [facility] [Provider Group] - 2 weeks (Seizures) Bob Coy MD [Primary Care Provider] - 4-7 days Discharge Diet: Regular Discharge Activity: Resume usual activity Patient Instructions: Alcohol Abuse, Depression, Bipolar Disorder (GEN), Depression (GEN), Help Prevent Suicide (GEN), Anxiety (DC), Suicide Prevention (GEN), Opioid Safety Discharge Attestations NPU Time Spent in Discharge Care*: greater than 30 min Specific Discharge Activities: Specific discharge activities: educating patient, discussing with home health care case manager/social workers/dc planners, documenting/other paperwork and evaluating patient/reviewing data Coding Level of Care Code Acute [facility] DC note Diagnoses Bipolar disorder, unspecified F31.9 Anxiety disorder F41.9 Suicidal ideation R45.851 Alcohol dependence F10.20 Hypothyroidism E03.9 Depression F32.A Depression Type: unspecified
[2022-11-05 14:19] VITALS: BP 132/86; PULSE 100; RESP 16; O2SAT 92
== END 2022-11-05 17:55 | disposition home or self-care (01) | DRG 885 ==
LOC: ER 23:18 → ICU 09-23 04:25 → NP 09-26 14:07
PROVIDERS: Family Medicine; Admitting Provider Student in an Organized Health Care Education/Training Program; Emergency Provider Emergency Medicine; PCP Family Medicine; Visit Provider Psychiatry & Neurology Psychiatry
DX: F31.9 Bipolar disorder, unspecified (principal); J96.02 Acute respiratory failure with hypercapnia; J96.01 Acute respiratory failure with hypoxia; J69.0 Pneumonitis due to inhalation of food and vomit; F10.239 Alcohol dependence with withdrawal, unspecified; G40.89 Other seizures; R45.851 Suicidal ideations; M62.82 Rhabdomyolysis; F10.229 Alcohol dependence with intoxication, unspecified; Y90.7 Blood alcohol level of 200-239 mg/100 ml; T40.2X2A Poisoning by other opioids, intentional self-harm, initial encounter; T51.0X2A Toxic effect of ethanol, intentional self-harm, initial encounter; Y92.9 Unspecified place or not applicable; E03.9 Hypothyroidism, unspecified; F12.10 Cannabis abuse, uncomplicated; F15.10 Other stimulant abuse, uncomplicated; E87.70 Fluid overload, unspecified; R00.0 Tachycardia, unspecified; E78.00 Pure hypercholesterolemia, unspecified; J45.909 Unspecified asthma, uncomplicated; I10 Essential (primary) hypertension; Z81.1 Family history of alcohol abuse and dependence; Z76.5 Malingerer [conscious simulation]; G47.33 Obstructive sleep apnea (adult) (pediatric); Z53.29 Procedure and treatment not carried out because of patient's decision for other reasons; K59.00 Constipation, unspecified; F41.9 Anxiety disorder, unspecified; Z81.8 Family history of other mental and behavioral disorders
CPT/HCPCS: 31500; 36415; 36416; 36600; 51702; 70450; 71045; 71250; 74018; 74176; 80053; 80175; 80306; 80307; 82550; 82803; 82962; 83605; 83735; 83880; 84100; 84443; 84484; 85007; 85025; 85378; 92523; 92610; 93005; 94002; 94003; 94640; 94660; 94664; 94799; 96365; 96366; 96367; 96372; 96376; 97150; 97161; 97165; 99239; 99285; C9113; J0696; J1650; J1940; J1953; J2060; J2250; J2310; J2543; J2704; J3010; J3411; J3475; J3480; J3490; J7030; Q0161